=== PATIENT | male | born 1965 | race Caucasian/White ===

== ENCOUNTER 2022-05-25 19:26 | Inpatient (IN) | payer OTHER, SELFPAY ==
--- NOTE | ~2022-05-25 | XR_ITS ---
EXAMINATION: XR CHEST CLINICAL INFORMATION: Lung pain COMPARISON: None TECHNIQUE: Frontal view of the chest was obtained. FINDINGS: The study is abnormal. There is mediastinal shift to the left with elevation of the left hemidiaphragm. The cardiac silhouette is diminutive. The right lung is large volume. There is a convex outward masslike opacity in the left hilum. Reticular and patchy opacities in the left lung apex with associated irregular pleural thickening. I suspect volume loss in the left upper lung. There is some left retrocardiac and left costophrenic sulcus region opacity. No gross bone destruction in the left apex. There are a few central reticular opacities in the right lung. There is a small opacity superimposing between the anterior right second and third ribs XR/XR chest 1V IMPRESSION: Abnormal exam. Masslike opacity around the left hilum and reticular opacities with associated pleural thickening and volume loss in the left upper chest. If there has been no surgery possibilities include an obstructing mass on the left or postinflammatory changes (cicatricial atelectasis) from a chronic inflammatory process. Chronic tuberculosis cannot be entirely excluded Small nonspecific opacity right upper lung Further evaluation is warranted. Thorough search for old films recommended
--- NOTE | ~2022-05-25 | CT_ITS ---
EXAMINATION: CT CHEST WITH CONTRAST CLINICAL INFORMATION: Left chest discomfort COMPARISON: Chest radiograph 05/25/2022 TECHNIQUE: Multidetector volumetric CT imaging of the chest was obtained after the administration of 65 mL of Omnipaque 350 intravenous contrast without immediate adverse reactions. Axial MIP volume rendering provided. Sagittal and coronal reformatted images were obtained. This CT examination was performed using dose optimization techniques as appropriate, variously including the following: *Automated exposure control *Adjustment of mA and/or kV according to patient size (this includes techniques or standardized protocols for targeted exams where dose is matched to indication/reason for exam; i.e. extremities or head) *Use of iterative reconstruction technique DLP: 172 mGy-cm FINDINGS: QUALITY REVIEW TRAINER: Hyperexpanded lungs. Left-sided volume loss. LUNGS: The central airways are patent. There is occlusion of the left lower lobe bronchus. There is severe centrilobular and paraseptal emphysema with panlobular appearance at the upper lobes. Left upper lobe bronchiectasis with surrounding consolidation. Much of the left lower lobe is collapsed, with central obstructing process. In the left hilar region there is appearance of a heterogeneous mass. This measures 4.4 x 2.6 x 3.5 cm. No additional pulmonary nodule or mass. No pneumothorax. No pleural effusion. MEDIASTINUM: Normal heart size. No pericardial effusion. Left hilar region mass as detailed above. There is a left hilar lymph node measuring 1.7 cm short axis on series 4 image 232. AXILLA: No lymphadenopathy. UPPER ABDOMEN: Unremarkable OSSEOUS STRUCTURES: No acute or suspicious osseous abnormality. CT/CT chest w IV con IMPRESSION: Central left lower lobe/left hilar mass. This includes the left lower lobe bronchus with much of the left lower lobe collapsed. Concerning for neoplasm. There is an adjacent left hilar lymph node which is enlarged, concerning for metastatic disease. Severe emphysema. Left upper lobe bronchiectasis with pleural thickening. Fleischner guidelines were followed.
--- NOTE | ~2022-05-25 | CT_ITS ---
EXAMINATION: CT ABDOMEN AND PELVIS WITH CONTRAST CLINICAL INFORMATION: Evaluate for metastasis in patient with lung cancer. COMPARISON: Chest CT from 05/25/2022. TECHNIQUE: Multidetector volumetric images were obtained from the superior aspect of the liver through the pubic symphysis following administration 85 mL of Omnipaque 350 intravenous contrast. Sagittal and coronal reformatted images were obtained on the technologist's workstation. Oral contrast: No This CT examination was performed using dose optimization techniques as appropriate, variously including the following: *Automated exposure control *Adjustment of mA and/or kV according to patient size (this includes techniques or standardized protocols for targeted exams where dose is matched to indication/reason for exam; i.e. extremities or head) *Use of iterative reconstruction technique DLP: 161 mGy-cm FINDINGS: LUNG BASES: Moderate left pleural effusion is partially included in the [id number] and is increased in size compared to 05/26/2022. The visualized left lower lung is collapsed and there is left-sided shift of the cardiomediastinal structures. The emphysematous right lung is hyperexpanded. No right-sided pleural effusion. LIVER: The liver has normal size, shape, and attenuation. No evidence of liver metastasis. GALLBLADDER AND BILIARY TREE: Gallbladder is without radiopaque stones, wall thickening or pericholecystic fluid. No dilated bile ducts. PANCREAS: Normal. No edema, pancreatic ductal dilatation or mass. SPLEEN: Normal. ADRENAL GLANDS: Normal. KIDNEYS AND URETERS: The kidneys are normal in size and enhance symmetrically. No renal mass. 0.5 cm calyceal stone of the lateral upper pole of the left kidney has attenuation of approximately 1720 Hounsfield units and is located 3.8 cm deep from the skin surface at the posterior axillary line. Small, 0.2 cm calyceal stone is present in the left lower pole. No hydronephrosis. The ureters are unremarkable. BLADDER: Normal. No calculi or wall thickening. BOWEL AND PERITONEUM: No dilated loops of bowel. Moderate amount fecal material is present in the colon. A 2.1 cm focus of soft tissue attenuation in the sigmoid colon is not convincingly stool and instead probably represents a large polyp for which correlation with findings on colonoscopy is recommended. No abdominal free fluid. ABDOMINAL WALL: Unremarkable. VASCULATURE: Mild atherosclerotic calcification of the abdominal aorta without aneurysm. LYMPH NODES: No pathologic sized lymph nodes in the abdomen or pelvis. No inguinal lymphadenopathy. PELVIC VISCERA: Prostate gland is grossly unremarkable. SKELETAL: Bones are diffusely osteopenic. Bone island of L4 vertebral body. No suspicious osseous lesions. CT/CT abdomen pelvis w IV con IMPRESSION: * No evidence of metastatic disease in the abdomen or pelvis. * Moderate left pleural effusion is partially included in the [id number] and has increased in size compared to 05/25/2022. The partially visualized left lower lung is collapsed. * 2.1 cm polypoid lesion of the sigmoid colon is suspected. Recommend correlation with findings on colonoscopy. * Left renal stones without hydronephrosis.
--- NOTE | ~2022-05-25 | MR_ITS ---
MR BRAIN WITHOUT AND WITH CONTRAST CLINICAL INFORMATION: Lung cancer. Rule out metastatic disease. COMPARISON: None available. TECHNIQUE: Multiplanar, multisequence MRI of the brain was obtained before and after the intravenous administration of 5 mL of Gadavist. FINDINGS: There is no pathologic intracranial enhancement. There is no hydrocephalus, extra-axial surface collection, or herniation. There is mild chronic microangiopathy. The major flow voids at the skull base are preserved. There is no acute infarct on diffusion-weighted imaging. There is no intracranial hemorrhage on the gradient recalled echo acquisition. The midline structures are normal. The cerebellar tonsils are normally positioned. The cerebellum and brainstem are normal. The craniocervical junction is normal. Osseous marrow signal intensity is homogenous. The visualized soft tissues are unremarkable. There is mild mucosal thickening within the right maxillary sinus. MR/MR head/brain wo/w con IMPRESSION: - No evidence of intracranial metastatic disease; there are no enhancing lesions intracranially. - There is mild chronic microangiopathy.
[2022-05-25 19:28] VITALS: BP 119/77; PULSE 100; RESP 18; TEMP 37; O2SAT 95; BMI 19.1
--- NOTE | 2022-05-25 19:30 | ECG_ITS ---
Test Reason : sob chest pain Blood Pressure : / mmHG Vent. Rate : 090 BPM Atrial Rate : 090 BPM P-R Int : 130 ms QRS Dur : 086 ms QT Int : 346 ms P-R-T Axes : 081 070 081 degrees QTc Int : 423 ms Normal sinus rhythm Normal ECG No previous ECGs available Referred By: Generic ED Physician Electronically Signed By:Hakeem Kowalski
[2022-05-25 19:43] LABS: MANUAL DIFF FLAG NO
[2022-05-25 19:45] LABS: Basophils Absolute Auto 0.1 X10*3/uL (0.0-0.2); Basophils Percent Auto 0.6 % (0-2); Eosinophils Absolute Auto 0.1 X10*3/uL (0.0-0.4); Eosinophils Percent Auto 0.9 % (0-4); Hematocrit 42.7 % (42.0-52.0); Imm Gran Abs Auto 0.02 X10*3/uL (0.00-0.03); Imm Gran Pct Auto 0.2 % (0.0-0.4); Lymphocytes Absolute Auto 1.6 X10*3/uL (1.2-4.9); Lymphocytes Percent Auto 19.3 % (20-40); Mean Corpuscular HGB Conc 32.8 g/dl (31.0-36.0); Mean Corpuscular Volume 88.4 fL (80.0-98.0); Mean Platelet Volume 9.8 fL (9.4-12.4); Monocytes Absolute Auto 0.8 X10*3/uL (0.1-1.2); Monocytes Percent Auto 9.5 % (2-11); Neutrophils Absolute Auto 5.6 x10*3/uL (2.0-8.3); Neutrophils Percent Auto 69.5 % (45-73); Platelet Count 322 X10*3/uL (160-400); Red Blood Count 4.83 X10*6/uL (4.60-5.80); Red Cell Distribution Width 14.1 % (11.0-16.0); White Blood Count 8.1 X10*3/uL (4.8-10.8)
[2022-05-25 20:01] LABS: Alanine Aminotransferase 13 U/L (0-40); Albumin Level 4.1 g/dL (3.5-5.0); Alkaline Phosphatase 99 U/L (39-117); Anion Gap 18 (12-20); Aspartate Amino Transferase 27 U/L (5-37); Bilirubin Total 0.3 mg/dL (0.0-1.0); Blood Urea Nitrogen 10 mg/dL (9-16); Calcium 9.2 mg/dL (8.4-10.2); Carbon Dioxide 19 mmol/L (22-29); Chloride 103 mmol/L (96-108); Creatinine Clr Calc Pharmacy 80.1; Estimated Glomerular Filt Rate > 60; Glucose Random 93 mg/dL (60-115); Potassium 3.8 mmol/L (3.3-5.1); Sodium 136 mmol/L (135-145)
[2022-05-25 20:07] LABS: Troponin-I High Sensitivity < 3.5 ng/L (<3.5-35.0)
[2022-05-25 22:38] VITALS: PULSE 81; O2SAT 97
--- NOTE | 2022-05-25 23:25 | ED_ITS ---
HPI - Chest Pain General Chief Complaint: Chest Pain Stated Complaint: Flank pain Time Seen by Provider: 05/25/22 22:32 Source: patient, automotive lube technician and other Mode of arrival: ambulatory History of Present Illness HPI narrative: 56-year-old male with longstanding history of smoking and ?asthma? states that he began coughing earlier in the evening and then developed significant left- sided chest pain that feels like somebody kicked him in the chest. Patient denies any recent travel to TB endemic areas, originally born in [place] and denies any previous testing or evaluation for TB, denies any recent weight loss/night sweats, denies any fevers or chills, occasionally drinks alcohol but denies any other drug use or marijuana use. Related Data Home Medications Medication Instructions Recorded Confirmed No Known Home Meds 05/25/22 05/25/22 Allergies Allergy/AdvReac Type Severity Reaction Status Date / Time No Known Allergies Allergy Verified 05/25/22 19:30 Review of Systems Review of Systems: Pertinent positives and negatives as stated in HPI 10 point review of systems is otherwise negative. PMFSH Past Medical History Source: nursing notes reviewed Social History Social History Advance Directives: No Advance Directives Information Provided: Yes Physical Exam Vital Signs: Vital Signs: Last Vital Signs Temp 98.6 F 05/25/22 19:28 Pulse 81 05/25/22 22:38 Resp 18 05/25/22 19:28 BP 119/77 05/25/22 19:28 Pulse Ox 97 05/25/22 22:38 O2 Del Method 05/25/22 22:38 BMI result Body Mass Index 19.1 VITAL SIGNS: Reviewed. GENERAL: Slender, well nourished, in no acute distress. HEAD: Normocephalic/atraumatic EYES: PERRLA, EOMI EARS: Ext canals without abnormality OROPHARYNX: no oral lesions noted, posterior pharynx clear LUNGS: Good inspiratory effort without expiratory wheeze with the exception on left side with noted crackles and expiratory wheeze, mild tachypnea. SpO2<97>; CHEST WALL: No chest wall pain with the exception palpation over the left side without noted deformity or crepitus CARDIOVASCULAR: Regular rate and rhythm without noted murmurs, no JVD or lower extremity edema. ABDOMEN: Soft, non-tender, non-distended with bowel sounds. MUSCULOSKELETAL: No tenderness, deformities, or effusions noted on gross inspection. EXTREMITIES: No cyanosis, clubbing or edema. SKIN: Inspection of the skin reveals no rashes NEUROLOGIC: Alert and oriented x 4. Strength and sensation to light touch were grossly intact x 4. Course Course Course Narrative: This is a 56-year-old male, smoker, with history and clinical presentation after review investigations of either lung mass and given lack of symptoms decrease likelihood of TB, however given the location of the mass cannot completely rule out. IV was placed, medication given to include albuterol treatment and will proceed with CT with IV contrast. Review of all investigations consistent with new left lung mass, suspect metastatic disease, patient requiring pain medication and discuss the case with inpatient hospitalist who accepts admission. Patient is COVID-19 negative. MDM - Chest Pain Lab Data Result diagrams: 05/25/22 19:39 05/25/22 19:39 Labs: Lab Results 05/25/22 05/25/22 05/25/22 Range/Units 19:39 19:39 19:39 WBC 8.1 (4.8-10.8) X10*3/uL RBC 4.83 (4.60-5.80) X10*6/uL Hgb 14.0 (14.0-18.0) g/dl Hct 42.7 (42.0-52.0) % MCV 88.4 (80.0-98.0) fL MCH 29.0 (27.0-33.0) pg MCHC 32.8 (31.0-36.0) g/dl RDW 14.1 (11.0-16.0) % Plt Count 322 (160-400) X10*3/uL MPV 9.8 (9.4-12.4) fL Immature Gran % (Auto) 0.2 (0.0-0.4) % Neut % (Auto) 69.5 (45-73) % Lymph % (Auto) 19.3 L (20-40) % Whitfield % (Auto) 9.5 (2-11) % Eos % (Auto) 0.9 (0-4) % Baso % (Auto) 0.6 (0-2) % Lymph # (Auto) 1.6 (1.2-4.9) X10*3/uL Whitfield # (Auto) 0.8 (0.1-1.2) X10*3/uL Eos # (Auto) 0.1 (0.0-0.4) X10*3/uL Baso # (Auto) 0.1 (0.0-0.2) X10*3/uL Abs Immat Gran (auto) 0.02 (0.00-0.03) X10*3/uL Absolute Neuts (auto) 5.6 (2.0-8.3) x10*3/uL Absolute Nucleated RBC 0.000 (0.0-0.012) X10*3/uL Nucleated RBC % (auto) 0.0 (0.0-0.2) /100WBC Sodium 136 (135-145) mmol/L Potassium 3.8 (3.3-5.1) mmol/L Chloride 103 (96-108) mmol/L Carbon Dioxide 19 L (22-29) mmol/L Anion Gap 18 (12-20) BUN 10 (9-16) mg/dL Creatinine 0.75 (0.5-1.4) mg/dL Estim Creat Clear Calc 80.1 Estimated GFR > 60 Random Glucose 93 (60-115) mg/dL Calcium 9.2 (8.4-10.2) mg/dL Total Bilirubin 0.3 (0.0-1.0) mg/dL AST 27 (5-37) U/L ALT 13 (0-40) U/L Alkaline Phosphatase 99 (39-117) U/L Troponin I High Sens < 3.5 (<3.5-35.0) ng/L Total Protein 8.0 (6.5-8.0) g/dL Albumin 4.1 (3.5-5.0) g/dL COVID-19 ([facility]) (Negative) COVID-19 Clin Com 05/25/22 Range/Units 23:43 WBC (4.8-10.8) X10*3/uL RBC (4.60-5.80) X10*6/uL Hgb (14.0-18.0) g/dl Hct (42.0-52.0) % MCV (80.0-98.0) fL MCH (27.0-33.0) pg MCHC (31.0-36.0) g/dl RDW (11.0-16.0) % Plt Count (160-400) X10*3/uL MPV (9.4-12.4) fL Immature Gran % (Auto) (0.0-0.4) % Neut % (Auto) (45-73) % Lymph % (Auto) (20-40) % Whitfield % (Auto) (2-11) % Eos % (Auto) (0-4) % Baso % (Auto) (0-2) % Lymph # (Auto) (1.2-4.9) X10*3/uL Whitfield # (Auto) (0.1-1.2) X10*3/uL Eos # (Auto) (0.0-0.4) X10*3/uL Baso # (Auto) (0.0-0.2) X10*3/uL Abs Immat Gran (auto) (0.00-0.03) X10*3/uL Absolute Neuts (auto) (2.0-8.3) x10*3/uL Absolute Nucleated RBC (0.0-0.012) X10*3/uL Nucleated RBC % (auto) (0.0-0.2) /100WBC Sodium (135-145) mmol/L Potassium (3.3-5.1) mmol/L Chloride (96-108) mmol/L Carbon Dioxide (22-29) mmol/L Anion Gap (12-20) BUN (9-16) mg/dL Creatinine (0.5-1.4) mg/dL Estim Creat Clear Calc Estimated GFR Random Glucose (60-115) mg/dL Calcium (8.4-10.2) mg/dL Total Bilirubin (0.0-1.0) mg/dL AST (5-37) U/L ALT (0-40) U/L Alkaline Phosphatase (39-117) U/L Troponin I High Sens (<3.5-35.0) ng/L Total Protein (6.5-8.0) g/dL Albumin (3.5-5.0) g/dL COVID-19 ([facility]) Negative (Negative) COVID-19 Clin Com See Note ECG Data ECG #1: Attestation: I personally reviewed and interpreted this ECG as follows: Prior ECG tracings: not available for review Interpretation: NSR, HR-90, no STEMI, IN/QRS/QTC is within normal limits. Discharge Plan Discharge Clinical Impression: Chest pain, Mass of left lung, Intractable pain Patient Disposition: Admitted As Inpatient Prescriptions: No Action No Known Home Meds
[2022-05-25] MEDS: Ketorolac Tromethamine 30 MG/ML VIAL 15 MG IVPUSH (23:38)
[2022-05-25] MEDS: Albuterol/Iprat 2.5/0.5MG 3 ML AMPUL.NEB INHALE (23:39)
[2022-05-26] VITALS (12 sets, daily range): BP systolic 107–139; BP diastolic 57–71; PULSE 59–85; RESP 13–26; O2SAT 92–97
[2022-05-26 00:12] LABS: COVID-19 Test Negative (Negative); IDNOW Serial# 16C4AD1C
[2022-05-26] MEDS: HYDROmorphone HCl 0.5 MG/0.5 ML SYRINGE 0.25 MG IVPUSH (00:16)
[2022-05-26] MEDS: Enoxaparin Sodium 40 MG/0.4 ML SYRINGE SUBCUT ×2 (01:36→20:03)
[2022-05-26 01:58] LABS: D Dimer High Sensitivity < 150 NG/ML
[2022-05-26 02:05] LABS: Troponin-I High Sensitivity < 3.5 ng/L (<3.5-35.0)
--- NOTE | 2022-05-26 02:07 | P.HPHOSP_ITS ---
History of Present Illness Date of Service: 05/26/22 Chief Complaint: Left chest wall pain 56-year-old male with a past medical history of asthma, tobacco dependence presented to the hospital today with a chief complaint of chest pain. Patient reports that for the past 1 week he has been having left lateral chest wall pain, worsens with deep inspiration; also served shortness of breath; mentioned that this is chest wall pain is gradually worsening today he had severe pain hence decided to come to the ER for further evaluation. Denies any fall or trauma. Denies any palpitations, lightheaded or dizziness. Denies any nausea vomiting diarrhea. Denies any cough or sputum production. Review of all other systems is negative except mentioned above ER course: Per ER team patient noted to have pleuritic left chest pain; CT chest showed findings concerning for lung mass versus lower lobe collapse. Breathing comfortably on room air. EKG was nonischemic; troponin was negative; given pain medication. Admitted to the hospital for further management PMFSH Medical History Asthma Non-small cell cancer of left lung Tobacco dependence Family History Other No family history of cancer Pertinent family history: Denies any history of cancer in the family Surgical History History of lung biopsy Social History Household Members: Family Housing: House Are you a primary congregational care pastor to a significant other at home: No Do you presently have visiting nurse or other home services: No Patient Tobacco Use Status: Former Tobacco user Tobacco use type: Cigarette Cigarettes Per Day: 20 Years Smoked: 30 years Second Hand Smoke Exposure: No Advance Directives: No service: No Current occupational status: disabled Meds Allergies Allergy/AdvReac Type Severity Reaction Status Date / Time No Known Allergies Allergy Verified 06/21/22 16:25 Active Medications: Current Medications Acetaminophen (Acetaminophen 325 Mg Tablet) 650 mg PO Q6H PRN PRN Reason: Pain, Mild (Pain Scale 1-3) Albuterol/Ipratropium (Albuterol/Iprat 2.5/0.5mg 3 Ml Ampul.Neb) 3 ml INHALE RQ4H PRN PRN Reason: Shortness of Breath/Wheezing Enoxaparin Sodium (Enoxaparin Sodium 40 Mg/0.4 Ml Syringe) 40 mg SUBCUT BEDTIME ABIMBOLA Last Admin: 05/26/22 01:36 Dose: 40 mg Hydromorphone HCl (Hydromorphone Hcl 0.5 Mg/0.5 Ml Syringe) 0.5 mg IVPUSH Q4H PRN; Protocol PRN Reason: Pain, Severe (Pain Scale 7-10) Melatonin (Melatonin 3 Mg Tablet) 6 mg PO BEDTIME PRN PRN Reason: Insomnia Senna (Sennosides 8.6 Mg Tablet) 17.2 mg PO BEDTIME PRN PRN Reason: Constipation Sodium Chloride (0.9 % Sodium Chloride Flush 3 Ml Syringe) 3 ml IVFLUSH QSHIFT ABIMBOLA Physical Exam Vital Signs and Narrative: Vital Signs: Last Vital Signs Temp 98.6 F 05/25/22 19:28 Pulse 70 05/26/22 01:55 Resp 26 H 05/26/22 01:55 BP 116/57 L 05/26/22 01:55 Pulse Ox 95 05/26/22 01:55 O2 Del Method 05/26/22 01:55 BMI result Body Mass Index 19.1 Gen: Appears be in no acute distress. Thin built HEENT: NCAT, Moist mucosa. Pulmonary: Vesicular breath sounds, fair air entry. Chest wall pain non reproducible CVS: Normal S1-S2 Abdomen: BS+, Soft, Nontender Extremities: Warm well perfused Neuro: Alert and awake. Grossly nonfocal Results Labs CBC and Chem 7: 06/05/22 15:57 06/03/22 06:07 Labs: Laboratory Results - last 24 hr 05/25/22 05/25/22 05/25/22 19:39 19:39 19:39 MCV 88.4 MCH 29.0 MCHC 32.8 RDW 14.1 Plt Count 322 MPV 9.8 Immature Gran % (Auto) 0.2 Neut % (Auto) 69.5 Lymph % (Auto) 19.[address] [facility] % (Auto) 9.5 Eos % (Auto) 0.9 Baso % (Auto) 0.6 Lymph # (Auto) 1.6 [facility] # (Auto) 0.8 Eos # (Auto) 0.1 Baso # (Auto) 0.1 Abs Immat Gran (auto) 0.02 Absolute Neuts (auto) 5.6 Absolute Nucleated RBC 0.000 Nucleated RBC % (auto) 0.0 D-Dimer High Sensitivty Anion Gap 18 Estim Creat Clear Calc 80.1 Estimated GFR > 60 Random Glucose 93 Calcium 9.2 Total Bilirubin 0.3 AST 27 ALT 13 Alkaline Phosphatase 99 Troponin I High Sens < 3.5 Total Protein 8.0 Albumin 4.1 COVID-19 ([facility]) COVID-19 Clin Com 05/25/22 05/26/22 05/26/22 23:43 01:32 01:32 MCV MCH MCHC RDW Plt Count MPV Immature Gran % (Auto) Neut % (Auto) Lymph % (Auto) [facility] % (Auto) Eos % (Auto) Baso % (Auto) Lymph # (Auto) [facility] # (Auto) Eos # (Auto) Baso # (Auto) Abs Immat Gran (auto) Absolute Neuts (auto) Absolute Nucleated RBC Nucleated RBC % (auto) D-Dimer High Sensitivty < 150 Anion Gap Estim Creat Clear Calc Estimated GFR Random Glucose Calcium Total Bilirubin AST ALT Alkaline Phosphatase Troponin I High Sens < 3.5 Total Protein Albumin COVID-19 ([facility]) Negative COVID-19 Clin Com See Note Imaging Radiologist's Impressions: Impressions Chest X-Ray 05/25/22 19:50 IMPRESSION: Abnormal exam. Masslike opacity around the left hilum and reticular opacities with associated pleural thickening and volume loss in the left upper chest. If there has been no surgery possibilities include an obstructing mass on the left or postinflammatory changes (cicatricial atelectasis) from a chronic inflammatory process. Chronic tuberculosis cannot be entirely excluded Small nonspecific opacity right upper lung Further evaluation is warranted. Thorough search for old films recommended Chest CT 05/26/22 00:10 IMPRESSION: Central left lower lobe/left hilar mass. This includes the left lower lobe bronchus with much of the left lower lobe collapsed. Concerning for neoplasm. There is an adjacent left hilar lymph node which is enlarged, concerning for metastatic disease. Severe emphysema. Left upper lobe bronchiectasis with pleural thickening. Fleischner guidelines were followed. Assessment and Plan (1) Mass of left lung: Status: Inactive Plan 56-year-old male with a past medical history of asthma, tobacco dependence presented to the hospital today with a chief complaint of chest pain. Noted to have left hilar mass/collapsed left lower lobe concerning for neoplasm on the CT scan. Admitted for further management. Left chest wall pain: Pleuritic in nature. Currently improved with pain medication. EKG nonischemic. Initial troponin negative. Repeat troponin pending. D-dimer pending CT chest showed left lower lobe/left hilar mass/left hilar lymph node/left lower lobe collapse. Patient breathing comfortably on room air currently. Riley dahl Will consult pulmonology and Oncology for further recommendations. Tobacco dependence: Counseled on smoking cessation. History of asthma/COPD: Riley dahl DVT prophylaxis: Lovenox Code status: Full code Quality Stroke Does the patient have a stroke diagnosis?: No VTE Prior VTE?: No VTE Risk Level:: Medical - moderate - high VTE Device Contraindication: Treatment Not Indicated VTE Drug Contraindication: N/A - Med Ordered
--- NOTE | 2022-05-26 02:36 | PC.NURSE ---
Pt came into ER complaining of left flank pain, radiating upwards. Pt asleep at this time, no apparent distress
[2022-05-26 07:17] LABS: MANUAL DIFF FLAG NO
[2022-05-26 07:30] LABS: Basophils Percent Auto 0.7 % (0-2); Eosinophils Absolute Auto 0.1 X10*3/uL (0.0-0.4); Eosinophils Percent Auto 1.9 % (0-4); Hematocrit 39.6 % (42.0-52.0); Hemoglobin 12.8 g/dl (14.0-18.0); Imm Gran Abs Auto 0.01 X10*3/uL (0.00-0.03); Imm Gran Pct Auto 0.2 % (0.0-0.4); Lymphocytes Absolute Auto 1.4 X10*3/uL (1.2-4.9); Lymphocytes Percent Auto 23.5 % (20-40); Mean Corpuscular HGB Conc 32.3 g/dl (31.0-36.0); Mean Corpuscular Hemoglobin 28.8 pg (27.0-33.0); Mean Platelet Volume 10.2 fL (9.4-12.4); Monocytes Absolute Auto 0.7 X10*3/uL (0.1-1.2); Monocytes Percent Auto 11.3 % (2-11); Neutrophils Absolute Auto 3.7 x10*3/uL (2.0-8.3); Neutrophils Percent Auto 62.4 % (45-73); Platelet Count 272 X10*3/uL (160-400); Red Blood Count 4.45 X10*6/uL (4.60-5.80); White Blood Count 5.9 X10*3/uL (4.8-10.8)
[2022-05-26 07:38] LABS: Anion Gap 13 (12-20); Blood Urea Nitrogen 9 mg/dL (9-16); Carbon Dioxide 25 mmol/L (22-29); Chloride 102 mmol/L (96-108); Estimated Glomerular Filt Rate > 60; Glucose Random 92 mg/dL (60-115); Potassium 4.1 mmol/L (3.3-5.1); Sodium 136 mmol/L (135-145)
[2022-05-26] MEDS: HYDROmorphone HCl 0.5 MG/0.5 ML SYRINGE IVPUSH ×3 (09:36→22:49)
--- NOTE | 2022-05-26 09:57 | MHC.CM.PN ---
Attempted to meet with patient in regards to discharge planning. Patient currently sleeping. No family present. Will attempt to meet again. Continue to monitor for d/c needs.
--- NOTE | 2022-05-26 10:58 | PHA.MEDREC ---
Pharmacy Consult ? Medication Reconciliation Pharmacy has reviewed the medication reconciliation by nursing. Katie Hinojosa, PharmD
--- NOTE | 2022-05-26 12:35 | P.CONPL_ITS ---
History of Present Illness History of Present Illness Consult date: 05/26/22 Requesting physician: Jim Naqvi Chief complaint: Lung mass Narrative: 56-year-old gentleman, active 40+ pack-year smoker with underlying history of asthma admitted on 05/26/2022 with progressive left chest wall pain. On ER evaluation patient noted to have left lung mass on CT chest, likely responsible for his symptoms. He has been admitted for pain control. Patient denies cough or sputum production fevers or chills. Review of Systems Constitutional: Constitutional: Denies daytime sleepiness, Denies excessive sweating, Denies fatigue, Denies fever(s), Denies lethargy, Denies malaise, Denies night sweats, Denies snoring and Denies weight loss Eyes: Eyes: Denies blurry vision and Denies itchy eyes ENT: Denies nasal congestion, Denies post nasal drip, Denies sinus pain, Denies sinus pressure and Denies other ( Thrush) Cardiovascular: Cardiovascular: Denies chest pain, Denies pedal edema, Denies dyspnea, Denies orthopnea and Denies paroxysmal nocturnal dyspnea Respiratory: Respiratory: Denies cough, Denies hemoptysis, Denies excessive phlegm production, Denies dyspnea, Denies snoring, Denies wheezing and Reports other ( Left-sided chest wall pain) Gastrointestinal: Gastrointestinal: Denies abdominal pain and Denies heartburn Musculoskeletal: Musculoskeletal: Denies myalgias, Denies arthralgias and Denies joint swelling Integumentary/Breasts: Skin/Breast: Denies rash Neurologic: Denies memory loss and Denies seizure-like activity Psychiatric: Psychiatric: Denies abnormal sleep pattern, Denies anxiety and Denies memory loss Endocrine: Endocrine: Denies excessive sweating, Denies fatigue and Denies heat intolerance Hematologic/Lymphatic: Hematologic/Lymphatic: Denies easy bruising Allergic/Immunologic: Allergic/Immunologic: Denies itchy eyes, Denies seasonal rhinorrhea and Denies wheezing PMFSH Social History Social History Advance Directives: No Advance Directives Information Provided: Yes Meds Allergies Allergy/AdvReac Type Severity Reaction Status Date / Time No Known Allergies Allergy Verified 05/25/22 19:30 Active Medications: Current Medications Acetaminophen (Acetaminophen 325 Mg Tablet) 650 mg PO Q6H PRN PRN Reason: Pain, Mild (Pain Scale 1-3) Albuterol/Ipratropium (Albuterol/Iprat 2.5/0.5mg 3 Ml Ampul.Neb) 3 ml INHALE RQ4H PRN PRN Reason: Shortness of Breath/Wheezing Enoxaparin Sodium (Enoxaparin Sodium 40 Mg/0.4 Ml Syringe) 40 mg SUBCUT BEDTIME [facility] Last Admin: 05/26/22 01:36 Dose: 40 mg Hydromorphone HCl (Hydromorphone Hcl 0.5 Mg/0.5 Ml Syringe) 0.5 mg IVPUSH Q4H PRN; Protocol PRN Reason: Pain, Severe (Pain Scale 7-10) Last Admin: 05/26/22 09:36 Dose: 0.5 mg Melatonin (Melatonin 3 Mg Tablet) 6 mg PO BEDTIME PRN PRN Reason: Insomnia Senna (Sennosides 8.6 Mg Tablet) 17.2 mg PO BEDTIME PRN PRN Reason: Constipation Sodium Chloride (0.9 % Sodium Chloride Flush 3 Ml Syringe) 3 ml IVFLUSH QSHIFT [facility] Last Admin: 05/26/22 07:39 Dose: Not Given Home Medications Medication Instructions Recorded Confirmed Last Taken Type No Known Home Meds 05/25/22 05/25/22 Unknown History Physical Exam Vital Signs: Vital Signs: Last Vital Signs Temp 98.6 F 05/25/22 19:28 Pulse 67 05/26/22 08:00 Resp 20 05/26/22 08:00 BP 112/59 L 05/26/22 08:00 Pulse Ox 96 05/26/22 08:00 O2 Del Method 05/26/22 08:00 BMI result Body Mass Index 19.1 Const: General: no acute distress and alert Nutritional Appearance: not obese Orientation/consciousness: Other orientation findings ( oriented) HEENT: Head: Yes atraumatic Mouth: no other ( thrush) Throat: No postna leticia drainage Eyes: General: appearance normal, both eyes and all related structures Sclerae: sclerae normal EOM: EOMs intact bilaterally Neck: Neck: Yes supple Lymphatic: no lymphadenopathy noted Resp: Effort & Inspection: normal respiratory effort and no use of accessory muscles Auscultation: clear to auscultation bilaterally Cardio: Rate: regular rate Rhythm: regular rhythm Heart sounds: no gallops, no murmurs and no rubs GI: Palpation (GI): Soft to palpation and Other GI palpation findings present ( nontender) Skin: General skin exam: other ( warm) Rashes: no rashes Extrem: General: No clubbing, No cyanosis and No edema Results Laboratory Findings CBC and BMP: 05/26/22 06:43 05/26/22 06:43 Abnormal lab findings: Abnormal Labs 05/25/22 05/25/22 05/26/22 19:39 19:39 06:43 RBC 4.45 L Hgb 12.8 L Hct 39.6 L Lymph % (Auto) 19.3 L Bleckley % (Auto) 11.3 H Carbon Dioxide 19 L Assessment and Plan (1) Mass of left lung: Status: Acute (2) Chest wall pain: Status: Acute Plan Impression: 56-year-old gentleman admitted with chest wall pain likely seco ndary to underlying lung mass. Underlying severe emphysema with likely severe COPD. Recommendations: Patient will require PET/CT for assessment of underlying distal disease and proper biopsy site with likely endobronchial evaluation. Both can be performed either on inpatient, or outpatient basis. Procedures Date of Service Date of Service: 05/26/22
--- NOTE | 2022-05-26 14:42 | P.CNHO_ITS ---
Subjective - Subjective Chief complaint: pulmonary tumor Patient: new to practice Consult date: 05/26/22 Primary Care Provider: None Physician HPI - Consult Narrative Reason for consult: pulmonary tumor Narrative: Rafael Eubanks is a 56 year old male who presents with severe emphysema and likely copd and a left hilar mass occluding the bronchus. Review of Systems - Constitutional Reports anorexia - Eyes Reports other - ENT Reports system reviewed and no additional complaints, except as documented - Cardiovascular Reports shortness of breath causing sudden awakening - Respiratory Reports dyspnea on exertion - Gastrointestinal Reports feeling full early - Genitourinary Genitourinary: Reports urinary frequency - Musculoskeletal Reports muscle weakness - Neurologic Reports weakness, Denies memory loss, Denies seizure-like activity [facility] Social History: Social History (Last Reviewed 05/25/22 @ 23:27 by Lizzeth Mccabe MD) Advance Directives: Advance Directives: No Advance Directives Information Provided: Yes Home Medications and Allergies Current Medications: Current Medications Acetaminophen (Acetaminophen 325 Mg Tablet) 650 mg PO Q6H PRN PRN Reason: Pain, Mild (Pain Scale 1-3) Albuterol/Ipratropium (Albuterol/Iprat 2.5/0.5mg 3 Ml Ampul.Neb) 3 ml INHALE RQ4H PRN PRN Reason: Shortness of Breath/Wheezing Enoxaparin Sodium (Enoxaparin Sodium 40 Mg/0.4 Ml Syringe) 40 mg SUBCUT BEDTIME [facility] Last Admin: 05/26/22 01:36 Dose: 40 mg Hydromorphone HCl (Hydromorphone Hcl 0.5 Mg/0.5 Ml Syringe) 0.5 mg IVPUSH Q4H PRN; Protocol PRN Reason: Pain, Severe (Pain Scale 7-10) Last Admin: 05/26/22 09:36 Dose: 0.5 mg Melatonin (Melatonin 3 Mg Tablet) 6 mg PO BEDTIME PRN PRN Reason: Insomnia Senna (Sennosides 8.6 Mg Tablet) 17.2 mg PO BEDTIME PRN PRN Reason: Constipation Sodium Chloride (0.9 % Sodium Chloride Flush 3 Ml Syringe) 3 ml IVFLUSH QSHIFT [facility] Last Admin: 05/26/22 07:39 Dose: Not Given Home Medications Medication Instructions Recorded Confirmed Type No Known Home Meds 05/25/22 05/25/22 History Allergies Allergy/AdvReac Type Severity Reaction Status Date / Time No Known Allergies Allergy Verified 05/25/22 19:30 Physical Exam Vital signs: Vital Signs Temp 98.6 F 05/25/22 19:28 Pulse 72 05/26/22 13:52 Resp 14 05/26/22 13:52 BP 139/71 05/26/22 13:52 Pulse Ox 95 05/26/22 13:52 O2 Del Method 05/26/22 13:52 Intake & Output 05/25/22 05/26/22 05/26/22 18:59 06:59 18:59 Other: Weight 52.163 kg Weight 52.163 kg - Constitutional Present: no acute distress - Routine HEENT Exam Head: Present: atraumatic ENT: Present: normal oropharynx - Routine Neck Exam Present: full ROM - Routine Respiratory Exam Present: decreased breath sounds - Routine Cardiovascular Exam Cardiovascular: Present: RRR - Routine Abdominal Exam Present: nontender - Routine Extremities Exam Present: full ROM Hem/Onc Consult Result - Labs CBC & Chem 7: 05/26/22 06:43 05/26/22 06:43 Labs: Short CBC 05/25/22 05/26/22 Range/Units 19:39 06:43 WBC 8.1 5.9 (4.8-10.8) X10*3/uL Hgb 14.0 12.8 L (14.0-18.0) g/dl Hct 42.7 39.6 L (42.0-52.0) % Plt Count 322 272 (160-400) X10*3/uL BMP 05/25/22 05/26/22 19:39 06:43 Sodium 136 136 Potassium 3.8 4.1 Chloride 103 102 Carbon Dioxide 19 L 25 BUN 10 9 Creatinine 0.75 0.77 Calcium 9.2 9.0 Liver Function 05/25/22 Range/Units 19:39 Total Bilirubin 0.3 (0.0-1.0) mg/dL AST 27 (5-37) U/L ALT 13 (0-40) U/L Alkaline Phosphatase 99 (39-117) U/L Albumin 4.1 (3.5-5.0) g/dL Assessment and Plan Patient Active problem list reviewed?: Yes (1) Mass of left lung Start date: 05/26/22 Status: Acute Assessment and plan: He will need a PET/CT scan to determin activity and resectability and then PFTS and thoracic surgery consult to determine operability. Suggest sputa for cytology, bronchoscopy and ilmaging as outpatient. Will follow (2) Intractable pain Status: Acute - Time Spent With Patient Time Spent with Patient (in minutes): 20
[2022-05-26] MEDS: Albuterol/Iprat 2.5/0.5MG 3 ML AMPUL.NEB INHALE (16:57)
[2022-05-26] MEDS: Acetaminophen 325 MG TABLET 650 MG PO (17:30)
[2022-05-27] VITALS (8 sets, daily range): BP systolic 94–144; BP diastolic 58–83; PULSE 71–86; RESP 12–30; TEMP 36.7–37.1; O2SAT 90–95
[2022-05-27] MEDS: HYDROmorphone HCl 0.5 MG/0.5 ML SYRINGE IVPUSH ×2 (04:25→09:38)
[2022-05-27] MEDS: 0.9 % Sodium Chloride Flush 3 ML SYRINGE IVFLUSH (09:38)
--- NOTE | 2022-05-27 09:38 | PC.NURSE ---
called respiratory for pt breathing treatment
[2022-05-27] MEDS: Albuterol/Iprat 2.5/0.5MG 3 ML AMPUL.NEB INHALE (09:43)
--- NOTE | 2022-05-27 10:40 | P.PNIM_ITS ---
Subjective Subjective Date of Service: 05/27/22 Interval History: f/u on chest pain interval history: persistent pain, no sob, Review of Systems chest opain no so Physical Exam Vital Signs: Vital Signs: Last Vital Signs Temp 98.7 F 05/27/22 07:06 Pulse 77 05/27/22 09:43 Resp 21 H 05/27/22 09:43 BP 94/63 05/27/22 07:06 Pulse Ox 94 05/27/22 09:37 O2 Del Method 05/27/22 09:37 BMI result Body Mass Index 19.1 Const: Other: General: AO X 3, no acute distress Resp: CTA bilateral CVS: S1,S2,RRR GI: +BS, NT, no distention Skin: No rash Neuro: motor grossly intact Psych: appropriate affect Objective Data Active Medications Acetaminophen (Acetaminophen 325 Mg Tablet) 650 mg PO Q6H PRN PRN Reason: Pain, Mild (Pain Scale 1-3) Last Admin: 05/26/22 17:30 Dose: 650 mg Documented By: TRINA Albuterol/Ipratropium (Albuterol/Iprat 2.5/0.5mg 3 Ml Ampul.Neb) 3 ml INHALE RQ4H PRN PRN Reason: Shortness of Breath/Wheezing Last Admin: 05/27/22 09:43 Dose: 3 ml Documented By: SHADI Enoxaparin Sodium (Enoxaparin Sodium 40 Mg/0.4 Ml Syringe) 40 mg SUBCUT BEDTIME [facility] Last Admin: 05/26/22 20:03 Dose: 40 mg Documented By: CHANTELL Hydromorphone HCl (Hydromorphone Hcl 0.5 Mg/0.5 Ml Syringe) 1 mg IVPUSH Q4H PRN; Protocol PRN Reason: Pain, Severe (Pain Scale 7-10) Melatonin (Melatonin 3 Mg Tablet) 6 mg PO BEDTIME PRN PRN Reason: Insomnia Oxycodone HCl (Oxycodone Hcl Er 10 Mg Tab.Er.12h) 10 mg PO BID [facility] Senna (Sennosides 8.6 Mg Tablet) 17.2 mg PO BEDTIME PRN PRN Reason: Constipation Sodium Chloride (0.9 % Sodium Chloride Flush 3 Ml Syringe) 3 ml IVFLUSH QSHIFT [facility] Last Admin: 05/27/22 09:38 Dose: 3 ml Documented By: AKIN Labs CBC & Chem 7: 05/26/22 06:43 05/26/22 06:43 Assessment and Plan (1) Chest wall pain: Status: Acute (2) Chest pain: Status: Acute (3) Mass of left lung: Status: Acute (4) Lung mass: Status: Acute Plan 56-year-old male with a past medical history of asthma, tobacco dependence presented to the hospital today with a chief complaint of chest pain.? Noted to have left hilar mass/collapsed left lower lobe concerning for neoplasm on the CT scan.? Admitted for further management.? Left chest wall pain: Pleuritic in nature.? Currently improved with pain medication.? EKG nonischemic.? Initial troponin negative.? Pain likely related to lung mass CT chest showed left lower lobe/left hilar mass/left hilar lymph node/left lower lobe collapse.? Patient breathing comfortably on room air currently.? Riley p.r.n. Pulmonology recommends PFTs and broncho inpatient or outpatient at this time he's having lots of pain and adjustin IV dilaudid, adding oxycontin and if still here by Saturday will have a broncho Oncology is recommending PFTs, thoracic surgery consult--can be done on outpatient basis Tobacco dependence: Counseled on smoking cessation. History of asthma/COPD:? Jose De Jesusbs p.r.n. DVT prophylaxis:? Lovenox Code status:? Full code? Quality Stroke Does the patient have a stroke diagnosis?: No VTE Prior VTE?: No VTE Risk Level:: Medical - moderate - high VTE Device Contraindication: Treatment Not Indicated VTE Drug Contraindication: N/A - Med Ordered
[2022-05-27] MEDS: HYDROmorphone HCl 0.5 MG/0.5 ML SYRINGE 1 MG IVPUSH (14:36)
[2022-05-27] MEDS: Melatonin 3 MG TABLET 6 MG PO (21:24)
[2022-05-27] MEDS: Enoxaparin Sodium 40 MG/0.4 ML SYRINGE SUBCUT (21:24)
[2022-05-27] MEDS: oxyCODONE HCl ER 10 MG TAB.ER.12H PO (21:24)
[2022-05-28 03:44] VITALS: BP 108/64; PULSE 79; RESP 17; TEMP 36.4; O2SAT 92
[2022-05-28] MEDS: HYDROmorphone HCl 0.5 MG/0.5 ML SYRINGE 1 MG IVPUSH ×2 (04:40→14:30)
--- NOTE | 2022-05-28 04:46 | PC.NURSE ---
pt a&o, no sob or chest pain. pt requesting medication for pain management. Medicated per Jan.
[2022-05-28 09:01] VITALS: BP 107/63; PULSE 80; RESP 22; TEMP 36.2; O2SAT 96
[2022-05-28] MEDS: oxyCODONE HCl ER 10 MG TAB.ER.12H PO (09:22)
[2022-05-28] MEDS: 0.9 % Sodium Chloride Flush 3 ML SYRINGE IVFLUSH ×3 (09:24→21:45)
--- NOTE | 2022-05-28 09:35 | MHC.CM.PN ---
Referral to Financial Counselors as pt is listed as Self-Pay.
--- NOTE | 2022-05-28 10:03 | MHC.CM.PN ---
Pt is Telugu Speaking. Referral to Financial counselors completed as pt is self pay Pt reports he lives alone in an apartment, is independent at home/community and Does not utilize DME or receive services at home. Pt does not have a PCP. Does not have a HCP, he was educated-declined at this time. He is COVID vax'd x2. Family or Friend will transport home. D/C Plan Home Self-Care vs Home with New VNA Service
--- NOTE | 2022-05-28 10:25 | PC.NURSE ---
report given to ARAMIS Cyr. pt will transfer to room 470. pt aware of plan.
--- NOTE | 2022-05-28 11:29 | P.PNIM_ITS ---
Subjective Subjective Date of Service: 05/28/22 Interval History: F/u on chest pain interval history:pain is better, no sob Review of Systems chest opain no so Physical Exam Vital Signs: Vital Signs: Last Vital Signs Temp 97.1 F 05/28/22 09:01 Pulse 80 05/28/22 09:01 Resp 22 H 05/28/22 09:01 BP 107/63 05/28/22 09:01 Pulse Ox 96 05/28/22 09:01 O2 Del Method 05/28/22 09:01 BMI result Body Mass Index 19.1 Const: Other: General: AO X 3, no acute distress Resp: CTA bilateral CVS: S1,S2,RRR GI: +BS, NT, no distention Skin: No rash Neuro: motor grossly intact Psych: appropriate affect Objective Data Active Medications Acetaminophen (Acetaminophen 325 Mg Tablet) 650 mg PO Q6H PRN PRN Reason: Pain, Mild (Pain Scale 1-3) Last Admin: 05/26/22 17:30 Dose: 650 mg Documented By: TRINA Albuterol/Ipratropium (Albuterol/Iprat 2.5/0.5mg 3 Ml Ampul.Neb) 3 ml INHALE RQ4H PRN PRN Reason: Shortness of Breath/Wheezing Last Admin: 05/27/22 09:43 Dose: 3 ml Documented By: SHADI Enoxaparin Sodium (Enoxaparin Sodium 40 Mg/0.4 Ml Syringe) 40 mg SUBCUT BEDTIME [facility] Last Admin: 05/27/22 21:24 Dose: 40 mg Documented By: JD Hydromorphone HCl (Hydromorphone Hcl 0.5 Mg/0.5 Ml Syringe) 1 mg IVPUSH Q4H PRN; Protocol PRN Reason: Pain, Severe (Pain Scale 7-10) Last Admin: 05/28/22 04:40 Dose: 1 mg Documented By: ALEKSEY Melatonin (Melatonin 3 Mg Tablet) 6 mg PO BEDTIME PRN PRN Reason: Insomnia Last Admin: 05/27/22 21:24 Dose: 6 mg Documented By: JD Oxycodone HCl (Oxycodone Hcl Er 10 Mg Tab.Er.12h) 10 mg PO BID [facility] Last Admin: 07/11/22 09:22 Dose: 10 mg Documented By: PATTY Senna (Sennosides 8.6 Mg Tablet) 17.2 mg PO BEDTIME PRN PRN Reason: Constipation Sodium Chloride (0.9 % Sodium Chloride Flush 3 Ml Syringe) 3 ml IVFLUSH QSHIFT [facility] Last Admin: 05/28/22 09:24 Dose: 3 ml Documented By: PATTY Labs CBC & Chem 7: 05/26/22 06:43 05/26/22 06:43 Assessment and Plan (1) Chest wall pain: Status: Acute (2) Chest pain: Status: Acute (3) Mass of left lung: Status: Acute (4) Lung mass: Status: Acute Plan 56-year-old male with a past medical history of asthma, tobacco dependence presented to the hospital today with a chief complaint of chest pain.? Noted to have left hilar mass/collapsed left lower lobe concerning for neoplasm on the CT scan.? Lung mass with chest pain -Will need Bx via broncho, scheduled for tomorrow -Dilaudid and oxycodone for pain -oncology following Tobacco dependence: Counseled on smoking cessation. History of asthma/COPD:? DuoNebs p.r.n. DVT prophylaxis:? Lovenox Code status:? Full code? Quality Stroke Does the patient have a stroke diagnosis?: No VTE Prior VTE?: No VTE Risk Level:: Medical - moderate - high VTE Device Contraindication: Treatment Not Indicated VTE Drug Contraindication: N/A - Med Ordered
[2022-05-28 12:00] VITALS: BP 114/56; PULSE 85; RESP 20; TEMP 36.9; O2SAT 91
[2022-05-28] MEDS: Acetaminophen 325 MG TABLET 650 MG PO (14:30)
--- NOTE | 2022-05-28 15:41 | PM.EVENT ---
Event Note Date of Service: 05/28/22 Event Note: Thoracic surgery was asked to consult on this patient for his left lower lobe/left hilar mass with the bronchial involvement and left lower lobe collapse. Patient has already been seen by medical oncology and is scheduled tomorrow for a bronchoscopy with biopsy with pulmonary according to hospitalist note , patient will also be having a PET CT scan performed as well as pulmonary function test. I viewed images with Thoracic surgeon Dr. adilia Fisher and after a biopsy is performed on the area in question will leave it up to supervisor buffing and pasting discretion whether or not they feel patient may be a surgical candidate for the area in question and after pulmonary function testing, PET scan and biopsies are performed and pulmonology deems patient to be surgical candidate they can reach out to thoracic surgery at their discretion for an outpatient appointment with Dr. Fisher. Thank you for allow me to participate in this patient's care if you have any questions or concerns please not hesitate to contact the thoracic surgical department.
[2022-05-28 15:51] VITALS: BP 128/72; PULSE 78; RESP 18; TEMP 36.6; O2SAT 90
[2022-05-28] MEDS: Albuterol/Iprat 2.5/0.5MG 3 ML AMPUL.NEB INHALE (19:12)
[2022-05-28 20:00] VITALS: BP 149/81; PULSE 73; RESP 18; TEMP 36.6; O2SAT 94
[2022-05-29] VITALS (14 sets, daily range): BP systolic 105–123; BP diastolic 63–80; PULSE 65–94; RESP 14–22; TEMP 36.2–37.1; O2SAT 92–100; BMI 17.9
[2022-05-29] MEDS: HYDROmorphone HCl 0.5 MG/0.5 ML SYRINGE 1 MG IVPUSH ×3 (01:46→22:17)
--- NOTE | 2022-05-29 09:09 | MHC.SHP ---
Pre-Procedural Eval Section A Date of Service: 05/29/22 The patient is an INPATIENT: Yes The History & Physical has been completed within 30 days and I have reviewed it.: Yes Section B Chief Complaint: Lung mass Allergies: Allergies Allergy/AdvReac Type Severity Reaction Status Date / Time No Known Allergies Allergy Verified 05/25/22 19:30 Plan Diagnosis/Plan: Unchanged I have reviewed the history and physical and performed a pertinent physical examination on my patient. No changes have occurred unless specified.
[2022-05-29] MEDS: 0.9 % Sodium Chloride Flush 3 ML SYRINGE IVFLUSH ×3 (09:16→20:59)
--- NOTE | 2022-05-29 10:23 | MHC.CM.PN ---
HCP completed, uploaded to [facility], pt given original and copies.
[2022-05-29] MEDS: Lactated Ringers 1,000 ML 50 ML IVCONT (11:15)
--- NOTE | 2022-05-29 11:45 | HO.ANESPROP2 ---
[facility] Active Problems Active Problems: All Active Problems (Updated 05/27/22 @ 10:55 by Ruben Santillan MD) Lung mass (Acute) Chest wall pain (Acute) Chest pain (Acute) Mass of left lung (Acute) Intractable pain (Acute) Surgical History History of Problems with Anesthesia: No Social History Social History Household Members: Family Housing: House Do you presently have visiting nurse or other home services: No Patient Tobacco Use Status: Current everyday Tobacco user Tobacco use type: Cigarette Cigarettes Per Day: 20 Years Smoked: 30 years Second Hand Smoke Exposure: No service: No Current occupational status: disabled Meds Allergies Allergy/AdvReac Type Severity Reaction Status Date / Time No Known Allergies Allergy Verified 05/25/22 19:30 Active Medications: Current Medications Acetaminophen (Acetaminophen 325 Mg Tablet) 650 mg PO Q6H PRN PRN Reason: Pain, Mild (Pain Scale 1-3) Last Admin: 05/28/22 14:30 Dose: 650 mg Albuterol/Ipratropium (Albuterol/Iprat 2.5/0.5mg 3 Ml Ampul.Neb) 3 ml INHALE RQ4H PRN PRN Reason: Shortness of Breath/Wheezing Last Admin: 05/28/22 19:12 Dose: 3 ml Enoxaparin Sodium (Enoxaparin Sodium 40 Mg/0.4 Ml Syringe) 40 mg SUBCUT BEDTIME [facility] Last Admin: 05/28/22 21:30 Dose: Not Given Hydromorphone HCl (Hydromorphone Hcl 0.5 Mg/0.5 Ml Syringe) 1 mg IVPUSH Q4H PRN; Protocol PRN Reason: Pain, Severe (Pain Scale 7-10) Last Admin: 05/29/22 01:46 Dose: 1 mg Melatonin (Melatonin 3 Mg Tablet) 6 mg PO BEDTIME PRN PRN Reason: Insomnia Last Admin: 05/27/22 21:24 Dose: 6 mg Oxycodone HCl (Oxycodone Hcl Er 10 Mg Tab.Er.12h) 10 mg PO BID [facility] Last Admin: 05/29/22 09:16 Dose: Not Given Senna (Sennosides 8.6 Mg Tablet) 17.2 mg PO BEDTIME PRN PRN Reason: Constipation Sodium Chloride (0.9 % Sodium Chloride Flush 3 Ml Syringe) 3 ml IVFLUSH QSHIFT [facility] Last Admin: 05/29/22 09:16 Dose: 3 ml Home Medications Medication Instructions Recorded Confirmed Last Taken Type No Known Home Meds 05/25/22 05/25/22 Unknown History Exam Exam Date and Time: May 29, 2022 1145 Height,Weight and Vital Signs: Height 5 ft 5 in Weight 48.988 kg Last Vital Signs Temp 97.1 F 05/29/22 11:24 Pulse 88 05/29/22 11:24 Resp 20 05/29/22 11:24 BP 123/80 05/29/22 11:24 Pulse Ox 95 05/29/22 11:24 O2 Del Method 05/29/22 11:24 Pertinent Lab Results Pertinent Lab Results: Laboratory Tests 05/25/22 05/25/22 05/25/22 19:39 19:39 19:39 WBC 8.1 RBC 4.83 Hgb 14.0 Hct 42.7 MCV 88.4 MCH 29.0 MCHC 32.8 RDW 14.1 Plt Count 322 MPV 9.8 Immature Gran % (Auto) 0.2 Neut % (Auto) 69.5 Lymph % (Auto) 19.3 L [place] % (Auto) 9.5 Eos % (Auto) 0.9 Baso % (Auto) 0.6 Lymph # (Auto) 1.6 [place] # (Auto) 0.8 Eos # (Auto) 0.1 Baso # (Auto) 0.1 Abs Immat Gran (auto) 0.02 Absolute Neuts (auto) 5.6 Absolute Nucleated RBC 0.000 Nucleated RBC % (auto) 0.0 D-Dimer High Sensitivty Sodium 136 Potassium 3.8 Chloride 103 Carbon Dioxide 19 L Anion Gap 18 BUN 10 Creatinine 0.75 Estim Creat Clear Calc 80.1 Estimated GFR > 60 Random Glucose 93 Calcium 9.2 Total Bilirubin 0.3 AST 27 ALT 13 Alkaline Phosphatase 99 Troponin I High Sens < 3.5 Total Protein 8.0 Albumin 4.1 COVID-19 ([facility]) COVID-19 Clin Com 05/25/22 05/26/22 05/26/22 23:43 01:32 01:32 WBC RBC Hgb Hct MCV MCH MCHC RDW Plt Count MPV Immature Gran % (Auto) Neut % (Auto) Lymph % (Auto) [place] % (Auto) Eos % (Auto) Baso % (Auto) Lymph # (Auto) [place] # (Auto) Eos # (Auto) Baso # (Auto) Abs Immat Gran (auto) Absolute Neuts (auto) Absolute Nucleated RBC Nucleated RBC % (auto) D-Dimer High Sensitivty < 150 Sodium Potassium Chloride Carbon Dioxide Anion Gap BUN Creatinine Estim Creat Clear Calc Estimated GFR Random Glucose Calcium Total Bilirubin AST ALT Alkaline Phosphatase Troponin I High Sens < 3.5 Total Protein Albumin COVID-19 ([facility]) Negative COVID-19 Clin Com See Note 05/26/22 05/26/22 06:43 06:43 WBC 5.9 RBC 4.45 L Hgb 12.8 L Hct 39.6 L MCV 89.0 MCH 28.8 MCHC 32.3 RDW 14.0 Plt Count 272 MPV 10.2 Immature Gran % (Auto) 0.2 Neut % (Auto) 62.4 Lymph % (Auto) 23.5 [place] % (Auto) 11.3 H Eos % (Auto) 1.9 Baso % (Auto) 0.7 Lymph # (Auto) 1.4 [place] # (Auto) 0.7 Eos # (Auto) 0.1 Baso # (Auto) 0.0 Abs Immat Gran (auto) 0.01 Absolute Neuts (auto) 3.7 Absolute Nucleated RBC 0.000 Nucleated RBC % (auto) 0.0 D-Dimer High Sensitivty Sodium 136 Potassium 4.1 Chloride 102 Carbon Dioxide 25 Anion Gap 13 BUN 9 Creatinine 0.77 Estim Creat Clear Calc 78.0 Estimated GFR > 60 Random Glucose 92 Calcium 9.0 Total Bilirubin AST ALT Alkaline Phosphatase Troponin I High Sens Total Protein Albumin COVID-19 ([facility]) COVID-19 Clin Com Airway Mallampati Class: II TM Dist: >3cm Neck ROM: Full Partial: Upper Loose/Missing/Broken Teeth: Yes, Upper and Lower Heart: RRR Lungs: CTA Assessment and Plan Assessment Anesthesia Assessment: Anesthesia Plan Discussed and Chart Reviewed Final Anesthetic Review History of Problems with Anesthesia: No NPO: Yes ASA Class: III Final Preanesthetic Review: Meds/Allgs Chart Reviewed, Consent Obtained/Reviewed and Anes Risks/Benef Reviewed Patient Risk: Intermediate Procedure Risk: Intermediate Anesthetic Plan Anesthetic Plan: GA Disposition: Standard PACU
--- NOTE | 2022-05-29 11:58 | P.PNIM_ITS ---
Subjective Subjective Date of Service: 05/29/22 Interval History: f/u on lung mass, chest pain interval history: has peristent pain, no sob Review of Systems chest pain, no sob Physical Exam Vital Signs: Vital Signs: Last Vital Signs Temp 97.1 F 05/29/22 11:24 Pulse 88 05/29/22 11:24 Resp 20 05/29/22 11:24 BP 123/80 05/29/22 11:24 Pulse Ox 95 05/29/22 11:24 O2 Del Method 05/29/22 11:24 BMI result Body Mass Index 17.9 Const: Other: General: AO X 3, no acute distress Resp: CTA bilateral CVS: S1,S2,RRR GI: +BS, NT, no distention Skin: No rash Neuro: motor grossly intact Psych: appropriate affect Objective Data Active Medications Acetaminophen (Acetaminophen 325 Mg Tablet) 650 mg PO Q6H PRN PRN Reason: Pain, Mild (Pain Scale 1-3) Last Admin: 05/28/22 14:30 Dose: 650 mg Documented By: CEASAR Albuterol/Ipratropium (Albuterol/Iprat 2.5/0.5mg 3 Ml Ampul.Neb) 3 ml INHALE RQ4H PRN PRN Reason: Shortness of Breath/Wheezing Last Admin: 05/28/22 19:12 Dose: 3 ml Documented By: EDUARDO Enoxaparin Sodium (Enoxaparin Sodium 40 Mg/0.4 Ml Syringe) 40 mg SUBCUT BEDTIME REPLACED BY [facility] Last Admin: 05/28/22 21:30 Dose: Not Given Documented By: EDUARDO Non-Admin Reason: held per MD - biopsy tomorrow Hydromorphone HCl (Hydromorphone Hcl 0.5 Mg/0.5 Ml Syringe) 1 mg IVPUSH Q4H PRN; Protocol PRN Reason: Pain, Severe (Pain Scale 7-10) Last Admin: 05/29/22 01:46 Dose: 1 mg Documented By: EDUARDO Melatonin (Melatonin 3 Mg Tablet) 6 mg PO BEDTIME PRN PRN Reason: Insomnia Last Admin: 05/27/22 21:24 Dose: 6 mg Documented By: CABANBE Oxycodone HCl (Oxycodone Hcl Er 10 Mg Tab.Er.12h) 10 mg PO BID REPLACED BY [facility] Last Admin: 05/29/22 09:16 Dose: Not Given Documented By: FREDIS Non-Admin Reason: pt stated pain 11/27. refused for now Senna (Sennosides 8.6 Mg Tablet) 17.2 mg PO BEDTIME PRN PRN Reason: Constipation Sodium Chloride (0.9 % Sodium Chloride Flush 3 Ml Syringe) 3 ml IVFLUSH QSHIFT REPLACED BY [facility] Last Admin: 05/29/22 09:16 Dose: 3 ml Documented By: FREDIS Labs CBC & Chem 7: 05/26/22 06:43 05/26/22 06:43 Assessment and Plan (1) Chest wall pain: Status: Acute (2) Chest pain: Status: Acute (3) Mass of left lung: Status: Acute (4) Lung mass: Status: Acute Plan 56-year-old male with a past medical history of asthma, tobacco dependence presented to the hospital today with a chief complaint of chest pain.? Noted to have left hilar mass/collapsed left lower lobe concerning for neoplasm on the CT scan.? Lung mass with chest pain -Will need Bx via broncho, scheduled for today 05/[address] Medina -Basilia and oxycodone for pain -oncology following--will need outpatient PET scan Tobacco dependence: Counseled on smoking cessation. History of asthma/COPD:? DuHarleybs p.r.n. DVT prophylaxis:? Lovenox Code status:? Full code? Quality Stroke Does the patient have a stroke diagnosis?: No VTE Prior VTE?: No VTE Risk Level:: Medical - moderate - high VTE Device Contraindication: Treatment Not Indicated VTE Drug Contraindication: N/A - Med Ordered
--- NOTE | 2022-05-29 12:51 | P.BOP_ITS ---
Brief Operative Note Date of Service: 05/29/22 Pre-op diagnosis: Lung cancer Post-op diagnosis: same Procedure: Fiberoptic bronchoscope advanced through the endotracheal tube with patient intubated for procedure through the tracheobronchial tree. Small amount of since secretions noted under and suctioned with normal bronchial mucosa underneath. Right-sided inspection was normal. On inspection of the left side tumor completely occluding left lower division bronchus was noted and biopsied with endobronchial forceps with tissue sent for pathological examination. Post biopsy minor blood oozing from the biopsy site was controlled, hemostasis achieved, and site observed with no further blood oozing noted. Patient with returned to PACU in stable condition. Surgeon: Mike Medina MD Anesthesia: GETA Was an Landscape Supervisor used for this Procedure?: No Estimated blood loss (mL): 0 Pathology: other (Endobronchial tumor biopsy) Condition: stable Disposition: PACU
[2022-05-29] MEDS: Enoxaparin Sodium 40 MG/0.4 ML SYRINGE SUBCUT (20:58)
[2022-05-30] VITALS (8 sets, daily range): BP systolic 100–127; BP diastolic 62–79; PULSE 62–91; RESP 15–20; TEMP 36.4–37.2; O2SAT 90–98
[2022-05-30] MEDS: oxyCODONE HCl ER 10 MG TAB.ER.12H PO ×2 (10:39→21:11)
[2022-05-30] MEDS: HYDROmorphone HCl 0.5 MG/0.5 ML SYRINGE 1 MG IVPUSH (10:42)
--- NOTE | 2022-05-30 11:29 | HO.POSTANES ---
Post Anesthesia Evaluation Post Anesthesia Evaluation Vital Signs: Vital Signs Temp Pulse Resp BP Pulse Ox O2 Del Method O2 Flow Rate 05/30/22 08:00 98.6 F 91 20 115/69 92 Nasal Cannula 4 05/30/22 03:52 98.2 F 71 15 100/63 95 Room Air 05/30/22 00:00 97.6 F 62 15 104/62 98 Nasal Cannula 2 Anesthesia: General Mental Status: Awake Pain Control: Satisfactory Nausea/Vomiting: None Hydration: Adequate Anesthesia-Related Issues: No Anes. Related Issues
--- NOTE | 2022-05-30 13:28 | P.PNIM_ITS ---
Subjective Subjective Date of Service: 05/30/22 Interval History: This history was taken in [place] from the patient. C/o ongoing chest pain. Needs insurance + PCP Review of Systems Review of Systems: Yes all other systems are reviewed and are negative Physical Exam Vital Signs: Vital Signs: Last Vital Signs Temp 98.5 F 05/30/22 11:43 Pulse 81 05/30/22 11:43 Resp 18 05/30/22 11:43 BP 110/79 05/30/22 11:43 Pulse Ox 92 05/30/22 11:43 O2 Del Method 05/30/22 11:43 O2 Flow Rate 2 05/30/22 11:43 Oxygen Flow Rate 2 05/30/22 11:42 BMI result Body Mass Index 17.9 Gen: in pain, cachectic HEENT: sclera anicteric, moist mucus membranes Neck: supple Lungs: decreased air entry on L Heart: regular rate and rhythm, no murmurs Abd: soft, non-tender, non-distended Ext: no edema Skin: warm/well-perfused Neuro: alert and oriented x3, no focal findings Psych: appropriate affect Objective Data Active Medications Acetaminophen (Acetaminophen 325 Mg Tablet) 650 mg PO Q6H PRN PRN Reason: Pain, Mild (Pain Scale 1-3) Last Admin: 05/28/22 14:30 Dose: 650 mg Documented By: ANDREEAENOAL Acetaminophen (Acetaminophen 325 Mg Tablet) 650 mg PO ONCE PRN PRN Reason: Pain, Mild (Pain Scale 1-3) Albuterol Sulfate (Albuterol Sulfate (0.083%) 2.5 Mg/3 Ml Vial.Neb) 2.5 mg INHALE ONCE PRN PRN Reason: Wheezing Albuterol/Ipratropium (Albuterol/Iprat 2.5/0.5mg 3 Ml Ampul.Neb) 3 ml INHALE RQ4H PRN PRN Reason: Shortness of Breath/Wheezing Last Admin: 05/28/22 19:12 Dose: 3 ml Documented By: ANDERM Enoxaparin Sodium (Enoxaparin Sodium 40 Mg/0.4 Ml Syringe) 40 mg SUBCUT BEDTIME [facility] Last Admin: 05/29/22 20:58 Dose: 40 mg Documented By: ANDERM Fentanyl (Fentanyl Citrate/Pf 100 Mcg/2 Ml Vial) 25 mcg IVPUSH Q5M PRN; Protocol PRN Reason: Pain, Moderate (Pain Scale 4-6 Hydromorphone HCl (Hydromorphone Hcl 0.5 Mg/0.5 Ml Syringe) 1 mg IVPUSH Q4H PRN; Protocol PRN Reason: Pain, Severe (Pain Scale 7-10) Last Admin: 05/30/22 10:42 Dose: 1 mg Documented By: DON Lactated Ringer's (Lr) 1,000 mls @ 50 mls/hr IVCONT .Q20H [facility] Last Admin: 05/30/22 10:51 Dose: Not Given Documented By: DON Non-Admin Reason: OR ORDER Melatonin (Melatonin 3 Mg Tablet) 6 mg PO BEDTIME PRN PRN Reason: Insomnia Last Admin: 05/27/22 21:24 Dose: 6 mg Documented By: JD Ondansetron HCl (Ondansetron Hcl 4 Mg/2 Ml Vial) 4 mg IVPUSH ONCE PRN PRN Reason: Nausea and Vomiting Oxycodone HCl (Oxycodone Hcl Er 10 Mg Tab.Er.12h) 10 mg PO BID [facility] Last Admin: 05/30/22 10:39 Dose: 10 mg Documented By: DON Oxycodone HCl (Oxycodone Hcl Immed Release 5 Mg Tablet) 5 mg PO ONCE PRN PRN Reason: Pain, Severe (Pain Scale 7-10) Senna (Sennosides 8.6 Mg Tablet) 17.2 mg PO BEDTIME PRN PRN Reason: Constipation Sodium Chloride (0.9 % Sodium Chloride Flush 3 Ml Syringe) 3 ml IVFLUSH QSHIFT [facility] Last Admin: 05/30/22 10:52 Dose: Not Given Documented By: DON Non-Admin Reason: IV Running Labs CBC & Chem 7: 05/26/22 06:43 05/26/22 06:43 Assessment and Plan (1) Chest wall pain: Status: Acute (2) Chest pain: Status: Acute (3) Mass of left lung: Status: Acute (4) Lung mass: Status: Acute Plan hospital d#5 56yo M with asthma + tobacco dependence presenting with chest pain and found to have left hilar mass with LLL collapse # lung mass - bronchoscopy 05/29 showing tumor completely occluding L lower bronchus; biopsied, pathology pending - oxycodone + IV hydromorphone prn pain # acute hypoxic resp failure - wean O2 as tolerated # asthma/COPD - prn nebs # tobacco abuse - nicotine replacement therapy # mild pr/yovani malnutrition - supplemental Ensure # VTE ppx: LMWH # dispo: home with appts with PCP, Oncology, Pulmonary once pain controlled In my clinical judgment, the patient requires continued hospitalization for the following reasons: IV pain contrl Quality Stroke Does the patient have a stroke diagnosis?: No VTE Prior VTE?: No VTE Risk Level:: Medical - moderate - high VTE Device Contraindication: Treatment Not Indicated VTE Drug Contraindication: N/A - Med Ordered
--- NOTE | 2022-05-30 13:40 | MHC.CM.PN ---
Addendum entered by Lina Calhoun 05/30/22 15:49: CM followed up with [facility] [employer], patient has been approved for Medicaid and is now insured. CM met with patient and updated him. He was provided his Medicaid ID # and a Pamphlet on PCP's in the area. Pt reports he will ask his niece to call and find a PCP who is accepting new patients. Original Note: Per ROUNDS discussion, pt is not yet medically cleared for discharge r/t awaiting biopsy results/bronchoscope procedure 05/29 and pain management. D/C plan is home. CM will continue to follow.
[2022-05-30] MEDS: 0.9 % Sodium Chloride Flush 3 ML SYRINGE IVFLUSH (16:22)
[2022-05-30] MEDS: oxyCODONE HCl Immed Release 5 MG TABLET PO (16:27)
[2022-05-30] MEDS: Enoxaparin Sodium 40 MG/0.4 ML SYRINGE SUBCUT (21:06)
[2022-05-31] VITALS (8 sets, daily range): BP systolic 96–124; BP diastolic 58–72; PULSE 74–96; RESP 14–20; TEMP 36.7–37.4; O2SAT 83–98
[2022-05-31] MEDS: 0.9 % Sodium Chloride Flush 3 ML SYRINGE IVFLUSH ×4 (02:33→20:54)
[2022-05-31] MEDS: oxyCODONE HCl Immed Release 5 MG TABLET PO ×2 (05:38→13:25)
--- NOTE | 2022-05-31 07:13 | P.CDIC_ITS ---
CDI Concurrent Query Documentation Clarification: PHYSICIAN'S DOCUMENTATION REQUEST Date of Query: 05/31/22 0714 Patient Name: Rafael Eubanks Admit Date: 05/26/22 Dear Doctor, Please review the following and provide your response in the progress notes. Clinical Indicators: The diagnosis of asthma was documented in the record on 05/30/22. Additional clinical indicators from the record include: Risk Factors/Clinical Indicators/Treatments Per MD progress note 05/30/22 ?asthma/COPD - prn nebs Based on the above, please clarify in the Progress Notes further specificity regarding the type and acuity of the asthma: Type: * Mild intermittent - less than 2x/week * Mild persistent - more than 2x/week but not daily * Moderate persistent - daily and may restrict physical activity * Severe persistent - throughout the day with frequent attacks, limiting activities * Exercise induced * Chronic obstructive asthma and indicate if with acute lower respiratory infection * Asthma with underlying COPD and indicate if with acute lower respiratory infection * Other ? please specify * Unable to determine Acuity: * With acute exacerbation * Uncomplicated * Unable to determine Use of terms such as suspected, likely, concern for, or probable (associated with a specific diagnosis that is being evaluated, monitored, or treated as if it exists) are acceptable and can be coded in the inpatient setting, when documented at the time of discharge. Thank you, Em Danielson RN Extension: [phone] Please use your independent medical judgment in providing your response. THIS QUERY IS PART OF THE PERMANENT MEDICAL RECORD Provider Response: Other Other Diagnosis: unable to determinate at this point
--- NOTE | 2022-05-31 07:13 | MHC.CDI.CONC ---
CDI Concurrent Query Documentation Clarification: PHYSICIAN'S DOCUMENTATION REQUEST Date of Query: 05/31/22 0714 Patient Name: Raafel Eubanks Admit Date: 05/26/22 Dear Doctor, Please review the following and provide your response in the progress notes. Clinical Indicators: The diagnosis of asthma was documented in the record on 05/30/22. Additional clinical indicators from the record include: Risk Factors/Clinical Indicators/Treatments Per MD progress note 05/30/22 ?asthma/COPD - prn nebs Based on the above, please clarify in the Progress Notes further specificity regarding the type and acuity of the asthma: Type: Mild intermittent - less than 2x/week Mild persistent - more than 2x/week but not daily Moderate persistent - daily and may restrict physical activity Severe persistent - throughout the day with frequent attacks, limiting activities Exercise induced Chronic obstructive asthma and indicate if with acute lower respiratory infection Asthma with underlying COPD and indicate if with acute lower respiratory infection Other ? please specify Unable to determine Acuity: With acute exacerbation Uncomplicated Unable to determine Use of terms such as suspected, likely, concern for, or probable (associated with a specific diagnosis that is being evaluated, monitored, or treated as if it exists) are acceptable and can be coded in the inpatient setting, when documented at the time of discharge. Thank you, Em Danielson RN Extension: [phone] Please use your independent medical judgment in providing your response. THIS QUERY IS PART OF THE PERMANENT MEDICAL RECORD Provider Response: Other Other Diagnosis: unable to determinate at this point
[2022-05-31] MEDS: oxyCODONE HCl ER 10 MG TAB.ER.12H PO ×2 (09:29→20:54)
--- NOTE | 2022-05-31 10:04 | PC.RT ---
Spoke with Dr. Christopher about patients Home Oxygen requirements. This pt was found to have Sats of 83% on room air. Pt requires 3 liters at rest and 8 liters via Oxymizer while ambulating. After discussion MD with talk with pt to for possible rehab due to high oxygen requirements when ambulating.
--- NOTE | 2022-05-31 10:11 | P.PNIM_ITS ---
Subjective Subjective Date of Service: 05/31/22 Interval History: Quite short of breath and hypoxic, requiring 3L O2 via NC at rest and 8L O2 via Oxymask with activity Coughing Pain control improved Review of Systems Review of Systems: Yes all other systems are reviewed and are negative Physical Exam Vital Signs: Vital Signs: Last Vital Signs Temp 99.0 F 05/31/22 08:00 Pulse 74 05/31/22 08:00 Resp 20 05/31/22 08:00 BP 96/58 L 05/31/22 08:00 Pulse Ox 91 L 05/31/22 08:00 O2 Del Method 05/31/22 08:00 O2 Flow Rate 2 05/30/22 23:40 Oxygen Flow Rate 2 05/30/22 11:42 BMI result Body Mass Index 17.9 Gen: short of breath HEENT: sclera anicteric, moist mucus membranes Neck: supple Lungs: decreased air entry on L Heart: regular rate and rhythm, no murmurs Abd: soft, non-tender, non-distended Ext: no edema; clubbing present Skin: warm/well-perfused Neuro: alert and oriented x3, no focal findings Psych: appropriate affect ? Objective Data Active Medications Acetaminophen (Acetaminophen 325 Mg Tablet) 650 mg PO Q6H PRN PRN Reason: Pain, Mild (Pain Scale 1-3) Last Admin: 05/28/22 14:30 Dose: 650 mg Documented By: CEASAR Acetaminophen (Acetaminophen 325 Mg Tablet) 650 mg PO ONCE PRN PRN Reason: Pain, Mild (Pain Scale 1-3) Albuterol Sulfate (Albuterol Sulfate (0.083%) 2.5 Mg/3 Ml Vial.Neb) 2.5 mg INHALE ONCE PRN PRN Reason: Wheezing Albuterol/Ipratropium (Albuterol/Iprat 2.5/0.5mg 3 Ml Ampul.Neb) 3 ml INHALE RQ4H PRN PRN Reason: Shortness of Breath/Wheezing Last Admin: 05/28/22 19:12 Dose: 3 ml Documented By: EDUARDO Enoxaparin Sodium (Enoxaparin Sodium 40 Mg/0.4 Ml Syringe) 40 mg SUBCUT BEDTIME [facility] Last Admin: 05/30/22 21:06 Dose: 40 mg Documented By: ALBERTO Melatonin (Melatonin 3 Mg Tablet) 6 mg PO BEDTIME PRN PRN Reason: Insomnia Last Admin: 05/27/22 21:24 Dose: 6 mg Documented By: JD Nicotine Polacrilex (Nicotine Polacrilex 2 Mg Gum) 2 mg BUCCAL Q1H PRN PRN Reason: tobacco craving Ondansetron HCl (Ondansetron Hcl 4 Mg/2 Ml Vial) 4 mg IVPUSH ONCE PRN PRN Reason: Nausea and Vomiting Oxycodone HCl (Oxycodone Hcl Immed Release 5 Mg Tablet) 5 mg PO ONCE PRN PRN Reason: Pain, Severe (Pain Scale 7-10) Oxycodone HCl (Oxycodone Hcl Er 10 Mg Tab.Er.12h) 10 mg PO BID [facility] Last Admin: 05/31/22 09:29 Dose: 10 mg Documented By: KAJAL Oxycodone HCl (Oxycodone Hcl Immed Release 5 Mg Tablet) 5 mg PO Q6H PRN PRN Reason: BREAKTHROUGH PAIN Last Admin: 05/31/22 05:38 Dose: 5 mg Documented By: ELIZABETH Senna (Sennosides 8.6 Mg Tablet) 17.2 mg PO BEDTIME PRN PRN Reason: Constipation Sodium Chloride (0.9 % Sodium Chloride Flush 3 Ml Syringe) 3 ml IVFLUSH QSHIFT [facility] Last Admin: 05/31/22 09:30 Dose: 3 ml Documented By: KAJAL Labs CBC & Chem 7: 05/26/22 06:43 05/26/22 06:43 Assessment and Plan (1) Chest wall pain: Status: Acute (2) Chest pain: Status: Acute (3) Mass of left lung: Status: Acute (4) Lung mass: Status: Acute Plan hospital d#6 56yo M with asthma/COPD + tobacco dependence presenting with chest pain and found to have left hilar mass with LLL collapse # lung mass - bronchoscopy 05/29 showing tumor completely occluding L lower bronchus; biopsied, pathology pending and will need Pulm + Onc f/u as outpt - oxycodone ER standing + IR prn # acute hypoxic resp failure - 3L O2 at rest, 8L O2 via Oxymask with activity # asthma/COPD overlap syndrome, not in acute exacerbation - prn nebs # tobacco abuse - nicotine replacement therapy # mild pr/yovani malnutrition - supplemental Ensure # VTE ppx: LMWH # dispo: PT consult, may need STR In my clinical judgment, the patient requires continued hospitalization for the following reasons: hypoxia, placement Quality Stroke Does the patient have a stroke diagnosis?: No VTE Prior VTE?: No VTE Risk Level:: Medical - moderate - high VTE Device Contraindication: Treatment Not Indicated VTE Drug Contraindication: N/A - Med Ordered
--- NOTE | 2022-05-31 11:39 | MHC.CM.PN ---
Per ROUNDS discussion, Pt is not yet medically cleared for discharge r/t Hypoxia-New on O2 and rehab need. D/C plan to STR pending P.T. evaluation.
--- NOTE | 2022-05-31 12:01 | MHC.CM.PN ---
Per discussion with patient regarding STR rec from MD, he is open to STR requested CM search in [place], [place], and [place]. Referrals to 7 STR's placed. Pt has been approved for [email or web address] [id number].
[2022-05-31] MEDS: Acetaminophen 325 MG TABLET 650 MG PO (13:24)
[2022-05-31] MEDS: HYDROmorphone HCl 0.5 MG/0.5 ML SYRINGE IVPUSH ×2 (18:27→23:28)
[2022-05-31] MEDS: Enoxaparin Sodium 40 MG/0.4 ML SYRINGE SUBCUT (20:53)
[2022-06-01] VITALS (7 sets, daily range): BP systolic 105–165; BP diastolic 61–99; PULSE 74–85; RESP 14–18; TEMP 36.6–37.1; O2SAT 92–99
[2022-06-01] MEDS: HYDROmorphone HCl 0.5 MG/0.5 ML SYRINGE IVPUSH ×3 (06:04→18:18)
[2022-06-01] MEDS: oxyCODONE HCl ER 10 MG TAB.ER.12H 20 MG PO ×2 (08:46→21:21)
[2022-06-01] MEDS: 0.9 % Sodium Chloride Flush 3 ML SYRINGE IVFLUSH ×3 (08:48→21:23)
--- NOTE | 2022-06-01 13:21 | HO.PM.IMPN ---
Subjective Subjective Date of Service: 06/02/22 Interval History: chest wall pain, severe dyspneic Review of Systems Review of Systems: Yes all other systems are reviewed and are negative Physical Exam Vital Signs: Vital Signs: Last Vital Signs Temp 98.6 F 06/01/22 11:20 Pulse 85 06/01/22 11:20 Resp 16 06/01/22 11:20 BP 165/87 H 06/01/22 11:20 Pulse Ox 95 06/01/22 11:20 O2 Del Method 06/01/22 11:20 O2 Flow Rate 3 06/01/22 11:20 Oxygen Flow Rate 2 05/30/22 11:42 BMI result Body Mass Index 17.9 Gen: short of breath HEENT: sclera anicteric, moist mucus membranes Neck: supple Lungs: decreased air entry on L Heart: regular rate and rhythm, no murmurs Abd: soft, non-tender, non-distended Ext: no edema; clubbing present Skin: warm/well-perfused Neuro: alert and oriented x3, no focal findings Psych: appropriate affect Objective Data Active Medications Acetaminophen (Acetaminophen 325 Mg Tablet) 650 mg PO Q6H PRN PRN Reason: Pain, Mild (Pain Scale 1-3) Last Admin: 05/31/22 13:24 Dose: 650 mg Documented By: KAJAL Acetaminophen (Acetaminophen 325 Mg Tablet) 650 mg PO ONCE PRN PRN Reason: Pain, Mild (Pain Scale 1-3) Albuterol Sulfate (Albuterol Sulfate (0.083%) 2.5 Mg/3 Ml Vial.Neb) 2.5 mg INHALE ONCE PRN PRN Reason: Wheezing Albuterol/Ipratropium (Albuterol/Iprat 2.5/0.5mg 3 Ml Ampul.Neb) 3 ml INHALE RQ4H PRN PRN Reason: Shortness of Breath/Wheezing Last Admin: 05/28/22 19:12 Dose: 3 ml Documented By: EDUARDO Enoxaparin Sodium (Enoxaparin Sodium 40 Mg/0.4 Ml Syringe) 40 mg SUBCUT BEDTIME [facility] Last Admin: 05/31/22 20:53 Dose: 40 mg Documented By: NAUMOC Hydromorphone HCl (Hydromorphone Hcl 0.5 Mg/0.5 Ml Syringe) 0.5 mg IVPUSH Q4H PRN; Protocol PRN Reason: Pain, Severe (Pain Scale 7-10) Last Admin: 06/01/22 06:04 Dose: 0.5 mg Documented By: ELIZABETH Melatonin (Melatonin 3 Mg Tablet) 6 mg PO BEDTIME PRN PRN Reason: Insomnia Last Admin: 05/27/22 21:24 Dose: 6 mg Documented By: JD Nicotine Polacrilex (Nicotine Polacrilex 2 Mg Gum) 2 mg BUCCAL Q1H PRN PRN Reason: tobacco craving Ondansetron HCl (Ondansetron Hcl 4 Mg/2 Ml Vial) 4 mg IVPUSH ONCE PRN PRN Reason: Nausea and Vomiting Oxycodone HCl (Oxycodone Hcl Immed Release 5 Mg Tablet) 5 mg PO ONCE PRN PRN Reason: Pain, Severe (Pain Scale 7-10) Oxycodone HCl (Oxycodone Hcl Immed Release 5 Mg Tablet) 5 mg PO Q6H PRN PRN Reason: BREAKTHROUGH PAIN Last Admin: 05/31/22 13:25 Dose: 5 mg Documented By: KAJAL Oxycodone HCl (Oxycodone Hcl Er 10 Mg Tab.Er.12h) 20 mg PO BID [facility] Last Admin: 06/01/22 08:46 Dose: 20 mg Documented By: KAJAL Senna (Sennosides 8.6 Mg Tablet) 17.2 mg PO BEDTIME PRN PRN Reason: Constipation Sodium Chloride (0.9 % Sodium Chloride Flush 3 Ml Syringe) 3 ml IVFLUSH QSHIFT [facility] Last Admin: 06/01/22 08:48 Dose: 3 ml Documented By: KAJAL Labs CBC & Chem 7: 05/26/22 06:43 05/26/22 06:43 Assessment and Plan (1) Chest wall pain: Status: Acute (2) Chest pain: Status: Acute (3) Mass of left lung: Status: Acute (4) Lung mass: Status: Acute Plan hospital d#7 56yo M with asthma/COPD + tobacco dependence presenting with chest pain and found to have left hilar mass with LLL collapse, 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 See description comment. COMMENT: PD-L1 testing is underway; results will be addended. - increase oxycodone ER to 20 mg bid, continue oxycodone IR 10 mg q6h + IV hydromorphone prn # acute hypoxic resp failure - 3L O2 at rest, 8L O2 via Oxymizer with activity # asthma/COPD overlap syndrome, not in acute exacerbation - prn nebs # tobacco abuse - nicotine replacement therapy # mild pr/yovani malnutrition - supplemental Ensure # VTE ppx: LMWH # dispo: looking for inpatient pulm rehab but if not available, may need to go home with VNA but needs PCP to sign orders In my clinical judgment, the patient requires continued hospitalization for the following reasons: hypoxia, placement Quality Stroke Does the patient have a stroke diagnosis?: No VTE Prior VTE?: No VTE Risk Level:: Medical - moderate - high VTE Device Contraindication: Treatment Not Indicated VTE Drug Contraindication: N/A - Med Ordered
--- NOTE | 2022-06-01 15:24 | MHC.CM.PN ---
Per Rounds discussion, patient not yet medically cleared for discharge r/t hypoxia, pending PDL1 status, pain management, and STR placement. MD to speak with [facility] regarding obtaining a PCP for patient, in case Home with New VNA is the discharge route. Both Pulmonary STR's (no bed availability). Broad STR search initiated/results: ONLY [facility]; 06/01 PN uploaded. D/C plan: STR (if offered From above STR's vs Home with New VNA service pending finding a PCP.
[2022-06-01] MEDS: Enoxaparin Sodium 40 MG/0.4 ML SYRINGE SUBCUT (21:20)
[2022-06-02 04:00] VITALS: BP 102/56; PULSE 78; RESP 20; TEMP 37.1; O2SAT 100
[2022-06-02] MEDS: HYDROmorphone HCl 0.5 MG/0.5 ML SYRINGE IVPUSH ×4 (04:04→22:04)
[2022-06-02 07:47] VITALS: BP 118/64; PULSE 82; RESP 20; TEMP 36.8; O2SAT 97
[2022-06-02] MEDS: Acetaminophen 325 MG TABLET 650 MG PO (08:21)
[2022-06-02] MEDS: oxyCODONE HCl ER 10 MG TAB.ER.12H 20 MG PO ×3 (08:21→20:32)
[2022-06-02] MEDS: 0.9 % Sodium Chloride Flush 3 ML SYRINGE IVFLUSH ×2 (08:22→14:22)
--- NOTE | 2022-06-02 10:41 | P.PNIM_ITS ---
Subjective Subjective Date of Service: 06/02/22 Interval History: In my clinical judgment, the patient requires continued hospitalization for the following reasons: Still c/o chest pain + dyspnea Review of Systems Review of Systems: Yes all other systems are reviewed and are negative Physical Exam Vital Signs: Vital Signs: Last Vital Signs Temp 98.3 F 06/02/22 07:47 Pulse 82 06/02/22 07:47 Resp 20 06/02/22 07:47 BP 118/64 06/02/22 07:47 Pulse Ox 97 06/02/22 07:47 O2 Del Method 06/02/22 07:47 O2 Flow Rate 3 06/02/22 07:47 Oxygen Flow Rate 2 05/30/22 11:42 BMI result Body Mass Index 17.9 Gen: short of jorge a th HEENT: sclera a nicteric, moist mu cus membranes Neck : supple Lungs: de creased air entry on L Heart: regula r rate and rhythm, no murmurs Abd: s oft, non-tender, n on-distended Ext: no edema; clubbing present Skin: war m/well-perfused Ne uro: alert and zaira ented x3, no focal findings Psych: a ppropriate affect Objective Data Active Medications Acetaminophen (Acetaminophen 325 Mg Tablet) 650 mg PO Q6H PRN PRN Reason: Pain, Mild (Pain Scale 1-3) Last Admin: 06/02/22 08:21 Dose: 650 mg Documented By: CEASAR Acetaminophen (Acetaminophen 325 Mg Tablet) 650 mg PO ONCE PRN PRN Reason: Pain, Mild (Pain Scale 1-3) Albuterol Sulfate (Albuterol Sulfate (0.083%) 2.5 Mg/3 Ml Vial.Neb) 2.5 mg INHALE ONCE PRN PRN Reason: Wheezing Enoxaparin Sodium (Enoxaparin Sodium 40 Mg/0.4 Ml Syringe) 40 mg SUBCUT BEDTIME ABIMBOLA Last Admin: 06/01/22 21:20 Dose: 40 mg Documented By: ELENA Hydromorphone HCl (Hydromorphone Hcl 0.5 Mg/0.5 Ml Syringe) 0.5 mg IVPUSH Q4H PRN; Protocol PRN Reason: Pain, Severe (Pain Scale 7-10) Last Admin: 06/02/22 08:21 Dose: 0.5 mg Documented By: CEASAR Melatonin (Melatonin 3 Mg Tablet) 6 mg PO BEDTIME PRN PRN Reason: Insomnia Last Admin: 05/27/22 21:24 Dose: 6 mg Documented By: JD Nicotine Polacrilex (Nicotine Polacrilex 2 Mg Gum) 2 mg BUCCAL Q1H PRN PRN Reason: tobacco craving Ondansetron HCl (Ondansetron Hcl 4 Mg/2 Ml Vial) 4 mg IVPUSH ONCE PRN PRN Reason: Nausea and Vomiting Oxycodone HCl (Oxycodone Hcl Immed Release 5 Mg Tablet) 5 mg PO ONCE PRN PRN Reason: Pain, Severe (Pain Scale 7-10) Oxycodone HCl (Oxycodone Hcl Er 10 Mg Tab.Er.12h) 20 mg PO TID [facility] Last Admin: 06/02/22 08:21 Dose: 20 mg Documented By: CEASAR Oxycodone HCl (Oxycodone Hcl Immed Release 5 Mg Tablet) 10 mg PO Q4H PRN PRN Reason: BREAKTHROUGH PAIN Senna (Sennosides 8.6 Mg Tablet) 17.2 mg PO BEDTIME PRN PRN Reason: Constipation Sodium Chloride (0.9 % Sodium Chloride Flush 3 Ml Syringe) 3 ml IVFLUSH QSHIFT [facility] Last Admin: 06/02/22 08:22 Dose: 3 ml Documented By: CEASAR Labs CBC & Chem 7: 05/26/22 06:43 05/26/22 06:43 Assessment and Plan (1) Chest wall pain: Status: Acute (2) Chest pain: Status: Acute (3) Mass of left lung: Status: Acute (4) Lung mass: Status: Acute Plan hospital d#8 56yo M with asthma/COPD + tobacco dependence presenting with chest pain and found to have left hilar mass with LLL collapse, 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 See description comment. COMMENT: PD-L1 testing is underway; results will be addended. - increase oxycodone ER to 20 mg tid, oxycodone IR to 10 mg q4h prn; try to wean off IV hydromorphone in preparation for eventual discharge # acute hypoxic resp failure - 3L O2 at rest, 8L O2 via Oxymizer with activity per RT # asthma/COPD overlap syndrome, not in acute exacerbation - prn nebs # tobacco abuse - nicotine replacement therapy # mild pr/yovani malnutrition - supplemental Ensure # VTE ppx: LMWH # dispo: inpt pulm rehab + STR not available. plans to go home and girlfriend will live with him and take care of him 10/06; however, needs VNA and for this needs PCP to sign orders; will obtain PCP for him on 06/04 In my clinical judgment, the patient requires continued hospitalization for the following reasons: hypoxia, placement Quality Stroke Does the patient have a stroke diagnosis?: No VTE Prior VTE?: No VTE Risk Level:: Medical - moderate - high VTE Device Contraindication: Treatment Not Indicated VTE Drug Contraindication: N/A - Med Ordered
[2022-06-02 11:30] VITALS: BP 114/73; PULSE 70; RESP 18; TEMP 37.3; O2SAT 96
[2022-06-02 16:03] VITALS: BP 125/67; PULSE 80; RESP 18; TEMP 37.1; O2SAT 97
[2022-06-02 20:00] VITALS: BP 109/66; PULSE 87; RESP 18; TEMP 36.4; O2SAT 97
[2022-06-02] MEDS: Enoxaparin Sodium 40 MG/0.4 ML SYRINGE SUBCUT (20:32)
[2022-06-02 22:04] VITALS: RESP 18
[2022-06-03] VITALS: BP 126/68; PULSE 72; RESP 16; TEMP 37.2; O2SAT 100
[2022-06-03 04:00] VITALS: BP 118/76; PULSE 77; RESP 20; TEMP 36.8; O2SAT 100
[2022-06-03] MEDS: HYDROmorphone HCl 0.5 MG/0.5 ML SYRINGE IVPUSH ×2 (04:44→09:15)
[2022-06-03] MEDS: oxyCODONE HCl Immed Release 5 MG TABLET 10 MG PO (06:43)
[2022-06-03] MEDS: Acetaminophen 325 MG TABLET 650 MG PO (06:43)
[2022-06-03 06:46] LABS: Hematocrit 40.2 % (42.0-52.0); Hemoglobin 12.9 g/dl (14.0-18.0); Mean Corpuscular HGB Conc 32.1 g/dl (31.0-36.0); Mean Corpuscular Hemoglobin 28.8 pg (27.0-33.0); Mean Corpuscular Volume 89.7 fL (80.0-98.0); Mean Platelet Volume 11.1 fL (9.4-12.4); Platelet Count 221 X10*3/uL (160-400); Red Blood Count 4.48 X10*6/uL (4.60-5.80); Red Cell Distribution Width 13.4 % (11.0-16.0); White Blood Count 6.2 X10*3/uL (4.8-10.8)
[2022-06-03 07:08] LABS: Anion Gap 13 (12-20); Blood Urea Nitrogen 10 mg/dL (9-16); Calcium 8.8 mg/dL (8.4-10.2); Carbon Dioxide 28 mmol/L (22-29); Chloride 98 mmol/L (96-108); Creatinine Clr Calc Pharmacy 84.2; Estimated Glomerular Filt Rate > 60; Glucose Random 101 mg/dL (60-115); Potassium 4.4 mmol/L (3.3-5.1); Sodium 135 mmol/L (135-145)
[2022-06-03 08:00] VITALS: BP 102/61; PULSE 77; RESP 18; TEMP 36.7; O2SAT 98
[2022-06-03] MEDS: oxyCODONE HCl ER 10 MG TAB.ER.12H 20 MG PO (09:15)
[2022-06-03] MEDS: 0.9 % Sodium Chloride Flush 3 ML SYRINGE IVFLUSH ×3 (09:16→21:02)
--- NOTE | 2022-06-03 10:46 | P.PNIM_ITS ---
Subjective Subjective Date of Service: 06/03/22 Interval History: still has lots of chest wall pain requiring IV hydromorphone dyspneic with movement Review of Systems Review of Systems: Yes all other systems are reviewed and are negative Physical Exam Vital Signs: Vital Signs: Last Vital Signs Temp 98.1 F 06/03/22 08:00 Pulse 77 06/03/22 08:00 Resp 18 06/03/22 08:00 BP 102/61 06/03/22 08:00 Pulse Ox 98 06/03/22 08:00 O2 Del Method 06/03/22 08:00 O2 Flow Rate 5 06/03/22 08:00 Oxygen Flow Rate 2 05/30/22 11:42 BMI result Body Mass Index 17.9 Gen: short of breath HEENT: sclera anicteric, moist mucus membranes Neck: supple Lungs: decreased air entry on L Heart: regular rate and rhythm, no murmurs Abd: soft, non-tender, non-distended Ext: no edema; clubbing present Skin: warm/well-perfused Neuro: alert and oriented x3, no focal findings Psych: appropriate affect Objective Data Active Medications Acetaminophen (Acetaminophen 325 Mg Tablet) 650 mg PO Q6H PRN PRN Reason: Pain, Mild (Pain Scale 1-3) Last Admin: 06/03/22 06:43 Dose: 650 mg Documented By: SETH Acetaminophen (Acetaminophen 325 Mg Tablet) 650 mg PO ONCE PRN PRN Reason: Pain, Mild (Pain Scale 1-3) Albuterol Sulfate (Albuterol Sulfate (0.083%) 2.5 Mg/3 Ml Vial.Neb) 2.5 mg INHALE ONCE PRN PRN Reason: Wheezing Enoxaparin Sodium (Enoxaparin Sodium 40 Mg/0.4 Ml Syringe) 40 mg SUBCUT BEDTIME [facility] Last Admin: 06/02/22 20:32 Dose: 40 mg Documented By: DESROA Hydromorphone HCl (Hydromorphone Hcl 0.5 Mg/0.5 Ml Syringe) 0.5 mg IVPUSH Q4H PRN; Protocol PRN Reason: Pain, Severe (Pain Scale 7-10) Last Admin: 06/03/22 09:15 Dose: 0.5 mg Documented By: ANDREEAENOMARTY Melatonin (Melatonin 3 Mg Tablet) 6 mg PO BEDTIME PRN PRN Reason: Insomnia Last Admin: 05/27/22 21:24 Dose: 6 mg Documented By: JD Nicotine Polacrilex (Nicotine Polacrilex 2 Mg Gum) 2 mg BUCCAL Q1H PRN PRN Reason: tobacco craving Ondansetron HCl (Ondansetron Hcl 4 Mg/2 Ml Vial) 4 mg IVPUSH ONCE PRN PRN Reason: Nausea and Vomiting Oxycodone HCl (Oxycodone Hcl Immed Release 5 Mg Tablet) 5 mg PO ONCE PRN PRN Reason: Pain, Severe (Pain Scale 7-10) Oxycodone HCl (Oxycodone Hcl Er 10 Mg Tab.Er.12h) 20 mg PO TID [facility] Last Admin: 06/03/22 09:15 Dose: 20 mg Documented By: CEASAR Oxycodone HCl (Oxycodone Hcl Immed Release 5 Mg Tablet) 10 mg PO Q4H PRN PRN Reason: BREAKTHROUGH PAIN Last Admin: 06/03/22 06:43 Dose: 10 mg Documented By: SETH Senna (Sennosides 8.6 Mg Tablet) 17.2 mg PO BEDTIME PRN PRN Reason: Constipation Sodium Chloride (0.9 % Sodium Chloride Flush 3 Ml Syringe) 3 ml IVFLUSH QSHIFT [facility]PLACED [facility] Last Admin: 06/03/22 09:16 Dose: 3 ml Documented By: CEASAR Labs CBC & Chem 7: 06/03/22 06:07 06/03/22 06:07 Labs: Laboratory Results - last 24 hr 06/03/22 06/03/22 06:07 06:07 MCV 89.7 MCH 28.8 MCHC 32.1 RDW 13.4 Plt Count 221 MPV 11.1 Absolute Nucleated RBC 0.000 Nucleated RBC % (auto) 0.0 Anion Gap 13 Estim Creat Clear Calc 84.2 Estimated GFR > 60 Random Glucose 101 Calcium 8.8 Assessment and Plan (1) Chest wall pain: Status: Acute (2) Chest pain: Status: Acute (3) Mass of left lung: Status: Acute (4) Lung mass: Status: Acute Plan hospital d#9 56yo M with asthma/COPD + tobacco dependence presenting with chest pain and found to have left hilar mass with LLL collapse, 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 See description comment. COMMENT: PD-L1 testing is underway; results will be addended. - increase oxycodone ER to 30 mg tid, oxycodone IR to 10 mg q4h prn; try to wean off IV hydromorphone in preparation for eventual discharge # acute hypoxic resp failure - 3L O2 at rest, 8L O2 via Oxymizer with activity per RT # asthma/COPD overlap syndrome, not in acute exacerbation - prn nebs # tobacco abuse - nicotine replacement therapy # mild pr/yovani malnutrition - supplemental Ensure # VTE ppx: LMWH # dispo: inpt pulm rehab + STR not available. plans to go home and girlfriend will live with him and take care of him 10/06; however, needs VNA and for this needs PCP to sign orders; will obtain PCP for him on 06/04 In my clinical judgment, the patient requires continued hospitalization for the following reasons: hypoxia, placement Quality Stroke Does the patient have a stroke diagnosis?: No VTE Prior VTE?: No VTE Risk Level:: Medical - moderate - high VTE Device Contraindication: Treatment Not Indicated VTE Drug Contraindication: N/A - Med Ordered
[2022-06-03 12:00] VITALS: BP 119/67; PULSE 69; RESP 20; TEMP 36.9; O2SAT 100
[2022-06-03] MEDS: HYDROmorphone HCl 1 MG/ML SYRINGE IVPUSH (14:28)
[2022-06-03 15:37] VITALS: BP 116/67; PULSE 67; RESP 18; TEMP 37.1; O2SAT 97
[2022-06-03] MEDS: oxyCODONE HCl ER 10 MG TAB.ER.12H 30 MG PO ×2 (15:51→21:01)
[2022-06-03 19:36] VITALS: BP 137/74; PULSE 87; RESP 18; TEMP 37; O2SAT 97
[2022-06-03] MEDS: Enoxaparin Sodium 40 MG/0.4 ML SYRINGE SUBCUT (20:57)
[2022-06-04] VITALS (8 sets, daily range): BP systolic 105–131; BP diastolic 48–70; PULSE 69–83; RESP 15–18; TEMP 36.1–37.3; O2SAT 95–100; BMI 19.1
[2022-06-04] MEDS: oxyCODONE HCl Immed Release 5 MG TABLET 10 MG PO (06:55)
[2022-06-04] MEDS: oxyCODONE HCl ER 10 MG TAB.ER.12H 30 MG PO (10:00)
[2022-06-04] MEDS: 0.9 % Sodium Chloride Flush 3 ML SYRINGE IVFLUSH ×3 (10:00→20:43)
--- NOTE | 2022-06-04 12:56 | HO.PM.IMPN ---
Subjective Subjective Date of Service: 06/04/22 Interval History: Still c/o severe pain requiring IV Dilaudid Very short of breath Review of Systems Review of Systems: Yes all other systems are reviewed and are negative Physical Exam Vital Signs: Vital Signs: Last Vital Signs Temp 98 F 06/04/22 11:29 Pulse 77 06/04/22 11:29 Resp 15 06/04/22 11:29 BP 117/63 06/04/22 11:29 Pulse Ox 99 06/04/22 11:29 O2 Del Method 06/04/22 11:29 O2 Flow Rate 4 06/04/22 11:29 Oxygen Flow Rate 2 05/30/22 11:42 BMI result Body Mass Index 19.1 Gen: short of breath HEENT: sclera anicteric, moist mucus membranes Neck: supple Lungs: decreased air entry on L Heart: regular rate and rhythm, no murmurs Abd: soft, non-tender, non-distended Ext: no edema; clubbing present Skin: warm/well-perfused Neuro: alert and oriented x3, no focal findings Psych: appropriate affect Objective Data Active Medications Acetaminophen (Acetaminophen 325 Mg Tablet) 650 mg PO Q6H PRN PRN Reason: Pain, Mild (Pain Scale 1-3) Last Admin: 06/03/22 06:43 Dose: 650 mg Documented By: SETH Acetaminophen (Acetaminophen 325 Mg Tablet) 650 mg PO ONCE PRN PRN Reason: Pain, Mild (Pain Scale 1-3) Albuterol Sulfate (Albuterol Sulfate (0.083%) 2.5 Mg/3 Ml Vial.Neb) 2.5 mg INHALE ONCE PRN PRN Reason: Wheezing Enoxaparin Sodium (Enoxaparin Sodium 40 Mg/0.4 Ml Syringe) 40 mg SUBCUT BEDTIME ABIMBOLA Last Admin: 06/03/22 20:57 Dose: 40 mg Documented By: EDUARDO Hydromorphone HCl (Hydromorphone Hcl 1 Mg/Ml Syringe) 1 mg IVPUSH Q4H PRN; Protocol PRN Reason: Pain, Severe (Pain Scale 7-10) Last Admin: 06/03/22 14:28 Dose: 1 mg Documented By: LOREN Melatonin (Melatonin 3 Mg Tablet) 6 mg PO BEDTIME PRN PRN Reason: Insomnia Last Admin: 07/10/22 21:24 Dose: 6 mg Documented By: JD Morphine Sulfate (Morphine Sulfate Immed Release 15 Mg Tablet) 30 mg PO Q4H PRN PRN Reason: moderate-severe pain Morphine Sulfate (Morphine Sulfate Er 15 Mg Tablet.Er) 45 mg PO Q8H [facility] Nicotine Polacrilex (Nicotine Polacrilex 2 Mg Gum) 2 mg BUCCAL Q1H PRN PRN Reason: tobacco craving Ondansetron HCl (Ondansetron Hcl 4 Mg/2 Ml Vial) 4 mg IVPUSH ONCE PRN PRN Reason: Nausea and Vomiting Senna (Sennosides 8.6 Mg Tablet) 17.2 mg PO BEDTIME PRN PRN Reason: Constipation Sodium Chloride (0.9 % Sodium Chloride Flush 3 Ml Syringe) 3 ml IVFLUSH QSHIFT [facility] Last Admin: 06/04/22 10:00 Dose: 3 ml Documented By: FREDIS Labs CBC & Chem 7: 06/03/22 06:07 06/03/22 06:07 Assessment and Plan (1) Chest wall pain: Status: Acute (2) Chest pain: Status: Acute (3) Mass of left lung: Status: Acute (4) Lung mass: Status: Acute Plan hospital d#10 56yo M with asthma/COPD + tobacco dependence presenting with chest pain and found to have left hilar mass with LLL collapse, 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 See description comment. COMMENT: PD-L1 testing is underway; results will be addended. - severe pain, change oxycodone ER to MSSR 45 mg tid, change oxycodone IR to MSIR 30 mg q4h prn; try to wean off IV hydromorphone # acute hypoxic resp failure - 3L O2 at rest, 8L O2 via Oxymizer with activity per RT # asthma/COPD overlap syndrome, not in acute exacerbation - prn nebs # tobacco abuse - nicotine replacement therapy # mild pr/yovani malnutrition - supplemental Ensure # VTE ppx: LMWH # dispo: inpt pulm rehab + STR not available. plans to go home and girlfriend will live with him and take care of him 10/06; however, needs VNA and for this needs PCP to sign orders; working on getting PCP to sign VNA orders In my clinical judgment, the patient requires continued hospitalization for the following reasons: hypoxia, placement Quality Stroke Does the patient have a stroke diagnosis?: No VTE Prior VTE?: No VTE Risk Level:: Medical - moderate - high VTE Device Contraindication: Treatment Not Indicated VTE Drug Contraindication: N/A - Med Ordered
--- NOTE | 2022-06-04 13:53 | MHC.CM.PN ---
EMR REVIEWED, PER HOSPITALIST PLAN TO TRANSITION PT TO ORAL NARCOTIC PAIN MEDICATION W/ANTIC PLAN TO D/C HOME TOMORROW W/NEW [facility] AND REPORTS GAMALI[facility] PYLE WILL COVER VNA ORDERS UNTIL HIS FIRST APPT WHICH WILL BE 06/14 AT 12:15PM, PT HAS ONCOLOGY APPT TOMORROW W/DR JANE HOWEVER PT MAY NOT BE D/C'D IN TIME, CM HAS CONTACTED OFFICE AND AWAITING TO HEAR IF DR JANE WILL SEE HIM ON UNIT VS RESCHEDULE APPT.
[2022-06-04] MEDS: Morphine Sulfate Immed Release 15 MG TABLET 30 MG PO ×2 (16:07→23:21)
[2022-06-04] MEDS: Morphine Sulfate ER 15 MG TABLET.ER 45 MG PO (18:37)
[2022-06-04] MEDS: Enoxaparin Sodium 40 MG/0.4 ML SYRINGE SUBCUT (20:42)
[2022-06-05 02:52] VITALS: BP 105/59; PULSE 71; RESP 16; TEMP 37.3; O2SAT 98
[2022-06-05] MEDS: Morphine Sulfate ER 15 MG TABLET.ER 45 MG PO ×3 (02:54→18:02)
[2022-06-05 08:00] VITALS: BP 107/62; PULSE 91; RESP 20; TEMP 36.9; O2SAT 92
[2022-06-05] MEDS: 0.9 % Sodium Chloride Flush 3 ML SYRINGE IVFLUSH ×2 (10:29→18:03)
[2022-06-05 11:46] VITALS: BP 122/74; PULSE 95; RESP 20; TEMP 36.9; O2SAT 95
[2022-06-05] MEDS: iohexoL 350 MG/ML 100 ML INFUS..BTL IV (11:55)
--- NOTE | 2022-06-05 11:57 | P.F2F_ITS ---
Service Date Service Date: 06/05/22 Encounter Date of encounter: 06/05/22 Reasons for Services Signs and symptoms assessed: breathing, hypoxia, chest pain Reason for group home: teach disease management and other (oxygen monitoring) Reason for physical therapy: home safety and mobility, therapeutic exercises, gait/transfer training, assess need for DME, ADL training and energy conservation MD Overseeing Care: Renetta Riddle Homebound: Leaving the home is medically contraindicated at this time without the asist of a device and/or another person due th the listed conditions above and below. Reason homebound: shortness of breath with minimal effort and weakness related to hospital stay Certification: Based on the above findings, I certify that this patient is confined to the home and needs intermittent group home care, physical therapy and/or speech therapy, or continues to need occupational therapy. The patient is under my care, and I have initiated the establishment of the plan of care. The patient will be followed by a physician who will periodically review the plan of care.
--- NOTE | 2022-06-05 15:52 | P.PNIM_ITS ---
Subjective Subjective Date of Service: 06/05/22 Interval History: This history was taken in Amharic from the patient. Pain better controlled on MSSR 45mg q8h + MSIR 30mg q4h prn Still quite short of breath MRI brain + CT A/P negative for distant mets; however, has new-onset L-pleural effusion with LLL collapse Review of Systems Review of Systems: Yes all other systems are reviewed and are negative Physical Exam Vital Signs: Vital Signs: Last Vital Signs Temp 98.5 F 06/05/22 11:46 Pulse 95 06/05/22 11:46 Resp 20 06/05/22 11:46 BP 122/74 06/05/22 11:46 Pulse Ox 95 06/05/22 11:46 O2 Del Method 06/05/22 11:46 O2 Flow Rate 3 06/05/22 11:46 Oxygen Flow Rate 2 05/30/22 11:42 BMI result Body Mass Index 19.1 Gen: mildly short of breath HEENT: sclera anicteric, moist mucus membranes Neck: supple Lungs: decreased air entry on L Heart: regular rate and rhythm, no murmurs Abd: soft, non-tender, non-distended Ext: no edema; clubbing present Skin: warm/well-perfused Neuro: alert and oriented x3, no focal findings Psych: appropriate affect Objective Data Active Medications Acetaminophen (Acetaminophen 325 Mg Tablet) 650 mg PO Q6H PRN PRN Reason: Pain, Mild (Pain Scale 1-3) Last Admin: 06/03/22 06:43 Dose: 650 mg Documented By: SETH Acetaminophen (Acetaminophen 325 Mg Tablet) 650 mg PO ONCE PRN PRN Reason: Pain, Mild (Pain Scale 1-3) Hydromorphone HCl (Hydromorphone Hcl 1 Mg/Ml Syringe) 1 mg IVPUSH Q4H PRN; Pr otocol PRN Reason: Pain, Severe (Pain Scale 7-10) Last Admin: 06/03/22 14:28 Dose: 1 mg Documented By: LOREN Melatonin (Melatonin 3 Mg Tablet) 6 mg PO BEDTIME PRN PRN Reason: Insomnia Last Admin: 05/27/22 21:24 Dose: 6 mg Documented By: JD Morphine Sulfate (Morphine Sulfate Immed Release 15 Mg Tablet) 30 mg PO Q4H PRN PRN Reason: moderate-severe pain Last Admin: 06/04/22 23:21 Dose: 30 mg Documented By: EDUARDO Morphine Sulfate (Morphine Sulfate Er 15 Mg Tablet.Er) 45 mg PO Q8H [facility] Last Admin: 06/05/22 10:28 Dose: 45 mg Documented By: MELI Nicotine Polacrilex (Nicotine Polacrilex 2 Mg Gum) 2 mg BUCCAL Q1H PRN PRN Reason: tobacco craving Ondansetron HCl (Ondansetron Hcl 4 Mg/2 Ml Vial) 4 mg IVPUSH ONCE PRN PRN Reason: Nausea and Vomiting Senna (Sennosides 8.6 Mg Tablet) 17.2 mg PO BEDTIME PRN PRN Reason: Constipation Sodium Chloride (0.9 % Sodium Chloride Flush 3 Ml Syringe) 3 ml IVFLUSH QSHIFT [facility] Last Admin: 06/05/22 10:29 Dose: 3 ml Documented By: MELI Labs CBC & Chem 7: 06/03/22 06:07 06/03/22 06:07 Labs: Laboratory Results WBC 6.2 X10*3/uL (4.8-10.8) 06/03/22 06:07 RBC 4.48 X10*6/uL (4.60-5.80) L 06/03/22 06:07 Hgb 12.9 g/dl (14.0-18.0) L 06/03/22 06:07 Hct 40.2 % (42.0-52.0) L 06/03/22 06:07 MCV 89.7 fL (80.0-98.0) 06/03/22 06:07 MCH 28.8 pg (27.0-33.0) 06/03/22 06:07 MCHC 32.1 g/dl (31.0-36.0) 06/03/22 06:07 RDW 13.4 % (11.0-16.0) 06/03/22 06:07 Plt Count 221 X10*3/uL (160-400) 06/03/22 06:07 MPV 11.1 fL (9.4-12.4) 06/03/22 06:07 Immature Gran % (Auto) 0.2 % (0.0-0.4) 05/26/22 06:43 Neut % (Auto) 62.4 % (45-73) 05/26/22 06:43 Lymph % (Auto) 23.5 % (20-40) 05/26/22 06:43 [place] % (Auto) 11.3 % (2-11) H 05/26/22 06:43 Eos % (Auto) 1.9 % (0-4) 05/26/22 06:43 Baso % (Auto) 0.7 % (0-2) 05/26/22 06:43 Lymph # (Auto) 1.4 X10*3/uL (1.2-4.9) 05/26/22 06:43 [place] # (Auto) 0.7 X10*3/uL (0.1-1.2) 05/26/22 06:43 Eos # (Auto) 0.1 X10*3/uL (0.0-0.4) 05/26/22 06:43 Baso # (Auto) 0.0 X10*3/uL (0.0-0.2) 05/26/22 06:43 Abs Immat Gran (auto) 0.01 X10*3/uL (0.00-0.03) 05/26/22 06:43 Absolute Neuts (auto) 3.7 x10*3/uL (2.0-8.3) 05/26/22 06:43 Absolute Nucleated RBC 0.000 X10*3/uL (0.0-0.012) 06/03/22 06:07 Nucleated RBC % (auto) 0.0 /100WBC (0.0-0.2) 06/03/22 06:07 D-Dimer High Sensitivty < 150 NG/ML 05/26/22 01:32 Sodium 135 mmol/L (135-145) 06/03/22 06:07 Potassium 4.4 mmol/L (3.3-5.1) 06/03/22 06:07 Chloride 98 mmol/L (96-108) 06/03/22 06:07 Carbon Dioxide 28 mmol/L (22-29) 06/03/22 06:07 Anion Gap 13 (12-20) 06/03/22 06:07 BUN 10 mg/dL (9-16) 06/03/22 06:07 Creatinine 0.67 mg/dL (0.5-1.4) 06/03/22 06:07 Estim Creat Clear Calc 84.2 06/03/22 06:07 Estimated GFR > 60 06/03/22 06:07 Random Glucose 101 mg/dL (60-115) 06/03/22 06:07 Calcium 8.8 mg/dL (8.4-10.2) 06/03/22 06:07 Total Bilirubin 0.3 mg/dL (0.0-1.0) 05/25/22 19:39 AST 27 U/L (5-37) 05/25/22 19:39 ALT 13 U/L (0-40) 05/25/22 19:39 Alkaline Phosphatase 99 U/L (39-117) 05/25/22 19:39 Troponin I High Sens < 3.5 ng/L (<3.5-35.0) 05/26/22 01:32 Total Protein 8.0 g/dL (6.5-8.0) 05/25/22 19:39 Albumin 4.1 g/dL (3.5-5.0) 05/25/22 19:39 COVID-19 (LAYO) Negative (Negative) 05/25/22 23:43 COVID-19 Clin Com See Note 05/25/22 23:43 Impressions Chest X-Ray 05/25/22 19:50 IMPRESSION: Abnormal exam. Masslike opacity around the left hilum and reticular opacities with associated pleural thickening and volume loss in the left upper chest. If there has been no surgery possibilities include an obstructing mass on the left or postinflammatory changes (cicatricial atelectasis) from a chronic inflammatory process. Chronic tuberculosis cannot be entirely excluded Small nonspecific opacity right upper lung Further evaluation is warranted. Thorough search for old films recommended Chest CT 05/26/22 00:10 IMPRESSION: Central left lower lobe/left hilar mass. This includes the left lower lobe bronchus with much of the left lower lobe collapsed. Concerning for neoplasm. There is an adjacent left hilar lymph node which is enlarged, concerning for metastatic disease. Severe emphysema. Left upper lobe bronchiectasis with pleural thickening. Fleischner guidelines were followed. Abdomen/Pelvis CT 06/05/22 11:53 IMPRESSION: * No evidence of metastatic disease in the abdomen or pelvis. * Moderate left pleural effusion is partially included in the itfud-ih-awid and has increased in size compared to 05/25/2022. The partially visualized left lower lung is collapsed. * 2.1 cm polypoid lesion of the sigmoid colon is suspected. Recommend correlation with findings on colonoscopy. * Left renal stones without hydronephrosis. Brain MRI 06/05/22 12:41 IMPRESSION: - No evidence of intracranial metastatic disease; there are no enhancing lesions intracranially. - There is mild chronic microangiopathy. 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 See description comment. COMMENT: PD-L1 testing is underway; results will be addended. - will need f/u with Dr Arroyo from [facility] Oncology for chemotherapy # pleural effusion - discussed with Dr Medina [Pulm]; plan Pleur-X catheter; check CBC/coags, NPO after midnight; routine pleural fluid studies plus cytology ordered # acute->chronic hypoxic resp failure - 3L O2 at rest, 8L O2 via Oxymizer with activity per RT [need to recertify for home use] # cancer-associated pain - MSSR 45 mg q8h + MSIR 30mg q4h prn breakthrough pain [will need prescriptions upon discharge] # asthma/COPD overlap syndrome, not in acute exacerbation - prn nebs # tobacco abuse - nicotine replacement therapy # mild pr/yovani malnutrition - supplemental Ensure # VTE ppx: LMWH [held for Pleur-X catheter] # dispo: plan home with VNA [he will go live with his brother in [place] and will have family take care of him 10/06]. he is now signed up for [facility] and has an appointment with his new PCP Dr Ross on 06/14/22 at 12:15 In my clinical judgment, the patient requires continued hospitalization for the following reasons: pleural effusion drainage, hypoxia Quality Stroke Does the patient have a stroke diagnosis?: No VTE Prior VTE?: No VTE Risk Level:: Medical - moderate - high VTE Device Contraindication: Treatment Not Indicated VTE Drug Contraindication: N/A - Med Ordered
[2022-06-05 16:00] VITALS: BP 129/76; PULSE 79; RESP 16; TEMP 37.1; O2SAT 95
[2022-06-05 16:10] LABS: Hematocrit 39.8 % (42.0-52.0); Hemoglobin 12.5 g/dl (14.0-18.0); Mean Corpuscular HGB Conc 31.4 g/dl (31.0-36.0); Mean Corpuscular Hemoglobin 28.2 pg (27.0-33.0); Mean Corpuscular Volume 89.6 fL (80.0-98.0); Mean Platelet Volume 9.4 fL (9.4-12.4); Platelet Count 341 X10*3/uL (160-400); Red Blood Count 4.44 X10*6/uL (4.60-5.80); Red Cell Distribution Width 13.2 % (11.0-16.0); White Blood Count 5.9 X10*3/uL (4.8-10.8)
[2022-06-05 16:17] LABS: INTERNATIONAL NORM RATIO 1.1 (0.9-1.1); Prothrombin Time 12.4 SEC (10.0-13.1)
[2022-06-05 16:19] LABS: Lactate Dehydrogenase 143 U/L (118-273)
[2022-06-05 16:20] LABS: Partial Thromboplastin Time 41.3 SEC (24.1-38.0)
[2022-06-05 20:00] VITALS: BP 124/56; PULSE 85; RESP 16; TEMP 36.8; O2SAT 97
[2022-06-05 23:37] VITALS: BP 121/66; PULSE 78; RESP 18; TEMP 37; O2SAT 98
[2022-06-06] MEDS: Morphine Sulfate ER 15 MG TABLET.ER 45 MG PO ×3 (01:38→17:37)
[2022-06-06] MEDS: 0.9 % Sodium Chloride Flush 3 ML SYRINGE IVFLUSH ×4 (01:38→21:01)
[2022-06-06 02:52] VITALS: BP 107/53; PULSE 78; RESP 20; TEMP 37.2; O2SAT 92
[2022-06-06 08:00] VITALS: BP 100/58; PULSE 95; RESP 20; TEMP 36.9; O2SAT 92
[2022-06-06 12:00] VITALS: BP 92/54; PULSE 79; RESP 20; TEMP 37.1; O2SAT 99
--- NOTE | 2022-06-06 14:43 | MHC.CM.PN ---
Confirmed VNA services w/ [facility]. they are asking the schedule of changing the plurex cath. this senior technical writer sent secure message to Dr. Berry- awaiting response.
--- NOTE | 2022-06-06 15:13 | HO.PM.IMPN ---
Subjective Subjective Date of Service: 06/06/22 Interval History: Patient NPO for PleurX catheter placement, has good pain control, family at bedside assisted in history, no acute issues overnight, requiring 4 L of oxygen at rest, no fevers, no chills Review of Systems Review of Systems: Yes all other systems are reviewed and are negative Physical Exam Vital Signs: Vital Signs: Last Vital Signs Temp 98.7 F 06/06/22 12:00 Pulse 79 06/06/22 12:00 Resp 20 06/06/22 12:00 BP 92/54 L 06/06/22 12:00 Pulse Ox 99 06/06/22 12:00 O2 Del Method 06/06/22 12:00 O2 Flow Rate 4 06/06/22 12:00 Oxygen Flow Rate 2 05/30/22 11:42 BMI result Body Mass Index 19.1 Const: Other: Gen: Awake alert no acute distress HEENT: sclera anicteric, moist mucus membranes Neck: supple Lungs: decreased air entry on Left Heart: regular rate and rhythm, no murmurs Abd: soft, non-tender, non-distended Ext: no edema; clubbing present Skin: warm/well-perfused Neuro: alert and oriented x3, no focal findings Psych: appropriate affect Objective Data Active Medications Acetaminophen (Acetaminophen 325 Mg Tablet) 650 mg PO Q6H PRN PRN Reason: Pain, Mild (Pain Scale 1-3) Last Admin: 06/03/22 06:43 Dose: 650 mg Documented By: SETH Acetaminophen (Acetaminophen 325 Mg Tablet) 650 mg PO ONCE PRN PRN Reason: Pain, Mild (Pain Scale 1-3) Hydromorphone HCl (Hydromorphone Hcl 1 Mg/Ml Syringe) 1 mg IVPUSH Q4H PRN; Protocol PRN Reason: Pain, Severe (Pain Scale 7-10) Last Admin: 06/03/22 14:28 Dose: 1 mg Documented By: LOREN Melatonin (Melatonin 3 Mg Tablet) 6 mg PO BEDTIME PRN PRN Reason: Insomnia Last Admin: 05/27/22 21:24 Dose: 6 mg Documented By: JD Morphine Sulfate (Morphine Sulfate Immed Release 15 Mg Tablet) 30 mg PO Q4H PRN PRN Reason: moderate-severe pain Last Admin: 06/04/22 23:21 Dose: 30 mg Documented By: EDUARDO Morphine Sulfate (Morphine Sulfate Er 15 Mg Tablet.Er) 45 mg PO Q8H [facility] Last Admin: 06/06/22 10:16 Dose: 45 mg Documented By: MELI Nicotine Polacrilex (Nicotine Polacrilex 2 Mg Gum) 2 mg BUCCAL Q1H PRN PRN Reason: tobacco craving Ondansetron HCl (Ondansetron Hcl 4 Mg/2 Ml Vial) 4 mg IVPUSH ONCE PRN PRN Reason: Nausea and Vomiting Senna (Sennosides 8.6 Mg Tablet) 17.2 mg PO BEDTIME PRN PRN Reason: Constipation Sodium Chloride (0.9 % Sodium Chloride Flush 3 Ml Syringe) 3 ml IVFLUSH QSHIFT [facility] Last Admin: 06/06/22 10:18 Dose: 3 ml Documented By: MELI Labs CBC & Chem 7: 06/05/22 15:57 06/03/22 06:07 Labs: Laboratory Results - last 24 hr 06/05/22 06/05/22 06/05/22 15:57 15:57 15:57 MCV 89.6 MCH 28.2 MCHC 31.4 RDW 13.2 Plt Count 341 D MPV 9.4 Absolute Nucleated RBC 0.000 Nucleated RBC % (auto) 0.0 PT 12.4 INR 1.1 APTT 41.3 H Lactate Dehydrogenase 143 Assessment and Plan (1) Chest wall pain: Status: Acute (2) Chest pain: Status: Acute (3) Mass of left lung: Status: Acute (4) Lung mass: Status: Acute Plan hospital d#11 56yo M with asthma/COPD + tobacco dependence presenting with chest pain and found to have left hilar mass with LLL collapse, found to be poorly differentiated SCC; now with pleural effusion that is almost certainly malignant # unresectable squamous cell carcinoma - bronchoscopy 05/29 showing tumor completely occluding L lower bronchus; biopsied, pathology shows:?Poorly differentiated squamous cell carcinoma.?COMMENT: PD-L1 testing is underway; results will be addended. - recommend f/u with Dr Arroyo from [facility] for chemotherapy # left pleural effusion - evaluated by intervention radiology today patient noted to have minimal left pleural fluid /left lung collapse therefore PleurX catheter not placed, recommend close outpatient follow-up with serial x-rays and thoracocentesis as needed, Will resume diet explained to family. # acute->chronic hypoxic resp failure - 3L O2 at rest, 8L O2 via Oxymizer with activity per RT [need to recertify for home use] # cancer-associated pain - good pain control at present, continue MSSR 45 mg q8h + MSIR 30mg q4h prn breakthrough pain will give prescription at discharge # asthma/COPD overlap syndrome, not in acute exacerbation - continue prn nebs # tobacco abuse - contain nicotine replacement therapy # mild pr/yovani malnutrition - supplemental Ensure # VTE ppx: Resume low molecular weight heparin # dispo: plan home with VNA [he will go live with his brother in [place] and will have family take care of him 10/06]. he is now signed up for [employer] and has an appointment with his new PCP Dr Ross on 06/14/22 at 12:15 In my clinical judgment, the patient requires continued hospitalization for hypoxia, will arrange for safe discharge at a.m. with home oxygen Quality Stroke Does the patient have a stroke diagnosis?: No VTE Prior VTE?: No VTE Risk Level:: Medical - moderate - high VTE Device Contraindication: Treatment Not Indicated VTE Drug Contraindication: N/A - Med Ordered
[2022-06-06 16:00] VITALS: BP 104/52; PULSE 82; RESP 18; TEMP 36.5; O2SAT 98
[2022-06-06 20:00] VITALS: BP 97/52; PULSE 73; RESP 18; TEMP 36.3; O2SAT 97
[2022-06-07] VITALS: BP 92/50; PULSE 81; RESP 15; TEMP 36.9; O2SAT 95
[2022-06-07] MEDS: Morphine Sulfate ER 15 MG TABLET.ER 45 MG PO ×2 (01:56→10:03)
[2022-06-07 04:00] VITALS: BP 92/53; PULSE 72; RESP 15; TEMP 37; O2SAT 93
[2022-06-07 08:00] VITALS: BP 100/51; PULSE 77; RESP 17; TEMP 36.7; O2SAT 95
[2022-06-07 08:47] VITALS: BP 100/51; PULSE 77; O2SAT 95
[2022-06-07] MEDS: 0.9 % Sodium Chloride Flush 3 ML SYRINGE IVFLUSH (10:03)
--- NOTE | 2022-06-07 11:24 | MHC.CM.PN ---
PT MEDICALLY CLEARED FOR D/C HOME W/NEW HOME O2 W/[facility] TOLEDO AND OUTPT FOLLOW-UP W/DR. JANE FOR LUNG CA/CHEMO, PT TO ARRANGE OWN TRANSPORT.
--- NOTE | 2022-06-07 14:04 | PM.DS ---
DS: Providers Provider Date of Service: 06/07/22 Date of admission: 05/26/22 01:07 Primary care physician: None Physician Consults: 05/26/22 01:06 Consult to Hematology / Oncology Routine Consulting Provider: Mylene Arroyo Reason for consultation: lung mass Consult to Pulmonology Routine Consulting Provider: Marisela Bello Reason for consultation: Lung collapse DS: Diagnosis Discharge Diagnosis (1) Chest wall pain: Status: Acute (2) Chest pain: Status: Acute (3) Mass of left lung: Status: Acute (4) Lung mass: Status: Acute DS: Summary Hospital Course Hospital Course: History of presenting illness Chief Complaint: Left chest wall pain 56-year-old male with a past medical history of asthma, tobacco dependence presented to the hospital today with a chief complaint of chest pain.? Patient reports that for the past 1 week he has been having left lateral chest wall pain, worsens with deep inspiration; also served shortness of breath; mentioned that this is chest wall pain is gradually worsening today he had severe pain hence decided to come to the ER for further evaluation.? Denies any fall or trauma.? Denies any palpitations, lightheaded or dizziness.? Denies any nausea vomiting diarrhea.? Denies any cough or sputum production.? Review of all other systems is negative except mentioned above ER course: Per ER team patient noted to have pleuritic left chest pain; CT chest showed findings concerning for lung mass versus lower lobe collapse.? Breathing comfortably on room air.? EKG was nonischemic; troponin was negative; given pain medication.? Admitted to the hospital for further management Hospital course 56yo M with asthma/COPD + tobacco dependence presenting with chest pain and found to have left hilar mass with complete occlusion of left lower lobe bronchus with LLL collapse, underwent bronchoscopy in 05/29 pathology showed poorly differentiated squamous cell carcinoma SCC,, left pleural effusion that is almost certainly malignant, perfusion is not significant to be drained as per IR, Recommend outpatient follow-up with Dr. Arroyo from [facility] for chemotherapy. In regard to cancer associated chest pain patient is being discharged home on MSSR 45 mg q8h + MSIR 30mg q4h prn breakthrough pain. In regard to tobacco abuse patient has been strongly advised to abstain from smoking and is being discharged on nicotine replacement acute on chronic hypoxic resp failure patient a Will waited for home O2 and qualifies for 3L O2 at rest, 8L O2 via Oxymizer with activity For history of chronic asthma/COPD overlap syndrome, patient did not have acute exacerbation recommend to continue home inhalers For mild protein/yovani malnutrition recommend to take Ensure supplement Time Spent with Patient Time attestation: Total time spent providing and/or coordinating discharge services: Discharge coordination time: Greater than 30 minutes Quality: Safe Use of Opioids Does Pt have an Active Cancer Diagnosis on the Problem List?: Yes Opioid Measure Date for [facility] Report: 05/08/22 Opioid Measure Time for [facility] Report: 14:12 Quality: Stroke Does the patient have a stroke diagnosis?: No Physical Exam Vital Signs: Vital Signs: Last Vital Signs Temp 98.1 F 06/07/22 08:00 Pulse 77 06/07/22 08:47 Resp 17 06/07/22 08:00 BP 100/51 L 06/07/22 08:47 Pulse Ox 95 06/07/22 08:47 O2 Del Method 06/07/22 08:00 O2 Flow Rate 4 06/07/22 08:00 Oxygen Flow Rate 2 05/30/22 11:42 BMI result Body Mass Index 19.1 Const: Other: Gen:? Awake alert no acute distress? HEENT: sclera anicteric, moist mucus membranes Neck: supple Lungs: decreased air entry on Left Heart: regular rate and rhythm, no murmurs Abd: soft, non-tender, non-distended Ext: no edema; clubbing present Skin: warm/well-perfused Neuro: alert and oriented x3, no focal findings Psych: appropriate affect DS: Data Data Completed and Pending Completed studies during hospitalization [Text1]: Pending at discharge 05/29/22 12:33 Surgical [PTH] Routine Pending studies at discharge: Pending at discharge 06/05/22 15:36 Cytology [PTH] Routine Discharge Plan Discharge Patient Disposition: Home Health Service Discharge Diagnosis: Acute on chronic hypoxic respiratory failure Left lung squamous cell carcinoma Tobacco use disorder Cancer associated pain Referrals: Odilia BALTAZAR [Outside] - 1 Day ([facility]/ HOME PT ) Mylene Arroyo MD [Physician] - 1 Week Renetta Carey MD [Physician] - 1 Week (PRIMARY CARE PHYSICIAN, FIRST APPOINTMENT. May AT 12:15PM, PLEASE ARRIVE BY 12PM TO COMPLETE PAPERWORK. ) Agustín Torre MD [Physician] - 1 Week Discharge Medications: New nicotine (polacrilex) 2 mg Gum 2 mg buccal Q1H PRN (Reason: tobacco craving) Qty: 50 0RF morphine 15 mg Tablet Extended Release 45 mg PO Q8H Qty: 42 0RF Rx Instructions: Partial Fill upon patient request. morphine 15 mg Tablet 30 mg PO Q4H PRN (Reason: moderate-severe pain) Qty: 40 0RF Rx Instructions: Partial Fill upon patient request. sennosides [Senna Lax] 8.6 mg Tablet 17.2 mg PO BEDTIME PRN (Reason: Constipation) Qty: 30 0RF polyethylene glycol 3350 [Miralax] 17 gram/dose powder 17 g PO DAILY Qty: 510 0RF Discharge Orders: Discharge Order (Routine); Ordered 06/07/22 Ordered By: Isaias Berry Diet: Advance to usual diet Activity on Discharge: As tolerated Stand Alone Forms: Patient Portal Discharge page Activity Restrictions/Additional Instructions: Mr Eubanks requires home oxygen 24 hours per day, every day (7 days per week), anticipated duration 99 days. Diagnosis COPD (J44.9). Medical necessity due to hypoxia, therapeutic objective to keep SaO2 >88% Care Plan Goals: outpatient follow with oncologist Dr. Arroyo, continue oxygen therapy as prescribed and pain medication Take 3 L of oxygen at rest and 8 L via Oxymizer with activity Health Concerns: Tobacco use disorder/lung mass/pain follow recommendations as above Plan of Treatment: New patient primary care appointment with Dr Renetta Nolasco MD, 06/14/22 at 12:30pm Assessment: As per discharge summary
== END 2022-06-07 13:30 | disposition home health service (06) | DRG 136 ==
LOC: HO.ED 05-26 00:43 → HO.EDOVER 05-26 01:18 → HO.IMC 05-28 07:31
PROVIDERS: Family Medicine; Internal Medicine; Internal Medicine Pulmonary Disease; Admitting Provider Hospitalist; Emergency Provider Student in an Organized Health Care Education/Training Program; Visit Provider Hospitalist
PROC: 0BJ08ZZ Inspection of Tracheobronchial Tree, Via Natural or Artificial Opening Endoscopic (ICD-10-PCS; CPT 31622; principal; 2022-05-29 12:00)
DX: C34.82 Malignant neoplasm of overlapping sites of left bronchus and lung (principal); J96.01 Acute respiratory failure with hypoxia; E44.1 Mild protein-calorie malnutrition; J90 Pleural effusion, not elsewhere classified; G89.3 Neoplasm related pain (acute) (chronic); F17.210 Nicotine dependence, cigarettes, uncomplicated; J43.9 Emphysema, unspecified; J45.909 Unspecified asthma, uncomplicated; Z68.1 Body mass index [BMI] 19.9 or less, adult; Z20.822 Contact with and (suspected) exposure to COVID-19; Z71.6 Tobacco abuse counseling; Z79.899 Other long term (current) drug therapy
CPT/HCPCS: 36415; 70553; 71045; 71260; 74177; 80048; 80053; 81479; 83615; 84484; 85025; 85027; 85379; 85610; 85730; 87635; 88305; 88341; 88342; 88360; 88374; 93005; 94640; 96374; 96375; 97116; 97161; 99285; A9585; J0171; J1170; J1650; J1885; J2370; J3010; Q9967

== ENCOUNTER 2022-06-21 14:00 | Outpatient (REF) | payer OTHER, SELFPAY ==
--- NOTE | ~2022-06-21 | XR_ITS ---
EXAMINATION: XR CHEST CLINICAL INFORMATION: Pleural effusion COMPARISON: 05/25/2022 chest radiograph. TECHNIQUE: Frontal view of the chest was obtained. FINDINGS: Interval development of complete opacification the left lung with cardiomediastinal shift to the left. Mild scattered linear markings are seen in the right lung. The osseous structures are unremarkable. XR/XR chest 1V IMPRESSION: Complete opacification of the left lung with evidence for volume loss suggesting interval atelectasis. An associated pleural effusion cannot be excluded.
== END 2022-06-21 14:01 | disposition home or self-care (01) ==
LOC: HO.XRAY 14:00
PROVIDERS: Visit Provider Internal Medicine
DX: C34.92 Malignant neoplasm of unspecified part of left bronchus or lung (principal); J90 Pleural effusion, not elsewhere classified
CPT/HCPCS: 71045

== ENCOUNTER 2022-06-22 19:44 | Inpatient (IN) | payer OTHER, SELFPAY ==
--- NOTE | ~2022-06-22 | CT_ITS ---
EXAMINATION: CT ANGIOGRAM OF THE CHEST WITH AND WITHOUT CONTRAST (CT PULMONARY ANGIOGRAM FOR PE) CLINICAL INFORMATION: Reason for Exam hypoxia COMPARISON: CT chest dated 05/25/2022 TECHNIQUE: Prior to contrast administration, noncontrast localization images were obtained. Subsequently, multidetector volumetric imaging was performed from the thoracic inlet to below the diaphragms following the administration of 54 mL Omnipaque 350 intravenous contrast. No contrast reaction reported Sagittal, coronal, and MIP oblique sagittal reformatted images were obtained on the CT workstation, uploaded to PACS, and reviewed. This CT examination was performed using dose optimization techniques as appropriate, variously including the following: *Automated exposure control *Adjustment of mA and/or kV according to patient size (this includes techniques or standardized protocols for targeted exams where dose is matched to indication/reason for exam; i.e. extremities or head) *Use of iterative reconstruction technique Total exam dose-length product 197 mGy-cm FINDINGS: QUALITY OF STUDY/CONTRAST BOLUS: Satisfactory. PULMONARY ARTERIES: No central or segmental pulmonary emboli. THORACIC AORTA: No aneurysm or dissection. LUNG/PLEURA: There is new complete collapse of the left lung due to the central hilar mass which appears to be increased in size slightly since the prior examination 4.9 cm in single longest transaxial dimension, previously 4.6 cm by my measurements. The mass occludes the left mainstem bronchus, and results in postobstructive atelectasis left lung, with secretions present throughout the bronchioles, associated with a small left pleural effusion and left lower mediastinal shift, with compensatory hyperexpansion of the severely emphysematous right lung. Large bullous emphysema present throughout the right lung. No pneumothorax. MEDIASTINUM: Normal heart size. No pericardial effusion. Mildly enlarged left hilar lymph node. Small mediastinal lymph nodes.. No evidence of septal bowing or right heart strain. No reflux of contrast into the hepatic veins to suggest elevated right heart pressures. CHEST WALL/AXILLA: No axillary or internal mammary lymphadenopathy. OSSEOUS STRUCTURES: No acute or suspicious osseous abnormality. UPPER ABDOMEN: Unremarkable. CT/CT angio chest PE protocol IMPRESSION: * No pulmonary embolism. * New postobstructive atelectasis of the entire left lung due to obstruction of the left mainstem bronchus by the growing left hilar mass. * Associated small left pleural effusion. * Severe bullous emphysema of the hyperexpanded right lung. * Pathologic left hilar lymph node and small mediastinal lymph nodes redemonstrated. VTE:
--- NOTE | ~2022-06-22 | XR_ITS ---
EXAMINATION: XR CHEST CLINICAL INFORMATION: Shortness of breath. COMPARISON: Chest x-ray 07/07/2022 TECHNIQUE: Frontal portable view of the chest was obtained. 9:14 PM FINDINGS: There is loss complete opacification of the left hemithorax unchanged since prior chest x-ray. Mediastinal structures to the left hyperexpansion of the right lung. Emphysematous lucency of the right lung. XR/XR chest 1V IMPRESSION: No change since chest x-ray 06/21/2022. Persistent complete opacification of left hemithorax volume loss.
[2022-06-22 20:11] VITALS: BP 94/54; PULSE 106; RESP 28; TEMP 37.2; O2SAT 80; BMI 15.6
--- NOTE | 2022-06-22 20:31 | ECG_ITS ---
Test Reason : SOB Blood Pressure : / mmHG Vent. Rate : 092 BPM Atrial Rate : 092 BPM P-R Int : 134 ms QRS Dur : 090 ms QT Int : 354 ms P-R-T Axes : 092 095 072 degrees QTc Int : 437 ms Suspect limb lead reversal, interpretation assumes no reversal Normal sinus rhythm Rightward axis Biventricular hypertrophy Septal infarct , age undetermined Abnormal ECG When compared with ECG of 25-MAY-2022 19:25, Nonspecific T wave abnormality now evident in Inferior leads Referred By: Kermit Fraser Electronically Signed By:
--- NOTE | 2022-06-22 20:50 | ED_ITS ---
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 He was noted to be hypoxic saturating 79-80% on 3L in triage. Now reporting chest pain and shortness of breath. Reports substernal nonradiating chest pain. Shortness of breath both at rest and with exertion. Patient reports that he was recently diagnosed with cancer and has not seen a hemat ologist/oncologist, has an appointment with this week to discuss radiation. Patient also reports weakness Denies fevers, chills, nausea, vomiting, diarrhea, headache, dizziness. MD complaint: chest pain Onset (ago): day(s) (1) Timing of current episode: constant Prior episodes: Yes Onset: during rest and during exertion Pain location: substernal Pain radiation: none Severity: severe Quality: tightness Relieving factors: nothing Exacerbating factors: nothing Treatment prior to arrival: none Related Data Previous Rx's Medication Instructions Recorded sennosides 8.6 mg tablet (Senna 17.2 mg PO BEDTIME PRN 06/07/22 Lax) Constipation #30 tabs Grab bar #1 ea 06/12/22 walker (Ultra-Light Rollator misc) #1 ea 06/12/22 morphine 15 mg immediate release 30 mg PO Q4H PRN moderate-severe 06/21/22 tablet pain #40 tabs morphine 15 mg tablet,extended 45 mg PO Q8H #42 tabs 06/21/22 release Allergies Allergy/AdvReac Type Severity Reaction Status Date / Time No Known Allergies Allergy Verified 06/21/22 16:25 Review of Systems Review of Systems: Constitutional : No Weight loss, No Fever, No Chills, No Fatigue, No Malaise ENT/Mouth : No sore throat, No Rhinorrhea Eyes: No Eye Pain, No Swelling, No Redness Cardiovascular : + Chest Pain, + SOB, No Dyspnea on Exertion, No Orthopnea, No Edema, No Palpitations Respiratory : No Cough, No Sputum, No Wheezing Gastrointestinal : No Nausea, No Vomiting, No Diarrhea, No Constipation, No abdominal Pain, No Hematochezia, No Melena Genitourinary : No Dysuria, No Urinary Frequency, No Hematuria, Musculoskeletal : No joint pain, No Myalgias, No Joint Swelling Skin : No Skin Lesions, No rash Neuro : + Weakness, No Numbness, No Dizziness, No Headache All other systems reviewed and are negative Yes all other systems are reviewed and are negative [facility] Past Medical History Attestation statement: The following information was validated with the patient. Source: old records reviewed and nursing notes reviewed Medical History Asthma Non-small cell cancer of left lung Tobacco dependence Surgical History History of lung biopsy Family History Family History Other No family history of cancer Social History Social History Household Members: Family Housing: House Are you a primary housekeeper child care to a significant other at home: No Do you presently have visiting nurse or other home services: No Patient Tobacco Use Status: Former Tobacco user Tobacco use type: Cigarette Cigarettes Per Day: 20 Years Smoked: 30 years Second Hand Smoke Exposure: No Advance Directives: No service: No Current occupational status: disabled Physical Exam Vital Signs: Vital Signs: Last Vital Signs Temp 99.1 F 06/22/22 21:31 Pulse 87 06/22/22 23:01 Resp 21 H 06/22/22 23:01 BP 102/62 06/22/22 23:01 Pulse Ox 99 06/22/22 23:01 O2 Del Method 06/22/22 23:01 O2 Flow Rate 5 06/22/22 23:01 Oxygen Flow Rate 3 06/22/22 20:11 BMI result Body Mass Index 15.6 Vital signs significant for hypotension, tachycardia. Appearance: Alert.? Oriented X3.?? Patient noted to be in mild respiratory distress with labored breathing, and intercostal retractions. Head: Normocephalic, atraumatic, no step-offs or deformities Eyes: Pupils equal, round and reactive to light.? ENT: Pharynx normal.? Neck: Normal inspection.? Neck supple.? CVS: Normal heart rate and rhythm.? Pulses normal.? Respiratory: + respiratory distress.? Breath sounds diminshed b/l.? Abdomen: Soft and nontender.? Skin: Skin warm and dry.? Normal skin color.? Normal skin turgor.? Extremities: No lower extremity edema.? No calf ttp. global weakness Back: No midline tenderness, no C-spine tenderness, full range of motion, no CVA tenderness bilaterally Neuro: Oriented X 3.? No motor deficit.? No sensory deficit. CN 2-12 intact Course Reevaluation(s) Reevaluation #1: CBC with a slight leukocytosis, platelets noted to be elevated 45, could be secondary to dehydration. Chemistry with no acute findings, troponin within normal limits BNP within normal limits, lactic acid within normal limits. D- dimer -173. COVID negative. Salicylates and acetaminophen negative. Time: 21:00 Reevaluation #2: CTA of the chest with no pulmonary embolism, new postobstructive atelectasis of the entire left lung due to obstruction of the left mainstem bronchus by the growing left hilar mass. There is a small left pleural effusion and severe bolus emphysema of a hyperexpanded right lung. 99% on 5L via ventimask Time: 23:56 Reevaluation #3: Patient will be aditted to hospitalist for futher evaluation and tx Time: 00:53 MDM - Chest Pain MDM Narrative Medical decision making narrative: 2030 56-year-old male presents with chest pain, shortness of breath, known history of non-small cell lung cancer and squamous cell carcinoma of the lungs also has a history of COPD. Initial reason patient came in today was to have a refill on his morphine. Patient noted to be hypoxic, tachycardic. Patient with diminished breath sounds bilaterally. Patient in mild respiratory distress. He is currently on a Venti mask on 8 L saturating 92%. Concerns for PE. Unlikely that this is infection. Tachycardia likely secondary to labored breathing. Will obtain blood cultures, lactic, VBG, troponin, EKG. Medical Records Data Attestation: I reviewed the patient's medical records. Lab Data Attestation: I reviewed the patient's lab results. Result diagrams: 06/22/22 20:48 06/22/22 20:48 Labs: Lab Results 06/22/22 06/22/22 06/22/22 Range/Units 20:48 20:48 20:48 WBC 10.9 H (4.8-10.8) X10*3/uL RBC 4.82 (4.60-5.80) X10*6/uL Hgb 13.5 L (14.0-18.0) g/dl Hct 41.3 L (42.0-52.0) % MCV 85.7 (80.0-98.0) fL MCH 28.0 (27.0-33.0) pg MCHC 32.7 (31.0-36.0) g/dl RDW 13.4 (11.0-16.0) % Plt Count 485 H D (160-400) X10*3/uL MPV 9.6 (9.4-12.4) fL Immature Gran % (Auto) 0.4 (0.0-0.4) % Neut % (Auto) 82.8 H (45-73) % Lymph % (Auto) 9.8 L (20-40) % Childress % (Auto) 6.3 (2-11) % Eos % (Auto) 0.3 (0-4) % Baso % (Auto) 0.4 (0-2) % Lymph # (Auto) 1.1 L (1.2-4.9) X10*3/uL Childress # (Auto) 0.7 (0.1-1.2) X10*3/uL Eos # (Auto) 0.0 (0.0-0.4) X10*3/uL Baso # (Auto) 0.0 (0.0-0.2) X10*3/uL Abs Immat Gran (auto) 0.04 H (0.00-0.03) X10*3/uL Absolute Neuts (auto) 9.0 H (2.0-8.3) x10*3/uL Absolute Nucleated RBC 0.000 (0.0-0.012) X10*3/uL Nucleated RBC % (auto) 0.0 (0.0-0.2) /100WBC D-Dimer High Sensitivty NG/ML VBG pH (7.32-7.43) VBG pCO2 mmHg VBG pO2 mmHg VBG HCO3 (22-26) mmol/L VBG O2 Saturation % VBG Base Excess mmol/L Sodium 140 (135-145) mmol/L Potassium 4.0 (3.3-5.1) mmol/L Chloride 103 (96-108) mmol/L Carbon Dioxide 25 (22-29) mmol/L Anion Gap 16 (12-20) BUN 10 D (9-16) mg/dL Creatinine 0.71 (0.5-1.4) mg/dL Estim Creat Clear Calc 69.2 Estimated GFR > 60 Random Glucose 105 (60-115) mg/dL Lactic Acid (0.5-2.0) mmol/L Calcium 9.3 (8.4-10.2) mg/dL Magnesium 2.0 (1.6-2.6) mg/dL Total Bilirubin 0.6 (0.0-1.0) mg/dL AST 18 (5-37) U/L ALT 12 (0-40) U/L Alkaline Phosphatase 94 (39-117) U/L Troponin I High Sens 4.9 (<3.5-35.0) ng/L B-Natriuretic Peptide 32 (<100) pg/mL Total Protein 8.2 H (6.5-8.0) g/dL Albumin 3.9 (3.5-5.0) g/dL Salicylates (15-30) mg/dL Acetaminophen (<30) mcg/mL COVID-19 (LAYO) (Negative) COVID-19 Clin Com 06/22/22 06/22/22 06/22/22 Range/Units 20:48 20:57 21:00 WBC (4.8-10.8) X10*3/uL RBC (4.60-5.80) X10*6/uL Hgb (14.0-18.0) g/dl Hct (42.0-52.0) % MCV (80.0-98.0) fL MCH (27.0-33.0) pg MCHC (31.0-36.0) g/dl RDW (11.0-16.0) % Plt Count (160-400) X10*3/uL MPV (9.4-12.4) fL Immature Gran % (Auto) (0.0-0.4) % Neut % (Auto) (45-73) % Lymph % (Auto) (20-40) % Childress % (Auto) (2-11) % Eos % (Auto) (0-4) % Baso % (Auto) (0-2) % Lymph # (Auto) (1.2-4.9) X10*3/uL Childress # (Auto) (0.1-1.2) X10*3/uL Eos # (Auto) (0.0-0.4) X10*3/uL Baso # (Auto) (0.0-0.2) X10*3/uL Abs Immat Gran (auto) (0.00-0.03) X10*3/uL Absolute Neuts (auto) (2.0-8.3) x10*3/uL Absolute Nucleated RBC (0.0-0.012) X10*3/uL Nucleated RBC % (auto) (0.0-0.2) /100WBC D-Dimer High Sensitivty 173 NG/ML VBG pH (7.32-7.43) VBG pCO2 mmHg VBG pO2 mmHg VBG HCO3 (22-26) mmol/L VBG O2 Saturation % VBG Base Excess mmol/L Sodium (135-145) mmol/L Potassium (3.3-5.1) mmol/L Chloride (96-108) mmol/L Carbon Dioxide (22-29) mmol/L Anion Gap (12-20) BUN (9-16) mg/dL Creatinine (0.5-1.4) mg/dL Estim Creat Clear Calc Estimated GFR Random Glucose (60-115) mg/dL Lactic Acid 1.0 (0.5-2.0) mmol/L Calcium (8.4-10.2) mg/dL Magnesium (1.6-2.6) mg/dL Total Bilirubin (0.0-1.0) mg/dL AST (5-37) U/L ALT (0-40) U/L Alkaline Phosphatase (39-117) U/L Troponin I High Sens (<3.5-35.0) ng/L B-Natriuretic Peptide (<100) pg/mL Total Protein (6.5-8.0) g/dL Albumin (3.5-5.0) g/dL Salicylates (15-30) mg/dL Acetaminophen (<30) mcg/mL COVID-19 (LAYO) Negative (Negative) COVID-19 Clin Com See Note 06/22/22 06/22/22 Range/Units 21:00 21:44 WBC (4.8-10.8) X10*3/uL RBC (4.60-5.80) X10*6/uL Hgb (14.0-18.0) g/dl Hct (42.0-52.0) % MCV (80.0-98.0) fL MCH (27.0-33.0) pg MCHC (31.0-36.0) g/dl RDW (11.0-16.0) % Plt Count (160-400) X10*3/uL MPV (9.4-12.4) fL Immature Gran % (Auto) (0.0-0.4) % Neut % (Auto) (45-73) % Lymph % (Auto) (20-40) % Childress % (Auto) (2-11) % Eos % (Auto) (0-4) % Baso % (Auto) (0-2) % Lymph # (Auto) (1.2-4.9) X10*3/uL Childress # (Auto) (0.1-1.2) X10*3/uL Eos # (Auto) (0.0-0.4) X10*3/uL Baso # (Auto) (0.0-0.2) X10*3/uL Abs Immat Gran (auto) (0.00-0.03) X10*3/uL Absolute Neuts (auto) (2.0-8.3) x10*3/uL Absolute Nucleated RBC (0.0-0.012) X10*3/uL Nucleated RBC % (auto) (0.0-0.2) /100WBC D-Dimer High Sensitivty NG/ML VBG pH 7.55 H (7.32-7.43) VBG pCO2 23 mmHg VBG pO2 107 mmHg VBG HCO3 21 L (22-26) mmol/L VBG O2 Saturation 99.0 % VBG Base Excess 0.7 mmol/L Sodium (135-145) mmol/L Potassium (3.3-5.1) mmol/L Chloride (96-108) mmol/L Carbon Dioxide (22-29) mmol/L Anion Gap (12-20) BUN (9-16) mg/dL Creatinine (0.5-1.4) mg/dL Estim Creat Clear Calc Estimated GFR Random Glucose (60-115) mg/dL Lactic Acid (0.5-2.0) mmol/L Calcium (8.4-10.2) mg/dL Magnesium (1.6-2.6) mg/dL Total Bilirubin (0.0-1.0) mg/dL AST (5-37) U/L ALT (0-40) U/L Alkaline Phosphatase (39-117) U/L Troponin I High Sens (<3.5-35.0) ng/L B-Natriuretic Peptide (<100) pg/mL Total Protein (6.5-8.0) g/dL Albumin (3.5-5.0) g/dL Salicylates < 5.0 L (15-30) mg/dL Acetaminophen 8 (<30) mcg/mL COVID-19 (LAYO) (Negative) COVID-19 Clin Com ECG Data ECG #1: Attestation: I personally reviewed and interpreted this ECG as follows: ECG interpretation date: 06/22/22 ECG interpretation time: 00:02 Prior ECG tracings: available for review Interpretation: Ventricular rate of 92, DE normal, QT/QTC normal. EKG w/ NSR no MARJORIE or inversion. No acute signs of ischemia. No significant changes when comparted to EKG of May 2022. Critical Care Time Critical Care Time Critical Care Time: Yes Total Critical Care Time: 35 Attestation: I attest to this time spent taking care of the patient, obtaining history, physical, reviewing labs, imaging, speaking to my attending Discharge Plan Discharge Clinical Impression: Non-small cell cancer of left lung, Squamous cell carcinoma of lung, Hypoxia Patient Disposition: Admitted As Inpatient
[2022-06-22 20:54] LABS: MANUAL DIFF FLAG NO
[2022-06-22 20:56] LABS: Basophils Percent Auto 0.4 % (0-2); Eosinophils Percent Auto 0.3 % (0-4); Hematocrit 41.3 % (42.0-52.0); Hemoglobin 13.5 g/dl (14.0-18.0); Imm Gran Abs Auto 0.04 X10*3/uL (0.00-0.03); Imm Gran Pct Auto 0.4 % (0.0-0.4); Lymphocytes Absolute Auto 1.1 X10*3/uL (1.2-4.9); Lymphocytes Percent Auto 9.8 % (20-40); Mean Corpuscular HGB Conc 32.7 g/dl (31.0-36.0); Mean Corpuscular Volume 85.7 fL (80.0-98.0); Mean Platelet Volume 9.6 fL (9.4-12.4); Monocytes Absolute Auto 0.7 X10*3/uL (0.1-1.2); Monocytes Percent Auto 6.3 % (2-11); Neutrophils Percent Auto 82.8 % (45-73); Platelet Count 485 X10*3/uL (160-400); Red Blood Count 4.82 X10*6/uL (4.60-5.80); Red Cell Distribution Width 13.4 % (11.0-16.0); White Blood Count 10.9 X10*3/uL (4.8-10.8)
[2022-06-22 21:02] LABS: D Dimer High Sensitivity 173 NG/ML
[2022-06-22 21:15] LABS: Alanine Aminotransferase 12 U/L (0-40); Albumin Level 3.9 g/dL (3.5-5.0); Alkaline Phosphatase 94 U/L (39-117); Anion Gap 16 (12-20); Aspartate Amino Transferase 18 U/L (5-37); Bilirubin Total 0.6 mg/dL (0.0-1.0); Blood Urea Nitrogen 10 mg/dL (9-16); Calcium 9.3 mg/dL (8.4-10.2); Carbon Dioxide 25 mmol/L (22-29); Chloride 103 mmol/L (96-108); Creatinine Clr Calc Pharmacy 69.2; Estimated Glomerular Filt Rate > 60; Glucose Random 105 mg/dL (60-115); Sodium 140 mmol/L (135-145); Total Protein 8.2 g/dL (6.5-8.0)
[2022-06-22 21:21] LABS: Troponin-I High Sensitivity 4.9 ng/L (<3.5-35.0)
[2022-06-22 21:25] LABS: B Type Natriuretic Peptide 32 pg/mL (<100)
[2022-06-22 21:31] VITALS: BP 115/75; PULSE 100; RESP 16; TEMP 37.3; O2SAT 95
[2022-06-22 21:33] LABS: COVID-19 Test Negative (Negative)
[2022-06-22 21:53] LABS: VBG Base Excess 0.7 mmol/L; VBG HCO3 21 mmol/L (22-26); VBG pCO2 23 mmHg; VBG pH 7.55 (7.32-7.43); VBG pO2 107 mmHg
[2022-06-22 21:55] LABS: Venous Blood Gas Refer to POC result
[2022-06-22 21:58] LABS: Acetaminophen LAB 8 mcg/mL (<30); Salicylate < 5.0 mg/dL (15-30)
[2022-06-22] MEDS: iohexoL 350 MG/ML 100 ML INFUS..BTL IV (22:25)
[2022-06-22 23:01] VITALS: BP 102/62; PULSE 87; RESP 21; O2SAT 99
[2022-06-23] VITALS (22 sets, daily range): BP systolic 84–134; BP diastolic 45–71; PULSE 70–113; RESP 14–39; TEMP 21.6–37.7; O2SAT 78–100; BMI 15.9
[2022-06-23] MEDS: fentaNYL citrate/PF 100 MCG/2 ML VIAL 25 MCG IVPUSH (01:57)
--- NOTE | 2022-06-23 02:08 | PC.NURSE ---
pt found sitting on the floor with a chucks under his bottom, pt stooled on the floor and urinated. pt found with his 02 off. sat low 70. resp called, 02 nonrebreather applied, pt anxiouse wound not keep the mask on his face, resp and provider at bedside. fi02 increased to 15L and sat improving slowly. pt medicated with fentanly for his anxiety with good effect. pt was also place with his arms over the side table with a ice pack to his neck. pt diaphoretic moist, retractions note.
[2022-06-23 02:47] LABS: Venous Blood Gas Refer to POC result
[2022-06-23] MEDS: dexmedeTOMIDidine HCL/NS 400 MCG/100 ML INFUS..BTL 10.66 MCG IVCONT (02:47)
--- NOTE | 2022-06-23 03:03 | PC.NURSE ---
pt needing to be placed on bipap for the night per RT and ICU PA d/t increased work of breathing and inc resp drive. pt currently unwilling to tolerate bipap mask. precedex IV infusion started per PA orders to calm patient in order to wear bipap mask for the night to help with increased work of breathing. need to slow respiratory drive. pt started on cpap by resp therapist, along with precedex drip at 1mcg/kg/hr. ONEIL, RN, RT on standby at bedside. pt tolerating well. O2 up to 90%. RR 35. continuous monitoring and titrating of drip in place, per mar orders. pt to be transferred to ICU shortly.
[2022-06-23] MEDS: Heparin Sodium,Porcine 5,000 UNIT/ML VIAL 5000 UNIT SUBCUT ×2 (04:01→09:50)
--- NOTE | 2022-06-23 04:10 | P.HPCC_ITS ---
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 In triage, he was noted to be hypoxic satting at 80% on 3 L. He is also reporting non radiating a substernal chest pain, weakness and shortness of breath. his family told the emergency department PA that he was recently diagnosed with cancer and is being followed by Dr Arroyo. vital signs in the ED emergency department notable for heart rate 106, respiratory rate 28, blood pressure 94/50 for and patient was satting 80% on 3 L nasal cannula. labs in the ED were notable for WBC 10.9, platelets 485. CTA revealed; *? No pulmonary embolism. *? New postobstructive atelectasis of the entire left lung due to obstruction of the left mainstem bronchus by the growing left hilar mass. *? Associated small left pleural effusion. *? Severe bullous emphysema of the hyperexpanded right lung. *? Pathologic left hilar lymph node and small mediastinal lymph nodes redemonstrated Pt was satting at 92% on a Venti mask with 8 L but once he got up to go to the bathroom on a blanket he had placed on the floor, he desatted and ED staff and RT were unable to get his saturation up. Patient has a lot of anxiety regarding wearing the BiPAP mask, with claustrophobia, he would not tolerate it. It is vision was made to give the patient Precedex so that we could but the BiPAP mask on him and get his set up to at least 88%. Dr. Snow agreed to admit the patient to the ICU Review of Systems Review of Systems: Yes all other systems are reviewed and are negative PMFSH Past Medical History Medical History (Updated 06/23/22 @ 06:16 by Naz Valderrama RN) Asthma COPD (chronic obstructive pulmonary disease) Non-small cell cancer of left lung O2 dependent Tobacco dependence Family History Family History Other No family history of cancer Surgical History Surgical History History of lung biopsy Social History Social History Household Members: Unknown / Unable to assess Housing: House Are you a primary hospice care consultant to a significant other at home: No Do you presently have visiting nurse or other home services: No Patient Tobacco Use Status: Former Tobacco user Tobacco use type: Cigarette Cigarettes Per Day: 20 Years Smoked: 30 years Second Hand Smoke Exposure: No Use of substances other than those prescribed or required for medical reasons: No Advance Directives: No Recently lost weight without trying: Unsure Poor oral hygiene: No service: No Current occupational status: disabled Meds Allergies Allergy/AdvReac Type Severity Reaction Status Date / Time No Known Allergies Allergy Verified 06/21/22 16:25 Active Medications: Current Medications Heparin Sodium (Porcine) (Heparin Sodium,Porcine 5,000 Unit/Ml Vial) 5,000 unit SUBCUT Q8H ABIMBOLA Last Admin: 06/23/22 04:01 Dose: 5,000 unit Dexmedetomidine HCl (Precedex) 400 mcg in 100 mls @ 0 mls/hr IVCONT .Q0M ABIMBOLA; Protocol Last Titration: 06/23/22 03:50 Dose: 1.5 mcg/kg/hr, 15.99 mls/hr Pharmacy Consult (Consult Rx Perform Med Rec) 1 each MISCELLANE ONCE PRN PRN Reason: Consult order Physical Exam Vital Signs: Vital Signs: Last Vital Signs Temp 99.1 F 06/22/22 21:31 Pulse 91 06/23/22 04:00 Resp 15 06/23/22 04:00 BP 90/54 L 06/23/22 04:00 Pulse Ox 96 06/23/22 04:00 O2 Del Method 06/23/22 04:00 O2 Flow Rate 5 06/23/22 04:00 Oxygen Flow Rate 3 06/22/22 20:11 BMI result Body Mass Index 15.6 Const: General: cooperative, acute distress mild and respiratory, anxious and ill appearing Nutritional Appearance: cachectic Orientation/consciousness: patient oriented x3 Limitations: language barrier ( Israeli-speaking) HEENT: Head: Yes normal to inspection General nose exam: Normal external nose present Face and sinus: Yes normal facial exam Eyes: General: appearance normal, both eyes and all related structures Pupils: Equal, round and reactive pupils present EOM: EOMs intact bilaterally Neck: Neck: Yes normal visual inspection, Yes full ROM and Yes trachea midline Resp: Effort & Inspection: retractions supraclavicular and tachypneic Auscultation: breath sounds absent on the right and diminished lung sounds on the left Cardio: Jugular venous distension: no JVD Rate: regular rate Rhythm: regular rhythm Heart sounds: normal S1 and S2 GI: Inspection: Yes normal to inspection Palpation (GI): Soft to palpation and nontender Neuro: General: patient oriented x3 Cranial nerves: Yes Equal, round and reactive pupils present Extrem: General: Yes no pedal edema Results Labs CBC and Chem 7: 06/22/22 20:48 06/22/22 20:48 Labs: Laboratory Results - last 24 hr 06/22/22 06/22/22 06/22/22 20:48 20:48 20:48 MCV 85.7 MCH 28.0 MCHC 32.7 RDW 13.4 Plt Count 485 H D MPV 9.6 Immature Gran % (Auto) 0.4 Neut % (Auto) 82.8 H Lymph % (Auto) 9.8 L [place] % (Auto) 6.3 Eos % (Auto) 0.3 Baso % (Auto) 0.4 Lymph # (Auto) 1.1 L [place] # (Auto) 0.7 Eos # (Auto) 0.0 Baso # (Auto) 0.0 Abs Immat Gran (auto) 0.04 H Absolute Neuts (auto) 9.0 H Absolute Nucleated RBC 0.000 Nucleated RBC % (auto) 0.0 D-Dimer High Sensitivty VBG pH VBG pCO2 VBG pO2 VBG HCO3 VBG O2 Saturation VBG Base Excess Anion Gap 16 Estim Creat Clear Calc 69.2 Estimated GFR > 60 Random Glucose 105 Lactic Acid Calcium 9.3 Magnesium 2.0 Total Bilirubin 0.6 AST 18 ALT 12 Alkaline Phosphatase 94 B-Natriuretic Peptide 32 Total Protein 8.2 H Albumin 3.9 Salicylates Acetaminophen COVID-19 (LAYO) COVID-19 Clin Com 06/22/22 06/22/22 06/22/22 20:48 20:57 21:00 MCV MCH MCHC RDW Plt Count MPV Immature Gran % (Auto) Neut % (Auto) Lymph % (Auto) [place] % (Auto) Eos % (Auto) Baso % (Auto) Lymph # (Auto) [place] # (Auto) Eos # (Auto) Baso # (Auto) Abs Immat Gran (auto) Absolute Neuts (auto) Absolute Nucleated RBC Nucleated RBC % (auto) D-Dimer High Sensitivty 173 VBG pH VBG pCO2 VBG pO2 VBG HCO3 VBG O2 Saturation VBG Base Excess Anion Gap Estim Creat Clear Calc Estimated GFR Random Glucose Lactic Acid 1.0 Calcium Magnesium Total Bilirubin AST ALT Alkaline Phosphatase B-Natriuretic Peptide Total Protein Albumin Salicylates Acetaminophen COVID-19 (LAYO) Negative COVID-19 Clin Com See Note 06/22/22 06/22/22 21:00 21:44 MCV MCH MCHC RDW Plt Count MPV Immature Gran % (Auto) Neut % (Auto) Lymph % (Auto) [place] % (Auto) Eos % (Auto) Baso % (Auto) Lymph # (Auto) [place] # (Auto) Eos # (Auto) Baso # (Auto) Abs Immat Gran (auto) Absolute Neuts (auto) Absolute Nucleated RBC Nucleated RBC % (auto) D-Dimer High Sensitivty VBG pH 7.55 H VBG pCO2 23 VBG pO2 107 VBG HCO3 21 L VBG O2 Saturation 99.0 VBG Base Excess 0.7 Anion Gap Estim Creat Clear Calc Estimated GFR Random Glucose Lactic Acid Calcium Magnesium Total Bilirubin AST ALT Alkaline Phosphatase B-Natriuretic Peptide Total Protein Albumin Salicylates < 5.0 L Acetaminophen 8 COVID-19 (LAYO) COVID-19 Clin Com Imaging Radiologist's Impressions: Impressions Chest X-Ray 06/22/22 21:23 IMPRESSION: No change since chest x-ray 06/21/2022. Persistent complete opacification of left hemithorax volume loss. Chest CTA 06/22/22 22:28 IMPRESSION: * No pulmonary embolism. * New postobstructive atelectasis of the entire left lung due to obstruction of the left mainstem bronchus by the growing left hilar mass. * Associated small left pleural effusion. * Severe bullous emphysema of the hyperexpanded right lung. * Pathologic left hilar lymph node and small mediastinal lymph nodes redemonstrated. VTE: Assessment and Plan (1) Respiratory failure: Status: Acute pt on precedex tolerating BiPAP well. (2) COPD (chronic obstructive pulmonary disease): Status: Acute on BiPAP (3) Squamous cell carcinoma of lung: Status: Acute Heme/onc consult appreciated; notes from Dr Arroyo consult from 06/21/22 as follows; CT chest with contrast performed 05/26/2022 showed heterogenous mass in the left hilum measuring 4.4 x 2.6 x 3.5 cm.? Occlusion of left lower lobe bronchus with severe emphysema.? Left upper lobe bronchiectasis with surrounding consolidation .? Much of the left lower lobe was collapsed.? Left hilar lymph node enlarged, metastatic disease.? AJCC stage T2 N1 M1a ( if pleural cytology is positive for malignancy). ? He had bronchoscopy and biopsy of left lower lobe endobronchial lesion on 05/29/2022 which revealed poorly differentiated squamous cell carcinoma. NGS revealed PDL1- TPS 1%,? ALK arrangement negative, ROS1 rearrangement negative, MET amplification negative, RET rearrangement negative, PTEN detected.? EGFR and KRAS mutations pending. ? Patient is on 3 L oxygen.? Chest x-ray today revealed complete collapse of left lung.? He is being scheduled for thoracentesis and PleurX catheter placement. (4) Malnutrition: Status: Acute poor appetite Plan precedex so pt will tolerate the BiPAP ovenight Critical Care Time Critical Care Time (minutes): 60
[2022-06-23 07:16] LABS: VBG Base Excess -0.3 mmol/L; VBG HCO3 22 mmol/L (22-26); VBG pCO2 30 mmHg; VBG pH 7.47 (7.32-7.43); VBG pO2 47 mmHg
[2022-06-23 07:39] LABS: MANUAL DIFF FLAG NO
[2022-06-23 07:44] LABS: Basophils Percent Auto 0.4 % (0-2); Hematocrit 38.3 % (42.0-52.0); Hemoglobin 12.4 g/dl (14.0-18.0); Imm Gran Abs Auto 0.04 X10*3/uL (0.00-0.03); Imm Gran Pct Auto 0.4 % (0.0-0.4); Lymphocytes Absolute Auto 0.7 X10*3/uL (1.2-4.9); Lymphocytes Percent Auto 6.4 % (20-40); Mean Corpuscular HGB Conc 32.4 g/dl (31.0-36.0); Mean Corpuscular Hemoglobin 27.8 pg (27.0-33.0); Mean Corpuscular Volume 85.9 fL (80.0-98.0); Mean Platelet Volume 9.4 fL (9.4-12.4); Monocytes Absolute Auto 0.5 X10*3/uL (0.1-1.2); Monocytes Percent Auto 4.8 % (2-11); Neutrophils Absolute Auto 9.2 x10*3/uL (2.0-8.3); Platelet Count 428 X10*3/uL (160-400); Red Blood Count 4.46 X10*6/uL (4.60-5.80); Red Cell Distribution Width 13.5 % (11.0-16.0); White Blood Count 10.5 X10*3/uL (4.8-10.8)
[2022-06-23 08:18] LABS: Alanine Aminotransferase 11 U/L (0-40); Albumin Level 3.5 g/dL (3.5-5.0); Alkaline Phosphatase 88 U/L (39-117); Anion Gap 18 (12-20); Aspartate Amino Transferase 16 U/L (5-37); Bilirubin Total 0.6 mg/dL (0.0-1.0); Blood Urea Nitrogen 10 mg/dL (9-16); Calcium 8.6 mg/dL (8.4-10.2); Carbon Dioxide 21 mmol/L (22-29); Chloride 104 mmol/L (96-108); Creatinine Clr Calc Pharmacy 80.8; Estimated Glomerular Filt Rate > 60; Glucose Random 107 mg/dL (60-115); Magnesium 1.9 mg/dL (1.6-2.6); Phosphorus 3.8 mg/dL (2.7-4.5); Potassium 4.2 mmol/L (3.3-5.1); Sodium 139 mmol/L (135-145); Total Protein 7.4 g/dL (6.5-8.0)
[2022-06-23 08:46] LABS: Venous Blood Gas Refer to POC result
[2022-06-23] MEDS: Morphine Sulfate ER 15 MG TABLET.ER 45 MG PO ×2 (08:53→18:06)
--- NOTE | 2022-06-23 13:36 | P.PNCC_ITS ---
Subjective Subjective Date of Service: 06/23/22 Interval History: Mr. Eubanks was admitted to ICU early this morning because of acute respiratory failure. Briefly, the patient is an emaciated 56-year-old man with severe tobacco-induced bolus emphysema who was diagnosed with poorly differentiated squamous cell carcinoma when he presented on May 26 to the ED with chest pain and left hilar mass with complete occlusion of his left lower lobe bronchus with left lower lung collapse.? He was discharged on June 07 with morphine and oxygen, for f/u w Dr. Arroyo. He presented ambulatory to the ED late last night requesting a refill for his morphine prescription.? In the ED, he was noted to be hypoxemic, saturating 80% on 3 L oxygen by nasal cannula.? He was complaining of chest pain and shortness of breath at rest and with exertion. Chest x-ray showed a complete whiteout on the left side.? CT scan showed postoperative atelectasis of the entire left lung due to obstruction of the left mainstem bronchus by the growing left hilar mass.? There was only a small left pleural effusion.? Otherwise, severe bullous emphysema of both lungs was noted. The patient was admitted to the ICU for BiPAP.? But by the time he arrived in the ICU early this morning, he was no longer needing noninvasive ventilation.? He?s been on 3 L oxygen by nasal cannula since then, setting up to 93-99%.? Currently he?s fully alert and oriented.? Denies SOB.? We?ve been giving him morphine ER 45mg q8hr for pain.? RR now is 20 on 3L NC, breathing easy w no access musc, Sat 99%.? HR is 75, SR, BP 90/47.? He?s cachectic, 43kg.? No JVD, no edema.? Serum albumin is 3.5 IMPRESSION: 1. Metastatic poorly differentiated squamous cell carcinoma of the lung. 2. Complete left lung collapse secondary to occlusion of the left mainstem bronchus.? I put in a consult to Dr. Arroyo.? Not sure if this might respond to emergency XRT. 3. Hypoxemic respiratory failure.? 2? to above. 4. Undoubtedly at least mild or moderate PCM. 5. No evidence of infection. Stable for [facility] [place] [facility] I will sign out to the hospitalists. Critical Care Time (minutes): 0 Physical Exam Vital Signs: Vital Signs: Last Vital Signs Temp 97.8 F 06/23/22 12:00 Pulse 78 06/23/22 13:00 Resp 26 H 06/23/22 13:00 BP 96/55 L 06/23/22 13:00 Pulse Ox 98 06/23/22 13:00 O2 Del Method 06/23/22 13:00 O2 Flow Rate 3 06/23/22 13:00 Oxygen Flow Rate 3 06/22/22 20:11 BMI result Body Mass Index 15.9 Objective Data Labs CBC & Chem 7: 06/23/22 06:59 06/23/22 06:59 Labs: Laboratory Results - last 24 hr 06/22/22 06/22/22 06/22/22 20:48 20:48 20:48 WBC 10.9 H RBC 4.82 Hgb 13.5 L Hct 41.3 L MCV 85.7 MCH 28.0 MCHC 32.7 RDW 13.4 Plt Count 485 H D MPV 9.6 Immature Gran % (Auto) 0.4 Neut % (Auto) 82.8 H Lymph % (Auto) 9.8 L [place] % (Auto) 6.3 Eos % (Auto) 0.3 Baso % (Auto) 0.4 Lymph # (Auto) 1.1 L [place] # (Auto) 0.7 Eos # (Auto) 0.0 Baso # (Auto) 0.0 Abs Immat Gran (auto) 0.04 H Absolute Neuts (auto) 9.0 H Absolute Nucleated RBC 0.000 Nucleated RBC % (auto) 0.0 D-Dimer High Sensitivty VBG pH VBG pCO2 VBG pO2 VBG HCO3 VBG O2 Saturation VBG Base Excess Sodium 140 Potassium 4.0 Chloride 103 Carbon Dioxide 25 Anion Gap 16 BUN 10 D Creatinine 0.71 Estim Creat Clear Calc 69.2 Estimated GFR > 60 Random Glucose 105 Lactic Acid Calcium 9.3 Phosphorus Magnesium 2.0 Total Bilirubin 0.6 AST 18 ALT 12 Alkaline Phosphatase 94 Troponin I High Sens 4.9 B-Natriuretic Peptide 32 Total Protein 8.2 H Albumin 3.9 Salicylates Acetaminophen COVID-19 (LAYO) COVID-19 Clin Com 06/22/22 06/22/22 06/22/22 20:48 20:57 21:00 WBC RBC Hgb Hct MCV MCH MCHC RDW Plt Count MPV Immature Gran % (Auto) Neut % (Auto) Lymph % (Auto) [place] % (Auto) Eos % (Auto) Baso % (Auto) Lymph # (Auto) [place] # (Auto) Eos # (Auto) Baso # (Auto) Abs Immat Gran (auto) Absolute Neuts (auto) Absolute Nucleated RBC Nucleated RBC % (auto) D-Dimer High Sensitivty 173 VBG pH VBG pCO2 VBG pO2 VBG HCO3 VBG O2 Saturation VBG Base Excess Sodium Potassium Chloride Carbon Dioxide Anion Gap BUN Creatinine Estim Creat Clear Calc Estimated GFR Random Glucose Lactic Acid 1.0 Calcium Phosphorus Magnesium Total Bilirubin AST ALT Alkaline Phosphatase Troponin I High Sens B-Natriuretic Peptide Total Protein Albumin Salicylates Acetaminophen COVID-19 (LAYO) Negative COVID-[employer] Com See Note 06/22/22 06/22/22 06/23/22 21:00 21:44 06:59 WBC 10.5 RBC 4.46 L Hgb 12.4 L Hct 38.3 L MCV 85.9 MCH 27.8 MCHC 32.4 RDW 13.5 Plt Count 428 H MPV 9.4 Immature Gran % (Auto) 0.4 Neut % (Auto) 88.0 H Lymph % (Auto) 6.4 L [place] % (Auto) 4.8 Eos % (Auto) 0.0 Baso % (Auto) 0.4 Lymph # (Auto) 0.7 L [place] # (Auto) 0.5 Eos # (Auto) 0.0 Baso # (Auto) 0.0 Abs Immat Gran (auto) 0.04 H Absolute Neuts (auto) 9.2 H Absolute Nucleated RBC 0.000 Nucleated RBC % (auto) 0.0 D-Dimer High Sensitivty VBG pH 7.55 H VBG pCO2 23 VBG pO2 107 VBG HCO3 21 L VBG O2 Saturation 99.0 VBG Base Excess 0.7 Sodium Potassium Chloride Carbon Dioxide Anion Gap BUN Creatinine Estim Creat Clear Calc Estimated GFR Random Glucose Lactic Acid Calcium Phosphorus Magnesium Total Bilirubin AST ALT Alkaline Phosphatase Troponin I High Sens B-Natriuretic Peptide Total Protein Albumin Salicylates < 5.0 L Acetaminophen 8 COVID-19 (LAYO) COVID-[employer] 06/23/22 06/23/22 06:59 07:11 WBC RBC Hgb Hct MCV MCH MCHC RDW Plt Count MPV Immature Gran % (Auto) Neut % (Auto) Lymph % (Auto) [place] % (Auto) Eos % (Auto) Baso % (Auto) Lymph # (Auto) [place] # (Auto) Eos # (Auto) Baso # (Auto) Abs Immat Gran (auto) Absolute Neuts (auto) Absolute Nucleated RBC Nucleated RBC % (auto) D-Dimer High Sensitivty VBG pH 7.47 H VBG pCO2 30 VBG pO2 47 VBG HCO3 22 VBG O2 Saturation 75.0 VBG Base Excess -0.3 Sodium 139 Potassium 4.2 Chloride 104 Carbon Dioxide 21 L Anion Gap 18 BUN 10 Creatinine 0.62 Estim Creat Clear Calc 80.8 Estimated GFR > 60 Random Glucose 107 Lactic Acid Calcium 8.6 D Phosphorus 3.8 Magnesium 1.9 Total Bilirubin 0.6 AST 16 ALT 11 Alkaline Phosphatase 88 Troponin I High Sens B-Natriuretic Peptide Total Protein 7.4 Albumin 3.5 Salicylates Acetaminophen COVID-19 (LAYO) COVID-19 Clin Com Quality Stroke Does the patient have a stroke diagnosis?: No VTE Prior VTE?: No VTE Risk Level:: Medical - moderate - high VTE Device Contraindication: N/A - Device Ordered VTE Drug Contraindication: N/A - Med Ordered
[2022-06-23] MEDS: Morphine Sulfate Immed Release 15 MG TABLET 30 MG PO (14:32)
[2022-06-24] VITALS (7 sets, daily range): BP systolic 89–127; BP diastolic 54–61; PULSE 68–84; RESP 14–22; TEMP 36.6–37.7; O2SAT 92–99; BMI 16.0
[2022-06-24] MEDS: Morphine Sulfate ER 15 MG TABLET.ER 45 MG PO ×3 (00:50→17:16)
[2022-06-24 05:15] LABS: Color Urine YELLOW; Glucose Urine UA NEG (NEG); Leukocyte Esterase Urine NEG (NEG); Nitrite Urine NEG (NEG); Specific Gravity - Urine 1.025 (1.005-1.025); Urine Blood NEG (NEG); Urine Ketones NEG (NEG); Urine Protein NEG (NEG-TRACE)
[2022-06-24 05:18] LABS: Appearance Urine CLEAR
--- NOTE | 2022-06-24 10:53 | HO.PM.IMPN ---
Subjective Subjective Date of Service: 06/24/22 Interval History: Resting comfortably denies pain just received morphine, denies shortness of breath, no cough, no other acute events overnight, patient refused to use BiPAP overnight, is not on home BiPAP use oxygen at home, Review of Systems [employer] no headache no dizziness CVS no chest pain, no palpitation GI no nausea, no vomiting no urinary frequency, no urgency Review of Systems: Yes all other systems are reviewed and are negative Physical Exam Vital Signs: Vital Signs: Last Vital Signs Temp 97.8 F 06/24/22 08:00 Pulse 81 06/24/22 08:00 Resp 19 06/24/22 08:00 BP 94/54 L 06/24/22 08:00 Pulse Ox 92 06/24/22 08:00 O2 Del Method 06/24/22 08:00 O2 Flow Rate 3 06/24/22 08:00 Oxygen Flow Rate 3 06/22/22 20:11 BMI result Body Mass Index 16.0 Const: Other: Gen:? Awake alert no acute distress? HEENT: sclera anicteric, moist mucus membranes Neck: supple Lungs: decreased air entry on Left, no crackles, no rhonchi Heart: regular rate and rhythm, no murmurs Abd: soft, non-tender, non-distended Ext: no edema; clubbing present Skin: warm/well-perfused Neuro: alert and oriented x3, no focal findings Psych: appropriate affect Objective Data Active Medications Acetaminophen (Acetaminophen 325 Mg Tablet) 650 mg PO Q6H PRN PRN Reason: Fever Morphine Sulfate (Morphine Sulfate Immed Release 15 Mg Tablet) 30 mg PO Q4H PRN PRN Reason: moderate-severe pain Last Admin: 06/23/22 14:32 Dose: 30 mg Documented By: MARIA EUGENIA Morphine Sulfate (Morphine Sulfate Er 15 Mg Tablet.Er) 45 mg PO Q8H [facility] Last Admin: 06/24/22 08:24 Dose: 45 mg Documented By: MARIA EUGENIA Nicotine Polacrilex (Nicotine Polacrilex 2 Mg Gum) 2 mg BUCCAL Q2H PRN PRN Reason: CRAVINGS Omeprazole (Omeprazole 20 Mg Capsule.Dr) 20 mg PO DAILY@0630 ABIMBOLA Ondansetron HCl (Ondansetron Hcl 4 Mg/2 Ml Vial) 4 mg IVPUSH Q6H PRN PRN Reason: Nausea and Vomiting Pharmacy Consult (Consult Rx Perform Med Rec) 1 each MISCELLANE ONCE PRN PRN Reason: Consult order Senna (Sennosides 8.6 Mg Tablet) 17.2 mg PO BEDTIME PRN PRN Reason: Constipation Labs CBC & Chem 7: 06/23/22 06:59 06/23/22 06:59 Labs: Laboratory Results - last 24 hr 06/24/22 05:00 Urine Color YELLOW Urine Appearance CLEAR Urine pH 6.0 Ur Specific [place] 1.025 Urine Protein NEG Urine Glucose (UA) NEG Urine Ketones NEG Urine Blood NEG Urine Nitrite NEG Ur Leukocyte Esterase NEG Microbiology Microbiology Results: Microbiology 06/22/22 21:10 Blood Culture - Preliminary Blood - Venous No growth after 24 hours. 06/22/22 20:48 Blood Culture - Preliminary Blood - Venous No growth after 24 hours. Assessment and Plan (1) Mass of left lung: Status: Inactive (2) Squamous cell carcinoma of lung: Status: Acute (3) Malnutrition: Status: Acute (4) COPD (chronic obstructive pulmonary disease): Status: Acute (5) Respiratory failure: Status: Acute (6) Hypoxia: Status: Acute Plan 56-year-old with past medical history of emphysema recently diagnosed with poorly differentiated squamous cell carcinoma recently discharged from [facility] on June 07 with morphine and oxygen with recommendation to follow-up with Dr. Arroyo patient presented to [facility] on June 23 to refill his morphine prescription but noted to be hypoxic finger oximetry 80% on 3 L by nasal cannula he also complained of chest pain and shortness of breath at rest and with exertion , chest x-ray showed complete whiteout on the left side, CT scan showed postobstructive atelectasis of the entire left lung due to obstruction of the left main bronchus by growing left hilar mass there was only a small left pleural effusion noted, patient was admitted to ICU for BiPAP after patient being stablized in ICU he is transferred down to medical floor Complete left lung collapse secondary to occlusion of the left main bronchus continue oxygen support, await oncology input for possible radiation treatment Metastatic poorly differentiated squamous cell carcinoma of the lung continue current pain medication for cancer associated pain, as seen incentive spirometry stool softeners oncology consult Acute on chronic hypoxic respiratory failure due to above, patient on home oxygen, not requiring BiPAP at night therefore will DC BiPAP and wean oxygen as tolerated Asthma/COPD overlap syndrome not in acute exacerbation continue as needed nebs, no evidence of infection. Tobacco use disorder continue nicotine replacement therapy Mild protein calorie nutrition will add Ensure VTE prophylaxis with low-molecular weight heparin GI prophylaxis with Prilosec In my clinical judgment patient requires continued hospitalization for hypoxia and complete whiteout of left lung Quality Stroke Does the patient have a stroke diagnosis?: No VTE Prior VTE?: No VTE Risk Level:: Medical - moderate - high VTE Device Contraindication: N/A - Device Ordered VTE Drug Contraindication: N/A - Med Ordered
[2022-06-24] MEDS: Enoxaparin Sodium 40 MG/0.4 ML SYRINGE SUBCUT (14:32)
[2022-06-24 16:39] LABS: Glucose, Whole Blood 90 mg/dL (60-115)
[2022-06-24 21:30] LABS: Glucose, Whole Blood 83 mg/dL (60-115)
[2022-06-25] MEDS: Morphine Sulfate ER 15 MG TABLET.ER 45 MG PO ×2 (00:44→08:02)
[2022-06-25 03:40] VITALS: BP 90/50; PULSE 79; RESP 17; TEMP 36.4; O2SAT 98
[2022-06-25] MEDS: Omeprazole 20 MG CAPSULE.DR PO (05:40)
[2022-06-25 07:22] VITALS: BP 95/65; PULSE 75; RESP 18; TEMP 37.2; O2SAT 94
--- NOTE | 2022-06-25 08:57 | P.CNHO_ITS ---
Subjective - Subjective Chief complaint: Right chest wall pain Patient: known to practice within the last 3 years Consult date: 06/25/22 Primary Care Provider: Renetta Riddle MD Medical Summary: Diagnosis: Squamous cell carcinoma involving left lung HPI - Consult Narrative Reason for consult: Lung cancer with collapse of left lung Narrative: Rafael Eubanks is a 56 year old male who was diagnosed with lung cancer and seen in consultation by me on 06/21/2022 who is now admitted to the hospital with hypoxemia and chest wall pain. He presented to the ED because he ran out of morphine, he was noted to be hypoxemic. CT chest has been ordered. He has obstruction of left bronchus and he has collapse of the left lung. Oncology consultation was requested to see if he needs urgent radiation therapy. At this time patient's pain is well controlled. He denies any acute complaints such as dizziness, chest pain, shortness of breath or cough. Review of Systems - Constitutional Reports as per HPI, Reports poor appetite, Reports weight loss - Cardiovascular Reports no additional cardiovascular complaints - Respiratory Reports no additional respiratory complaints [facility] Medical History: Medical History (Last Updated 06/23/22 @ 06:16 by Naz Valderrama RN) Asthma COPD (chronic obstructive pulmonary disease) Non-small cell cancer of left lung O2 dependent Tobacco dependence Family History: Family History (Last Reviewed 06/23/22 @ 04:11 by Mary Graf PA-C) Other No family history of cancer Surgical History: Surgical History (Last Reviewed 06/23/22 @ 04:11 by Mary Graf PA-C) History of lung biopsy Social History: Social History (Last Reviewed 06/23/22 @ 04:11 by Mary Graf PA-C) Living Situation History: Household Members: Unknown / Unable to asses Housing: House Are you a primary managed care coordinator to a significant other at home: No Do you presently have visiting nurse or other home services: No Tobacco History: Patient Tobacco Use Status: Former Tobacco user Tobacco use type: Cigarette Years Smoked: 30 years Second Hand Smoke Exposure: No Occupation Assessmet: service: No Current occupational status: disabled Home Medications and Allergies Current Medications: Current Medications Acetaminophen (Acetaminophen 325 Mg Tablet) 650 mg PO Q6H PRN PRN Reason: Fever Enoxaparin Sodium (Enoxaparin Sodium 40 Mg/0.4 Ml Syringe) 40 mg SUBCUT Q24H [facility] Last Admin: 06/24/22 14:32 Dose: 40 mg Morphine Sulfate (Morphine Sulfate Immed Release 15 Mg Tablet) 30 mg PO Q4H PRN PRN Reason: moderate-severe pain Last Admin: 06/23/22 14:32 Dose: 30 mg Morphine Sulfate (Morphine Sulfate Er 15 Mg Tablet.Er) 45 mg PO Q8H [facility] Last Admin: 06/25/22 08:02 Dose: 45 mg Nicotine Polacrilex (Nicotine Polacrilex 2 Mg Gum) 2 mg BUCCAL Q2H PRN PRN Reason: CRAVINGS Omeprazole (Omeprazole 20 Mg Capsule.Dr) 20 mg PO DAILY@0630 [facility] Last Admin: 06/25/22 05:40 Dose: 20 mg Ondansetron HCl (Ondansetron Hcl 4 Mg/2 Ml Vial) 4 mg IVPUSH Q6H PRN PRN Reason: Nausea and Vomiting Pharmacy Consult (Consult Rx Perform Med Rec) 1 each MISCELLANE ONCE PRN PRN Reason: Consult order Senna (Sennosides 8.6 Mg Tablet) 17.2 mg PO BEDTIME PRN PRN Reason: Constipation Home Medications Medication Instructions Recorded Confirmed Type nicotine (polacrilex) 2 mg gum 1 gum PO Q2H PRN CRAVINGS 06/23/22 06/23/22 History Allergies Allergy/AdvReac Type Severity Reaction Status Date / Time No Known Allergies Allergy Verified 06/21/22 16:25 Physical Exam Vital signs: Vital Signs Temp 98.9 F 06/25/22 07:22 Pulse 75 06/25/22 07:22 Resp 18 06/25/22 07:22 BP 95/65 06/25/22 07:22 Pulse Ox 94 06/25/22 07:22 O2 Del Method 06/25/22 07:22 O2 Flow Rate 3 06/25/22 07:22 Intake & Output 06/24/22 06/25/22 06/25/22 18:59 06:59 18:59 Output Total 600 / 600 Balance -600 / -600 Urine Output (Average ml/kg/hr) 1.14 Output: Output, Urine Amount 600 / 600 Other: Urine Urinal Urine Color Yellow Stool Bathroom Weight 43.7 kg - Constitutional Present: thin, chronically ill appearing - Routine Neck Exam Present: supple. Absent: lymphadenopathy - Routine Respiratory Exam Present: decreased breath sounds. Absent: accessory muscle use, respiratory distress - Routine Cardiovascular Exam Cardiovascular: Present: S1, S2 - Routine Abdominal Exam Present: normal bowel sounds Hem/Onc Consult Result - Labs CBC & Chem 7: 06/23/22 06:59 06/23/22 06:59 Assessment and Plan Patient Active problem list reviewed?: Yes (1) Squamous cell carcinoma of lung Status: Acute Assessment and plan: 1. This is a pleasant 56-year-old man with recently diagnosed left lung squamous cell carcinoma, 05/2022. He had bronchoscopy and biopsy of left lower lobe endobronchial lesion on 05/29/2022 which revealed poorly differentiated squamous cell carcinoma. NGS revealed PDL1- TPS 1%, ALK arrangement negative, ROS1 rearrangement negative, MET amplification negative, RET rearrangement negative, PTEN detected. EGFR and KRAS mutations pending. Staging CT abdomen/pelvis with contrast and brain MRI performed 06/05/2022 showed no evidence of distant metastasis. CT angiogram performed 06/22/2022 revealed complete collapse of left lung due to central hilar mass which now measures 4.9 cm. Mass occluding left mainstem bronchus, associated with small left pleural effusion, severe emphysema throughout lung mendoza. Pathological left hilar lymph node and small mediastinal lymph nodes redemonstrated. Clinical stage, AJCC stage T2 N1. Patient is being referred urgently to [facility] for radiation oncology recommendations. He has an appointment this afternoon at 14:00. PET-CT for further staging is being ordered. As patient does not have acute respiratory symptoms, can be discharged home for above mention appointments. 2. Pain control. Patient is on extended release morphine as well as MSIR. He has been taking a lot of pain medications and his insurance has not approved these medications so far, prior authorization is being obtained. I thank you for this consultation. - Time Spent With Patient Time Spent with Patient (in minutes): 20
--- NOTE | 2022-06-25 11:10 | MHC.CM.PN ---
pt being dcc home with resumption of hvns
[2022-06-26 10:58] LABS: VBG HCO3 21 mmol/L (22-26); VBG pCO2 33 mmHg; VBG pH 7.39 (7.32-7.43); VBG pO2 31 mmHg
--- NOTE | 2024-06-09 07:08 | P.DS_ITS ---
DS: Providers Provider Date of Service: 06/25/22 Date of admission: 06/23/22 02:19 Primary care physician: Renetta Riddle MD Consults: 06/23/22 05:55 Consult to Hematology / Oncology Stat Consulting Provider: Mylene Arroyo Reason for consultation: ca dx Has provider been notified: No DS: Diagnosis Discharge Diagnosis (1) Squamous cell carcinoma of lung: Status: Acute DS: Summary Hospital Course Hospital Course: 56-year-old with past medical history of emphysema recently diagnosed with poorly differentiated squamous cell carcinoma recently discharged from [facility] on June 07 with morphine and oxygen with recommendation to follow-up with Dr. Arroyo patient presented to [place] [facility] on June 23 to refill his morphine prescription but noted to be hypoxic finger oximetry 80% on 3 L by nasal cannula he also complained of chest pain and shortness of breath at rest and with exertion , chest x-ray showed complete whiteout on the left side, CT scan showed postobstructive atelectasis of the entire left lung due to obstruction of the left main bronchus by growing left hilar mass there was only a small left pleural effusion noted, patient was admitted to ICU for BiPAP after patient being stablized in ICU he was transferred down to medical floor, he was continued on oxygen support, subsequently seen by Dr. Arroyo who made arrangements at [facility] for radiation treatment this afternoon. 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 Asthma/COPD overlap syndrome not in acute exacerbation continue as needed nebs, no evidence of infection. Tobacco use disorder continue nicotine replacement therapy Mild protein calorie nutrition continue Ensure. Time Attestation Discharge Coordination Time (in mins): 40 Quality: Safe Use of Opioids Does Pt have an Active Cancer Diagnosis on the Problem List?: No Quality: Stroke Does the patient have a stroke diagnosis?: No Physical Exam Vital Signs: Vital Signs: Last Vital Signs Temp 98.9 F 06/25/22 07:22 Pulse 75 06/25/22 07:22 Resp 18 06/25/22 07:22 BP 95/65 06/25/22 07:22 Pulse Ox 94 06/25/22 07:22 O2 Del Method Nasal Cannula 06/25/22 07:22 O2 Flow Rate 3 06/25/22 07:22 Oxygen Flow Rate 3 06/22/22 20:11 BMI result Body Mass Index 16.0 Const: Other: Gen:? Awake alert no acute distress? HEENT: sclera anicteric, moist mucus membranes Neck: supple Lungs: decreased air entry on Left, no crackles, no rhonchi Heart: regular rate and rhythm, no murmurs Abd: soft, non-tender, non-distended Ext: no edema; clubbing present Skin: warm/well-perfused Neuro: alert and oriented x3, no focal findings Psych: appropriate affect DS: Data Data Completed and Pending Completed studies during hospitalization [Text1]: Procedures Assistance with Respiratory Ventilation, Less than 24 Consecutive Hours, Continuous Positive Airway Pressure (06/23/22) Excision of Left Main Bronchus, Via Natural or Artificial Opening Endoscopic, Diagnostic (05/26/22) Discharge Plan Discharge Anticipated Discharge Date/Time: 06/25/22 13:00 Patient Disposition: Home Health Service Discharge Diagnosis: Complete left lung collapse Acute on chronic hypoxic respiratory failure Poorly differentiated squamous cell carcinoma Tobacco use disorder Referrals: [facility] [Other] - 1 Week Renetta Carey MD [Primary Care Provider] - 1 Week Discharge Medications: Discontinued morphine 15 mg Tablet Extended Release 45 mg PO Q8H Qty: 42 0RF Rx Instructions: Partial Fill upon patient request. morphine 15 mg Tablet 30 mg PO Q4H PRN (Reason: moderate-severe pain) Qty: 40 0RF Rx Instructions: Partial Fill upon patient request. No Action sennosides [Senna Lax] 8.6 mg Tablet 17.2 mg PO BEDTIME PRN (Reason: Constipation) Qty: 30 0RF morphine 15 mg Tablet 15 mg PO Q4H PRN (Reason: Breakthrough Pain, Moderate) Qty: 50 0RF Rx Instructions: Partial Fill upon patient request. sucralfate 100 mg/mL Suspension 10 ml PO QID Qty: 600 2RF Rx Instructions: swish in mouth and swallow; use after food/drink morphine [MS Contin] 30 mg Tablet Extended Release 30 mg PO Q12H PRN (Reason: Pain) Qty: 60 0RF Rx Instructions: Partial Fill upon patient request. ibuprofen [Addaprin] 200 mg Tablet 400 mg PO Q8H PRN (Reason: Pain) Qty: 30 0RF ondansetron 4 mg tablet,disintegrating 1 tab Q8H PRN (Reason: nausea) omeprazole 40 mg capsule,delayed release(DR/EC) 40 mg PO DAILY@0630 acetaminophen [Tylenol] 325 mg Tablet 650 mg PO QID PRN (Reason: Pain) albuterol sulfate 90 mcg/actuation HFA aerosol inhaler 1 inh INHALATION QID PRN (Reason: Shortness Of Breath Or Wheezing) (DME) [facility] See Rx Instructions .Route Qty: 2 0RF Rx Instructions: As directed Discharge Orders: Discharge Order (Routine); Ordered 06/25/22 Ordered By: Isaias Berry Diet: Advance to usual diet Activity on Discharge: As tolerated Stand Alone Forms: Patient Portal Discharge page Print Language: Upper Sorbian Care Plan Goals: Continue oxygen 3 L by nasal cannula, take pain medications Health Concerns: Take all medications as before Plan of Treatment: Outpatient follow-up at [facility] at 14:00 today/follow- up with Dr. Arroyo call for appointment Assessment: As per discharge summary Discharge Date/Time: 06/25/22 11:30
== END 2022-06-25 11:30 | disposition home health service (06) | DRG 143 ==
LOC: HO.ED 06-23 00:05 → HO.EDOVER 06-23 02:26 → HO.ICU 06-23 03:47 → HO.IMC 06-24 11:14
PROVIDERS: Physician Assistant; Admitting Provider Physician Assistant; Emergency Provider Student in an Organized Health Care Education/Training Program; PCP Internal Medicine; Visit Provider Hospitalist
DX: J98.11 Atelectasis (principal); J96.21 Acute and chronic respiratory failure with hypoxia; E44.0 Moderate protein-calorie malnutrition; C77.1 Secondary and unspecified malignant neoplasm of intrathoracic lymph nodes; C34.02 Malignant neoplasm of left main bronchus; Z99.81 Dependence on supplemental oxygen; G89.3 Neoplasm related pain (acute) (chronic); E44.1 Mild protein-calorie malnutrition; J98.19 Other pulmonary collapse; J45.909 Unspecified asthma, uncomplicated; Z68.1 Body mass index [BMI] 19.9 or less, adult; Z20.822 Contact with and (suspected) exposure to COVID-19; Z87.891 Personal history of nicotine dependence; Z79.899 Other long term (current) drug therapy
CPT/HCPCS: 36415; 71045; 71275; 80053; 80143; 80179; 81003; 82803; 82947; 83605; 83735; 83880; 84100; 84484; 85025; 85379; 87040; 87635; 93005; 96374; 99285; J1650; J3010; Q9967

== ENCOUNTER → 2022-06-23 02:19 | Outpatient (BNV) | payer OTHER, SELFPAY | PROVIDERS: Admitting Provider Physician Assistant; Emergency Provider Student in an Organized Health Care Education/Training Program; PCP Internal Medicine; Visit Provider Hospitalist | DX: C34.90 Malignant neoplasm of unspecified part of unspecified bronchus or lung (principal) | CPT/HCPCS: 99233; 99499 ==

== ENCOUNTER 2022-10-01 11:00 | Outpatient (RCR) | payer OTHER, SELFPAY ==
--- NOTE | 2022-05-28 17:22 | HO.HEMONCSCH ---
Confirmed consult appt. w/Dr Cely Salazar at [phone]
--- NOTE | 2022-06-04 11:08 | HO.HEMONCSCH ---
LATRICE for pt reminding him of [employer] [facility] apt for 06/05/22
--- NOTE | 2022-06-05 14:11 | HE.ONCSEC ---
I CALLED PATIENT TO INFORM HIM WE BOOK HIM FOR TOMORROW 06/06/22 AT 11:00AM
--- NOTE | 2022-06-07 10:58 | HE.ONCSEC ---
CALLED PATIENT FOR ROUTINE REMINDER , PATIENT DID NOT ANSWER I LEFT A DETAILED VOICEMAIL REGARDING PATIENT APPT DATE & TIME
--- NOTE | 2022-06-08 11:22 | HE.ONCSEC ---
CALLED RENAY AGAIN DUE TO N/S . PATIENT DID NOT ANSWER , I LEFT A DETAILED VOICEMAIL INFORMING PAITENT OF APPT .
--- NOTE | 2022-06-19 13:53 | MHC.HEMONC ---
Received call from Inderjit from [facility] stating he is with pt who is taking pain medication and has no refills. Pt is not currently a patient of this practice. Pt had consult scheduled last month in which he was a no show. Pt states he was unaware of appointment per Inderjit. Morris transferrred to [facility] to reschedule consult appointment.
[2022-06-21 13:28] VITALS: BP 128/75; PULSE 75; RESP 16; TEMP 36.8; O2SAT 97; BMI 15.7
[2022-06-21 14:12] LABS: MANUAL DIFF FLAG NO
[2022-06-21 14:17] LABS: Basophils Percent Auto 0.3 % (0-2); Eosinophils Percent Auto 0.6 % (0-4); Hematocrit 37.4 % (42.0-52.0); Hemoglobin 12.1 g/dl (14.0-18.0); Imm Gran Abs Auto 0.02 X10*3/uL (0.00-0.03); Imm Gran Pct Auto 0.3 % (0.0-0.4); Lymphocytes Absolute Auto 0.9 X10*3/uL (1.2-4.9); Lymphocytes Percent Auto 12.8 % (20-40); Mean Corpuscular HGB Conc 32.4 g/dl (31.0-36.0); Mean Corpuscular Hemoglobin 28.2 pg (27.0-33.0); Mean Corpuscular Volume 87.2 fL (80.0-98.0); Mean Platelet Volume 8.9 fL (9.4-12.4); Monocytes Absolute Auto 0.5 X10*3/uL (0.1-1.2); Monocytes Percent Auto 7.7 % (2-11); Neutrophils Absolute Auto 5.3 x10*3/uL (2.0-8.3); Neutrophils Percent Auto 78.3 % (45-73); Platelet Count 382 X10*3/uL (160-400); Red Blood Count 4.29 X10*6/uL (4.60-5.80); Red Cell Distribution Width 13.3 % (11.0-16.0); White Blood Count 6.8 X10*3/uL (4.8-10.8)
[2022-06-21 14:24] LABS: INTERNATIONAL NORM RATIO 1.2 (0.9-1.1); Prothrombin Time 13.5 SEC (10.0-13.1)
[2022-06-21 14:32] LABS: Alanine Aminotransferase 9 U/L (0-40); Albumin Level 3.6 g/dL (3.5-5.0); Alkaline Phosphatase 86 U/L (39-117); Anion Gap 13 (12-20); Aspartate Amino Transferase 14 U/L (5-37); Bilirubin Total 0.4 mg/dL (0.0-1.0); Blood Urea Nitrogen 5 mg/dL (9-16); Calcium 8.8 mg/dL (8.4-10.2); Carbon Dioxide 29 mmol/L (22-29); Chloride 100 mmol/L (96-108); Creatinine Clr Calc Pharmacy 72.8; Estimated Glomerular Filt Rate > 60; Glucose Random 104 mg/dL (60-115); Potassium 4.2 mmol/L (3.3-5.1); Sodium 138 mmol/L (135-145); Total Protein 7.6 g/dL (6.5-8.0)
--- NOTE | 2022-06-21 14:57 | MHC.HEMONCMA ---
pt seen today in office for new onc consult, Luxembourgish speaking seismic interpreter services where used (maria elena), land,vss, ct xray ordered, fany esparza.
--- NOTE | 2022-06-21 15:44 | P.CNHO_ITS ---
Subjective - Subjective Chief complaint: Lung cancer Patient: new to practice Consult date: 06/21/22 Primary Care Provider: Renetta Riddle MD Medical Summary: Diagnosis: Left squamous cell carcinoma diagnosed May 2022 HPI - Consult Narrative Reason for consult: left lung squamous cell carcinoma Narrative: Rafael Eubanks is a 56 year old male who has been referred for evaluation and management of recently diagnosed left lung cancer. He is accompanied today by 2 brothers, a sister and a nephew. Since discharge from the hospital, his been living with his brother. He is now on home oxygen and is mostly wheelchair- bound. His appetite is very poor on his lost a lot of weight. He denies any acute complaints such as chest pain worsening cough or shortness of breath. No hemoptysis. He denies any headache. No abdominal complaints. He is constipated as he is not eating much now. He is not smoking anymore. Review of Systems - Constitutional Reports as per HPI, Reports fatigue, Denies fever(s), Reports lack of energy, Reports poor appetite, Reports weakness, Reports weight loss - Cardiovascular Reports no additional cardiovascular complaints - Respiratory Reports no additional respiratory complaints - Gastrointestinal Reports no additional gastrointestinal complaints Oncology Screenings - ECOG Performance Status ECOG Performance Status: 3 [facility] Medical History: Medical History (Last Updated 06/21/22 @ 15:50 by Mylene Arroyo MD) Asthma Non-small cell cancer of left lung Tobacco dependence Social History: Social History (Last Updated 06/21/22 @ 13:34 by FREEDOM Garrett) Living Situation History: Household Members: Family Housing: House Do you presently have visiting nurse or other home services: No Tobacco History: Patient Tobacco Use Status: Former Tobacco user Tobacco use type: Cigarette Cigarettes Per Day: 20 Years Smoked: 30 years Second Hand Smoke Exposure: No Occupation Assessmet: service: No Current occupational status: disabled Home Medications and Allergies Allergies Allergy/AdvReac Type Severity Reaction Status Date / Time No Known Allergies Allergy Verified 05/25/22 19:30 Physical Exam Vital signs: Vital Signs Temp 98.3 F 06/21/22 13:28 Pulse 75 06/21/22 13:28 Resp 16 06/21/22 13:28 BP 128/75 06/21/22 13:28 Pulse Ox 97 06/21/22 13:28 O2 Del Method 06/21/22 13:28 Intake & Output 06/20/22 06/21/22 06/21/22 18:59 06:59 18:59 Other: Weight 43 kg Britt Weight in Grams 23126 Weight 43 kg - Constitutional Present: mild distress, thin, chronically ill appearing - Routine HEENT Exam Eye: Present: PERRL - Routine Neck Exam Present: supple. Absent: lymphadenopathy - Routine Respiratory Exam Present: decreased breath sounds. Absent: respiratory distress - Routine Cardiovascular Exam Cardiovascular: Present: S1, S2 - Routine Abdominal Exam Present: soft - Routine Extremities Exam Absent: tenderness - Routine Skin Exam Present: intact. Absent: cyanosis Hem/Onc Consult Result - Labs CBC & Chem 7: 06/21/22 14:09 06/21/22 14:09 Labs: Short CBC 06/21/22 Range/Units 14:09 WBC 6.8 (4.8-10.8) X10*3/uL Hgb 12.1 L (14.0-18.0) g/dl Hct 37.4 L (42.0-52.0) % Plt Count 382 (160-400) X10*3/uL BMP 06/21/22 14:09 Sodium 138 Potassium 4.2 Chloride 100 Carbon Dioxide 29 BUN 5 L Creatinine 0.68 Calcium 8.8 Liver Function 06/21/22 Range/Units 14:09 Total Bilirubin 0.4 (0.0-1.0) mg/dL AST 14 D (5-37) U/L ALT 9 (0-40) U/L Alkaline Phosphatase 86 (39-117) U/L Albumin 3.6 (3.5-5.0) g/dL Assessment and Plan Patient Active problem list reviewed?: Yes (1) Non-small cell cancer of left lung Status: Acute Assessment and plan: 1. This is a pleasant 56-year-old man with recently diagnosed left lung squamous cell carcinoma, 05/2022. He presented with weight loss and shortness of breath, CT chest with contrast performed 05/26/2022 showed heterogenous mass in the left hilum measuring 4.4 x 2.6 x 3.5 cm. Occlusion of left lower lobe bronc hus with severe emphysema. Left upper lobe bronchiectasis with surrounding consolidation. Much of the left lower lobe was collapsed. Left hilar lymph node enlarged, metastatic disease. AJCC stage T2 N1 M1a ( if pleural cytology is positive for malignancy). He had bronchoscopy and biopsy of left lower lobe endobronchial lesion on 05/29/2022 which revealed poorly differentiated squamous cell carcinoma. NGS revealed PDL1- TPS 1%, ALK arrangement negative, ROS1 rearrangement negative, MET amplification negative, RET rearrangement negative, PTEN detected. EGFR and KRAS mutations pending. Patient is on 3 L oxygen. Chest x-ray today revealed complete collapse of left lung. He is being scheduled for thoracentesis and PleurX catheter placement. Pleural fluid cytology to be submitted. Staging CT abdomen/pelvis with contrast and brain MRI performed 06/05/2022 showed no evidence of distant metastasis. I discussed diagnosis, staging and further management with patient and his f amily in the presence of diplomatic interpreter/translator. Since this appears to be malignant pleural effusion, patient has advanced lung cancer which is not curable. He is a candidate for systemic therapy, chemo immunotherapy will be offered if all of the marine engine driver mutations for targeted therapies are negative. Carboplatin with Taxol or Nab paclitaxel and pembrolizumab will be offered in the first-line setting.(Pending EGFR mutation). Further recommendations to follow. Follow-up in 1 week. - Time Spent With Patient Time Spent with Patient (in minutes): 55
--- NOTE | 2022-06-21 15:53 | MHC.HEMONC ---
I met with pt and his family following consult with Dr Arroyo for newly dx squamous cell carcinoma of lung. He is on morphine for pain and O2 continuously. He has excellent supports in his family and lives with his brother. Dr Arroyo had pt get CXR today to f/u on fluid and he needs to have pleural drain and catheter placed. This is being arranged by Millicent THORNE. I explained to him that the plan is for chemotherapy and although Dr Arroyo is working on treatment plan, we will schedule chemo education. He will come in next Saturday and I have requested a [facility] Relationship Manager as pt does not speak Occitan.
--- NOTE | 2022-06-21 15:58 | HO.HEMONCPA ---
ACCORDING TO [facility] NO PA IS REQUIRED FOR ([id number]) CT INSERT PLEURX CATH ROUTINE . REFERENCE #[id number]
--- NOTE | 2022-06-21 16:07 | MHC.HEMONCSW ---
CONSULT FOR SQUAMOUS CELL CANCER. MET WITH MD, NAVIGATOR, SPLIT LEATHER DEPARTMENT SUPERVISOR, PT AND SEVERAL FAMILY MEMBERS, ALL VERY INVOLVED AND SUPPORTIVE. TRE PROVIDES HIS OXYGEN BROTHER WILL TRANSPORT TO ALL APPOINTMENTS DOES NOT WANT REFERRALS AT THIS TIME. HAS FIRST APPOINTMENT WITH NEW PCP, DR. LEACH, IN . MEANWHILE DR. JANE WILL BE MANAGING PAIN MEDS. HE WANTS TO NAME HIS BROTHER HIS HCP AT HIS NEXT VISIT. HE WILL REQUIRE A PLUEREX CATH SOON HVNA IS INVOLVED. TENTATIVE TREATMENT PLAN WILL BE CHEMOTHERAPY. INFORMATIONAL, EDUCATIONAL AND SUPPORTIVE COUNSELING PROVIDED. THEY WERE INFORMED OF MY ROLE AND AVAILABILITY.
--- NOTE | 2022-06-22 17:22 | MHC.HEMONC ---
Pt in today and signed narcotic contract as Dr Arroyo refilled his pain meds yesterday. Trina worked on PA but approval is still pending. I called pt brother and told him rx will not be dispensed until PA goes through. I advised him to take him to ER for uncontrolled pain.
--- NOTE | 2022-06-25 09:35 | MHC.HEMONC ---
Per Dr Arroyo, pt is inpatient since the weekend. He went in with pain and dyspnea. He spent time in ICU. Dr Arroyo asked [facility] on [facility] recent [facility]. They are able to see pt this afternoon at 2:15 (Dr Grady, [facility]). Record faxed. Dr Arroyo assures me pt is ready for d/c and spoke to Hospitalist. I also made referral to Dr Fisher for ? thoracic surgery.
--- NOTE | 2022-06-25 10:05 | MHC.HEMONC ---
PET SCAN referred to [facility] per Dr Arroyo. Pt has consult with radiation oncologist at [facility].
--- NOTE | 2022-07-09 11:40 | MHC.HEMONC ---
Xanax rx sent in by Dr Arroyo due to claustrophobia with PET. Dr Grady's office ([facility]) aware and will inform pt.
--- NOTE | 2022-07-09 14:47 | P.PNHO-ONC_ITS ---
Medical Summary - Medical Summary Date of Service: 07/09/22 Chief complaint: Follow-up Medical Summary: Diagnosis: Left squamous cell carcinoma diagnosed May 2022 Interval History Interval history: Patient is here in follow-up. He is accompanied by his brother today. Other than chronic shortness of breath he has no acute complaints. He underwent a recent surgical procedure at [facility]. He was unable to tolerate PET scan last Saturday because of claustrophobia. Review of Systems - Constitutional Reports as per HPI, Reports no additional constitutional complaints - Neurologic Reports weakness PMFSH Medical History: Medical History (Last Reviewed 07/09/22 @ 15:06 by America Pablo) Asthma COPD (chronic obstructive pulmonary disease) Hypoxia O2 dependent Respiratory failure Tobacco dependence Family History: Family History (Last Reviewed 07/09/22 @ 15:06 by America Pablo) Other No family history of cancer Surgical History: Surgical History (Last Reviewed 07/09/22 @ 15:06 by America Pablo) History of lung biopsy Onset Date: ~05/2022 Social History: Social History (Last Reviewed 07/09/22 @ 15:06 by America Pablo) Living Situation History: Household Members: Unknown / Unable to asses Housing: House Are you a primary care specialist to a significant other at home: No Do you presently have visiting nurse or other home services: No Alcohol History Details: 1. How often do you have a drink containing alcohol?: a. Never Tobacco History: Patient Tobacco Use Status: Former Tobacco user Tobacco use type: Cigarette Years Smoked: 30 years Second Hand Smoke Exposure: No Substance Use History: Use of substances other than those prescribed or required for medical reasons : No Domestic Abuse History: Have you been hit, kicked, punched, or otherwise hurt by someone within the past year? If so, by whom?: No Do you feel safe in your current relationship?: No Current Relationship Homicidal Assessment: Do you have thoughts of harming others: None Do you have a plan to hurt others: No Plan Do you have the means to hurt others: No Nutrition Assessment: Recently lost weight without trying: Yes How much weight loss: 2-13 pounds Occupation Assessmet: service: No Current occupational status: disabled Oncology Screenings - ECOG Performance Status ECOG Performance Status: 1 Home Medications and Allergies Home Medications Medication Instructions Recorded Confirmed Type nicotine (polacrilex) 2 mg gum 1 gum PO Q2H PRN CRAVINGS 06/23/22 07/09/22 History Allergies Allergy/AdvReac Type Severity Reaction Status Date / Time No Known Allergies Allergy Verified 07/03/22 16:42 Exam Vital signs: Vital Signs Temp 98.3 F 06/21/22 13:28 Pulse 75 06/21/22 13:28 Resp 16 06/21/22 13:28 BP 128/75 06/21/22 13:28 Pulse Ox 97 06/21/22 13:28 O2 Del Method 06/21/22 13:28 Weight 43 kg BMI result Body Mass Index 15.7 - Constitutional Present: mild distress, thin, chronically ill appearing - Routine Neck Exam Absent: lymphadenopathy - Routine Respiratory Exam Present: decreased breath sounds. Absent: respiratory distress - Routine Cardiovascular Exam Cardiovascular: Present: S1, S2 - Routine Abdominal Exam Present: soft - Routine Extremities Exam Absent: tenderness - Routine Skin Exam Present: intact. Absent: cyanosis Data - Labs CBC & Chem 7: 06/21/22 14:09 06/21/22 14:09 Labs: 06/21/22 14:09 Carcinoembryonic Antigen Routine Complete Blood Count Auto Diff Stat Comprehensive Met. Panel Stat PT with INR [Prothrombin Time INR] Stat Laboratory Last Values WBC 6.8 X10*3/uL (4.8-10.8) 06/21/22 14:09 RBC 4.29 X10*6/uL (4.60-5.80) L 06/21/22 14:09 Hgb 12.1 g/dl (14.0-18.0) L 06/21/22 14:09 Hct 37.4 % (42.0-52.0) L 06/21/22 14:09 MCV 87.2 fL (80.0-98.0) 06/21/22 14:09 MCH 28.2 pg (27.0-33.0) 06/21/22 14:09 MCHC 32.4 g/dl (31.0-36.0) 06/21/22 14:09 RDW 13.3 % (11.0-16.0) 06/21/22 14:09 Plt Count 382 X10*3/uL (160-400) 06/21/22 14:09 MPV 8.9 fL (9.4-12.4) L 06/21/22 14:09 Immature Gran % (Auto) 0.3 % (0.0-0.4) 06/21/22 14:09 Neut % (Auto) 78.3 % (45-73) H 06/21/22 14:09 Lymph % (Auto) 12.8 % (20-40) L 06/21/22 14:09 [place] % (Auto) 7.7 % (2-11) 06/21/22 14:09 Eos % (Auto) 0.6 % (0-4) 06/21/22 14:09 Baso % (Auto) 0.3 % (0-2) 06/21/22 14:09 Lymph # (Auto) 0.9 X10*3/uL (1.2-4.9) L 06/21/22 14:09 [place] # (Auto) 0.5 X10*3/uL (0.1-1.2) 06/21/22 14:09 Eos # (Auto) 0.0 X10*3/uL (0.0-0.4) 06/21/22 14:09 Baso # (Auto) 0.0 X10*3/uL (0.0-0.2) 06/21/22 14:09 Abs Immat Gran (auto) 0.02 X10*3/uL (0.00-0.03) 06/21/22 14:09 Absolute Neuts (auto) 5.3 x10*3/uL (2.0-8.3) 06/21/22 14:09 Absolute Nucleated RBC 0.000 X10*3/uL (0.0-0.012) 06/21/22 14:09 Nucleated RBC % (auto) 0.0 /100WBC (0.0-0.2) 06/21/22 14:09 PT 13.5 SEC (10.0-13.1) H 06/21/22 14:09 INR 1.2 (0.9-1.1) H 06/21/22 14:09 Sodium 138 mmol/L (135-145) 06/21/22 14:09 Potassium 4.2 mmol/L (3.3-5.1) 06/21/22 14:09 Chloride 100 mmol/L (96-108) 06/21/22 14:09 Carbon Dioxide 29 mmol/L (22-29) 06/21/22 14:09 Anion Gap 13 (12-20) 06/21/22 14:09 BUN 5 mg/dL (9-16) L 06/21/22 14:09 Creatinine 0.68 mg/dL (0.5-1.4) 06/21/22 14:09 Estim Creat Clear Calc 72.8 06/21/22 14:09 Estimated GFR > 60 06/21/22 14:09 Random Glucose 104 mg/dL (60-115) 06/21/22 14:09 Calcium 8.8 mg/dL (8.4-10.2) 06/21/22 14:09 Total Bilirubin 0.4 mg/dL (0.0-1.0) 06/21/22 14:09 AST 14 U/L (5-37) D 06/21/22 14:09 ALT 9 U/L (0-40) 06/21/22 14:09 Alkaline Phosphatase 86 U/L (39-117) 06/21/22 14:09 Total Protein 7.6 g/dL (6.5-8.0) 06/21/22 14:09 Albumin 3.6 g/dL (3.5-5.0) 06/21/22 14:09 Carcinoembryonic Ag 2.90 ng/mL 06/21/22 14:09 Assessment and Plan Patient Active problem list reviewed?: Yes (1) Non-small cell cancer of left lung Status: Deleted Assessment and plan: 1. This is a pleasant 56-year-old man with recently diagnosed left lung squamous cell carcinoma, 05/2022. He presented with weight loss and shortness of breath, CT chest with contrast performed 05/26/2022 showed heterogenous mass in the left hilum measuring 4.4 x 2.6 x 3.5 cm. Occlusion of left lower lobe bronchus with severe emphysema. Left upper lobe bronchiectasis with surrounding consolidation. Much of the left lower lobe was collapsed. Left hilar lymph node enlarged, metastatic disease. AJCC stage T2b N1 He had bronchoscopy and biopsy of left lower lobe endobronchial lesion on 05/29/2022 which revealed poorly differentiated squamous cell carcinoma. NGS revealed PDL1- TPS 1%, ALK, EGFR,KRAS, BRAF, MET, RET, ROS1 negative. MSI- stable, mcbride-TRK not expressed, HER2 negative, PTEN deletion positive (may respond PI3K/AKT/mTOR and PARP inhibitors). CDKN2A and SMARCA4 ( SNV's/insertions/deletions) detected. Staging CT abdomen/pelvis with contrast and brain MRI performed 06/05/2022 showed no evidence of distant metastasis. CTA performed 06/22/2022 showed no PE but postobstructive atelectasis of entire left lung due to obstruction of left mainstem bronchus by growing left hilar mass. On 07/02/2022 Dr. Stark attempted bronchoscopy with argon/razor tumor debulking but this was not enough to open of the collapsed left lung. He was seen by Dr. Grady from [facility], patient will be started on concurrent chemoradiation therapy. He is waiting for PET-CT. Unfortunately he could not tolerate this can last week because of claustrophobia. I am prescribing lorazepam 0.5 mg to be taken before the procedure. We discussed importance of having PET-CT for better visualization of tumor and planning of radiation therapy. He will be treated with weekly Carboplatin AUC 2 with paclitaxel 50 milligram/meter sq with concurrent radiation therapy. If he is not a surgical candidate, he will proceed to receive definitive chemoradiation therapy. If he has no disease progression after definitive concurrent chemoradiation, he will be treated with durvalumab for total of 12 months. He will be scheduled for chemotherapy teach appointment next week. All of this was explained to patient and his brother, they agreed to proceed with above recommendations. Follow-up in 1 week. - Time Spent With Patient Time Spent with Patient (in minutes): 25
--- NOTE | 2022-07-09 15:08 | MHC.HEMONCMA ---
patient seen by provider only with interpretor, no vitals today, will come back next wed for chemo teach appt.
--- NOTE | 2022-07-17 12:56 | HO.HEMONCPA ---
Addendum entered by Trina Goldstein 07/18/22 13:59: NO PA REQUIRED FOR PA FOR 9045 Carboplatin & [id number] Paclitaxel PER [facility] FAXED DOCUMENT SCANNED IN THE CHART. Original Note: PA FOR 9045 Carboplatin & [id number] Paclitaxel REQUESTED. AWAITING DECISION
--- NOTE | 2022-07-18 13:17 | MHC.HEMONC ---
Pt here for chemotherapy teach accompanied by 2 family members. Major Assembler (Lyn) also present. He has an appointment at [facility] tomorrow morning (07/19 at 815) for radiation simulation and teaching. He will get carbo/taxol here concurrently with radiation at [facility]. Carbo/taxol drug information reviewed including schedule, common side effects, premedications and when to call the office. All questions answered. Dr Arroyo to send in prescriptions for morphine ER, senna, an inhaler (he has asthma) and anti-nausea medicine. [facility] will call with his start date and time and we will schedule the chemotherapy.
[2022-07-18 13:29] VITALS: BP 103/63; PULSE 94; TEMP 36.6; O2SAT 98; BMI 15.3
--- NOTE | 2022-07-20 08:48 | MHC.HEMONC ---
Pt starts RT at [facility] on 08/02/22 at 10 am. Appointment provided to Infusion Nurses for scheduling weekly chemo here.
--- NOTE | 2022-07-20 12:06 | MHC.HEMONC ---
Telephone call to pt to notify him of his scheduled chemo appointment. Pt is scheduled to start 08/02 at 1100 after RT. No answer and unable to leave message as mailbox is full. Will call back.
[2022-08-02 11:13] VITALS: BP 112/64; PULSE 98; RESP 17; TEMP 36.4; O2SAT 99; BMI 15.3
[2022-08-02 11:14] LABS: MANUAL DIFF FLAG NO
[2022-08-02 11:19] LABS: Basophils Percent Auto 0.4 % (0-2); Eosinophils Percent Auto 0.2 % (0-4); Hematocrit 32.3 % (42.0-52.0); Imm Gran Abs Auto 0.04 X10*3/uL (0.00-0.03); Imm Gran Pct Auto 0.5 % (0.0-0.4); Lymphocytes Absolute Auto 0.7 X10*3/uL (1.2-4.9); Lymphocytes Percent Auto 8.3 % (20-40); Mean Corpuscular Hemoglobin 25.8 pg (27.0-33.0); Mean Corpuscular Volume 83.5 fL (80.0-98.0); Monocytes Absolute Auto 0.5 X10*3/uL (0.1-1.2); Monocytes Percent Auto 5.9 % (2-11); Neutrophils Absolute Auto 6.8 x10*3/uL (2.0-8.3); Neutrophils Percent Auto 84.7 % (45-73); Platelet Count 531 X10*3/uL (160-400); Red Blood Count 3.87 X10*6/uL (4.60-5.80)
[2022-08-02 11:34] LABS: Alanine Aminotransferase 15 U/L (0-40); Albumin Level 3.2 g/dL (3.5-5.0); Alkaline Phosphatase 104 U/L (39-117); Anion Gap 14 (12-20); Aspartate Amino Transferase 17 U/L (5-37); Bilirubin Total 0.3 mg/dL (0.0-1.0); Blood Urea Nitrogen 6 mg/dL (9-16); Calcium 9.2 mg/dL (8.4-10.2); Carbon Dioxide 31 mmol/L (22-29); Chloride 96 mmol/L (96-108); Creatinine Clr Calc Pharmacy 78.9; Estimated Glomerular Filt Rate > 60; Glucose Random 120 mg/dL (60-115); Potassium 4.4 mmol/L (3.3-5.1); Sodium 137 mmol/L (135-145); Total Protein 7.9 g/dL (6.5-8.0)
[2022-08-02] MEDS: Acetaminophen 325 MG TABLET 650 MG PO (12:12)
[2022-08-02] MEDS: diphenhydrAMINE HCL 25 MG TABLET PO (12:12)
[2022-08-02] MEDS: Famotidine/PF 20 MG/2 ML VIAL IVPUSH (12:13)
[2022-08-02] MEDS: dexAMETHasone sod phosphate/NS 12 MG/50 ML PIGGYBACK 200 MG IV (12:14)
--- NOTE | 2022-08-02 15:56 | MHC.HEMONC ---
Pt here for C1D1 Carboplatin/Paclitaxel weekly with concurrent radiation. Labs were drawn peripherally and reviewed. #22 started in left forearm. Pre meds given, tylenol po, benadryl po, dexamethasone iv, pepcid iv, zofran iv as ordered. Educated patient and family about types of reactions that can happen. Pt instructed to ring rodriguez if he notices any symptoms. Pt verbalized understanding. Treatment infused as ordered. Pt toll well, no reactions noted. IV removed intact. Pt and family given d/c packet and time/date of next treatment 08/08/22 11am. Pt has radiation at 10am daily at [facility]. Please fax labs to [facility] . Todays labs were faxed and conformation received. Fax cover sheet is in care plan.
--- NOTE | 2022-08-08 11:16 | PM.HEMONCPN ---
Medical Summary - Medical Summary Date of Service: 08/08/22 Chief complaint: Abdominal/epigastric discomfort Medical Summary: Diagnosis: Left squamous cell carcinoma diagnosed May 2022 CT chest with contrast performed 05/26/2022 showed heterogenous mass in the left hilum measuring 4.4 x 2.6 x 3.5 cm. Occlusion of left lower lobe bronchus with severe emphysema. Much of the left lower lobe was collapsed. Left hilar lymph node enlarged, metastatic disease. AJCC stage T2b N1 He had bronchoscopy and biopsy of left lower lobe endobronchial lesion on 05/29/2022 which revealed poorly differentiated squamous cell carcinoma. NGS revealed PDL1- TPS 1%, ALK, EGFR,KRAS, BRAF, MET, RET, ROS1 negative. MSI-stable, mcbride-TRK not expressed, HER2 negative, PTEN deletion positive (may respond PI3K/AKT/mTOR and PARP inhibitors). CDKN2A and SMARCA4 (SNV's/insertions/deletions) detected. Staging CT abdomen/pelvis with contrast and brain MRI performed 06/05/2022 showed no evidence of distant metastasis. He was seen by Dr. Grady from [facility], concurrent chemoradiation therapy. CTA performed 06/22/2022 showed no PE but postobstructive atelectasis of entire left lung due to obstruction of left mainstem bronchus by growing left hilar mass. On 07/02/2022 Dr. Stark attempted bronchoscopy with argon/razor tumor debulking but this was not enough to open of the collapsed left lung. Interval History Interval history: Patient is here in follow-up. He reports epigastric discomfort and difficulty eating food. He says he gets pain in his stomach when he eats. His appetite is poor. He denies diarrhea, fever or chills. No emesis. Has been receiving radiotherapy, he did not miss any dose so far. Review of Systems - Constitutional Reports fatigue, Reports lack of energy, Reports malaise, Reports weight loss - Cardiovascular Denies chest pain - Respiratory Denies cough, Denies dyspnea - Gastrointestinal Reports abdominal pain, Denies bright, red blood in stools, Denies change in stools - Neurologic Reports weakness PMFSH Medical History: Medical History (Last Reviewed 07/09/22 @ 15:06 by America Pablo) Asthma COPD (chronic obstructive pulmonary disease) Hypoxia O2 dependent Respiratory failure Tobacco dependence Family History: Family History (Last Reviewed 07/09/22 @ 15:06 by America Pablo) Other No family history of cancer Surgical History: Surgical History (Last Reviewed 07/09/22 @ 15:06 by America Pablo) History of lung biopsy Onset Date: ~05/2022 Social History: Social History (Last Reviewed 07/09/22 @ 15:06 by America Pablo) Living Situation History: Household Members: Unknown / Unable to asses Housing: House Are you a primary rental boats caretaker to a significant other at home: No Do you presently have visiting nurse or other home services: No Alcohol History Details: 1. How often do you have a drink containing alcohol?: a. Never Tobacco History: Patient Tobacco Use Status: Former Tobacco user Tobacco use type: Cigarette Years Smoked: 30 years Second Hand Smoke Exposure: No Substance Use History: Use of substances other than those prescribed or required for medical reasons: No Domestic Abuse History: Have you been hit, kicked, punched, or otherwise hurt by someone within the past year? If so, by whom?: No Do you feel safe in your current relationship?: No Current Relationship Homicidal Assessment: Do you have thoughts of harming others: None Do you have a plan to hurt others: No Plan Do you have the means to hurt others: No Nutrition Assessment: Recently lost weight without trying: Yes How much weight loss: 2-13 pounds Occupation Assessmet: service: No Current occupational status: disabled Home Medications and Allergies Home Medications Medication Instructions Recorded Confirmed Type nicotine (polacrilex) 2 mg gum 1 gum PO Q2H PRN CRAVINGS 06/23/22 07/09/22 History Allergies Allergy/AdvReac Type Severity Reaction Status Date / Time No Known Allergies Allergy Verified 07/03/22 16:42 Exam Vital signs: Vital Signs Temp 97.5 F 08/02/22 11:13 Pulse 98 08/02/22 11:13 Resp 17 08/02/22 11:13 BP 112/64 08/02/22 11:13 Pulse Ox 99 08/02/22 11:13 O2 Del Method 08/02/22 11:13 O2 Flow Rate 3 08/02/22 11:13 Weight 41.8 kg BMI result Body Mass Index 15.3 - Constitutional Present: mild distress, thin, chronically ill appearing - Routine HEENT Exam Head: Present: normal inspection Eye: Present: PERRL - Routine Neck Exam Absent: lymphadenopathy - Routine Respiratory Exam Present: decreased breath sounds. Absent: respiratory distress - Routine Cardiovascular Exam Cardiovascular: Present: S1, S2 - Routine Abdominal Exam Present: soft - Routine Extremities Exam Absent: tenderness - Routine Skin Exam Present: intact. Absent: cyanosis Data - Labs CBC & Chem 7: 08/08/22 11:13 08/08/22 11:13 Assessment and Plan Patient Active problem list reviewed?: Yes (1) Non-small cell cancer of left lung Status: Deleted Assessment and plan: 1. This is a pleasant 56-year-old man with left lung squamous cell carcinoma. CT chest with contrast performed 05/26/2022 showed heterogenous mass in the left hilum measuring 4.4 x 2.6 x 3.5 cm. Occlusion of left lower lobe bronchus with severe emphysema. Much of the left lower lobe was collapsed. Left hilar lymph node enlarged, metastatic disease. AJCC stage T2b N1 He had bronchoscopy and biopsy of left lower lobe endobronchial lesion on 05/29/2022 which revealed poorly differentiated squamous cell carcinoma. NGS revealed PDL1- TPS 1%, ALK, EGFR,KRAS, BRAF, MET, RET, ROS1 negative. MSI-stable, mcbride-TRK not expressed, HER2 negative, PTEN deletion positive (may respond PI3K/AKT/mTOR and PARP inhibitors). CDKN2A and SMARCA4 (SNV's/insertions/deletions) detected. PET-CT performed at [facility] showed no evidence of distant metastasis. He had multifocal FDG avid disease in the left lung, SUV up to 20. He started weekly Carboplatin AUC 2 with paclitaxel 50 milligram/meter sq with concurrent radiation therapy from 08/02/22. If he has no disease progression after definitive concurrent chemoradiation, he will be treated with durvalumab for total of 12 months. Patient appears to be having symptoms of esophagitis / gastritis. He is being started on Carafate and omeprazole. He was advised to start Ensure/nutritional supplements. He did better after receiving Mylanta and IV fluids today. Labs today shows normocytic anemia but no evidence of kidney or liver injury. Continue with current regimen. - Time Spent With Patient Time Spent with Patient (in minutes): 20
[2022-08-08 11:17] LABS: MANUAL DIFF FLAG NO
[2022-08-08 11:24] LABS: Basophils Percent Auto 0.5 % (0-2); Hematocrit 28.9 % (42.0-52.0); Hemoglobin 9.1 g/dl (14.0-18.0); Imm Gran Abs Auto 0.11 X10*3/uL (0.00-0.03); Imm Gran Pct Auto 1.4 % (0.0-0.4); Lymphocytes Absolute Auto 0.6 X10*3/uL (1.2-4.9); Lymphocytes Percent Auto 7.3 % (20-40); Mean Corpuscular HGB Conc 31.5 g/dl (31.0-36.0); Mean Corpuscular Hemoglobin 25.4 pg (27.0-33.0); Mean Corpuscular Volume 80.7 fL (80.0-98.0); Mean Platelet Volume 8.6 fL (9.4-12.4); Monocytes Absolute Auto 0.5 X10*3/uL (0.1-1.2); Monocytes Percent Auto 5.9 % (2-11); Neutrophils Absolute Auto 6.9 x10*3/uL (2.0-8.3); Neutrophils Percent Auto 84.9 % (45-73); Platelet Count 550 X10*3/uL (160-400); Red Blood Count 3.58 X10*6/uL (4.60-5.80); Red Cell Distribution Width 15.5 % (11.0-16.0); White Blood Count 8.1 X10*3/uL (4.8-10.8)
[2022-08-08 11:43] LABS: Alanine Aminotransferase 13 U/L (0-40); Albumin Level 3.3 g/dL (3.5-5.0); Alkaline Phosphatase 103 U/L (39-117); Anion Gap 15 (12-20); Aspartate Amino Transferase 15 U/L (5-37); Bilirubin Total 0.6 mg/dL (0.0-1.0); Blood Urea Nitrogen 9 mg/dL (9-16); Calcium 9.3 mg/dL (8.4-10.2); Carbon Dioxide 32 mmol/L (22-29); Chloride 93 mmol/L (96-108); Creatinine Clr Calc Pharmacy 80.3; Estimated Glomerular Filt Rate > 60; Glucose Random 131 mg/dL (60-115); Potassium 3.9 mmol/L (3.3-5.1); Sodium 136 mmol/L (135-145); Total Protein 7.3 g/dL (6.5-8.0)
[2022-08-08] MEDS: Magnesium Hydrox/Alum Hydrox 30 ML ORAL.SUSP PO (12:15)
[2022-08-08 12:17] VITALS: BP 116/57; PULSE 105; RESP 20; TEMP 36.5; O2SAT 100; BMI 14.8
--- NOTE | 2022-08-08 15:08 | MHC.HEMONC ---
Pt came here from [facility] for chemo treatment. Pt states he has not been able to eat the past 3 days, stating he has a lot of pain and burning in his stomach. Scheduled for follow up with Dr Arroyo. She saw pt with time study engineer. Plan is he will get iv fluid today, maalox. Then will come back tomorrow for chemo. Per Dr Arroyo, pt should wait 7 days for chemo, and pt had chemo last , so today is 6 days. Pt was given maalox and drank a bottle of ensure and tolerated well. He states he had no pain or burning after. Prescription sent for carafate and omeprazole. IV dc'd and pt departed unit. Will return after radiation for chemo 08/09
[2022-08-09 11:11] VITALS: BMI 14.6
[2022-08-09 11:15] VITALS: BP 111/48; PULSE 88; RESP 20; TEMP 37.2; O2SAT 98
[2022-08-09] MEDS: Famotidine/PF 20 MG/2 ML VIAL IVPUSH (11:55)
[2022-08-09] MEDS: diphenhydrAMINE HCL 25 MG TABLET PO (11:57)
[2022-08-09] MEDS: Acetaminophen 325 MG TABLET 650 MG PO (11:57)
[2022-08-09] MEDS: dexAMETHasone sod phosphate/NS 12 MG/50 ML PIGGYBACK 200 MG IV (11:58)
--- NOTE | 2022-08-09 15:07 | MHC.HEMONC ---
Addendum entered by Abby Davis RN 08/09/22 15:27: fax number [phone] Addendum entered by Abby Davis RN 08/09/22 15:11: Next treatment scheduled for 1 week. Original Note: Here for C2 D1 Carbo/Taxol. States is feeling better today. Was able to eat a little lunch. IV started right ac with good blood return noted. Labs done 08/08 reviewed. Pre-meds given as ordered. Treatment done and tolerated well. Departure packet given. Lab results faxed to [facility] at [phone]. Scheduled for next treatment in 1 month.
--- NOTE | 2022-08-10 10:56 | MHC.HEMONC ---
labs faxed to Debbie Banerjee from 08/08
[2022-08-16 11:17] VITALS: BP 111/55; PULSE 76; RESP 17; TEMP 36.9; O2SAT 98; BMI 15.5
[2022-08-16 11:19] LABS: MANUAL DIFF FLAG NO
[2022-08-16 11:24] LABS: Basophils Percent Auto 0.7 % (0-2); Eosinophils Absolute Auto 0.1 X10*3/uL (0.0-0.4); Eosinophils Percent Auto 1.8 % (0-4); Hematocrit 28.8 % (42.0-52.0); Hemoglobin 8.9 g/dl (14.0-18.0); Imm Gran Abs Auto 0.01 X10*3/uL (0.00-0.03); Imm Gran Pct Auto 0.4 % (0.0-0.4); Lymphocytes Absolute Auto 0.4 X10*3/uL (1.2-4.9); Lymphocytes Percent Auto 13.2 % (20-40); Mean Corpuscular HGB Conc 30.9 g/dl (31.0-36.0); Mean Corpuscular Hemoglobin 25.9 pg (27.0-33.0); Mean Platelet Volume 9.1 fL (9.4-12.4); Monocytes Absolute Auto 0.2 X10*3/uL (0.1-1.2); Monocytes Percent Auto 7.1 % (2-11); Neutrophils Absolute Auto 2.2 x10*3/uL (2.0-8.3); Neutrophils Percent Auto 76.8 % (45-73); Platelet Count 387 X10*3/uL (160-400); Red Blood Count 3.43 X10*6/uL (4.60-5.80); Red Cell Distribution Width 17.6 % (11.0-16.0); White Blood Count 2.8 X10*3/uL (4.8-10.8)
[2022-08-16 11:42] LABS: Alanine Aminotransferase 20 U/L (0-40); Albumin Level 3.2 g/dL (3.5-5.0); Alkaline Phosphatase 106 U/L (39-117); Anion Gap 16 (12-20); Aspartate Amino Transferase 22 U/L (5-37); Bilirubin Total < 0.2 mg/dL (0.0-1.0); Blood Urea Nitrogen 6 mg/dL (9-16); Calcium 8.7 mg/dL (8.4-10.2); Carbon Dioxide 28 mmol/L (22-29); Chloride 100 mmol/L (96-108); Creatinine Clr Calc Pharmacy 86.8; Estimated Glomerular Filt Rate > 60; Glucose Random 118 mg/dL (60-115); Potassium 4.3 mmol/L (3.3-5.1); Sodium 140 mmol/L (135-145)
[2022-08-16] MEDS: Acetaminophen 325 MG TABLET 650 MG PO (12:59)
[2022-08-16] MEDS: diphenhydrAMINE HCL 25 MG TABLET PO (12:59)
[2022-08-16] MEDS: dexAMETHasone sod phosphate/NS 12 MG/50 ML PIGGYBACK 200 MG IV (13:00)
[2022-08-16] MEDS: Famotidine/PF 20 MG/2 ML VIAL IVPUSH (13:00)
[2022-08-16] MEDS: Hydrocortisone Sod Succ/PF 100 MG VIAL IVPUSH (14:00)
--- NOTE | 2022-08-16 16:41 | MHC.HEMONC ---
C3D1: PACLITAXEL/CARBO- Labs obtained and reviewed. VSS. No reported side effects. #22 prn angio placed to right AC- positive blood return. Pre-medicated with Tylenol 650mg PO, Benadryl 25mg PO, Dexamethasone 12mg IV, Pepcid 20mg IV, and Zofran 16mg IV. At approx 1400 during Paclitaxel infusion (about about 8 minutes in) patient rang call rodriguez. (see acute reaction intervention for more details)Nurse responded and witnessed patient go unresponsive for approx 1 minute. Color dusky. Infusion stopped. MD called. Dr. Velasquez at bedside. VS: 98.5/ HR 71/ RR-24 02 88% unable to obtain blood pressure initially. Oxygen applied via 15L venti-mask. Solu-Cortef 100mg IV push and Benadryl 25mg IV administered. At 1403- BP 116/57 HR 75 02 SAT 100%. Patient reports improvement in symptoms. Lungs clear- color wnl. No respiratory distress. Resumed Paclitaxel at 1443 at a slower rate per Dr. Velasquez- infusion ran at 132/hr for 30 minutes with no signs of reaction therefore infusion rate increased to 262mls/hr for remainder. [address] Carboplatin infused without difficulty. IV removed- Discharge packet provided. Brothers at bedside. Patient to return for C4 on 08/24/22. Will update Dr. Dina hilario. Post BP 116/61 hr 67 02 98% on 2L NC.
[2022-08-24] VITALS (7 sets, daily range): BP systolic 98–120; BP diastolic 53–61; PULSE 57–74; RESP 16–19; TEMP 36.4; O2SAT 99–100; BMI 15.1
[2022-08-24 10:55] LABS: MANUAL DIFF FLAG NO
[2022-08-24 11:05] LABS: Basophils Percent Auto 0.8 % (0-2); Eosinophils Percent Auto 1.5 % (0-4); Hematocrit 30.7 % (42.0-52.0); Hemoglobin 9.3 g/dl (14.0-18.0); Imm Gran Abs Auto 0.01 X10*3/uL (0.00-0.03); Imm Gran Pct Auto 0.4 % (0.0-0.4); Lymphocytes Absolute Auto 0.4 X10*3/uL (1.2-4.9); Lymphocytes Percent Auto 13.7 % (20-40); Mean Corpuscular HGB Conc 30.3 g/dl (31.0-36.0); Mean Corpuscular Hemoglobin 25.7 pg (27.0-33.0); Mean Corpuscular Volume 84.8 fL (80.0-98.0); Mean Platelet Volume 8.9 fL (9.4-12.4); Monocytes Absolute Auto 0.3 X10*3/uL (0.1-1.2); Monocytes Percent Auto 10.7 % (2-11); Neutrophils Absolute Auto 1.9 x10*3/uL (2.0-8.3); Neutrophils Percent Auto 72.9 % (45-73); Platelet Count 249 X10*3/uL (160-400); Red Blood Count 3.62 X10*6/uL (4.60-5.80); Red Cell Distribution Width 20.3 % (11.0-16.0); White Blood Count 2.6 X10*3/uL (4.8-10.8)
[2022-08-24 11:31] LABS: Alanine Aminotransferase 11 U/L (0-40); Albumin Level 3.5 g/dL (3.5-5.0); Alkaline Phosphatase 122 U/L (39-117); Anion Gap 13 (12-20); Aspartate Amino Transferase 15 U/L (5-37); Bilirubin Total 0.3 mg/dL (0.0-1.0); Blood Urea Nitrogen 5 mg/dL (9-16); Calcium 8.7 mg/dL (8.4-10.2); Carbon Dioxide 31 mmol/L (22-29); Chloride 100 mmol/L (96-108); Creatinine Clr Calc Pharmacy 78.4; Estimated Glomerular Filt Rate > 60; Glucose Random 128 mg/dL (60-115); Potassium 3.9 mmol/L (3.3-5.1); Sodium 140 mmol/L (135-145); Total Protein 7.1 g/dL (6.5-8.0)
[2022-08-24] MEDS: diphenhydrAMINE HCL 25 MG TABLET PO (12:28)
[2022-08-24] MEDS: Acetaminophen 325 MG TABLET 650 MG PO (12:28)
[2022-08-24] MEDS: Famotidine/PF 20 MG/2 ML VIAL IVPUSH (12:28)
[2022-08-24] MEDS: dexAMETHasone sod phosphate/NS 12 MG/50 ML PIGGYBACK 200 MG IV (12:59)
[2022-08-24] MEDS: Hydrocortisone Sod Succ/PF 100 MG VIAL 25 MG IVPUSH (13:59)
--- NOTE | 2022-08-24 16:29 | MHC.HEMONC ---
C4: Carbo/Paclitaxel. Labs obtained and reviewed. Labs faxed to [facility]. Patient reports intermittent nausea with a couple episodes of vomiting. Patient reports feeling well today. #22 angio placed to right ac- positive blood return. Pre-medicated with Tylenol 650mg PO, Dexamethasone 12mg IV, Benadryl 25mg PO, Pepcid 20mg IV, Zofran 16mg IV, and Solu-Cortef 25mg administered prior to Paclitaxel infusion due to previous reaction. 1:[address] Vitals signs checked [id number]. Infusion well tolerated -started at slower rate per Dr. Arroyo. No signs of reaction noted. Paclitaxel infusion increased to 262mls/hr for remainder of infusion. Carboplatin also well tolerated. VSS- no complaints at this time. Patient to return next week for C5. IV discontinued- discharge packet provided.
[2022-08-31 11:30] LABS: Basophils Percent Auto 1.2 % (0-2); Eosinophils Absolute Auto 0.1 X10*3/uL (0.0-0.4); Hematocrit 29.1 % (42.0-52.0); Hemoglobin 8.9 g/dl (14.0-18.0); Lymphocytes Absolute Auto 0.3 X10*3/uL (1.2-4.9); Lymphocytes Percent Auto 12.7 % (20-40); MANUAL DIFF FLAG NO; Mean Corpuscular HGB Conc 30.6 g/dl (31.0-36.0); Mean Corpuscular Hemoglobin 26.3 pg (27.0-33.0); Mean Corpuscular Volume 86.1 fL (80.0-98.0); Mean Platelet Volume 8.8 fL (9.4-12.4); Monocytes Absolute Auto 0.3 X10*3/uL (0.1-1.2); Monocytes Percent Auto 9.9 % (2-11); Neutrophils Absolute Auto 1.9 x10*3/uL (2.0-8.3); Neutrophils Percent Auto 74.2 % (45-73); Platelet Count 199 X10*3/uL (160-400); Red Blood Count 3.38 X10*6/uL (4.60-5.80); Red Cell Distribution Width 21.6 % (11.0-16.0)
[2022-08-31 11:35] LABS: White Blood Count 2.5 X10*3/uL (4.8-10.8)
[2022-08-31 11:41] VITALS: BP 111/67; PULSE 81; RESP 20; TEMP 37.1; O2SAT 100; BMI 15.0
[2022-08-31 11:54] LABS: Alanine Aminotransferase 10 U/L (0-40); Albumin Level 3.6 g/dL (3.5-5.0); Alkaline Phosphatase 114 U/L (39-117); Anion Gap 14 (12-20); Aspartate Amino Transferase 14 U/L (5-37); Bilirubin Total 0.5 mg/dL (0.0-1.0); Blood Urea Nitrogen 4 mg/dL (9-16); Calcium 8.8 mg/dL (8.4-10.2); Carbon Dioxide 29 mmol/L (22-29); Chloride 100 mmol/L (96-108); Creatinine Clr Calc Pharmacy 77.4; Estimated Glomerular Filt Rate > 60; Glucose Random 89 mg/dL (60-115); Potassium 4.2 mmol/L (3.3-5.1); Sodium 139 mmol/L (135-145); Total Protein 7.2 g/dL (6.5-8.0)
[2022-08-31] MEDS: Acetaminophen 325 MG TABLET 650 MG PO (12:34)
[2022-08-31] MEDS: Famotidine/PF 20 MG/2 ML VIAL IVPUSH (12:35)
[2022-08-31] MEDS: dexAMETHasone sod phosphate/NS 12 MG/50 ML PIGGYBACK 200 MG IV (12:45)
[2022-08-31] MEDS: diphenhydrAMINE HCL 25 MG CAPSULE PO (13:03)
[2022-08-31] MEDS: Hydrocortisone Sod Succ/PF 100 MG VIAL 25 MG IVPUSH (13:46)
--- NOTE | 2022-08-31 16:23 | MHC.HEMONC ---
C5D1: PACLITAXEL/CARBO concurrent with radiation. Patient reports feeling well. VSS. Labs obtained and reviewed. #22 angio placed to right ac- positive blood return. Pre-medicated with Tylenol 650mg PO, Dexamethasone 12mg IV, Pepcid 20mg IV, Zofran 16mg IV, Benadryl 25mg PO and Solu-Cortef 25mg IV prior to Paclitaxel infusion. Infusions well tolerated. No signs of reaction. Discharge packet provided. IV removed. Patient to return Saturday for follow up with Dr. Arroyo and cycle 6 on Saturday. Refill sent for Morphine 15mg prn.
--- NOTE | 2022-09-05 10:55 | PM.HEMONCPN ---
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 Occlusion of left lower lobe bronchus with severe emphysema. Much of the left lower lobe was collapsed. Left hilar lymph node enlarged, metastatic disease. AJCC stage T2b N1 He had bronchoscopy and biopsy of left lower lobe endobronchial lesion on 05/29/2022 which revealed poorly differentiated squamous cell carcinoma. NGS revealed PDL1- TPS 1%, ALK, EGFR,KRAS, BRAF, MET, RET, ROS1 negative. MSI-stable, mcbride-TRK not expressed, HER2 negative, PTEN deletion positive (may respond PI3K/AKT/mTOR and PARP inhibitors). CDKN2A and SMARCA4 (SNV's/insertions/deletions) detected. Staging CT abdomen/pelvis with contrast and brain MRI performed 06/05/2022 showed no evidence of distant metastasis. He was seen by Dr. Grady from [facility], concurrent chemoradiation therapy. CTA performed 06/22/2022 showed no PE but postobstructive atelectasis of entire left lung due to obstruction of left mainstem bronchus by growing left hilar mass. On 07/02/2022 Dr. Stark attempted bronchoscopy with argon/razor tumor debulking but this was not enough to open of the collapsed left lung. Interval History Interval history: Patient is here in follow-up. He reports epigastric discomfort and difficulty eating food. He says he gets pain in his stomach when he eats. He denies diarrhea, fever or chills. No emesis. He is requesting refill for omeprazole, he ran out of it. He is tolerating chemotherapy fairly well. Review of Systems - Constitutional Reports as per HPI, Reports no additional constitutional complaints - Cardiovascular Reports no additional cardiovascular complaints - Respiratory Reports no additional respiratory complaints - Gastrointestinal Reports no additional gastrointestinal complaints, Reports belching, Denies black, tarry stools, Denies coffee ground vomit, Reports constipation - Neurologic Reports weakness PMFSH Medical History: Medical History (Last Reviewed 09/05/22 @ 11:01 by America Pablo) Asthma COPD (chronic obstructive pulmonary disease) Hypoxia O2 dependent Respiratory failure Tobacco dependence Family History: Family History (Last Reviewed 07/09/22 @ 15:06 by America Pablo) Other No family history of cancer Surgical History: Surgical History (Last Reviewed 09/05/22 @ 11:01 by America Pablo) History of lung biopsy Onset Date: ~05/2022 Social History: Social History (Last Reviewed 09/05/22 @ 11:01 by America Pablo) Living Situation History: Household Members: Unknown / Unable to asses Housing: House Are you a primary district manager primary care sales to a significant other at home: No Do you presently have visiting nurse or other home services: No Alcohol History Details: 1. How often do you have a drink containing alcohol?: a. Never Tobacco History: Patient Tobacco Use Status: Former Tobacco user Tobacco use type: Cigarette Years Smoked: 30 years Second Hand Smoke Exposure: No Substance Use History: Use of substances other than those prescribed or required for medical reasons: No Domestic Abuse History: Have you been hit, kicked, punched, or otherwise hurt by someone within the past year? If so, by whom?: No Do you feel safe in your current relationship?: No Current Relationship Homicidal Assessment: Do you have thoughts of harming others: None Do you have a plan to hurt others: No Plan Do you have the means to hurt others: No Nutrition Assessment: Recently lost weight without trying: Yes How much weight loss: 2-13 pounds Occupation Assessmet: service: No Current occupational status: disabled Home Medications and Allergies Current Medications: Current Medications Diphenhydramine HCl 25 mg/ (Sodium Chloride) 50.5 mls @ 200 mls/hr IV ONCE ABIMBOLA Last Infusion: 08/16/22 14:06 Dose: Infused Paclitaxel 72 mg/ Sodium (Chloride) 262 mls @ 262 mls/hr IV ONCE ABIMBOLA Last Infusion: 08/31/22 14:54 Dose: Infused Home Medications Medication Instructions Recorded Confirmed Type nicotine (polacrilex) 2 mg gum 1 gum PO Q2H PRN CRAVINGS 06/23/22 09/05/22 History Allergies Allergy/AdvReac Type Severity Reaction Status Date / Time No Known Allergies Allergy Verified 07/03/22 16:42 Exam Vital signs: Vital Signs Temp 98.8 F 08/31/22 11:41 Pulse 81 08/31/22 11:41 Resp 20 08/31/22 11:41 BP 111/67 08/31/22 11:41 Pulse Ox 100 08/31/22 11:41 O2 Del Method 08/31/22 11:41 O2 Flow Rate 3 08/31/22 11:41 Weight 41 kg BMI result Body Mass Index 15.0 - Constitutional Present: mild distress, thin, chronically ill appearing - Routine HEENT Exam Head: Present: normal inspection - Routine Neck Exam Absent: lymphadenopathy - Routine Respiratory Exam Present: decreased breath sounds. Absent: respiratory distress - Routine Cardiovascular Exam Cardiovascular: Present: S1, S2 - Routine Abdominal Exam Present: soft - Routine Extremities Exam Absent: tenderness - Routine Skin Exam Present: intact. Absent: cyanosis Data - Labs CBC & Chem 7: 08/31/22 11:11 08/31/22 11:11 Assessment and Plan Patient Active problem list reviewed?: Yes (1) Non-small cell cancer of left lung Status: Deleted Assessment and plan: 1. This is a pleasant 56-year-old man with left lung squamous cell carcinoma. CT chest with contrast performed 05/26/2022 showed heterogenous mass in the left hilum measuring 4.4 x 2.6 x 3.5 cm. Occlusion of left lower lobe bronchus with severe emphysema. Much of the left lower lobe was collapsed. Left hilar lymph node enlarged, metastatic disease. AJCC stage T2b N1 He had bronchoscopy and biopsy of left lower lobe endobronchial lesion on 05/29/2022 which revealed poorly differentiated squamous cell carcinoma. NGS revealed PDL1- TPS 1%, ALK, EGFR,KRAS, BRAF, MET, RET, ROS1 negative. MSI-stable, mcbride-TRK not expressed, HER2 negative, PTEN deletion positive (may respond PI3K/AKT/mTOR and PARP inhibitors). CDKN2A and SMARCA4 (SNV's/insertions/deletions) detected. PET-CT performed at [facility] showed no evidence of distant metastasis. He had multifocal FDG avid disease in the left lung, SUV up to 20. He started weekly Carboplatin AUC 2 with paclitaxel 50 milligram/meter sq with concurrent radiation therapy from 08/02/22. If he has no disease progression after definitive concurrent chemoradiation, he will be treated with durvalumab for total of 12 months. 2. Symptoms of GERD/reflux. He is on Carafate and omeprazole which is helping. Refills were given today. Follow-up in 3 weeks. - Time Spent With Patient Time Spent with Patient (in minutes): 15
[2022-09-05 10:57] VITALS: BP 108/69; RESP 15; TEMP 36.7; BMI 14.5
--- NOTE | 2022-09-05 11:32 | MHC.HEMONCMA ---
patient seen today for follow up, VSS, medication sent to rx for Mylanta, omeprazole for patient, follow up this saturday for chemo treatment.
[2022-09-07 11:56] LABS: Basophils Percent Auto 0.8 % (0-2); Eosinophils Percent Auto 1.7 % (0-4); Hematocrit 29.8 % (42.0-52.0); Imm Gran Abs Auto 0.01 X10*3/uL (0.00-0.03); Imm Gran Pct Auto 0.4 % (0.0-0.4); Lymphocytes Absolute Auto 0.3 X10*3/uL (1.2-4.9); Lymphocytes Percent Auto 14.3 % (20-40); MANUAL DIFF FLAG SCAN; Mean Corpuscular HGB Conc 30.2 g/dl (31.0-36.0); Mean Corpuscular Hemoglobin 25.9 pg (27.0-33.0); Mean Corpuscular Volume 85.9 fL (80.0-98.0); Mean Platelet Volume 9.2 fL (9.4-12.4); Monocytes Absolute Auto 0.2 X10*3/uL (0.1-1.2); Neutrophils Absolute Auto 1.8 x10*3/uL (2.0-8.3); Neutrophils Percent Auto 74.8 % (45-73); Platelet Count 227 X10*3/uL (160-400); Red Blood Count 3.47 X10*6/uL (4.60-5.80); Red Cell Distribution Width 22.8 % (11.0-16.0); SCAN SMEAR FLAG 1
[2022-09-07 11:58] LABS: White Blood Count 2.4 X10*3/uL (4.8-10.8)
[2022-09-07] MEDS: 0.9 % Sodium Chloride 1,000 ML 500 ML IV (12:00)
[2022-09-07 12:11] VITALS: BP 109/54; PULSE 68; RESP 17; TEMP 36.9; O2SAT 100; BMI 14.7
[2022-09-07 12:14] LABS: Alanine Aminotransferase < 6 U/L (0-40); Albumin Level 3.8 g/dL (3.5-5.0); Alkaline Phosphatase 105 U/L (39-117); Anion Gap 15 (12-20); Aspartate Amino Transferase 15 U/L (5-37); Bilirubin Total 0.5 mg/dL (0.0-1.0); Blood Urea Nitrogen 6 mg/dL (9-16); Calcium 9.4 mg/dL (8.4-10.2); Carbon Dioxide 29 mmol/L (22-29); Chloride 101 mmol/L (96-108); Creatinine Clr Calc Pharmacy 75.8; Estimated Glomerular Filt Rate > 60; Glucose Random 99 mg/dL (60-115); Potassium 4.5 mmol/L (3.3-5.1); Sodium 140 mmol/L (135-145); Total Protein 7.6 g/dL (6.5-8.0)
[2022-09-07 12:25] LABS: SLIDE REVIEW VERIFIED
[2022-09-07] MEDS: Acetaminophen 325 MG TABLET 650 MG PO (12:40)
[2022-09-07] MEDS: Famotidine/PF 20 MG/2 ML VIAL IVPUSH (12:41)
[2022-09-07] MEDS: dexAMETHasone sod phosphate/NS 12 MG/50 ML PIGGYBACK 200 MG IV (12:42)
[2022-09-07] MEDS: Hydrocortisone Sod Succ/PF 100 MG VIAL 25 MG IVPUSH (12:42)
--- NOTE | 2022-09-07 15:45 | MHC.HEMONC ---
Pt here for C6D1 Paclitaxel and Carboplatin concurrent with radiation. Labs drawn by vp purchasing-blood specimen to lab. Leah -soil science technical officer in room. Pt states he continues with fatigue-no other complaints. # 22 angio inserted in right AC with blood return noted. Lab results reviewed-okay to receive treatment today. Lab results faxed to [facility] as requested. Pre medicated with tylenol, benadryl, decadron, pepcid, zofran and solucortef 25mg, 1000 ml 0.9% NS. Paclitaxel/Carboplatin given as ordered-tolerated well. Peripheral IV removed-no edema or redness at site. Discharge packet given with next appointment scheduled-pt to return next Saturday for last chemo treatment. Pt instructed to call clinic with any side effects or concerns-verbalizes understanding of information given
[2022-09-14 11:40] VITALS: BP 111/62; PULSE 68; RESP 18; TEMP 36.8; O2SAT 100; BMI 14.3
[2022-09-14 11:41] LABS: Eosinophils Percent Auto 2.1 % (0-4); Hematocrit 30.6 % (42.0-52.0); Hemoglobin 9.6 g/dl (14.0-18.0); Imm Gran Abs Auto 0.01 X10*3/uL (0.00-0.03); Imm Gran Pct Auto 0.5 % (0.0-0.4); Lymphocytes Absolute Auto 0.3 X10*3/uL (1.2-4.9); MANUAL DIFF FLAG SCAN; Mean Corpuscular HGB Conc 31.4 g/dl (31.0-36.0); Mean Corpuscular Volume 86.2 fL (80.0-98.0); Mean Platelet Volume 8.7 fL (9.4-12.4); Monocytes Absolute Auto 0.2 X10*3/uL (0.1-1.2); Monocytes Percent Auto 11.9 % (2-11); Neutrophils Absolute Auto 1.4 x10*3/uL (2.0-8.3); Neutrophils Percent Auto 71.5 % (45-73); Platelet Count 235 X10*3/uL (160-400); Red Blood Count 3.55 X10*6/uL (4.60-5.80); Red Cell Distribution Width 23.6 % (11.0-16.0); SCAN SMEAR FLAG 1
[2022-09-14 11:42] LABS: White Blood Count 1.9 X10*3/uL (4.8-10.8)
[2022-09-14 11:56] LABS: Alanine Aminotransferase < 6 U/L (0-40); Alkaline Phosphatase 105 U/L (39-117); Anion Gap 13 (12-20); Aspartate Amino Transferase 15 U/L (5-37); Bilirubin Total 0.4 mg/dL (0.0-1.0); Blood Urea Nitrogen 7 mg/dL (9-16); Calcium 9.7 mg/dL (8.4-10.2); Carbon Dioxide 32 mmol/L (22-29); Chloride 100 mmol/L (96-108); Creatinine Clr Calc Pharmacy 71.5; Estimated Glomerular Filt Rate > 60; Glucose Random 103 mg/dL (60-115); Potassium 4.2 mmol/L (3.3-5.1); Sodium 141 mmol/L (135-145); Total Protein 7.8 g/dL (6.5-8.0)
[2022-09-14 12:00] LABS: SLIDE REVIEW VERIFIED
[2022-09-14] MEDS: Acetaminophen 325 MG TABLET 650 MG PO (12:32)
[2022-09-14] MEDS: diphenhydrAMINE HCL 25 MG CAPSULE PO (12:33)
[2022-09-14] MEDS: dexAMETHasone sod phosphate/NS 12 MG/50 ML PIGGYBACK 200 MG IV (12:33)
[2022-09-14] MEDS: Famotidine/PF 20 MG/2 ML VIAL IVPUSH (12:33)
[2022-09-14] MEDS: Hydrocortisone Sod Succ/PF 100 MG VIAL 25 MG IVPUSH (13:20)
--- NOTE | 2022-09-14 15:50 | MHC.HEMONC ---
Addendum entered by Zhane Vegas RN 09/14/22 16:06: Labs faxed to [facility] Original Note: C7D1: PACLITAXEL/CARBO concurrent with radiation. Patient reports feeling well. VSS. Labs obtained and reviewed. ANC 1.4- per Dr. Velasquez ok to proceed with treatment (pharmacy [facility] notified) #22 angio placed to right left ac- positive blood return. Pre-medicated with Tylenol 650mg PO, Dexamethasone 12mg IV, Pepcid 20mg IV, Zofran 16mg IV, Benadryl 25mg PO and Solu-Cortef 25mg IV prior to Paclitaxel infusion. Infusions well tolerated. No signs of reaction. Discharge packet provided. IV removed.
--- NOTE | 2022-10-01 10:52 | PM.HEMONCPN ---
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 Occlusion of left lower lobe bronchus with severe emphysema. Much of the left lower lobe was collapsed. Left hilar lymph node enlarged, metastatic disease. AJCC stage T2b N1 He had bronchoscopy and biopsy of left lower lobe endobronchial lesion on 05/29/2022 which revealed poorly differentiated squamous cell carcinoma. NGS revealed PDL1- TPS 1%, ALK, EGFR,KRAS, BRAF, MET, RET, ROS1 negative. MSI-stable, mcbride-TRK not expressed, HER2 negative, PTEN deletion positive (may respond PI3K/AKT/mTOR and PARP inhibitors). CDKN2A and SMARCA4 (SNV's/insertions/deletions) detected. Staging CT abdomen/pelvis with contrast and brain MRI performed 06/05/2022 showed no evidence of distant metastasis. He was seen by Dr. Grady from [facility], concurrent chemoradiation therapy. CTA performed 06/22/2022 showed no PE but postobstructive atelectasis of entire left lung due to obstruction of left mainstem bronchus by growing left hilar mass. On 07/02/2022 Dr. Stark attempted bronchoscopy with argon/razor tumor debulking but this was not enough to open of the collapsed left lung. Interval History Interval history: Patient is here in follow-up. He reports bilateral shoulder and upper chest wall pain. He is on morphine but that is not helping. He is also taking Tylenol. He denies diarrhea, fever or chills. He has completed concurrent chemo radiotherapy last week. Review of Systems - Constitutional Reports as per HPI, Reports no additional constitutional complaints - Cardiovascular Reports no additional cardiovascular complaints - Respiratory Reports no additional respiratory complaints - Neurologic Reports weakness [facility] Medical History: Medical History (Last Reviewed 10/01/22 @ 11:09 by America Pablo) Asthma COPD (chronic obstructive pulmonary disease) Hypoxia O2 dependent Respiratory failure Tobacco dependence Family History: Family History (Last Reviewed 07/09/22 @ 15:06 by America Pablo) Other No family history of cancer Surgical History: Surgical History (Last Reviewed 11/14/22 @ 11:09 by America Pablo) History of lung biopsy Onset Date: ~05/2022 Social History: Social History (Last Reviewed 10/01/22 @ 11:09 by America Pablo) Living Situation History: Household Members: Unknown / Unable to asses Housing: House Are you a primary career developer to a significant other at home: No Do you presently have visiting nurse or other home services: No Alcohol History Details: 1. How often do you have a drink containing alcohol?: a. Never Tobacco History: Patient Tobacco Use Status: Former Tobacco user Tobacco use type: Cigarette Years Smoked: 30 years Second Hand Smoke Exposure: No Substance Use History: Use of substances other than those prescribed or required for medical reasons: No Domestic Abuse History: Have you been hit, kicked, punched, or otherwise hurt by someone within the past year? If so, by whom?: No Do you feel safe in your current relationship?: No Current Relationship Homicidal Assessment: Do you have thoughts of harming others: None Do you have a plan to hurt others: No Plan Do you have the means to hurt others: No Nutrition Assessment: Recently lost weight without trying: Yes How much weight loss: 2-13 pounds Occupation Assessmet: service: No Current occupational status: disabled Oncology Screenings - ECOG Performance Status ECOG Performance Status: 1 Home Medications and Allergies Current Medications: Current Medications Diphenhydramine HCl 25 mg/ (Sodium Chloride) 50.5 mls @ 200 mls/hr IV ONCE ABIMBOLA Last Infusion: 09/07/22 12:57 Dose: Infused Paclitaxel 72 mg/ Sodium (Chloride) 262 mls @ 262 mls/hr IV ONCE ABIMBOLA Last Infusion: 08/31/22 14:54 Dose: Infused Paclitaxel 66 mg/ Sodium (Chloride) 261 mls @ 261 mls/hr IV ONCE ABIMBOLA Last Infusion: 09/07/22 14:54 Dose: Infused Paclitaxel 66 mg/ Sodium (Chloride) 237 mls @ 237 mls/hr IV ONCE BAIMBOLA Last Infusion: 09/14/22 14:26 Dose: Infused Home Medications Medication Instructions Recorded Confirmed Type nicotine (polacrilex) 2 mg gum 1 gum PO Q2H PRN CRAVINGS 06/23/22 10/01/22 History Allergies Allergy/AdvReac Type Severity Reaction Status Date / Time No Known Allergies Allergy Verified 07/03/22 16:42 Exam Vital signs: Vital Signs Temp 98.3 F 09/14/22 11:40 Pulse 68 09/14/22 11:40 Resp 18 09/14/22 11:40 BP 111/62 09/14/22 11:40 Pulse Ox 100 09/14/22 11:40 O2 Del Method 09/14/22 11:40 O2 Flow Rate 3 09/14/22 11:40 Weight 39.1 kg BMI result Body Mass Index 14.3 - Constitutional Present: mild distress, thin, chronically ill appearing - Routine HEENT Exam Head: Present: normal inspection - Routine Neck Exam Absent: lymphadenopathy - Routine Respiratory Exam Present: decreased breath sounds. Absent: respiratory distress - Routine Cardiovascular Exam Cardiovascular: Present: S1, S2 - Routine Abdominal Exam Present: soft - Routine Extremities Exam Absent: tenderness - Routine Skin Exam Present: intact. Absent: cyanosis Data - Labs CBC & Chem 7: 10/01/22 11:26 10/01/22 11:26 Assessment and Plan Patient Active problem list reviewed?: Yes (1) Non-small cell cancer of left lung Status: Deleted Assessment and plan: 1. This is a pleasant 57-year-old man with left lung squamous cell carcinoma. CT chest with contrast performed 05/26/2022 showed heterogenous mass in the left hilum measuring 4.4 x 2.6 x 3.5 cm. Occlusion of left lower lobe bronchus with severe emphysema. Much of the left lower lobe was collapsed. Left hilar lymph node enlarged, metastatic disease. AJCC stage T2b N1 He had bronchoscopy and biopsy of left lower lobe endobronchial lesion on 05/29/2022 which revealed poorly differentiated squamous cell carcinoma. NGS revealed PDL1- TPS 1%, ALK, EGFR,KRAS, BRAF, MET, RET, ROS1 negative. MSI-stable, mcbride-TRK not expressed, HER2 negative, PTEN deletion positive (may respond PI3K/AKT/mTOR and PARP inhibitors). CDKN2A and SMARCA4 (SNV's/insertions/deletions) detected. PET-CT performed at [facility] showed no evidence of distant metastasis. He had multifocal FDG avid disease in the left lung, SUV up to 20. He started weekly Carboplatin AUC 2 with paclitaxel 50 milligram/meter sq with concurrent radiation therapy from 08/02/22. If he has no disease progression after definitive concurrent chemoradiation, he will be treated with durvalumab for total of 12 months. He has now completed concurrent chemoradiotherapy. Repeat imaging will be performed in a few weeks. 2. Symptoms of GERD/reflux. He is on Carafate and omeprazole which is helping. 3. Arthralgias of both shoulder joints. He is on Tylenol and morphine. I have recommended a few days of ibuprofen. Follow-up in 2 weeks. - Time Spent With Patient Time Spent with Patient (in minutes): 15
[2022-10-01 11:05] VITALS: BP 133/63; PULSE 81; RESP 16; TEMP 36.7; O2SAT 100; BMI 14.6
[2022-10-01 11:27] LABS: MANUAL DIFF FLAG NO
--- NOTE | 2022-10-01 11:57 | MHC.HEMONCMA ---
patient seen today for followup pulmonary tumor, VSS, labs, return tomorrow for treatment.
[2022-10-01 12:07] LABS: Basophils Percent Auto 0.9 % (0-2); Eosinophils Percent Auto 1.2 % (0-4); Hematocrit 31.5 % (42.0-52.0); Hemoglobin 9.8 g/dl (14.0-18.0); Imm Gran Abs Auto 0.01 X10*3/uL (0.00-0.03); Imm Gran Pct Auto 0.3 % (0.0-0.4); Lymphocytes Absolute Auto 0.5 X10*3/uL (1.2-4.9); Lymphocytes Percent Auto 14.8 % (20-40); Mean Corpuscular HGB Conc 31.1 g/dl (31.0-36.0); Mean Corpuscular Hemoglobin 27.7 pg (27.0-33.0); Mean Platelet Volume 8.8 fL (9.4-12.4); Monocytes Absolute Auto 0.4 X10*3/uL (0.1-1.2); Monocytes Percent Auto 12.3 % (2-11); Neutrophils Absolute Auto 2.3 x10*3/uL (2.0-8.3); Neutrophils Percent Auto 70.5 % (45-73); Platelet Count 228 X10*3/uL (160-400); Red Blood Count 3.54 X10*6/uL (4.60-5.80); White Blood Count 3.2 X10*3/uL (4.8-10.8)
[2022-10-01 12:08] LABS: Alanine Aminotransferase 18 U/L (0-40); Alkaline Phosphatase 109 U/L (39-117); Anion Gap 13 (12-20); Aspartate Amino Transferase 27 U/L (5-37); Bilirubin Total 0.3 mg/dL (0.0-1.0); Blood Urea Nitrogen 7 mg/dL (9-16); Calcium 11.4 mg/dL (8.4-10.2); Carbon Dioxide 29 mmol/L (22-29); Chloride 101 mmol/L (96-108); Creatinine Clr Calc Pharmacy 66.9; Estimated Glomerular Filt Rate > 60; Glucose Random 128 mg/dL (60-115); Potassium 4.3 mmol/L (3.3-5.1); Sodium 139 mmol/L (135-145); Total Protein 7.9 g/dL (6.5-8.0)
== END 2022-10-27 | disposition home or self-care (01) ==
LOC: HO.ONC 11:00
PROVIDERS: PCP Internal Medicine; Visit Provider Internal Medicine
DX: C34.32 Malignant neoplasm of lower lobe, left bronchus or lung (principal); C77.1 Secondary and unspecified malignant neoplasm of intrathoracic lymph nodes; D64.9 Anemia, unspecified; K21.9 Gastro-esophageal reflux disease without esophagitis; M25.511 Pain in right shoulder; M25.512 Pain in left shoulder; Z79.899 Other long term (current) drug therapy; Z92.21 Personal history of antineoplastic chemotherapy; Z92.3 Personal history of irradiation; Z99.81 Dependence on supplemental oxygen
CPT/HCPCS: 36415; 80053; 82378; 85025; 85610; 96361; 96375; 96376; 96413; 96415; 96417; 99205; 99211; 99214; 99215; J1100; J1200; J2405; J9045; J9267; Q0163

== ENCOUNTER 2022-10-06 12:22 | Inpatient (IN) | payer OTHER, SELFPAY ==
--- NOTE | ~2022-10-06 | XR_ITS ---
EXAMINATION: XR CHEST CLINICAL INFORMATION: Generalized weakness. COMPARISON: 06/22/2022 chest radiograph. TECHNIQUE: Frontal view of the chest was obtained. FINDINGS: There is been interval resolution of previously seen total left lung opacification and volume loss. There is persistent mild cardiac mediastinal shift to left. Moderate left apical pleural thickening and scarring is seen. Minimal left basilar opacification. The right lung is clear. Incidental lytic appearing lesion in the proximal left humeral metadiaphysis. XR/XR chest 1V IMPRESSION: 1. Interval improvement in left lung opacification with decreased cardiomediastinal shift to the left. Left basilar and apical pleural thickening and scarring. A small left pleural effusion cannot be excluded. 2. New irregular lytic lesion in the proximal left humerus concerning for malignancy/metastatic disease.
--- NOTE | ~2022-10-06 | XR_ITS ---
EXAMINATION: XR SKELETAL SURVEY CLINICAL INFORMATION: hypercalcemia, lung ca/bone mets COMPARISON: CT abdomen pelvis from 10/06/2022 CT chest dated 06/22/2022. TECHNIQUE: 22 images of the axial and appendicular skeleton were obtained including lateral views of the skull and cervical spine, AP views of the chest, pelvis, and extremities, and AP and lateral views of the thoracic and lumbar spine. FINDINGS: There is collapse of the left upper lobe with root linear reticular opacities extending toward the collapsed parenchyma at the apex. A superimposed lesion in this region is possible. Underlying pulmonary emphysema is noted. Bones are diffusely osteopenic. There is a ill-defined, lytic lesion within the proximal humeral diaphysis measuring 3.1 x 2 cm with subtle cortical erosion. Subtle lucency in the mid humeral diaphysis measures 4 mm in diameter may correspond to a second lytic lesion. There is 1.5 cm focus of osteolysis at the left inferior pubic ramus,, also concerning for a osseous metastatic lesion. There is a possible 1.8 cm focus of cortical osteolysis in the mid fibular diaphysis, this is partially obscured by the overlapping tibia. Adjacent soft tissue swelling is noted. XR/XR bone survey IMPRESSION: Lytic lesions within the left humeral diaphysis and left inferior pubic ramus, consistent with osseous metastatic disease. Questionable lesion in the right fibular shaft. Recommend repeat dedicated orthogonal views of the right tibia and fibula for further assessment.
--- NOTE | ~2022-10-06 | CT_ITS ---
EXAMINATION: CT ABDOMEN AND PELVIS WITH CONTRAST CLINICAL INFORMATION: PT C UPPER ABD PAIN X 3 WKS HX OF LUNG CANCER COMPARISON: 06/05/2022 CT scan TECHNIQUE: Multidetector volumetric imaging was performed from the superior aspect of the liver through the pubic symphysis following administration of 100 mL Omnipaque 300 intravenous contrast. Sagittal and coronal reformatted images were obtained on the technologist workstation.. This CT examination was performed using dose optimization techniques as appropriate, variously including the following: *Automated exposure control *Adjustment of mA and/or kV according to patient size (this includes techniques or standardized protocols for targeted exams where dose is matched to indication/reason for exam; i.e. extremities or head) *Use of iterative reconstruction technique DLP: 313 mGy-cm FINDINGS: LUNG BASES: Extensive emphysematous changes at the lung bases right more so than left with linear changes at the left base possibly due to scarring or atelectasis. A left basilar markings have improved from the prior study. Bulky cardiophrenic lymph nodes are seen anterior to the heart. The bulky irregular lymph nodes are confluent measuring up to 2.3 cm in short axis diameter. These were not apparent on the prior CT scan. The appearance would be concerning for metastatic adenopathy in this setting. PERITONEAL SPACE: There are multiple suspicious peritoneal nodular collections more so in the left abdomen. This includes the 2.2 cm collection along the lateral left paracolic gutter on axial image 40/84, the 2.2 cm collection posterior and slightly lateral to the spleen on axial image 22/84, posterior to the spleen measuring 1.5 cm on axial image 11/84 and additionally there are several smaller retroperitoneal nodules seen in the left greater than right pararenal spaces. LIVER, GALLBLADDER, AND BILIARY TREE: The liver is normal in size, shape, and attenuation. No focal hepatic lesion or biliary ductal dilatation is present. The gallbladder is unremarkable with no evidence of radiopaque gallstones, gallbladder wall thickening, or obvious pericholecystic inflammatory changes. PANCREAS: Unremarkable. SPLEEN: Unremarkable. ADRENAL GLANDS: Left adrenal gland is partially obscured by retroperitoneal soft tissue mass which is new from the prior study. The mass abuts the left renal vessels measuring approximately 4.8 x 2.2 cm in size. KIDNEYS AND URETERS: The kidneys are normal in size, shape, and attenuation. No hydronephrosis or hydroureter. No perinephric stranding. Incidental nonobstructed left-sided intrarenal calculi likely present BLADDER: Relatively distended GASTROINTESTINAL TRACT: Lack of significant intra-abdominal fat limits evaluation. I do not appreciate any obstructive changes to the bowel. Small bowel is difficult to assess due to decompression ABDOMINAL WALL: Relatively cachectic LYMPHOVASCULAR STRUCTURES: Vascular calcification within the aorta iliac system. PELVIC VISCERA: Unremarkable. OSSEOUS STRUCTURES: Degenerative changes. I do not appreciate any suspicious bony abnormality CT/CT abdomen pelvis w IV con IMPRESSION: 1. There are multiple new abnormal soft tissue nodules seen within the peritoneal and retroperitoneal space concerning for metastatic disease. There is also new bulky cardiophrenic adenopathy concerning for metastatic adenopathy. The left adrenal gland is partially obscured by a new retroperitoneal mass lesion as well.. These could be clinically correlated. PET CT scan or biopsy may be helpful to define further if needed. 2. I do not appreciate any obstructive changes to the bowel. Lack of significant intra-abdominal fat limits evaluation. 3. Chronic appearing changes otherwise as described above.
[2022-10-06 12:30] VITALS: BP 130/73; PULSE 92; RESP 20; TEMP 36.3; O2SAT 100; BMI 14.4
--- NOTE | 2022-10-06 12:30 | ED_ITS ---
HPI - General Adult General Chief complaint: General Medical <ONEIL Rosario Last Filed: 10/06/22 17:18> Stated complaint: weakness <ONEIL Rosario Last Filed: 10/06/22 17:18> Time Seen by Provider: 10/06/22 13:38 <ONEIL Rosario Last Filed: 10/06/22 17:18> Source: patient and family <ONEIL Ramos Last Filed: 10/06/22 18:48> Mode of arrival: ambulatory <ONEIL Ramos Last Filed: 10/06/22 18:48> Limitations: language barrier (Maltese-speaking) <ONEIL Ramos Last Filed: 10/06/22 18:48> History of Present Illness HPI narrative: 57-year-old male with a past medical history of COPD, squamous cell lung cancer, 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 Arroyo the oncologist presenting to the ED with complaints of generalized fatigue, malaise, arthralgias, decreased appetite repo rts he has not eaten approximately 3 days and abdominal tenderness. Reports that he has notice small lumps on his abdomen and his back that are new. Patient reports he had chemotherapy/radiation approximately 3 weeks ago. He denies any dizziness, headaches, change in vision, cough, nasal congest ion/rhinorrhea, chest pain or shortness of breath, dyspnea on exertion, orthopnea, palpitations, paresthesias, nausea/vomiting, back pain, urinary bowel incontinence or retention, hematuria, dysuria, urinary frequency or urgency, rashes, recent falls or trauma or any other symptoms complaints or concerns at this time. <ONEIL Ramos Last Filed: 10/06/22 18:48> MD complaint: Gen fatigue, malaise, arthralgias, decreased appetite & abdominal pain/lump <ONEIL Ramos Last Filed: 10/06/22 18:48> Onset (ago): day(s) (The past 2 3 days worse today) <ONEIL Ramos Last Filed: 10/06/22 18:48> Related Data Home medications: Home Medications Medication Instructions Recorded Confirmed nicotine (polacrilex) 2 mg gum 1 gum PO Q2H PRN CRAVINGS 06/23/22 10/01/22 Previous Rx's Medication Instructions Recorded walker (Ultra-Light Rollator misc) #1 ea 06/30/22 Grab bar #2 ea 07/03/22 miscellaneous medical supply 1 ea miscellaneous DAILY #1 ea 07/03/22 alprazolam 0.5 mg tablet 0.5 mg PO AC #3 tabs 07/09/22 albuterol sulfate 90 mcg/actuation 1 inh inhalation QID #200 grams 07/18/22 aerosol inhaler ondansetron 8 mg disintegrating 8 mg PO Q8H PRN Nausea #30 tabs 07/18/22 tablet sennosides 8.6 mg tablet (Senna 17.2 mg PO BEDTIME PRN 07/18/22 Lax) Constipation #30 tabs morphine 15 mg immediate release 15 mg PO Q4H PRN Breakthrough 08/31/22 tablet Pain, Moderate #50 tabs omeprazole 40 mg capsule,delayed 40 mg PO DAILY #30 caps 09/05/22 release sucralfate 100 mg/mL oral 10 ml PO QID #600 mL 09/05/22 suspension morphine 30 mg tablet,extended 30 mg PO Q12H PRN Pain #60 tabs 09/07/22 release (MS Contin) ibuprofen 200 mg tablet (Addaprin) 400 mg PO Q8H PRN Pain #30 tabs 10/01/22 <ONEIL Rosario - Last Filed: 10/06/22 17:18> Allergies/adverse reactions: Allergies Allergy/AdvReac Type Severity Reaction Status Date / Time No Known Allergies Allergy Verified 07/03/22 16:42 <ONEIL Rosario - Last Filed: 10/06/22 17:18> Review of Systems Review of Systems: Constitutional : + Weight loss, No Fever, No Chills, No Night Sweats, + Fatigue, + Malaise ENT/Mouth : No Hearing loss, No Ear Pain, No Nasal Congestion, No Sinus Pain, No Hoarseness, No sore throat, No Rhinorrhea, No Swallowing Difficulty Eyes: No Eye Pain, No Swelling, No Redness, No Foreign Body, No Discharge, No Vision Changes Cardiovascular : No Chest Pain, No SOB, No Dyspnea on Exertion, No Orthopnea, No Edema, No Palpitations Respiratory : No Cough, No Sputum, No Wheezing, No Smoke Exposure, No Dyspnea Gastrointestinal : No Nausea, No Vomiting, No Diarrhea, No Constipation, + abdominal Pain, No Hematochezia, No Melena Genitourinary : no irregular bleeding, No Dysuria, No Urinary Frequency, No Hematuria, No Urinary Incontinence, No Urgency, No Flank Pain, No Urinary Flow Changes, No Hesitancy Musculoskeletal : + joint pain, + Myalgias, No Joint Swelling Skin : No Skin Lesions, No rash Neuro : + General Weakness, No Numbness, No Paresthesias, No Loss of Consciousness, No Dizziness, No Headache Psych : No Anxiety/Panic, No Depression, No SI/HI/AH/VH, No Social Issues, Heme/Lymph: No Bruising, No Bleeding,No Lymphadenopathy Endocrine : No Polyuria, No Polydipsia, No Temperature Intolerance <ONEIL Ramos - Last Filed: 10/06/22 18:48> Yes all other systems are reviewed and are negative <ONEIL Ramos - Last Filed: 10/06/22 18:48> [facility] Past Medical History Attestation statement: The following information was validated with the patient. <ONEIL Ramos - Last Filed: 10/06/22 18:48> Source: old records reviewed, obtained from family and nursing notes reviewed <ONEIL Ramos - Last Filed: 10/06/22 18:48> Medical History: Medical History Asthma COPD (chronic obstructive pulmonary disease) Hypoxia O2 dependent Respiratory failure Tobacco dependence <ONEIL Rosario - Last Filed: 10/06/22 17:18> Surgical History: Surgical History History of lung biopsy (~05/2022) <ONEIL Rosario - Last Filed: 10/06/22 17:18> Family History Family History: Family History Other No family history of cancer <ONEIL Rosario - Last Filed: 10/06/22 17:18> Social History Social History: Social History Household Members: Unknown / Unable to assess Housing: House Are you a primary child care aide to a significant other at home: No Do you presently have visiting nurse or other home services: No Patient Tobacco Use Status: Former Tobacco user Tobacco use type: Cigarette Years Smoked: 30 years Second Hand Smoke Exposure: No Advance Directives: No Advance Directives Information Provided: No service: No Current occupational status: disabled Cognitive needs: No Hearing needs: No Vision needs: No <ONEIL Rosario - Last Filed: 10/06/22 17:18> Physical Exam ED Vital Signs: Vital Signs - 24 hr 10/06/22 12:30 10/06/22 14:29 10/06/22 15:05 Temperature 97.4 F 98.2 F 98.1 F Pulse Rate 92 70 74 Respiratory Rate 20 18 20 Blood Pressure 130/73 140/78 H 144/72 H Pulse Oximetry 100 100 100 Oxygen Delivery Method Nasal Cannula Nasal Cannula Nasal Cannula Oxygen Flow Rate 3 3 10/06/22 17:02 Temperature 98.0 F Pulse Rate 70 Respiratory Rate 18 Blood Pressure 124/74 Pulse Oximetry 93 Oxygen Delivery Method Oxygen Flow Rate 3 BMI result Body Mass Index 14.4 <ONEIL Rosario - Last Filed: 10/06/22 17:18> Vital Signs - 24 hr 10/06/22 12:30 10/06/22 14:29 10/06/22 15:05 Temperature 97.4 F 98.2 F 98.1 F Pulse Rate 92 70 74 Respiratory Rate 20 18 20 Blood Pressure 130/73 140/78 H 144/72 H Pulse Oximetry 100 100 100 Oxygen Delivery Method Nasal Cannula Nasal Cannula Nasal Cannula Oxygen Flow Rate 3 3 10/06/22 17:02 Temperature 98.0 F Pulse Rate 70 Respiratory Rate 18 Blood Pressure 124/74 Pulse Oximetry 93 Oxygen Delivery Method Oxygen Flow Rate 3 BMI result Body Mass Index 14.4 vital signs have been reviewed as normal and appeared to be correct. Blood pressure normal. Heart rate normal. Respiration rate normal. Temperature normal. Oxygen saturation normal. <ONEIL Ramos - Last Filed: 10/06/22 18:48> Appearance: Alert. Oriented X3. No acute distress. Patient appears very frail. Head: Normal external exam. Normocephalic. Atraumatic. Eyes: PERRLA. EOMI. Conjunctiva and sclera normal. Eyelids normal. ENT: EAC normal. TM's Normal. Pharynx normal. Uvula midline. Moist mucous membranes. No lesions/ulcerations or masses noted on the tongue. Normal voice. No trismus noted. No drooling noted. No muffled voice noted. Neck: Normal inspection. Neck supple. FROM. No adenopathy. Thyroid Normal. No tracheal deviation noted. No crepitus is noted. No meningeal signs. No neck mass noted. No signs of trauma noted. CVS: Normal heart rate and rhythm. Heart sound normal. Pulses normal throughout. No murmurs/rales/gallops. Respiratory: No respiratory distress. Painless inspiration. Breath sounds normal. No wheezes/rales/rhonchi noted. Chest nontender. No crepitus is noted. No signs of trauma noted. No accessory muscle usage noted or decreased air movement noted. No signs of trauma. Abdomen: Soft and mild TTP epigastric area and appears to have a possible nodule intra-abdominal. Bowel sounds normal in all 4 quadrants. No distention noted. No organomegaly noted. No visible injury noted. Back: No CVA tenderness. Full range of motion noted. Nontender. No signs of trauma. Patient neuro intact bilaterally and distally on all 4 extremities. Patient's reflexes intact bilaterally and distally on all 4 extremities. No ra shes/lesion/induration/fluctuance or signs of infection noted. Skin: Skin warm and dry. Normal skin color. Normal skin turgor. Patient appears to have nodules to the left thoracic spine area and right upper back. No additional rashes/lesions/lacerations noted. Extremities: No lower extremity edema. No calf tenderness is noted. Extremities exhibit normal range of motion and nontender. Neuro: Oriented X 3. No motor deficit. No sensory deficit. Reflexes normal. Normal steady gait. No focal neuro deficits noted. CN's II-XII intact bilaterally? Vascular: + radial pulses/+ 2 distal pedal pulses/+2 dorsalis pedis b/l. Normal cap refill. No cyanosis noted to upper extremity nails and lower extremity toes nails. <ONEIL Ramos - Last Filed: 10/06/22 18:48> Course Course Course Narrative: RME --57yo M with a past medical history of left lung squamous cell carcinoma currently on chemotherapy and radiation, baseline 3 L nasal cannula, last chemo/radiation last week, presenting to the ED complaining of generalized fatigue/weakness, cough, generalized myalgias, abdominal pain, decreased p.o. intake x3 days. Denies fever. Abdomen soft epigastric tenderness on exam. 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 Arroyo the oncologist presenting to the ED with complaints of generalized fatigue, malaise, arthralgias, decreased appetite reports he has not eaten approximately 3 days and abdominal tenderness. Reports that he has notice small lumps on his abdomen and his back that are new. Patient reports he had chemotherapy/radiation approximately 3 weeks ago. Labs reviewed - patient with white blood cell count 3000 which is similar compared to prior. - mild baseline anemia which is similar compared to prior with an H&H of 9.1/29.2. - carbon dioxide 31 - random glucose 123 - calcium 13.4 - UA within normal limits no evidence of UTI - patient negative for COVID/RSV/flu CXR - revealed improvement of left lung opacity with decreased cardio mediastinal shift to the left. Left bibasilar and apical pleural thickening and scarring. Small left pleural effusion cannot be excluded. New irregular lytic lesion in the proximal left humerus concerning for malignancy/metastatic disease. No other acute processes noted. CT scan of abdomen pelvis with IV contrast revealed - metastatic disease at this time from the lungs there are multiple new abnormal soft tissue nodule seen in the peritoneal and retroperitoneal space. Along with bulky cardio phrenic adenopathy. Also left adrenal gland partially obscured by a new retroperitoneal mass lesion. Otherwise no other acute processes are noted. Plan: - Therefore at this time will plan to admit for squamous cell carcinoma, non small-cell cancer of the lung with Mets to multiple locations and pain control. - patient with family at bedside understand agree this plan. <ONEIL Ramos - Last Filed: 10/06/22 18:48> Time: 18:24 <ONEIL Ramos - Last Filed: 10/06/22 18:48> Medications Administered Discontinued Medications Generic Name Dose Route Start Last Admin Trade Name Freq PRN Reason Stop Dose Admin Hydromorphone HCl 1 mg 10/06/22 16:51 10/06/22 17:00 Hydromorphone Hcl 1 Mg/Ml Syringe IVPUSH 10/06/22 16:52 1 mg ONCE ONE Administration Protocol Hydromorphone HCl 2 mg 10/06/22 17:47 10/06/22 18:15 Hydromorphone Hcl 2 Mg/Ml Vial IVPUSH 10/06/22 17:48 2 mg ONCE ONE Administration Protocol Sodium Chloride 1,000 mls @ 999 mls/hr 10/06/22 12:45 10/06/22 16:35 Ns IV 10/06/22 13:45 Infused .Q1H1M ABIMBOLA Infusion Sodium Chloride 1,000 mls @ 999 mls/hr 10/06/22 14:15 10/06/22 18:14 Ns IVCONT 10/06/22 15:15 Infused .Q1H1M BAIMBOLA Infusion Sodium Chloride 1,000 mls @ 999 mls/hr 10/06/22 14:45 10/06/22 18:15 Ns IVCONT 10/06/22 15:45 Infused .Q1H1M ABIMBOLA Infusion Iohexol 100 ml 10/06/22 15:59 10/06/22 16:00 Iohexol 350 Mg/Ml 100 Ml Infus..Btl IV 10/06/22 16:00 85 ml ONCE ONE Administration Morphine Sulfate 4 mg 10/06/22 14:11 10/06/22 14:59 Morphine Sulfate 4 Mg/Ml Cartridge IVPUSH 10/06/22 14:12 4 mg ONCE ONE Administration Protocol Ondansetron HCl 4 mg 10/06/22 14:11 10/06/22 14:59 Ondansetron Hcl 4 Mg/2 Ml Vial IVPUSH 10/06/22 14:12 4 mg ONCE ONE Administration <ONEIL Rosario - Last Filed: 10/06/22 17:18> Medications Administered Discontinued Medications Generic Name Dose Route Start Last Admin Trade Name Frankq PRN Reason Stop Dose Admin Hydromorphone HCl 1 mg 10/06/22 16:51 10/06/22 17:00 Hydromorphone Hcl 1 Mg/Ml Syringe IVPUSH 10/06/22 16:52 1 mg ONCE ONE Administration Protocol Hydromorphone HCl 2 mg 10/06/22 17:47 10/06/22 18:15 Hydromorphone Hcl 2 Mg/Ml Vial IVPUSH 10/06/22 17:48 2 mg ONCE ONE Administration Protocol Sodium Chloride 1,000 mls @ 999 mls/hr 10/06/22 12:45 10/06/22 16:35 Ns IV 10/06/22 13:45 Infused .Q1H1M ABIMBOLA Infusion Sodium Chloride 1,000 mls @ 999 mls/hr 10/06/22 14:15 10/06/22 18:14 Ns IVCONT 10/06/22 15:15 Infused .Q1H1M ABIMBOLA Infusion Sodium Chloride 1,000 mls @ 999 mls/hr 10/06/22 14:45 10/06/22 18:15 Ns IVCONT 10/06/22 15:45 Infused .Q1H1M ABIMBOLA Infusion Iohexol 100 ml 10/06/22 15:59 10/06/22 16:00 Iohexol 350 Mg/Ml 100 Ml Infus..Btl IV 10/06/22 16:00 85 ml ONCE ONE Administration Morphine Sulfate 4 mg 10/06/22 14:11 10/06/22 14:59 Morphine Sulfate 4 Mg/Ml Cartridge IVPUSH 10/06/22 14:12 4 mg ONCE ONE Administration Protocol Ondansetron HCl 4 mg 10/06/22 14:11 10/06/22 14:59 Ondansetron Hcl 4 Mg/2 Ml Vial IVPUSH 10/06/22 14:12 4 mg ONCE ONE Administration <ONEIL Ramos - Last Filed: 10/06/22 18:48> Medical Decision Making Medical Records Medical records reviewed: Yes I reviewed the patient's medical records. <ONEIL Ramos - Last Filed: 10/06/22 18:48> Lab Data Lab results reviewed: Yes I reviewed the patient's lab results. <ONEIL Ramos - Last Filed: 10/06/22 18:48> Result diagrams: : 10/06/22 14:05 10/06/22 14:05 <ONEIL Rosario - Last Filed: 10/06/22 17:18> Labs: Lab Results 10/06/22 10/06/22 10/06/22 Range/Units 13:47 14:05 14:05 WBC 3.6 L (4.8-10.8) X10*3/uL RBC 3.24 L (4.60-5.80) X10*6/uL Hgb 9.1 L (14.0-18.0) g/dl Hct 29.2 L (42.0-52.0) % MCV 90.1 (80.0-98.0) fL MCH 28.1 (27.0-33.0) pg MCHC 31.2 (31.0-36.0) g/dl RDW 24.0 H (11.0-16.0) % Plt Count 204 (160-400) X10*3/uL MPV 9.0 L (9.4-12.4) fL Immature Gran % (Auto) 0.6 H (0.0-0.4) % Neut % (Auto) 76.2 H (45-73) % Lymph % (Auto) 10.2 L (20-40) % [place] % (Auto) 11.4 H (2-11) % Eos % (Auto) 0.8 (0-4) % Baso % (Auto) 0.8 (0-2) % Lymph # (Auto) 0.4 L (1.2-4.9) X10*3/uL [place] # (Auto) 0.4 (0.1-1.2) X10*3/uL Eos # (Auto) 0.0 (0.0-0.4) X10*3/uL Baso # (Auto) 0.0 (0.0-0.2) X10*3/uL Abs Immat Gran (auto) 0.02 (0.00-0.03) X10*3/uL Absolute Neuts (auto) 2.8 (2.0-8.3) x10*3/uL Absolute Nucleated RBC 0.000 (0.0-0.012) X10*3/uL Nucleated RBC % (auto) 0.0 (0.0-0.2) /100WBC PT 12.2 (10.0-13.1) SEC INR 1.1 (0.9-1.1) Sodium (135-145) mmol/L Potassium (3.3-5.1) mmol/L Chloride (96-108) mmol/L Carbon Dioxide (22-29) mmol/L Anion Gap (12-20) BUN (9-16) mg/dL Creatinine (0.5-1.4) mg/dL Estim Creat Clear Calc Estimated GFR Random Glucose (60-115) mg/dL Lactic Acid (0.5-2.0) mmol/L Calcium (8.4-10.2) mg/dL Magnesium (1.6-2.6) mg/dL Total Bilirubin (0.0-1.0) mg/dL Direct Bilirubin (0.0-0.5) mg/dL AST (5-37) U/L ALT (0-40) U/L Alkaline Phosphatase (39-117) U/L Troponin I High Sens (<3.5-35.0) ng/L B-Natriuretic Peptide (<100) pg/mL Total Protein (6.5-8.0) g/dL Albumin (3.5-5.0) g/dL Lipase (8-78) U/L Urine Color Urine Appearance Urine pH (5.0-9.0) Ur Specific [place] (1.005-1.025) Urine Protein (Neg-Trace) mg/dL Urine Glucose (UA) (Negative) mg/dL Urine Ketones (Negative) mg/dL Urine Blood (Negative) Urine Nitrite (Negative) Ur Leukocyte Esterase (Negative) Influenza Type A (PCR) NEGATIVE (Negative) Influenza Type B (PCR) NEGATIVE (Negative) RSV RNA Qual (PCR) NEGATIVE (Negative) SARS-CoV-2 RNA (RT-PCR) NEGATIVE (Negative) 10/06/22 10/06/22 10/06/22 Range/Units 14:05 14:05 14:05 WBC (4.8-10.8) X10*3/uL RBC (4.60-5.80) X10*6/uL Hgb (14.0-18.0) g/dl Hct (42.0-52.0) % MCV (80.0-98.0) fL MCH (27.0-33.0) pg MCHC (31.0-36.0) g/dl RDW (11.0-16.0) % Plt Count (160-400) X10*3/uL MPV (9.4-12.4) fL Immature Gran % (Auto) (0.0-0.4) % Neut % (Auto) (45-73) % Lymph % (Auto) (20-40) % [place] % (Auto) (2-11) % Eos % (Auto) (0-4) % Baso % (Auto) (0-2) % Lymph # (Auto) (1.2-4.9) X10*3/uL [place] # (Auto) (0.1-1.2) X10*3/uL Eos # (Auto) (0.0-0.4) X10*3/uL Baso # (Auto) (0.0-0.2) X10*3/uL Abs Immat Gran (auto) (0.00-0.03) X10*3/uL Absolute Neuts (auto) (2.0-8.3) x10*3/uL Absolute Nucleated RBC (0.0-0.012) X10*3/uL Nucleated RBC % (auto) (0.0-0.2) /100WBC PT (10.0-13.1) SEC INR (0.9-1.1) Sodium 140 (135-145) mmol/L Potassium 4.3 (3.3-5.1) mmol/L Chloride 99 (96-108) mmol/L Carbon Dioxide 31 H (22-29) mmol/L Anion Gap 14 (12-20) BUN 10 (9-16) mg/dL Creatinine 0.75 (0.5-1.4) mg/dL Estim Creat Clear Calc 57.8 Estimated GFR > 60 Random Glucose 123 H (60-115) mg/dL Lactic Acid 1.8 (0.5-2.0) mmol/L Calcium 13.4 H* D (8.4-10.2) mg/dL Magnesium 1.6 (1.6-2.6) mg/dL Total Bilirubin 0.3 (0.0-1.0) mg/dL Direct Bilirubin 0.2 (0.0-0.5) mg/dL AST 21 (5-37) U/L ALT 11 (0-40) U/L Alkaline Phosphatase 106 (39-117) U/L Troponin I High Sens < 3.5 (<3.5-35.0) ng/L B-Natriuretic Peptide (<100) pg/mL Total Protein 7.6 (6.5-8.0) g/dL Albumin 3.9 (3.5-5.0) g/dL Lipase < 4 L (8-78) U/L Urine Color Urine Appearance Urine pH (5.0-9.0) Ur Specific [place] (1.005-1.025) Urine Protein (Neg-Trace) mg/dL Urine Glucose (UA) (Negative) mg/dL Urine Ketones (Negative) mg/dL Urine Blood (Negative) Urine Nitrite (Negative) Ur Leukocyte Esterase (Negative) Influenza Type A (PCR) (Negative) Influenza Type B (PCR) (Negative) RSV RNA Qual (PCR) (Negative) SARS-CoV-2 RNA (RT-PCR) (Negative) 10/06/22 10/06/22 Range/Units 14:06 16:38 WBC (4.8-10.8) X10*3/uL RBC (4.60-5.80) X10*6/uL Hgb (14.0-18.0) g/dl Hct (42.0-52.0) % MCV (80.0-98.0) fL MCH (27.0-33.0) pg MCHC (31.0-36.0) g/dl RDW (11.0-16.0) % Plt Count (160-400) X10*3/uL MPV (9.4-12.4) fL Immature Gran % (Auto) (0.0-0.4) % Neut % (Auto) (45-73) % Lymph % (Auto) (20-40) % [place] % (Auto) (2-11) % Eos % (Auto) (0-4) % Baso % (Auto) (0-2) % Lymph # (Auto) (1.2-4.9) X10*3/uL [place] # (Auto) (0.1-1.2) X10*3/uL Eos # (Auto) (0.0-0.4) X10*3/uL Baso # (Auto) (0.0-0.2) X10*3/uL Abs Immat Gran (auto) (0.00-0.03) X10*3/uL Absolute Neuts (auto) (2.0-8.3) x10*3/uL Absolute Nucleated RBC (0.0-0.012) X10*3/uL Nucleated RBC % (auto) (0.0-0.2) /100WBC PT (10.0-13.1) SEC INR (0.9-1.1) Sodium (135-145) mmol/L Potassium (3.3-5.1) mmol/L Chloride (96-108) mmol/L Carbon Dioxide (22-29) mmol/L Anion Gap (12-20) BUN (9-16) mg/dL Creatinine (0.5-1.4) mg/dL Estim Creat Clear Calc Estimated GFR Random Glucose (60-115) mg/dL Lactic Acid (0.5-2.0) mmol/L Calcium (8.4-10.2) mg/dL Magnesium (1.6-2.6) mg/dL Total Bilirubin (0.0-1.0) mg/dL Direct Bilirubin (0.0-0.5) mg/dL AST (5-37) U/L ALT (0-40) U/L Alkaline Phosphatase (39-117) U/L Troponin I High Sens (<3.5-35.0) ng/L B-Natriuretic Peptide < 10 (<100) pg/mL Total Protein (6.5-8.0) g/dL Albumin (3.5-5.0) g/dL Lipase (8-78) U/L Urine Color Straw Urine Appearance Clear Urine pH 6.0 (5.0-9.0) Ur Specific [place] 1.010 (1.005-1.025) Urine Protein Negative (Neg-Trace) mg/dL Urine Glucose (UA) Negative (Negative) mg/dL Urine Ketones Negative (Negative) mg/dL Urine Blood Negative (Negative) Urine Nitrite Negative (Negative) Ur Leukocyte Esterase Negative (Negative) Influenza Type A (PCR) (Negative) Influenza Type B (PCR) (Negative) RSV RNA Qual (PCR) (Negative) SARS-CoV-2 RNA (RT-PCR) (Negative) <ONEIL Rosario - Last Filed: 10/06/22 17:18> Lab Results 10/06/22 10/06/22 10/06/22 Range/Units 13:47 14:05 14:05 WBC 3.6 L (4.8-10.8) X10*3/uL RBC 3.24 L (4.60-5.80) X10*6/uL Hgb 9.1 L (14.0-18.0) g/dl Hct 29.2 L (42.0-52.0) % MCV 90.1 (80.0-98.0) fL MCH 28.1 (27.0-33.0) pg MCHC 31.2 (31.0-36.0) g/dl RDW 24.0 H (11.0-16.0) % Plt Count 204 (160-400) X10*3/uL MPV 9.0 L (9.4-12.4) fL Immature Gran % (Auto) 0.6 H (0.0-0.4) % Neut % (Auto) 76.2 H (45-73) % Lymph % (Auto) 10.2 L (20-40) % [place] % (Auto) 11.4 H (2-11) % Eos % (Auto) 0.8 (0-4) % Baso % (Auto) 0.8 (0-2) % Lymph # (Auto) 0.4 L (1.2-4.9) X10*3/uL [place] # (Auto) 0.4 (0.1-1.2) X10*3/uL Eos # (Auto) 0.0 (0.0-0.4) X10*3/uL Baso # (Auto) 0.0 (0.0-0.2) X10*3/uL Abs Immat Gran (auto) 0.02 (0.00-0.03) X10*3/uL Absolute Neuts (auto) 2.8 (2.0-8.3) x10*3/uL Absolute Nucleated RBC 0.000 (0.0-0.012) X10*3/uL Nucleated RBC % (auto) 0.0 (0.0-0.2) /100WBC PT 12.2 (10.0-13.1) SEC INR 1.1 (0.9-1.1) Sodium (135-145) mmol/L Potassium (3.3-5.1) mmol/L Chloride (96-108) mmol/L Carbon Dioxide (22-29) mmol/L Anion Gap (12-20) BUN (9-16) mg/dL Creatinine (0.5-1.4) mg/dL Estim Creat Clear Calc Estimated GFR Random Glucose (60-115) mg/dL Lactic Acid (0.5-2.0) mmol/L Calcium (8.4-10.2) mg/dL Magnesium (1.6-2.6) mg/dL Total Bilirubin (0.0-1.0) mg/dL Direct Bilirubin (0.0-0.5) mg/dL AST (5-37) U/L ALT (0-40) U/L Alkaline Phosphatase (39-117) U/L Troponin I High Sens (<3.5-35.0) ng/L B-Natriuretic Peptide (<100) pg/mL Total Protein (6.5-8.0) g/dL Albumin (3.5-5.0) g/dL Lipase (8-78) U/L Urine Color Urine Appearance Urine pH (5.0-9.0) Ur Specific [place] (1.005-1.025) Urine Protein (Neg-Trace) mg/dL Urine Glucose (UA) (Negative) mg/dL Urine Ketones (Negative) mg/dL Urine Blood (Negative) Urine Nitrite (Negative) Ur Leukocyte Esterase (Negative) Influenza Type A (PCR) NEGATIVE (Negative) Influenza Type B (PCR) NEGATIVE (Negative) RSV RNA Qual (PCR) NEGATIVE (Negative) SARS-CoV-2 RNA (RT-PCR) NEGATIVE (Negative) 10/06/22 10/06/22 10/06/22 Range/Units 14:05 14:05 14:05 WBC (4.8-10.8) X10*3/uL RBC (4.60-5.80) X10*6/uL Hgb (14.0-18.0) g/dl Hct (42.0-52.0) % MCV (80.0-98.0) fL MCH (27.0-33.0) pg MCHC (31.0-36.0) g/dl RDW (11.0-16.0) % Plt Count (160-400) X10*3/uL MPV (9.4-12.4) fL Immature Gran % (Auto) (0.0-0.4) % Neut % (Auto) (45-73) % Lymph % (Auto) (20-40) % [place] % (Auto) (2-11) % Eos % (Auto) (0-4) % Baso % (Auto) (0-2) % Lymph # (Auto) (1.2-4.9) X10*3/uL [place] # (Auto) (0.1-1.2) X10*3/uL Eos # (Auto) (0.0-0.4) X10*3/uL Baso # (Auto) (0.0-0.2) X10*3/uL Abs Immat Gran (auto) (0.00-0.03) X10*3/uL Absolute Neuts (auto) (2.0-8.3) x10*3/uL Absolute Nucleated RBC (0.0-0.012) X10*3/uL Nucleated RBC % (auto) (0.0-0.2) /100WBC PT (10.0-13.1) SEC INR (0.9-1.1) Sodium 140 (135-145) mmol/L Potassium 4.3 (3.3-5.1) mmol/L Chloride 99 (96-108) mmol/L Carbon Dioxide 31 H (22-29) mmol/L Anion Gap 14 (12-20) BUN 10 (9-16) mg/dL Creatinine 0.75 (0.5-1.4) mg/dL Estim Creat Clear Calc 57.8 Estimated GFR > 60 Random Glucose 123 H (60-115) mg/dL Lactic Acid 1.8 (0.5-2.0) mmol/L Calcium 13.4 H* D (8.4-10.2) mg/dL Magnesium 1.6 (1.6-2.6) mg/dL Total Bilirubin 0.3 (0.0-1.0) mg/dL Direct Bilirubin 0.2 (0.0-0.5) mg/dL AST 21 (5-37) U/L ALT 11 (0-40) U/L Alkaline Phosphatase 106 (39-117) U/L Troponin I High Sens < 3.5 (<3.5-35.0) ng/L B-Natriuretic Peptide (<100) pg/mL Total Protein 7.6 (6.5-8.0) g/dL Albumin 3.9 (3.5-5.0) g/dL Lipase < 4 L (8-78) U/L Urine Color Urine Appearance Urine pH (5.0-9.0) Ur Specific [place] (1.005-1.025) Urine Protein (Neg-Trace) mg/dL Urine Glucose (UA) (Negative) mg/dL Urine Ketones (Negative) mg/dL Urine Blood (Negative) Urine Nitrite (Negative) Ur Leukocyte Esterase (Negative) Influenza Type A (PCR) (Negative) Influenza Type B (PCR) (Negative) RSV RNA Qual (PCR) (Negative) SARS-CoV-2 RNA (RT-PCR) (Negative) 10/06/22 10/06/22 Range/Units 14:06 16:38 WBC (4.8-10.8) X10*3/uL RBC (4.60-5.80) X10*6/uL Hgb (14.0-18.0) g/dl Hct (42.0-52.0) % MCV (80.0-98.0) fL MCH (27.0-33.0) pg MCHC (31.0-36.0) g/dl RDW (11.0-16.0) % Plt Count (160-400) X10*3/uL MPV (9.4-12.4) fL Immature Gran % (Auto) (0.0-0.4) % Neut % (Auto) (45-73) % Lymph % (Auto) (20-40) % [place] % (Auto) (2-11) % Eos % (Auto) (0-4) % Baso % (Auto) (0-2) % Lymph # (Auto) (1.2-4.9) X10*3/uL [place] # (Auto) (0.1-1.2) X10*3/uL Eos # (Auto) (0.0-0.4) X10*3/uL Baso # (Auto) (0.0-0.2) X10*3/uL Abs Immat Gran (auto) (0.00-0.03) X10*3/uL Absolute Neuts (auto) (2.0-8.3) x10*3/uL Absolute Nucleated RBC (0.0-0.012) X10*3/uL Nucleated RBC % (auto) (0.0-0.2) /100WBC PT (10.0-13.1) SEC INR (0.9-1.1) Sodium (135-145) mmol/L Potassium (3.3-5.1) mmol/L Chloride (96-108) mmol/L Carbon Dioxide (22-29) mmol/L Anion Gap (12-20) BUN (9-16) mg/dL Creatinine (0.5-1.4) mg/dL Estim Creat Clear Calc Estimated GFR Random Glucose (60-115) mg/dL Lactic Acid (0.5-2.0) mmol/L Calcium (8.4-10.2) mg/dL Magnesium (1.6-2.6) mg/dL Total Bilirubin (0.0-1.0) mg/dL Direct Bilirubin (0.0-0.5) mg/dL AST (5-37) U/L ALT (0-40) U/L Alkaline Phosphatase (39-117) U/L Troponin I High Sens (<3.5-35.0) ng/L B-Natriuretic Peptide < 10 (<100) pg/mL Total Protein (6.5-8.0) g/dL Albumin (3.5-5.0) g/dL Lipase (8-78) U/L Urine Color Straw Urine Appearance Clear Urine pH 6.0 (5.0-9.0) Ur Specific [place] 1.010 (1.005-1.025) Urine Protein Negative (Neg-Trace) mg/dL Urine Glucose (UA) Negative (Negative) mg/dL Urine Ketones Negative (Negative) mg/dL Urine Blood Negative (Negative) Urine Nitrite Negative (Negative) Ur Leukocyte Esterase Negative (Negative) Influenza Type A (PCR) (Negative) Influenza Type B (PCR) (Negative) RSV RNA Qual (PCR) (Negative) SARS-CoV-2 RNA (RT-PCR) (Negative) <ONEIL Ramos - Last Filed: 10/06/22 18:48> Imaging Data Chest x-ray: Attestation: I personally reviewed and interpreted this imaging study as follows: <ONEIL Ramos - Last Filed: 10/06/22 18:48> Radiologist's impression: FINDINGS: There is been interval resolution of previously seen total left lung opacification and volume loss. There is persistent mild cardiac mediastinal shift to left. Moderate left apical pleural thickening and scarring is seen. Minimal left basilar opacification. The right lung is clear. Incidental lytic appearing lesion in the proximal left humeral metadiaphysis. XR/XR chest 1V IMPRESSION: ? 1. Interval improvement in left lung opacification with decreased cardiomediastinal shift to the left. Left basilar and apical pleural thickening and scarring. A small left pleural effusion cannot be excluded. 2. New irregular lytic lesion in the proximal left humerus concerning for malignancy/metastatic disease. <ONEIL Ramos - Last Filed: 10/06/22 18:48> CT scan abdomen pelvis with IV contrast: Attestation: I personally reviewed and interpreted this imaging study as follows: <ONEIL Ramos - Last Filed: 10/06/22 18:48> Radiologist's impression: FINDINGS: LUNG BASES: Extensive emphysematous changes at the lung bases right more so than left with linear changes at the left base possibly due to scarring or atelectasis. A left basilar markings have improved from the prior study. Bulky cardiophrenic lymph nodes are seen anterior to the heart. The bulky irregular lymph nodes are confluent measuring up to 2.3 cm in short axis diameter. These were not apparent on the prior CT scan. The appearance would be concerning for metastatic adenopathy in this setting. PERITONEAL SPACE: There are multiple suspicious peritoneal nodular collections more so in the left abdomen. This includes the 2.2 cm collection along the lateral left paracolic gutter on axial image 40/84, the 2.2 cm collection posterior and slightly lateral to the spleen on axial image /84, posterior to the spleen measuring 1.5 cm on axial image /84 and additionally there are several smaller retroperitoneal nodules seen in the left greater than right pararenal spaces. LIVER, GALLBLADDER, AND BILIARY TREE: The liver is normal in size, shape, and attenuation. No focal hepatic lesion or biliary ductal dilatation is present. The gallbladder is unremarkable with no evidence of radiopaque gallstones, gallbladder wall thickening, or obvious pericholecystic inflammatory changes.? PANCREAS: Unremarkable.? SPLEEN: Unremarkable.? ADRENAL GLANDS: Left adrenal gland is partially obscured by retroperitoneal soft tissue mass which is new from the prior study. The mass abuts the left renal vessels measuring approximately 4.8 x 2.2 cm in size.? KIDNEYS AND URETERS: The kidneys are normal in size, shape, and attenuation. No hydronephrosis or hydroureter. No perinephric stranding. Incidental nonobstructed left-sided intrarenal calculi likely present? BLADDER: Relatively distended? GASTROINTESTINAL TRACT: Lack of significant intra-abdominal fat limits evaluation. I do not appreciate any obstructive changes to the bowel. Small bowel is difficult to assess due to decompression ABDOMINAL WALL: Relatively cachectic? LYMPHOVASCULAR STRUCTURES: Vascular calcification within the aorta iliac system.? PELVIC VISCERA: Unremarkable. OSSEOUS STRUCTURES: Degenerative changes. I do not appreciate any suspicious bony abnormality? CT/CT abdomen pelvis w IV con IMPRESSION: 1.? There are multiple new abnormal soft tissue nodules seen within the peritoneal and retroperitoneal space concerning for metastatic disease. There is also new bulky cardiophrenic adenopathy concerning for metastatic adenopathy. The left adrenal gland is partially obscured by a new retroperitoneal mass lesion as well.. These could be clinically correlated. PET CT scan or biopsy may be helpful to define further if needed. 2.? I do not appreciate any obstructive changes to the bowel. Lack of significant intra-abdominal fat limits evaluation. 3.? Chronic appearing changes otherwise as described above. ? <ONEIL Ramos - Last Filed: 10/06/22 18:48> ECG Data Attestation: I personally reviewed and interpreted this ECG as follows: <ONEIL Ramos - Last Filed: 10/06/22 18:48> Interpretation: EKG normal sinus rhythm with ventricular rate of [address] and T-wave abnormalities no acute ischemic change are noted. Similar compared to prior EKG 06/22/2022. <ONEIL Ramos - Last Filed: 10/06/22 18:48> Critical Care Time Critical Care Time Critical Care Time: Yes <ONEIL Ramos - Last Filed: 10/06/22 18:48> Total Critical Care Time: 60 <ONEIL Ramos - Last Filed: 10/06/22 18:48> Attestation: I personally attest to this time spent taking care of the patient <ONEIL Ramos - Last Filed: 10/06/22 18:48> Discharge Plan Discharge Clinical Impression: Primary lung cancer with metastasis from lung to other site, Intractable pain, High calcium levels <ONEIL Rosario - Last Filed: 10/06/22 17:18> Patient Disposition: Admitted As Inpatient <ONEIL Rosario - Last Filed: 10/06/22 17:18>
--- NOTE | 2022-10-06 12:33 | ECG_ITS ---
Test Reason : weakness Blood Pressure : / mmHG Vent. Rate : 078 BPM Atrial Rate : 078 BPM P-R Int : 142 ms QRS Dur : 092 ms QT Int : 342 ms P-R-T Axes : 076 068 077 degrees QTc Int : 389 ms Normal sinus rhythm Nonspecific ST abnormality RSR' or QR pattern in V1 suggests right ventricular conduction delay Abnormal ECG When compared with ECG of 22-JUN-2022 20:45, T wave amplitude has increased in Inferior leads Lateral leads Referred By: Brittany Puente Electronically Signed By:IRAIDA MÉNDEZ MD
[2022-10-06] MEDS: 0.9 % Sodium Chloride 1,000 ML 999 ML IV (14:04)
[2022-10-06 14:15] LABS: MANUAL DIFF FLAG NO
[2022-10-06 14:22] LABS: Basophils Percent Auto 0.8 % (0-2); Eosinophils Percent Auto 0.8 % (0-4); Hematocrit 29.2 % (42.0-52.0); Hemoglobin 9.1 g/dl (14.0-18.0); Imm Gran Abs Auto 0.02 X10*3/uL (0.00-0.03); Imm Gran Pct Auto 0.6 % (0.0-0.4); Lymphocytes Absolute Auto 0.4 X10*3/uL (1.2-4.9); Lymphocytes Percent Auto 10.2 % (20-40); Mean Corpuscular HGB Conc 31.2 g/dl (31.0-36.0); Mean Corpuscular Hemoglobin 28.1 pg (27.0-33.0); Mean Corpuscular Volume 90.1 fL (80.0-98.0); Monocytes Absolute Auto 0.4 X10*3/uL (0.1-1.2); Monocytes Percent Auto 11.4 % (2-11); Neutrophils Absolute Auto 2.8 x10*3/uL (2.0-8.3); Neutrophils Percent Auto 76.2 % (45-73); Platelet Count 204 X10*3/uL (160-400); Red Blood Count 3.24 X10*6/uL (4.60-5.80); White Blood Count 3.6 X10*3/uL (4.8-10.8)
[2022-10-06 14:29] VITALS: BP 140/78; PULSE 70; RESP 18; TEMP 36.8; O2SAT 100
[2022-10-06 14:29] LABS: Lactic Acid 1.8 mmol/L (0.5-2.0)
[2022-10-06 14:34] LABS: Influenza A PCR NEGATIVE (Negative); Influenza B PCR NEGATIVE (Negative); Resp Syncy Virus RNA Qual PCR NEGATIVE (Negative); SARS COV2 PCR INHOUSE NEGATIVE (Negative)
[2022-10-06 14:38] LABS: Troponin-I High Sensitivity < 3.5 ng/L (<3.5-35.0)
[2022-10-06 14:38] LABS: B Type Natriuretic Peptide < 10 pg/mL (<100)
[2022-10-06 14:39] LABS: INTERNATIONAL NORM RATIO 1.1 (0.9-1.1); Prothrombin Time 12.2 SEC (10.0-13.1)
[2022-10-06 14:40] LABS: Alanine Aminotransferase 11 U/L (0-40); Albumin Level 3.9 g/dL (3.5-5.0); Alkaline Phosphatase 106 U/L (39-117); Anion Gap 14 (12-20); Aspartate Amino Transferase 21 U/L (5-37); Bilirubin Direct 0.2 mg/dL (0.0-0.5); Bilirubin Total 0.3 mg/dL (0.0-1.0); Blood Urea Nitrogen 10 mg/dL (9-16); Calcium 13.4 mg/dL (8.4-10.2); Carbon Dioxide 31 mmol/L (22-29); Chloride 99 mmol/L (96-108); Creatinine Clr Calc Pharmacy 57.8; Estimated Glomerular Filt Rate > 60; Glucose Random 123 mg/dL (60-115); Lipase < 4 U/L (8-78); Magnesium 1.6 mg/dL (1.6-2.6); Potassium 4.3 mmol/L (3.3-5.1); Sodium 140 mmol/L (135-145); Total Protein 7.6 g/dL (6.5-8.0)
[2022-10-06] MEDS: ondansetron HCL 4 MG/2 ML VIAL IVPUSH (14:59)
[2022-10-06] MEDS: Morphine Sulfate 4 MG/ML CARTRIDGE IVPUSH ×2 (14:59→23:23)
[2022-10-06] MEDS: 0.9 % Sodium Chloride 1,000 ML 999 ML IVCONT ×2 (15:00→16:34)
[2022-10-06 15:05] VITALS: BP 144/72; PULSE 74; RESP 20; TEMP 36.7; O2SAT 100
--- NOTE | 2022-10-06 15:06 | PC.NURSE ---
patient a&ox3, traffic monitor specialist applied nsr 70s, vss,iv inserted labs drawn, pt medicated per orders, family at bedside, call rodriguez within reach, will continue to monitor
[2022-10-06] MEDS: iohexoL 350 MG/ML 100 ML INFUS..BTL IV (16:00)
--- NOTE | 2022-10-06 16:38 | PC.NURSE ---
patient a&ox3, c/o 08/27 generalized pain, ivf continue to run slowly, urine obtained, flavor tank tender nsr 80s, will continue to monitor
[2022-10-06] MEDS: HYDROmorphone HCl 1 MG/ML SYRINGE IVPUSH (17:00)
[2022-10-06 17:02] VITALS: BP 124/74; PULSE 70; RESP 18; TEMP 36.7; O2SAT 93
--- NOTE | 2022-10-06 17:03 | PC.NURSE ---
pt medicated for pain per order, given warm blankets and water for comfort, call rodriguez within reach, family at bedside, vss, will continue to monitor.
[2022-10-06 17:21] LABS: Appearance Urine Clear; Color Urine Straw; Glucose Urine UA Negative (Negative); Leukocyte Esterase Urine Negative (Negative); Nitrite Urine Negative (Negative); Urine Blood Negative (Negative); Urine Ketones Negative (Negative); Urine Protein Negative (Neg-Trace)
--- NOTE | 2022-10-06 18:09 | PC.NURSE ---
ivf continue to run slowly, will remedicate for pain and continue to monitor
[2022-10-06] MEDS: HYDROmorphone HCl 2 MG/ML VIAL IVPUSH (18:15)
--- NOTE | 2022-10-06 19:23 | P.HPHOSP_ITS ---
History of Present Illness Date of Service: 10/06/22 Chief Complaint: Diffuse pain Patient is Turkmen-speaking, history is obtained with the help of an concrete boom pump operator 57-year-old male with past medical history of lung disease diagnosed in May, COPD, asthma, presents to the hospital with complaints of pain all over his body in 20 can ambulate. Patient reports that he has pain in his shoulders, worse on the left. With no recent injury or trauma. No recent fall. Patient reports he has pain in his legs. Reports that he has not been drinking and eating well, he denies any fever or chills, no abdominal pain nausea or vomiting, no diarrhea but has significant constipation, no urinary symptoms. And no lower extremity edema. On arrival to the ED patient hemodynamically stable Labs are significant for WBC count 3.6, hemoglobin of 9.1, hematocrit 29.2 which is around his baseline, calcium of 13.4, UA negative, COVID influenza negative Abdomen pelvic CT shows multiple new abnormal soft tissue nodule seen within the peritoneal and retroperitoneal space concerning for metastatic disease. There is also new bulky cardiophrenic adenopathy concerning for metastatic adenopathy, left adrenal gland is partially obscured by a new retroperitoneal mass lesion, Patient started on IV fluids and will be admitted for further management Review of Systems Review of Systems: Yes all other systems are reviewed and are negative [facility] Medical History Asthma COPD (chronic obstructive pulmonary disease) Hypoxia O2 dependent Respiratory failure Squamous cell carcinoma of lung (~2021) Tobacco dependence Family History Other No family history of cancer Surgical History History of lung biopsy (~05/2022) Social History Household Members: Unknown / Unable to assess Housing: House Are you a primary post acute care nurse to a significant other at home: No Do you presently have visiting nurse or other home services: No Patient Tobacco Use Status: Former Tobacco user Tobacco use type: Cigarette Years Smoked: 30 years Second Hand Smoke Exposure: No Advance Directives: No Advance Directives Information Provided: No service: No Current occupational status: disabled Cognitive needs: No Hearing needs: No Vision needs: No Meds Allergies Allergy/AdvReac Type Severity Reaction Status Date / Time No Known Allergies Allergy Verified 07/03/22 16:42 Home Medications Medication Instructions Recorded Confirmed Last Taken Type nicotine (polacrilex) 2 mg gum 1 gum PO Q2H PRN CRAVINGS 06/23/22 10/01/22 Unknown History Physical Exam Vital Signs and Narrative: Vital Signs: Last Vital Signs Temp 98.0 F 10/06/22 17:02 Pulse 70 10/06/22 17:02 Resp 18 10/06/22 17:02 BP 124/74 10/06/22 17:02 Pulse Ox 93 10/06/22 17:02 O2 Del Method 10/06/22 17:02 O2 Flow Rate 3 10/06/22 17:02 Oxygen Flow Rate 3 10/06/22 12:30 BMI result Body Mass Index 14.4 Const: Other: Patient appears uncomfortable, does appear in pain General: cooperative Orientation/consciousness: patient oriented x3 Eyes: General: appearance normal, both eyes and all related structures Resp: Effort & Inspection: normal respiratory effort Auscultation: clear to auscultation bilaterally Cardio: Rate: regular rate Rhythm: regular rhythm GI: Palpation (GI): Soft to palpation Auscultation: normal bowel sounds Skin: General skin exam: no rashes or lesions noted Neuro: General: patient oriented x3 Cognition (Neuro): normal cognition Extrem: General: Yes normal to inspection and Yes no pedal edema Results Labs CBC and Chem 7: 10/06/22 14:05 10/06/22 19:40 Labs: Laboratory Results - last 24 hr 10/06/22 10/06/22 10/06/22 13:47 14:05 14:05 MCV 90.1 MCH 28.1 MCHC 31.2 RDW 24.0 H Plt Count 204 MPV 9.0 L Immature Gran % (Auto) 0.6 H Neut % (Auto) 76.2 H Lymph % (Auto) 10.2 L [place] % (Auto) 11.4 H Eos % (Auto) 0.8 Baso % (Auto) 0.8 Lymph # (Auto) 0.4 L [place] # (Auto) 0.4 Eos # (Auto) 0.0 Baso # (Auto) 0.0 Abs Immat Gran (auto) 0.02 Absolute Neuts (auto) 2.8 Absolute Nucleated RBC 0.000 Nucleated RBC % (auto) 0.0 PT 12.2 INR 1.1 Anion Gap Estim Creat Clear Calc Estimated GFR Random Glucose Lactic Acid Calcium Magnesium Total Bilirubin Direct Bilirubin AST ALT Alkaline Phosphatase Troponin I High Sens B-Natriuretic Peptide Total Protein Albumin Lipase Urine Color Urine Appearance Urine pH Ur Specific [place] Urine Protein Urine Glucose (UA) Urine Ketones Urine Blood Urine Nitrite Ur Leukocyte Esterase Influenza Type A (PCR) NEGATIVE Influenza Type B (PCR) NEGATIVE RSV RNA Qual (PCR) NEGATIVE SARS-CoV-2 RNA (RT-PCR) NEGATIVE 10/06/22 10/06/22 10/06/22 14:05 14:05 14:05 MCV MCH MCHC RDW Plt Count MPV Immature Gran % (Auto) Neut % (Auto) Lymph % (Auto) [place] % (Auto) Eos % (Auto) Baso % (Auto) Lymph # (Auto) [place] # (Auto) Eos # (Auto) Baso # (Auto) Abs Immat Gran (auto) Absolute Neuts (auto) Absolute Nucleated RBC Nucleated RBC % (auto) PT INR Anion Gap 14 Estim Creat Clear Calc 57.8 Estimated GFR > 60 Random Glucose 123 H Lactic Acid 1.8 Calcium 13.4 H* D Magnesium 1.6 Total Bilirubin 0.3 Direct Bilirubin 0.2 AST 21 ALT 11 Alkaline Phosphatase 106 Troponin I High Sens < 3.5 B-Natriuretic Peptide Total Protein 7.6 Albumin 3.9 Lipase < 4 L Urine Color Urine Appearance Urine pH Ur Specific [place] Urine Protein Urine Glucose (UA) Urine Ketones Urine Blood Urine Nitrite Ur Leukocyte Esterase Influenza Type A (PCR) Influenza Type B (PCR) RSV RNA Qual (PCR) SARS-CoV-2 RNA (RT-PCR) 10/06/22 10/06/22 14:06 16:38 MCV MCH MCHC RDW Plt Count MPV Immature Gran % (Auto) Neut % (Auto) Lymph % (Auto) [place] % (Auto) Eos % (Auto) Baso % (Auto) Lymph # (Auto) [place] # (Auto) Eos # (Auto) Baso # (Auto) Abs Immat Gran (auto) Absolute Neuts (auto) Absolute Nucleated RBC Nucleated RBC % (auto) PT INR Anion Gap Estim Creat Clear Calc Estimated GFR Random Glucose Lactic Acid Calcium Magnesium Total Bilirubin Direct Bilirubin AST ALT Alkaline Phosphatase Troponin I High Sens B-Natriuretic Peptide < 10 Total Protein Albumin Lipase Urine Color Straw Urine Appearance Clear Urine pH 6.0 Ur Specific [place] 1.010 Urine Protein Negative Urine Glucose (UA) Negative Urine Ketones Negative Urine Blood Negative Urine Nitrite Negative Ur Leukocyte Esterase Negative Influenza Type A (PCR) Influenza Type B (PCR) RSV RNA Qual (PCR) SARS-CoV-2 RNA (RT-PCR) Imaging Radiologist's Impressions: Impressions Chest X-Ray 10/06/22 13:27 IMPRESSION: 1. Interval improvement in left lung opacification with decreased cardiomediastinal shift to the left. Left basilar and apical pleural thickening and scarring. A small left pleural effusion cannot be excluded. 2. New irregular lytic lesion in the proximal left humerus concerning for malignancy/metastatic disease. Abdomen/Pelvis CT 10/06/22 16:19 IMPRESSION: 1. There are multiple new abnormal soft tissue nodules seen within the peritoneal and retroperitoneal space concerning for metastatic disease. There is also new bulky cardiophrenic adenopathy concerning for metastatic adenopathy. The left adrenal gland is partially obscured by a new retroperitoneal mass lesion as well.. These could be clinically correlated. PET CT scan or biopsy may be helpful to define further if needed. 2. I do not appreciate any obstructive changes to the bowel. Lack of significant intra-abdominal fat limits evaluation. 3. Chronic appearing changes otherwise as described above. Assessment and Plan (1) Hypercalcemia: Status: Acute (2) Intractable pain: Status: Acute (3) Primary lung cancer with metastasis from lung to other site: Status: Acute Plan 57-year-old male with past medical history of lung cancer diagnosed in May of this year, presents to the hospital with complaints of pain all over his body found to have hypercalcemia # acute hypercalcemia - likely secondary to lung cancer - moderate - will obtain intact parathyroid hormone, will also obtain parathyroid hormone related peptide - will treat with IV fluids - repeat BMP # metastatic lung cancer - image shows new metastasis 2 multiple locations including the adrenal glands, peritoneum and retroperitoneum locations - Hematology-Oncology consulted # intractable pain - likely related to metastatic lung cancer - morphine not controlling his pain, will add Dilaudid - Hematology-Oncology on consult # asthma COPD - not in exacerbation - p.r.n. DuoNeb DVT prophylaxis: Heparin subQ Given patient's intractable pain, hyperglycemia requiring IV fluids patient will require minimum 2 night inpatient hospital stay for further management and monitoring Quality Stroke Does the patient have a stroke diagnosis?: No VTE Prior VTE?: No VTE Risk Level:: Medical - moderate - high VTE Device Contraindication: Treatment Not Indicated VTE Drug Contraindication: N/A - Med Ordered
[2022-10-06] MEDS: 0.9 % Sodium Chloride 1,000 ML 200 ML IVCONT (19:55)
[2022-10-06 20:03] LABS: Uric Acid 3.6 mg/dL (3.4-7.0)
[2022-10-06 20:09] LABS: Anion Gap 12 (12-20); Blood Urea Nitrogen 8 mg/dL (9-16); Carbon Dioxide 29 mmol/L (22-29); Chloride 106 mmol/L (96-108); Creatinine Clr Calc Pharmacy 63.8; Estimated Glomerular Filt Rate > 60; Glucose Random 113 mg/dL (60-115); Lactate Dehydrogenase 356 U/L (118-273); Phosphorus 2.8 mg/dL (2.7-4.5); Potassium 4.3 mmol/L (3.3-5.1); Sodium 143 mmol/L (135-145)
[2022-10-06 20:43] VITALS: BP 126/69; PULSE 83; RESP 13; TEMP 36.8; O2SAT 100
--- NOTE | 2022-10-06 22:17 | PC.NURSE ---
Assumed care of pt. at 1900. Pt. in room with at bedside. Pt. reports some pain over the body for which we have medicated per the MAR. Pt. asked for ensure or vanilla icecream. Provided with icecream. IVF running at 200mL/hr per JAN. Pt. tranferred to overflow. Report given to RN in overflow.
[2022-10-07] MEDS: 0.9 % Sodium Chloride Flush 3 ML SYRINGE IVFLUSH ×3 (00:32→15:46)
[2022-10-07 01:20] VITALS: BP 122/64; PULSE 78; RESP 16
[2022-10-07] MEDS: HYDROmorphone HCl 1 MG/ML SYRINGE IVPUSH ×4 (01:22→20:15)
[2022-10-07 02:07] VITALS: BP 119/67; PULSE 81; RESP 16; TEMP 37.1; O2SAT 100
--- NOTE | 2022-10-07 04:20 | PC.NURSE ---
0400 rounding done pt got up to use the urinal voided large amount then back to bed .
[2022-10-07] MEDS: Morphine Sulfate 4 MG/ML CARTRIDGE IVPUSH ×2 (04:21→10:29)
[2022-10-07 05:51] VITALS: BP 132/60; PULSE 74; RESP 16; TEMP 36.4; O2SAT 98
[2022-10-07 06:37] LABS: MANUAL DIFF FLAG NO
[2022-10-07 07:07] LABS: Basophils Percent Auto 0.3 % (0-2); Eosinophils Percent Auto 0.3 % (0-4); Hematocrit 27.6 % (42.0-52.0); Hemoglobin 8.5 g/dl (14.0-18.0); Imm Gran Abs Auto 0.01 X10*3/uL (0.00-0.03); Imm Gran Pct Auto 0.3 % (0.0-0.4); Lymphocytes Absolute Auto 0.4 X10*3/uL (1.2-4.9); Lymphocytes Percent Auto 10.2 % (20-40); Mean Corpuscular HGB Conc 30.8 g/dl (31.0-36.0); Mean Corpuscular Hemoglobin 28.1 pg (27.0-33.0); Mean Corpuscular Volume 91.4 fL (80.0-98.0); Mean Platelet Volume 9.2 fL (9.4-12.4); Monocytes Absolute Auto 0.3 X10*3/uL (0.1-1.2); Monocytes Percent Auto 9.1 % (2-11); Neutrophils Percent Auto 79.8 % (45-73); Platelet Count 215 X10*3/uL (160-400); Red Blood Count 3.02 X10*6/uL (4.60-5.80); Red Cell Distribution Width 23.9 % (11.0-16.0); White Blood Count 3.7 X10*3/uL (4.8-10.8)
[2022-10-07 07:08] LABS: Anion Gap 12 (12-20); Blood Urea Nitrogen 6 mg/dL (9-16); Calcium 12.6 mg/dL (8.4-10.2); Carbon Dioxide 31 mmol/L (22-29); Chloride 106 mmol/L (96-108); Creatinine Clr Calc Pharmacy 61.9; Estimated Glomerular Filt Rate > 60; Glucose Random 123 mg/dL (60-115); Potassium 4.1 mmol/L (3.3-5.1); Sodium 145 mmol/L (135-145)
[2022-10-07 07:18] VITALS: BP 138/75; PULSE 100; RESP 75; TEMP 36.7; O2SAT 100
[2022-10-07] MEDS: Heparin Sodium,Porcine 5,000 UNIT/ML VIAL 5000 UNIT SUBCUT ×2 (07:38→20:14)
[2022-10-07] MEDS: ondansetron HCL 4 MG/2 ML VIAL IVPUSH (07:45)
--- NOTE | 2022-10-07 08:00 | PC.NURSE ---
PT awake, reports 10/10 all over body pain, nausea and vomiting. Meds given as documented. PT stand by assist to use urinal.
[2022-10-07] MEDS: Pantoprazole Sodium 40 MG/10 ML VIAL IVPUSH ×2 (09:32→15:46)
--- NOTE | 2022-10-07 09:55 | PHA.MEDREC ---
Pharmacy Consult ? Medication Reconciliation Pharmacy has completed the medication reconciliation. Utilized backfiller services.
--- NOTE | 2022-10-07 09:56 | PM.HEMONCCN ---
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 Occlusion of left lower lobe bronchus with severe emphysema. Much of the left lower lobe was collapsed. Left hilar lymph node enlarged, metastatic disease. AJCC stage T2b N1 He had bronchoscopy and biopsy of left lower lobe endobronchial lesion on 05/29/2022 which revealed poorly differentiated squamous cell carcinoma. NGS revealed PDL1- TPS 1%, ALK, EGFR,KRAS, BRAF, MET, RET, ROS1 negative. MSI-stable, mcbride-TRK not expressed, HER2 negative, PTEN deletion positive (may respond PI3K/AKT/mTOR and PARP inhibitors). CDKN2A and SMARCA4 (SNV's/insertions/deletions) detected. Staging CT abdomen/pelvis with contrast and brain MRI performed 06/05/2022 showed no evidence of distant metastasis. He was seen by Dr. Grady from [facility], concurrent chemoradiation therapy. CTA performed 06/22/2022 showed no PE but postobstructive atelectasis of entire left lung due to obstruction of left mainstem bronchus by growing left hilar mass. On 07/02/2022 Dr. Stark attempted bronchoscopy with argon/razor tumor debulking but this was not enough to open of the collapsed left lung. HPI - Consult Narrative Reason for consult: Hypercalcemia, metastatic lung cancer Narrative: Rafael Eubanks is a 57 year old male with advanced lung cancer who has been admitted with hypercalcemia and symptoms of progressive weakness, failure to thrive. Patient has completed concurrent chemoradiotherapy for locally advanced left lung cancer. Unfortunately, he now presents with progressive weakness and diffuse body pains, loss of appetite and weight loss. He reports worsening shoulder pain, left worse than right. Imaging with chest x-ray shows lytic lesion in the proximal left humerus concerning for metastatic disease .Abdomen pelvic CT showed multiple new abnormal soft tissue nodules seen within the peritoneal and retroperitoneal space concerning for metastatic disease. There is also new bulky cardiophrenic adenopathy concerning for metastatic adenopathy, left adrenal gland is partially obscured by a new retroperitoneal mass lesion. Labs revealed hypercalcemia with calcium of 13.4. He has been started on IV fluids. Review of Systems - Constitutional Reports as per HPI, Reports fatigue, Reports lack of energy, Reports poor appetite, Reports weakness, Reports weight loss - Cardiovascular Reports no additional cardiovascular complaints - Respiratory Reports no additional respiratory complaints - Gastrointestinal Reports no additional gastrointestinal complaints - Musculoskeletal Reports as per HPI, Reports body aches PMFSH Medical History: Medical History (Last Reviewed 10/07/22 @ 14:02 by Simran Mcmillan MD) Asthma COPD (chronic obstructive pulmonary disease) Hypoxia O2 dependent Respiratory failure Squamous cell carcinoma of lung Onset Date: ~2021 Tobacco dependence Family History: Family History (Last Reviewed 10/07/22 @ 14:02 by Simran Mcmillan MD) Other No family history of cancer Surgical History: Surgical History (Last Reviewed 10/07/22 @ 14:02 by Simran Mcmillan MD) History of lung biopsy Onset Date: ~05/2022 Social History: Social History (Last Reviewed 10/07/22 @ 14:02 by Simran Mcmillan MD) Living Situation History: Household Members: Family Household Members Other:: brother Housing: Apartment Are you a primary palliative care coordinator to a significant other at home: No Do you presently have visiting nurse or other home services: Yes Tobacco History: Patient Tobacco Use Status: Former Tobacco user Tobacco use type: Cigarette Cigarette Packs Per Day: 1 Cigarettes Per Day: 20.0 Years Smoked: 45 Smoke Quit Date: 4 months Second Hand Smoke Exposure: No Occupation Assessmet: service: No Current occupational status: disabled Home Medications and Allergies Current Medications: Current Medications Acetaminophen (Acetaminophen 325 Mg Tablet) 650 mg PO Q6H PRN PRN Reason: Pain, Mild (Pain Scale 1-3) Docusate Sodium (Docusate Sodium 100 Mg Capsule) 100 mg PO DAILY PRN PRN Reason: Constipation Heparin Sodium (Porcine) (Heparin Sodium,Porcine 5,000 Unit/Ml Vial) 5,000 unit SUBCUT Q12H [facility] Last Admin: 10/07/22 07:38 Dose: 5,000 unit Hydromorphone HCl (Hydromorphone Hcl 1 Mg/Ml Syringe) 1 mg IVPUSH Q4H PRN; Protocol PRN Reason: Pain, Severe (Pain Scale 7-10) Last Admin: 10/07/22 09:05 Dose: 1 mg Promethazine HCl 6.25 mg/ (Sodium Chloride) 50.25 mls @ 201 mls/hr IV Q6H PRN PRN Reason: Nausea Pamidronate Disodium 60 mg/ (Sodium Chloride) 260 mls @ 130 mls/hr IV ONCE ONE Stop: 10/07/22 11:22 Morphine Sulfate (Morphine Sulfate 4 Mg/Ml Cartridge) 4 mg IVPUSH Q4H PRN; Protocol PRN Reason: Pain, Severe (Pain Scale 7-10) Last Admin: 10/07/22 04:21 Dose: 4 mg Ondansetron HCl (Ondansetron Hcl 4 Mg/2 Ml Vial) 4 mg IVPUSH Q8H PRN PRN Reason: Nausea and Vomiting Last Admin: 10/07/22 07:45 Dose: 4 mg Pantoprazole Sodium (Pantoprazole Sodium 40 Mg/10 Ml Vial) 40 mg IVPUSH BID@0630,1630 [facility] Last Admin: 10/07/22 09:32 Dose: 40 mg Pharmacy Consult (Consult Rx Perform Med Rec) 1 each MISCELLANE ONCE PRN PRN Reason: Consult order Sodium Chloride (0.9 % Sodium Chloride Flush 3 Ml Syringe) 3 ml IVFLUSH HIFT [facility] Last Admin: 10/07/22 07:38 Dose: 3 ml Home Medications Medication Instructions Recorded Confirmed Type acetaminophen 325 mg tablet 650 mg PO QID PRN Pain 10/07/22 10/07/22 History (Tylenol) albuterol sulfate 90 mcg/actuation 1 inh inhalation QID PRN Shortness 10/07/22 10/07/22 History aerosol inhaler Of Breath Or Wheezing omeprazole 40 mg capsule,delayed 40 mg PO DAILY@0630 10/07/22 10/07/22 History release ondansetron 4 mg disintegrating 1 tab Q8H PRN nausea 10/07/22 10/07/22 History tablet Allergies Allergy/AdvReac Type Severity Reaction Status Date / Time No Known Allergies Allergy Verified 07/03/22 16:42 Physical Exam Vital signs: Vital Signs Temp 98.0 F 10/07/22 07:18 Pulse 100 10/07/22 07:18 Resp 75 H 10/07/22 07:18 BP 138/75 10/07/22 07:18 Pulse Ox 100 10/07/22 07:18 O2 Del Method 10/07/22 07:18 O2 Flow Rate 2.5 10/07/22 07:18 Intake & Output 10/06/22 10/07/22 10/07/22 18:59 06:59 18:59 Intake Total 3000 / 4120 1120 / 4120 Output Total 3000 / 3000 Balance 3000 / 1120 -1880 / 1120 Urine Output (Average ml/kg/hr) 6.56 6.56 Intake: Intake, Oral Amount 120 / 120 Intake, IV Amount 3000 / 4000 1000 / 4000 0.9 % Sodium Chloride 1,000 ml 1000 / 1000 @ 999 mls/hr IV .Q1H1M [facility] Rx#: [id number] 0.9 % Sodium Chloride 1,000 ml 2000 / 3000 1000 / 3000 @ 200 mls/hr IVCONT .Q5H [facility] Rx #:[id number] Output: Output, Urine Amount 3000 / 3000 Other: Number of Incontinent Voids 275 Urine Urinal Urinal Urine Color Yellow Yellow Weight 38.102 kg Weight 38.102 kg - Constitutional Present: mild distress, chronically ill appearing - Routine HEENT Exam Head: Present: atraumatic Eye: Present: EOMI - Routine Neck Exam Present: supple. Absent: lymphadenopathy - Routine Respiratory Exam Present: CTAB. Absent: accessory muscle use, respiratory distress - Routine Cardiovascular Exam Cardiovascular: Present: S1, S2 - Routine Abdominal Exam Present: soft - Routine Extremities Exam Absent: calf tenderness - Routine Skin Exam Present: intact. Absent: cyanosis - Routine Neurological Exam Present: alert, oriented X3 Hem/Onc Consult Result - Labs CBC & Chem 7: 10/07/22 06:25 10/08/22 05:09 Labs: Short CBC 10/06/22 10/07/22 Range/Units 14:05 06:25 WBC 3.6 L 3.7 L (4.8-10.8) X10*3/uL Hgb 9.1 L 8.5 L (14.0-18.0) g/dl Hct 29.2 L 27.6 L (42.0-52.0) % Plt Count 204 215 (160-400) X10*3/uL BMP 10/06/22 10/06/22 10/07/22 14:05 19:40 06:25 Sodium 140 143 145 Potassium 4.3 4.3 4.1 Chloride 99 106 106 Carbon Dioxide 31 H 29 31 H BUN 10 8 L 6 L Creatinine 0.75 0.68 0.70 Calcium 13.4 H* D 12.0 H D 12.6 H* Liver Function 10/06/22 Range/Units 14:05 Total Bilirubin 0.3 (0.0-1.0) mg/dL Direct Bilirubin 0.2 (0.0-0.5) mg/dL AST 21 (5-37) U/L ALT 11 (0-40) U/L Alkaline Phosphatase 106 (39-117) U/L Albumin 3.9 (3.5-5.0) g/dL Urine 10/06/22 Range/Units 16:38 Urine Color Straw Urine Appearance Clear Urine pH 6.0 (5.0-9.0) Ur Specific [place] 1.010 (1.005-1.025) Urine Protein Negative (Neg-Trace) mg/dL Urine Glucose (UA) Negative (Negative) mg/dL Assessment and Plan Patient Active problem list reviewed?: Yes (1) Primary lung cancer with metastasis from lung to other site Status: Acute Assessment and plan: 1. This is a 57-year-old man with left lung squamous cell carcinoma diagnosed in May 2022. He had bronchoscopy and biopsy of left lower lobe endobronchial lesion on 05/29/2022 which revealed poorly differentiated squamous cell carcinoma. PET-CT performed at [facility] showed no evidence of distant metastasis. He had multifocal FDG avid disease in the left lung, SUV up to 20. He started weekly Carboplatin AUC 2 with paclitaxel 50 milligram/meter sq with concurrent radiation therapy from 08/02/22 and completed treatment beginning of September 2022. Unfortunately, he now presents with progressive, metastatic disease with new lytic lesion in left shoulder as well as progressive lymphadenopathy in his chest and abdomen. Hypercalcemia secondary to malignancy and lytic bony lesions. I recommend pamidronate and IV fluids. I discussed palliative systemic therapy with the patient. He is a candidate for bisphosphonate therapy which will also correct his hypercalcemia. I agree with current pain management. I discussed above findings and further treatment with patient and his brother with help of manager talent acquisition. I thank you for this consultation. - Time Spent With Patient Time Spent with Patient (in minutes): 15
--- NOTE | 2022-10-07 11:56 | PC.NURSE ---
Calcitonin and Pamidronate not given at scheduled time, both meds were not available in the pyxis. pharmacy was notified three times. will administer meds as unscheduled when pharmacy brings them to the unit.
[2022-10-07] MEDS: Calcitonin,Salmon,Synth Nasal 3.7 ML BOTTLE 1 SPRAY NOSTRIL-R (12:24)
[2022-10-07] MEDS: Pamidronate Disodium 60 MG in 0.9 % Sodium Chloride 250 ML 130 MG IV (12:27)
--- NOTE | 2022-10-07 13:04 | HO.PM.IMPN ---
Subjective Subjective Date of Service: 10/08/22 Interval History: Diffuse pain, episode of vomiting Review of Systems patient still has diffuse pain , also says shoulder area pain shoulder area pain had episode of nausea vomiting. no fevers Physical Exam Vital Signs: Vital Signs: Last Vital Signs Temp 98.0 F 10/07/22 07:18 Pulse 100 10/07/22 07:18 Resp 75 H 10/07/22 07:18 BP 138/75 10/07/22 07:18 Pulse Ox 100 10/07/22 07:18 O2 Del Method 10/07/22 07:18 O2 Flow Rate 2.5 10/07/22 07:18 Oxygen Flow Rate 3 10/06/22 12:30 BMI result Body Mass Index 14.4 Appearance: Alert.? Oriented X3.? pain cvs: [id number], [id number] . res: clear to auscultation ,no rhonchii or wheezing abd: no rebound or guarding ,nt, bs present. ext pulses present , no cyanosis . neuro: axo3 , nonfocal. Objective Data Active Medications Acetaminophen (Acetaminophen 325 Mg Tablet) 650 mg PO Q6H PRN PRN Reason: Pain, Mild (Pain Scale 1-3) Docusate Sodium (Docusate Sodium 100 Mg Capsule) 100 mg PO DAILY PRN PRN Reason: Constipation Heparin Sodium (Porcine) (Heparin Sodium,Porcine 5,000 Unit/Ml Vial) 5,000 unit SUBCUT Q12H [facility] Last Admin: 10/07/22 07:38 Dose: 5,000 unit Documented By: DAVID Hydromorphone HCl (Hydromorphone Hcl 1 Mg/Ml Syringe) 1 mg IVPUSH Q4H PRN; Protocol PRN Reason: Pain, Severe (Pain Scale 7-10) Last Admin: 10/07/22 09:05 Dose: 1 mg Documented By: DAVID Promethazine HCl 6.25 mg/ (Sodium Chloride) 50.25 mls @ 201 mls/hr IV Q6H PRN PRN Reason: Nausea Morphine Sulfate (Morphine Sulfate 4 Mg/Ml Cartridge) 4 mg IVPUSH Q4H PRN; Protocol PRN Reason: Pain, Severe (Pain Scale 7-10) Last Admin: 10/07/22 10:29 Dose: 4 mg Documented By: DAVID Ondansetron HCl (Ondansetron Hcl 4 Mg/2 Ml Vial) 4 mg IVPUSH Q8H PRN PRN Reason: Nausea and Vomiting Last Admin: 10/07/22 07:45 Dose: 4 mg Documented By: DAVID Pantoprazole Sodium (Pantoprazole Sodium 40 Mg/10 Ml Vial) 40 mg IVPUSH BID@0630,1630 [facility] Last Admin: 10/07/22 09:32 Dose: 40 mg Documented By: DAVID Pharmacy Consult (Consult Rx Perform Med Rec) 1 each MISCELLANE ONCE PRN PRN Reason: Consult order Sodium Chloride (0.9 % Sodium Chloride Flush 3 Ml Syringe) 3 ml IVFLUSH QSHIFT [facility] Last Admin: 10/07/22 07:38 Dose: 3 ml Documented By: DAVID Labs CBC & Chem 7: 10/07/22 06:25 10/08/22 05:09 Labs: Laboratory Results - last 24 hr 10/06/22 10/06/22 10/06/22 13:47 14:05 14:05 MCV 90.1 MCH 28.1 MCHC 31.2 RDW 24.0 H Plt Count 204 MPV 9.0 L Immature Gran % (Auto) 0.6 H Neut % (Auto) 76.2 H Lymph % (Auto) 10.2 L [place] % (Auto) 11.4 H Eos % (Auto) 0.8 Baso % (Auto) 0.8 Lymph # (Auto) 0.4 L [place] # (Auto) 0.4 Eos # (Auto) 0.0 Baso # (Auto) 0.0 Abs Immat Gran (auto) 0.02 Absolute Neuts (auto) 2.8 Absolute Nucleated RBC 0.000 Nucleated RBC % (auto) 0.0 PT 12.2 INR 1.1 Anion Gap Estim Creat Clear Calc Estimated GFR Random Glucose Lactic Acid Uric Acid Calcium Phosphorus Magnesium Total Bilirubin Direct Bilirubin AST ALT Alkaline Phosphatase Lactate Dehydrogenase Troponin I High Sens B-Natriuretic Peptide Total Protein Albumin Lipase Urine Color Urine Appearance Urine pH Ur Specific [place] Urine Protein Urine Glucose (UA) Urine Ketones Urine Blood Urine Nitrite Ur Leukocyte Esterase Influenza Type A (PCR) NEGATIVE Influenza Type B (PCR) NEGATIVE RSV RNA Qual (PCR) NEGATIVE SARS-CoV-2 RNA (RT-PCR) NEGATIVE 10/06/22 10/06/22 10/06/22 14:05 14:05 14:05 MCV MCH MCHC RDW Plt Count MPV Immature Gran % (Auto) Neut % (Auto) Lymph % (Auto) [place] % (Auto) Eos % (Auto) Baso % (Auto) Lymph # (Auto) [place] # (Auto) Eos # (Auto) Baso # (Auto) Abs Immat Gran (auto) Absolute Neuts (auto) Absolute Nucleated RBC Nucleated RBC % (auto) PT INR Anion Gap 14 Estim Creat Clear Calc 57.8 Estimated GFR > 60 Random Glucose 123 H Lactic Acid 1.8 Uric Acid Calcium 13.4 H* D Phosphorus Magnesium 1.6 Total Bilirubin 0.3 Direct Bilirubin 0.2 AST 21 ALT 11 Alkaline Phosphatase 106 Lactate Dehydrogenase Troponin I High Sens < 3.5 B-Natriuretic Peptide Total Protein 7.6 Albumin 3.9 Lipase < 4 L Urine Color Urine Appearance Urine pH Ur Specific [place] Urine Protein Urine Glucose (UA) Urine Ketones Urine Blood Urine Nitrite Ur Leukocyte Esterase Influenza Type A (PCR) Influenza Type B (PCR) RSV RNA Qual (PCR) SARS-CoV-2 RNA (RT-PCR) 10/06/22 10/06/22 10/06/22 14:06 16:38 19:40 MCV MCH MCHC RDW Plt Count MPV Immature Gran % (Auto) Neut % (Auto) Lymph % (Auto) [place] % (Auto) Eos % (Auto) Baso % (Auto) Lymph # (Auto) [place] # (Auto) Eos # (Auto) Baso # (Auto) Abs Immat Gran (auto) Absolute Neuts (auto) Absolute Nucleated RBC Nucleated RBC % (auto) PT INR Anion Gap 12 Estim Creat Clear Calc 63.8 Estimated GFR > 60 Random Glucose 113 Lactic Acid Uric Acid Calcium 12.0 H D Phosphorus 2.8 Magnesium Total Bilirubin Direct Bilirubin AST ALT Alkaline Phosphatase Lactate Dehydrogenase 356 H Troponin I High Sens B-Natriuretic Peptide < 10 Total Protein Albumin Lipase Urine Color Straw Urine Appearance Clear Urine pH 6.0 Ur Specific [place] 1.010 Urine Protein Negative Urine Glucose (UA) Negative Urine Ketones Negative Urine Blood Negative Urine Nitrite Negative Ur Leukocyte Esterase Negative Influenza Type A (PCR) Influenza Type B (PCR) RSV RNA Qual (PCR) SARS-CoV-2 RNA (RT-PCR) 10/06/22 10/07/22 10/07/22 19:40 06:25 06:25 MCV 91.4 MCH 28.1 MCHC 30.8 L RDW 23.9 H Plt Count 215 MPV 9.2 L Immature Gran % (Auto) 0.3 Neut % (Auto) 79.8 H Lymph % (Auto) 10.2 L [place] % (Auto) 9.1 Eos % (Auto) 0.3 Baso % (Auto) 0.3 Lymph # (Auto) 0.4 L [place] # (Auto) 0.3 Eos # (Auto) 0.0 Baso # (Auto) 0.0 Abs Immat Gran (auto) 0.01 Absolute Neuts (auto) 3.0 Absolute Nucleated RBC 0.000 Nucleated RBC % (auto) 0.0 PT INR Anion Gap 12 Estim Creat Clear Calc 61.9 Estimated GFR > 60 Random Glucose 123 H Lactic Acid Uric Acid 3.6 Calcium 12.6 H* Phosphorus Magnesium Total Bilirubin Direct Bilirubin AST ALT Alkaline Phosphatase Lactate Dehydrogenase Troponin I High Sens B-Natriuretic Peptide Total Protein Albumin Lipase Urine Color Urine Appearance Urine pH Ur Specific [place] Urine Protein Urine Glucose (UA) Urine Ketones Urine Blood Urine Nitrite Ur Leukocyte Esterase Influenza Type A (PCR) Influenza Type B (PCR) RSV RNA Qual (PCR) SARS-CoV-2 RNA (RT-PCR) Assessment and Plan (1) Hypercalcemia: Status: Acute (2) Primary lung cancer with metastasis from lung to other site: Status: Acute (3) Intractable pain: Status: Acute (4) COPD (chronic obstructive pulmonary disease): Status: Acute (5) Nausea & vomiting: Status: Acute (6) Severe malnutrition: Status: Acute Plan 57-year-old male with past medical history of lung cancer diagnosed in May of this year, presents to the hospital with complaints of pain all over his body found to have hypercalcemia acute hypercalcemia - likely secondary to lung cancer - moderate - will obtain intact parathyroid hormone, will also obtain parathyroid hormone related peptide - will treat with IV fluids - repeat BMP in evening metastatic lung cancer - image shows new metastasis 2 multiple locations including the adrenal glands, peritoneum and retroperitoneum locations - Hematology-Oncology consulted. intractable pain- likely related to metastatic lung cancer - morphine not controlling his pain, will add Dilaudid - Hematology-Oncology on consult. possible ch hypoxemic respiratory failure ( ?as per ED documentation-on home oxygen)sec to COPD/asthma. - not in exacerbation - p.r.n. DuoNeb Nausea vomiting: Possibly related to metastatic cancer as above. Supportive care, gentle hydration severe malnutrion sec to Possible metastatic disease: nutrition evaluation added DVT prophylaxis:? Heparin subQ inaptient need:possible Metastatic disease, hypercalcemia- need hypercalcemia monitoring-need iv pamidronate, iv hydration for vomiting- and IV antiemetics, in addition read renal function and electrolyte monitoring. Quality Stroke Does the patient have a stroke diagnosis?: No VTE Prior VTE?: No VTE Risk Level:: Medical - moderate - high VTE Device Contraindication: Treatment Not Indicated VTE Drug Contraindication: N/A - Med Ordered
--- NOTE | 2022-10-07 14:00 | P.CONNP_ITS ---
History of Present Illness Reason for Consult Consult date: 10/07/22 Reason for consult: Hypercalcemia of malignancy Chief Complaint Chief complaint: Hypercalcemia, new met lung cancer History of Present Illness Narrative: Asked by Dr. Grande to see this 57 yo man with known sq cell carcinoma of the lung with extensive metastases to lymph nodes and bone who presents now with hypercalcemia. He has received IVF and is receiving pamidronate currently. His creatinine is normal. He is quite cachectic and has clearly lost a lot of weight. Review of Systems Review of Systems patient still has diffuse pain , also says shoulder area pain shoulder area pain had episode of nausea vomiting. no fevers Yes all other systems are reviewed and are negative PMFSH Past Medical History Medical History Asthma COPD (chronic obstructive pulmonary disease) Hypoxia O2 dependent Respiratory failure Squamous cell carcinoma of lung (~2021) Tobacco dependence Family History Family History Other No family history of cancer Surgical History Surgical History History of lung biopsy (~05/2022) Social History Social History Household Members: Unknown / Unable to assess Housing: House Are you a primary long term care pharmacist to a significant other at home: No Do you presently have visiting nurse or other home services: No Patient Tobacco Use Status: Former Tobacco user Tobacco use type: Cigarette Years Smoked: 30 years Second Hand Smoke Exposure: No Advance Directives: No Advance Directives Information Provided: No service: No Current occupational status: disabled Cognitive needs: No Hearing needs: No Vision needs: No Meds Allergies Allergy/AdvReac Type Severity Reaction Status Date / Time No Known Allergies Allergy Verified 07/03/22 16:42 Active Medications: Current Medications Acetaminophen (Acetaminophen 325 Mg Tablet) 650 mg PO Q6H PRN PRN Reason: Pain, Mild (Pain Scale 1-3) Docusate Sodium (Docusate Sodium 100 Mg Capsule) 100 mg PO DAILY PRN PRN Reason: Constipation Heparin Sodium (Porcine) (Heparin Sodium,Porcine 5,000 Unit/Ml Vial) 5,000 unit SUBCUT Q12H [facility] Last Admin: 10/07/22 07:38 Dose: 5,000 unit Hydromorphone HCl (Hydromorphone Hcl 1 Mg/Ml Syringe) 1 mg IVPUSH Q4H PRN; Protocol PRN Reason: Pain, Severe (Pain Scale 7-10) Last Admin: 10/07/22 09:05 Dose: 1 mg Promethazine HCl 6.25 mg/ (Sodium Chloride) 50.25 mls @ 201 mls/hr IV Q6H PRN PRN Reason: Nausea Morphine Sulfate (Morphine Sulfate 4 Mg/Ml Cartridge) 4 mg IVPUSH Q4H PRN; Protocol PRN Reason: Pain, Severe (Pain Scale 7-10) Last Admin: 10/07/22 10:29 Dose: 4 mg Ondansetron HCl (Ondansetron Hcl 4 Mg/2 Ml Vial) 4 mg IVPUSH Q8H PRN PRN Reason: Nausea and Vomiting Last Admin: 10/07/22 07:45 Dose: 4 mg Pantoprazole Sodium (Pantoprazole Sodium 40 Mg/10 Ml Vial) 40 mg IVPUSH BID@0630,1630 [facility] Last Admin: 10/07/22 09:32 Dose: 40 mg Pharmacy Consult (Consult Rx Perform Med Rec) 1 each MISCELLANE ONCE PRN PRN Reason: Consult order Sodium Chloride (0.9 % Sodium Chloride Flush 3 Ml Syringe) [facility] Last Admin: 10/07/22 07:38 Dose: 3 ml Home Medications Medication Instructions Recorded Confirmed Last Taken Type acetaminophen 325 mg tablet 650 mg PO QID PRN Pain 10/07/22 10/07/22 Unknown History (Tylenol) albuterol sulfate 90 mcg/actuation 1 inh inhalation QID PRN Shortness 10/07/22 10/07/22 Unknown History aerosol inhaler Of Breath Or Wheezing omeprazole 40 mg capsule,delayed 40 mg PO DAILY@0630 10/07/22 10/07/22 10/06/22 History release ondansetron 4 mg disintegrating 1 tab Q8H PRN nausea 10/07/22 10/07/22 Unknown History tablet Physical Exam Vital Signs: Last Vital Signs Temp 98.0 F 10/07/22 07:18 Pulse 100 10/07/22 07:18 Resp 75 H 10/07/22 07:18 BP 138/75 10/07/22 07:18 Pulse Ox 100 10/07/22 07:18 O2 Del Method 10/07/22 07:18 O2 Flow Rate 2.5 10/07/22 07:18 Oxygen Flow Rate 3 10/06/22 12:30 BMI result Body Mass Index 14.4 Const Other: Patient appears uncomfortable, does appear in pain General: cooperative Orientation/consciousness: patient oriented x3 Eyes General: appearance normal, both eyes and all related structures Resp Effort & Inspection: normal respiratory effort Auscultation: clear to auscultation bilaterally Cardio Rate: regular rate Rhythm: regular rhythm GI Palpation (GI): Soft to palpation Auscultation: normal bowel sounds Skin General skin exam: no rashes or lesions noted Neuro General: patient oriented x3 Cognition (Neuro): normal cognition Extrem General: Yes normal to inspection and Yes no pedal edema Results Lab Results Result Diagrams: 10/07/22 06:25 10/07/22 06:25 Lab results: Chemistry 10/06/22 10/06/22 10/07/22 14:05 19:40 06:25 Sodium 140 143 145 Potassium 4.3 4.3 4.1 Carbon Dioxide 31 H 29 31 H BUN 10 8 L 6 L Creatinine 0.75 0.68 0.70 Calcium 13.4 H* D 12.0 H D 12.6 H* Phosphorus 2.8 Hematology 10/06/22 10/07/22 14:05 06:25 WBC 3.6 L 3.7 L Hgb 9.1 L 8.5 L Plt Count 204 215 Urinalysis 10/06/22 16:38 Urine Color Straw Urine Appearance Clear Urine pH 6.0 Ur Specific Goodman 1.010 Urine Protein Negative Urine Glucose (UA) Negative Urine Ketones Negative Urine Blood Negative Urine Nitrite Negative Ur Leukocyte Esterase Negative Assessment and Plan (1) Hypercalcemia: Status: Acute (2) Primary lung cancer with metastasis from lung to other site: Status: Acute Plan 57-year-old male with recently diagnosed squamous cell carcinoma, diffusely m etastatic presenting with symptomatic hypercalcemia: nausea, weakness. His creat is normal. He has eveidence of elevated bicarb on lytes and is hypernatremic. His calcium is slowly better with some IVF but he remains markedly vol depleted on examination. Recommend: Use normal saline at 200 cc/hr until calcium is below 11 Agree with antiresorptive agent: receiving pamidronate He should continue to get this as zometa as an outpt to prevent resurgence in hypercalcemia Palliative care Procedures Date of Service Date of Service: 10/07/22
[2022-10-07 16:00] VITALS: BP 122/61; PULSE 78; RESP 18; TEMP 36.8; O2SAT 97
[2022-10-07] MEDS: 0.9 % Sodium Chloride 1,000 ML 150 ML IVCONT ×2 (16:46→20:22)
[2022-10-07 19:12] VITALS: BP 136/69; PULSE 78; RESP 18; TEMP 37; O2SAT 97
[2022-10-07 19:52] LABS: Anion Gap 13 (12-20); Blood Urea Nitrogen 8 mg/dL (9-16); Calcium 12.1 mg/dL (8.4-10.2); Carbon Dioxide 32 mmol/L (22-29); Chloride 104 mmol/L (96-108); Creatinine Clr Calc Pharmacy 57.8; Estimated Glomerular Filt Rate > 60; Glucose Random 120 mg/dL (60-115); Potassium 3.6 mmol/L (3.3-5.1); Sodium 145 mmol/L (135-145)
[2022-10-08] VITALS (7 sets, daily range): BP systolic 120–141; BP diastolic 61–70; PULSE 70–86; RESP 15–20; TEMP 36.6–37.8; O2SAT 97–100; BMI 14.4
[2022-10-08] MEDS: HYDROmorphone HCl 1 MG/ML SYRINGE IVPUSH ×4 (01:00→21:12)
[2022-10-08] MEDS: Pantoprazole Sodium 40 MG/10 ML VIAL IVPUSH ×2 (05:40→15:25)
[2022-10-08] MEDS: 0.9 % Sodium Chloride 1,000 ML 150 ML IVCONT ×3 (05:40→21:15)
[2022-10-08 06:10] LABS: Anion Gap 13 (12-20); Blood Urea Nitrogen 8 mg/dL (9-16); Carbon Dioxide 32 mmol/L (22-29); Chloride 104 mmol/L (96-108); Creatinine Clr Calc Pharmacy 60.2; Estimated Glomerular Filt Rate > 60; Glucose Random 107 mg/dL (60-115); Potassium 3.6 mmol/L (3.3-5.1); Sodium 145 mmol/L (135-145)
[2022-10-08 06:11] LABS: Calcium 12.5 mg/dL (8.4-10.2)
[2022-10-08] MEDS: Heparin Sodium,Porcine 5,000 UNIT/ML VIAL 5000 UNIT SUBCUT ×2 (07:45→19:22)
[2022-10-08] MEDS: Morphine Sulfate 2 MG/ML CARTRIDGE 4 MG IVPUSH ×4 (09:05→23:23)
--- NOTE | 2022-10-08 09:56 | P.CDIC_ITS ---
CDI Concurrent Query Documentation Clarification: PHYSICIAN'S DOCUMENTATION REQUEST Date of Query: 10/08/22 0957 Patient Name: Rafael Eubanks Admit Date: 10/06/22 Dear Doctor, A review of the medical record indicates additional documentation may be needed. Please review below and update the documentation accordingly. Clinical Indicators: Risk Factors/Clinical Indicators/Treatments respiratory rate 13-20 Per ED note currently on 3 L NC oxygen at baseline SAT 98 - 100 % Recognized standard criteria for respiratory failure includes: (Source: [facility] Sep 2013) ABGs (1 or more) Symptoms: ? PO2 <60 or RA SpO2 <91% ? Tachypnea, SOB, dyspnea ? PcO2 >50 and pH <7.35 ? Pallor or cyanosis ? pO2 decrease or pcO2 increase ? Anxiety or restlessness by 10 mm/Hg from baseline if known ? Use of accessory muscles ? Retractions (grunting in newborns) ? Unable to speak in complete sentences P/F ratio < 300 Supplemental O2 requirement of 40% or more Intubation is not required Clarify which of the following accurately represents the patient's respiratory status: * Chronic respiratory failure * Hypoxia * Other (please specify) * Unable to determine Use of terms such as suspected, likely, concern for, or probable (associated with a specific diagnosis that is being evaluated, monitored, or treated as if it exists) are acceptable and can be coded in the inpatient setting, when documented at the time of discharge. Thank you, Em Danielson RN Extension: [phone] Please use your independent medical judgment in providing your response. THIS QUERY IS PART OF THE PERMANENT MEDICAL RECORD Provider Response: Other Other Diagnosis: possible ch hypoxemia sec tocopd
--- NOTE | 2022-10-08 10:16 | PM.PNNEP ---
Subjective Subjective Date of Service: 10/09/22 Interval history: Diffuse pain, episode of vomiting Physical Exam Vital Signs: Vital Signs: Last Vital Signs Temp 99.7 F 10/08/22 07:38 Pulse 70 10/08/22 07:38 Resp 18 10/08/22 07:38 BP 137/65 10/08/22 07:38 Pulse Ox 100 10/08/22 07:38 O2 Del Method 10/08/22 07:38 O2 Flow Rate 3.0 10/08/22 07:38 Oxygen Flow Rate 3 10/06/22 12:30 BMI result Body Mass Index 14.4 Const: Other: Patient appears uncomfortable, does appear in pain Eyes: General: appearance normal, both eyes and all related structures Cardio: Rate: regular rate GI: Palpation (GI): Soft to palpation Skin: General skin exam: no rashes or lesions noted Neuro: Cognition (Neuro): normal cognition Extrem: General: Yes normal to inspection and Yes no pedal edema Objective Data Labs CBC & Chem 7: 10/07/22 06:25 10/09/22 05:52 Labs: Laboratory Results - last 24 hr 10/07/22 10/08/22 19:22 05:09 Sodium 145 145 Potassium 3.6 3.6 Chloride 104 104 Carbon Dioxide 32 H 32 H Anion Gap 13 13 BUN 8 L 8 L Creatinine 0.75 0.72 Estim Creat Clear Calc 57.8 60.2 Estimated GFR > 60 > 60 Random Glucose 120 H 107 Calcium 12.1 H 12.5 H* Microbiology Microbiology Results: Microbiology 10/06/22 14:05 Blood - Venous Blood Culture - Preliminary No growth after 24 hours. 10/06/22 13:48 Blood - Venous Blood Culture - Preliminary No growth after 24 hours. Procedures Date of Service Date of Service: 10/08/22 Assessment & Plan Assessment and plan (1) Hypercalcemia: Status: Acute (2) Primary lung cancer with metastasis from lung to other site: Status: Acute Plan 57-year-old male with recently diagnosed squamous cell carcinoma, diffusely metastatic presenting with symptomatic hypercalcemia: nausea, weakness. His creat is normal. He has eveidence of elevated bicarb on lytes and is hypernatremic. His calcium is slowly better with some IVF but he remains markedly vol depleted on examination. Recommend: Use normal saline at 200 cc/hr until calcium is below 11 Agree with antiresorptive agent: s/p pamidronate on 10/07/22 Palliative care Progress Note: Quality Stroke Does the patient have a stroke diagnosis?: No
--- NOTE | 2022-10-08 11:31 | P.PNIM_ITS ---
Subjective Subjective Date of Service: 10/09/22 Interval History: Diffuse pain,? nausea vomiting slightly better than yesterday. Review of Systems ?patient still has diffuse pain , also says shoulder area pain ?shoulder area pain ?no fevers Physical Exam Vital Signs: Vital Signs: Last Vital Signs Temp 100.1 F 10/08/22 11:12 Pulse 77 10/08/22 11:12 Resp 17 10/08/22 11:12 BP 139/66 10/08/22 11:12 Pulse Ox 98 10/08/22 11:12 O2 Del Method 10/08/22 11:12 O2 Flow Rate 3.0 10/08/22 11:12 Oxygen Flow Rate 3 10/06/22 12:30 BMI result Body Mass Index 14.4 Appearance: Alert.? Oriented X3.? pain cvs: rrr, [id number] . res: clear to auscultation ,no rhonchii or wheezing abd: no rebound or guarding ,nt, bs present. ext pulses present , no cyanosis . neuro: axo3 , nonfocal. Objective Data Active Medications Acetaminophen (Acetaminophen 325 Mg Tablet) 650 mg PO Q6H PRN PRN Reason: Pain, Mild (Pain Scale 1-3) Docusate Sodium (Docusate Sodium 100 Mg Capsule) 100 mg PO DAILY PRN PRN Reason: Constipation Heparin Sodium (Porcine) (Heparin Sodium,Porcine 5,000 Unit/Ml Vial) 5,000 unit SUBCUT Q12H [facility] Last Admin: 10/08/22 07:45 Dose: 5,000 unit Documented By: DABNicolas Hydromorphone HCl (Hydromorphone Hcl 1 Mg/Ml Syringe) 1 mg IVPUSH Q4H PRN; Protocol PRN Reason: Pain, Severe (Pain Scale 7-10) Last Admin: 10/08/22 05:40 Dose: 1 mg Documented By: ROXANE Promethazine HCl 6.25 mg/ (Sodium Chloride) 50.25 mls @ 201 mls/hr IV Q6H PRN PRN Reason: Nausea Sodium Chloride (Ns) 1,000 mls @ 150 mls/hr IVCONT .Q6H40M [facility] Last Admin: 10/08/22 05:40 Dose: 150 mls/hr Documented By: ROXANE Morphine Sulfate (Morphine Sulfate 2 Mg/Ml Cartridge) 4 mg IVPUSH Q4H PRN; Protocol PRN Reason: Pain, Severe (Pain Scale 7-10) Last Admin: 10/08/22 09:05 Dose: 4 mg Documented By: LAURIE Ondansetron HCl (Ondansetron Hcl 4 Mg/2 Ml Vial) 4 mg IVPUSH Q8H PRN PRN Reason: Nausea and Vomiting Last Admin: 10/07/22 07:45 Dose: 4 mg Documented By: DAVID Pantoprazole Sodium (Pantoprazole Sodium 40 Mg/10 Ml Vial) 40 mg IVPUSH BID@0630,1630 [facility] Last Admin: 10/08/22 05:40 Dose: 40 mg Documented By: ROXANE Pharmacy Consult (Consult Rx Perform Med Rec) 1 each MISCELLANE ONCE PRN PRN Reason: Consult order Sodium Chloride (0.9 % Sodium Chloride Flush 3 Ml Syringe) 3 ml IVFLUSH QSHIFT [facility] Last Admin: 10/08/22 06:57 Dose: Not Given Documented By: LAURIE Non-Admin Reason: IV Running Labs CBC & Chem 7: 10/07/22 06:25 10/09/22 05:52 Labs: Laboratory Results - last 24 hr 10/07/22 10/08/22 19:22 05:09 Anion Gap 13 13 Estim Creat Clear Calc 57.8 60.2 Estimated GFR > 60 > 60 Random Glucose 120 H 107 Calcium 12.1 H 12.5 H* Microbiology Microbiology Results: Microbiology 10/06/22 14:05 Blood Culture - Preliminary Blood - Venous No growth after 24 hours. 10/06/22 13:48 Blood Culture - Preliminary Blood - Venous No growth after 24 hours. Assessment and Plan (1) Hypercalcemia: Status: Acute (2) Primary lung cancer with metastasis from lung to other site: Status: Acute (3) Intractable pain: Status: Acute (4) COPD (chronic obstructive pulmonary disease): Status: Acute (5) Nausea & vomiting: Status: Acute (6) Severe malnutrition: Status: Acute Plan 57-year-old male with past medical history of lung cancer diagnosed in May of this year, presents to the hospital with complaints of pain all over his body found to have hypercalcemia acute hypercalcemia - likely secondary to lung cancer - moderate - will obtain intact parathyroid hormone, will also obtain parathyroid hormone related peptide - will treat with IV fluids - repeat BMP in evening metastatic lung cancer - image shows new metastasis 2 multiple locations including the adrenal glands, peritoneum and retroperitoneum locations - Hematology-Oncology consulted. intractable pain- likely related to metastatic lung cancer - morphine not controlling his pain, will add Dilaudid - Hematology-Oncology on consult. possible ch hypoxemic respiratory failure ( ?as per ED documentation-on home oxygen)sec to COPD/asthma. - not in exacerbation - p.r.n. DuoNeb Nausea vomiting: Possibly related to metastatic cancer as above. Supportive care, gentle hydration severe malnutrion sec to Possible metastatic disease: nutrition evaluation added DVT prophylaxis:? Heparin subQ inaptient need:possible Metastatic disease, hypercalcemia- need hypercalcemia monitoring-need iv pamidronate, iv hydration for vomiting- and IV antiemetics, in addition read renal function and electrolyte monitoring. Quality Stroke Does the patient have a stroke diagnosis?: No VTE Prior VTE?: No VTE Risk Level:: Medical - moderate - high VTE Device Contraindication: Treatment Not Indicated VTE Drug Contraindication: N/A - Med Ordered
--- NOTE | 2022-10-08 12:01 | MHC.CLN ---
NUTRITION CONSULT FOR DECREASED APPETITE, NAUSEA, VOMITING. PATIENT WITH DX SEVERE MALNUTRITION. SIGNIFICANT WEIGHT LOSS X 4 MONTHS, -27%. DIET=REGULAR. ADDING ENSURE TID TO PROVIDE ADDITIONAL 1050 KCALS, 60 G PROTEIN. FOLLOW FOR INTAKE/DIET TOLERANCE.
[2022-10-08] MEDS: Calcitonin,Salmon,Synth Nasal 3.7 ML BOTTLE 1 SPRAY NOSTRIL-L (16:26)
[2022-10-08] MEDS: 0.9 % Sodium Chloride Flush 3 ML SYRINGE IVFLUSH (19:22)
[2022-10-08 20:06] LABS: Anion Gap 13 (12-20); Blood Urea Nitrogen 7 mg/dL (9-16); Carbon Dioxide 30 mmol/L (22-29); Chloride 105 mmol/L (96-108); Creatinine Clr Calc Pharmacy 61.9; Estimated Glomerular Filt Rate > 60; Glucose Random 123 mg/dL (60-115); Sodium 145 mmol/L (135-145)
[2022-10-09] MEDS: HYDROmorphone HCl 1 MG/ML SYRINGE IVPUSH ×6 (01:35→23:54)
[2022-10-09 03:06] VITALS: BP 116/58; PULSE 88; RESP 14; TEMP 37.2; O2SAT 98
[2022-10-09] MEDS: Morphine Sulfate 2 MG/ML CARTRIDGE 4 MG IVPUSH ×4 (03:25→22:41)
[2022-10-09] MEDS: 0.9 % Sodium Chloride 1,000 ML 150 ML IVCONT (04:25)
[2022-10-09] MEDS: Pantoprazole Sodium 40 MG/10 ML VIAL IVPUSH ×2 (05:33→15:31)
[2022-10-09 07:19] LABS: Anion Gap 11 (12-20); Blood Urea Nitrogen 6 mg/dL (9-16); Calcium 10.4 mg/dL (8.4-10.2); Carbon Dioxide 29 mmol/L (22-29); Chloride 108 mmol/L (96-108); Creatinine Clr Calc Pharmacy 73.5; Estimated Glomerular Filt Rate > 60; Glucose Random 99 mg/dL (60-115); Sodium 145 mmol/L (135-145)
[2022-10-09] MEDS: Heparin Sodium,Porcine 5,000 UNIT/ML VIAL 5000 UNIT SUBCUT ×2 (07:31→19:39)
[2022-10-09 07:53] VITALS: BP 134/68; PULSE 79; RESP 15; TEMP 36.2; O2SAT 97
[2022-10-09 08:16] LABS: Magnesium 1.4 mg/dL (1.6-2.6)
[2022-10-09] MEDS: Magnesium Sulfate/H2O 2 GM/50 ML PIGGYBACK IV (08:51)
[2022-10-09] MEDS: Potassium Chloride Packet 20 MEQ PACKET 40 MEQ PO (08:51)
[2022-10-09] MEDS: Lidocaine 4 % Patch ADH..PATCH 1 PATCH TRANSDERMA (09:54)
[2022-10-09] MEDS: Metoclopramide HCl 10 MG/2 ML VIAL 5 MG IVPUSH (09:56)
--- NOTE | 2022-10-09 10:16 | PM.PNNEP ---
Subjective Subjective Date of Service: 10/09/22 Interval history: events noted Physical Exam Vital Signs: Vital Signs: Last Vital Signs Temp 97.2 F 10/09/22 07:53 Pulse 79 10/09/22 07:53 Resp 15 10/09/22 07:53 BP 134/68 10/09/22 07:53 Pulse Ox 97 10/09/22 07:53 O2 Del Method 10/09/22 07:53 O2 Flow Rate 3 10/08/22 23:27 Oxygen Flow Rate 3 10/06/22 12:30 BMI result Body Mass Index 14.4 Const: Other: Patient appears uncomfortable, does appear in pain Eyes: General: appearance normal, both eyes and all related structures Cardio: Rate: regular rate GI: Palpation (GI): Soft to palpation Skin: General skin exam: no rashes or lesions noted Neuro: Cognition (Neuro): normal cognition Extrem: General: Yes normal to inspection and Yes no pedal edema Objective Data Labs CBC & Chem 7: 10/07/22 06:25 10/09/22 05:52 Labs: Laboratory Results - last 24 hr 10/08/22 10/09/22 19:06 05:52 Sodium 145 145 Potassium 3.0 L 3.0 L Chloride 105 108 Carbon Dioxide 30 H 29 Anion Gap 13 11 L BUN 7 L 6 L Creatinine 0.70 0.59 Estim Creat Clear Calc 61.9 73.5 Estimated GFR > 60 > 60 Random Glucose 123 H 99 Calcium 11.0 H D 10.4 H Magnesium 1.4 L* Microbiology Microbiology Results: Microbiology 10/06/22 14:05 Blood - Venous Blood Culture - Preliminary No growth after 48 hours. 10/06/22 13:48 Blood - Venous Blood Culture - Preliminary No growth after 48 hours. Procedures Date of Service Date of Service: 10/08/22 Assessment & Plan Assessment and plan (1) Hypercalcemia: Status: Acute (2) Primary lung cancer with metastasis from lung to other site: Status: Acute Plan 57-year-old male with recently diagnosed squamous cell carcinoma, diffusely metastatic presenting with symptomatic hypercalcemia: nausea, weakness. His creat is normal. He has eveidence of elevated bicarb on lytes and is hypernatremic. His calcium is slowly better with some IVF but he remains markedly vol depleted on examination. Recommend: Decrease normal saline at 100 cc/hr and DC if Ca< 10 tomorrow Agree with antiresorptive agent: s/p pamidronate on 10/07/22 Palliative care Time Spent With Patient Time: Total time spent is greater than 50% in coordination of care (as documented) at patient's floor/unit and/or counseling patient: Progress Note: Quality Stroke Does the patient have a stroke diagnosis?: No
--- NOTE | 2022-10-09 10:21 | MHC.CM.PN ---
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
[2022-10-09 10:56] LABS: Calcium (PTHI) 12.8 mg/dL (8.6-10.3); PTHI <6 pg/mL (16-77)
[2022-10-09 11:56] VITALS: BP 109/56; PULSE 94; RESP 16; TEMP 36.8; O2SAT 100
--- NOTE | 2022-10-09 12:11 | PM.HEMONCPN ---
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 Occlusion of left lower lobe bronchus with severe emphysema. Much of the left lower lobe was collapsed. Left hilar lymph node enlarged, metastatic disease. AJCC stage T2b N1 He had bronchoscopy and biopsy of left lower lobe endobronchial lesion on 05/29/2022 which revealed poorly differentiated squamous cell carcinoma. NGS revealed PDL1- TPS 1%, ALK, EGFR,KRAS, BRAF, MET, RET, ROS1 negative. MSI-stable, mcbride-TRK not expressed, HER2 negative, PTEN deletion positive (may respond PI3K/AKT/mTOR and PARP inhibitors). CDKN2A and SMARCA4 (SNV's/insertions/deletions) detected. Staging CT abdomen/pelvis with contrast and brain MRI performed 06/05/2022 showed no evidence of distant metastasis. He was seen by Dr. Grady from [facility], concurrent chemoradiation therapy. CTA performed 06/22/2022 showed no PE but postobstructive atelectasis of entire left lung due to obstruction of left mainstem bronchus by growing left hilar mass. On 07/02/2022 Dr. Stark attempted bronchoscopy with argon/razor tumor debulking but this was not enough to open of the collapsed left lung. Interval History Interval history: Patient is lying in bed, appears comfortable. Several family members at bedside. He says his pain is better controlled today. His appetite is still poor. He denies abdominal pain, nausea or emesis. Review of Systems - Neurologic Reports weakness [facility] Medical History: Medical History (Last Reviewed 10/07/22 @ 14:02 by Simran Mcmillan MD) Asthma COPD (chronic obstructive pulmonary disease) Hypoxia O2 dependent Respiratory failure Squamous cell carcinoma of lung Onset Date: ~2021 Tobacco dependence Family History: Family History (Last Reviewed 10/07/22 @ 14:02 by Simran Mcmillan MD) Other No family history of cancer Surgical History: Surgical History (Last Reviewed 10/07/22 @ 14:02 by Simran Mcmillan MD) History of lung biopsy Onset Date: ~05/2022 Social History: Social History (Last Reviewed 10/07/22 @ 14:02 by Simran Mcmillan MD) Living Situation History: Household Members: Family Household Members Other:: brother Housing: Apartment Are you a primary resident care coordinator to a significant other at home: No Do you presently have visiting nurse or other home services: Yes Tobacco History: Patient Tobacco Use Status: Former Tobacco user Tobacco use type: Cigarette Cigarette Packs Per Day: 1 Years Smoked: 45 Smoke Quit Date: 4 months Second Hand Smoke Exposure: No Occupation Assessmet: service: No Current occupational status: disabled Home Medications and Allergies Current Medications: Current Medications Acetaminophen (Acetaminophen 325 Mg Tablet) 650 mg PO Q6H PRN PRN Reason: Pain, Mild (Pain Scale 1-3) Docusate Sodium (Docusate Sodium 100 Mg Capsule) 100 mg PO DAILY PRN PRN Reason: Constipation Heparin Sodium (Porcine) (Heparin Sodium,Porcine 5,000 Unit/Ml Vial) 5,000 unit SUBCUT Q12H [facility] Last Admin: 10/09/22 07:31 Dose: 5,000 unit Hydromorphone HCl (Hydromorphone Hcl 1 Mg/Ml Syringe) 1 mg IVPUSH Q4H PRN; Protocol PRN Reason: Pain, Severe (Pain Scale 7-10) Last Admin: 10/09/22 11:34 Dose: 1 mg Promethazine HCl 6.25 mg/ (Sodium Chloride) 50.25 mls @ 201 mls/hr IV Q6H PRN PRN Reason: Nausea Sodium Chloride (Ns) 1,000 mls @ 100 mls/hr IVCONT .Q10H [facility] Last Infusion: 10/09/22 11:35 Dose: Infused Lidocaine (Lidocaine 4 % Patch Adh..Patch) 1 patch TRANSDERMA DAILY [facility]; Protocol Last Admin: 10/09/22 09:54 Dose: 1 patch Morphine Sulfate (Morphine Sulfate 2 Mg/Ml Cartridge) 4 mg IVPUSH Q4H PRN; Protocol PRN Reason: Pain, Severe (Pain Scale 7-10) Last Admin: 10/09/22 07:30 Dose: 4 mg Ondansetron HCl (Ondansetron Hcl 4 Mg/2 Ml Vial) 4 mg IVPUSH Q8H PRN PRN Reason: Nausea and Vomiting Last Admin: 10/07/22 07:45 Dose: 4 mg Pantoprazole Sodium (Pantoprazole Sodium 40 Mg/10 Ml Vial) 40 mg IVPUSH BID@0630,1630 [facility] Last Admin: 10/09/22 05:33 Dose: 40 mg Pharmacy Consult (Consult Rx Perform Med Rec) 1 each MISCELLANE ONCE PRN PRN Reason: Consult order Sodium Chloride (0.9 % Sodium Chloride Flush 3 Ml Syringe) 3 ml IVFLUSH QSHIFT [facility] Last Admin: 10/09/22 06:35 Dose: Not Given Home Medications Medication Instructions Recorded Confirmed Type acetaminophen 325 mg tablet 650 mg PO QID PRN Pain 10/07/22 10/07/22 History (Tylenol) albuterol sulfate 90 mcg/actuation 1 inh inhalation QID PRN Shortness 10/07/22 10/07/22 History aerosol inhaler Of Breath Or Wheezing omeprazole 40 mg capsule,delayed 40 mg PO DAILY@0630 10/07/22 10/07/22 History release ondansetron 4 mg disintegrating 1 tab Q8H PRN nausea 10/07/22 10/07/22 History tablet Allergies Allergy/AdvReac Type Severity Reaction Status Date / Time No Known Allergies Allergy Verified 07/03/22 16:42 Exam Vital signs: Vital Signs Temp 98.3 F 10/09/22 11:56 Pulse 94 10/09/22 11:56 Resp 16 10/09/22 11:56 BP 109/56 L 10/09/22 11:56 Pulse Ox 100 10/09/22 11:56 O2 Del Method 10/09/22 11:56 O2 Flow Rate 3 10/08/22 23:27 Intake & Output 10/08/22 10/09/22 10/09/22 18:59 06:59 18:59 Intake Total 1000 / 2882.5 1882.5 / 2882.5 1050 / 1050 Output Total 400 / 1300 900 / 1300 Balance 600 / 1582.5 982.5 / 1582.5 1050 / 1050 Urine Output (Average ml/kg/hr) 0.87 1.97 1.97 Intake: Intake, Oral Amount 160 / 160 Intake, IV Amount 1000 / 2722.5 1722.5 / 2722.5 1050 / 1050 Magnesium Sulfate/H2O 2 gm In 50 / 50 50 ml @ 25 mls/hr IV ONCE ONE Rx#:[id number] 0.9 % Sodium Chloride 1,000 ml 1000 / 2722.5 1722.5 / 2722.5 1000 / 1000 @ 150 mls/hr IVCONT .Q6H40M [facility] Rx#:[id number] Output: Output, Urine Amount 400 / 1300 900 / 1300 Other: Number of Bowel Movements 0 Urine Urinal Urine Color Yellow Weight 38.102 kg Weight 38.102 kg BMI result Body Mass Index 14.4 - Constitutional Present: mild distress, chronically ill appearing - Routine HEENT Exam Head: Present: atraumatic - Routine Respiratory Exam Present: CTAB. Absent: accessory muscle use, respiratory distress - Routine Cardiovascular Exam Cardiovascular: Present: S1, S2 - Routine Abdominal Exam Present: soft - Routine Extremities Exam Absent: calf tenderness - Routine Skin Exam Present: intact. Absent: cyanosis - Routine Neurological Exam Present: alert, oriented X3 Data - Labs CBC & Chem 7: 10/07/22 06:25 10/09/22 05:52 Labs: 10/06/22 12:33 ECG 12 lead EKG Stat EKG Documentation DIRECTED XR chest 1V Stat 10/06/22 12:45 0.9 % Sodium Chloride [Ns] 1,000 ml IV 999 mls/hr 10/06/22 13:47 SARS-CoV2/FLU/RSV Stat 10/06/22 14:05 Basic Metabolic Panel Stat Complete Blood Count Auto Diff Stat Lactic Acid Stat Lipase Stat Liver Panel Stat Magnesium Stat Prothrombin Time INR Stat Troponin-I High Sensitivity Stat 10/06/22 14:06 B Type Natriuretic Peptide Stat 10/06/22 14:09 CT abdomen pelvis w IV con Stat 10/06/22 14:11 Morphine Sulfate 4 mg IVPUSH ONCE ONE ondansetron HCL [Zofran] 4 mg IVPUSH ONCE ONE 10/06/22 14:15 0.9 % Sodium Chloride [Ns] 1,000 ml IVCONT 999 mls/hr 10/06/22 14:45 0.9 % Sodium Chloride [Ns] 1,000 ml IVCONT 999 mls/hr 10/06/22 15:59 iohexoL 350 MG/ML [Omnipaque 350 MG/ML] 100 ml IV ONCE ONE 10/06/22 16:38 UA CC w/rflx Micro + Cult Stat 10/06/22 16:51 HYDROmorphone HCl [Dilaudid] 1 mg IVPUSH ONCE ONE 10/06/22 17:47 HYDROmorphone HCl [Dilaudid] 2 mg IVPUSH ONCE ONE 10/06/22 19:15 0.9 % Sodium Chloride [Ns] 1,000 ml IVCONT 200 mls/hr 10/06/22 19:18 Code Status Routine Morphine Sulfate 4 mg IVPUSH Q4H PRN 10/06/22 19:40 BMP [Basic Metabolic Panel] Stat LDH [Lactate Dehydrogenase] Stat Phosphorus Stat Uric Acid Stat 10/07/22 XR bone survey Routine 10/07/22 06:25 Basic Metabolic Panel DAILY@0600 Complete Blood Count Auto Diff DAILY@0600 10/07/22 07:09 PTHI Stat 10/07/22 07:38 Calcitonin,[place],Synth Nasal [Miacalcin Nasal] 1 spray NOSTRIL-R ONCE ONE 10/07/22 09:23 Pamidronate Disodium [Aredia] 60 mg 0.9 % Sodium Chloride [Ns] 250 ml IV ONCE 10/07/22 19:22 BMP [Basic Metabolic Panel] Routine 10/08/22 05:09 BMP [Basic Metabolic Panel] AM 10/08/22 11:35 Regular Diet 10/08/22 15:46 Calcitonin,[place],Synth Nasal [Miacalcin Nasal] 1 spray NOSTRIL-L ONCE ONE 10/08/22 19:06 BMP [Basic Metabolic Panel] Routine 10/09/22 05:52 BMP [Basic Metabolic Panel] AM Magnesium Routine 10/09/22 07:42 Potassium Chloride Packet [Klor-Con Packet] 40 meq PO ONCE ONE 10/09/22 07:47 Add Laboratory Test Urgent 10/09/22 08:18 Magnesium Sulfate/H2O 2 gm in 50 ml IV ONCE 10/09/22 09:21 Metoclopramide HCl [Reglan] 5 mg IVPUSH ONCE ONE Laboratory Last Values WBC 3.7 X10*3/uL (4.8-10.8) L 10/07/22 06:25 RBC 3.02 X10*6/uL (4.60-5.80) L 10/07/22 06:25 Hgb 8.5 g/dl (14.0-18.0) L 10/07/22 06:25 Hct 27.6 % (42.0-52.0) L 10/07/22 06:25 MCV 91.4 fL (80.0-98.0) 10/07/22 06:25 MCH 28.1 pg (27.0-33.0) 10/07/22 06:25 MCHC 30.8 g/dl (31.0-36.0) L 10/07/22 06:25 RDW 23.9 % (11.0-16.0) H 10/07/22 06:25 Plt Count 215 X10*3/uL (160-400) 10/07/22 06:25 MPV 9.2 fL (9.4-12.4) L 10/07/22 06:25 Immature Gran % (Auto) 0.3 % (0.0-0.4) 10/07/22 06:25 Neut % (Auto) 79.8 % (45-73) H 10/07/22 06:25 Lymph % (Auto) 10.2 % (20-40) L 10/07/22 06:25 [place] % (Auto) 9.1 % (2-11) 10/07/22 06:25 Eos % (Auto) 0.3 % (0-4) 10/07/22 06:25 Baso % (Auto) 0.3 % (0-2) 10/07/22 06:25 Lymph # (Auto) 0.4 X10*3/uL (1.2-4.9) L 10/07/22 06:25 [place] # (Auto) 0.3 X10*3/uL (0.1-1.2) 10/07/22 06:25 Eos # (Auto) 0.0 X10*3/uL (0.0-0.4) 10/07/22 06:25 Baso # (Auto) 0.0 X10*3/uL (0.0-0.2) 10/07/22 06:25 Abs Immat Gran (auto) 0.01 X10*3/uL (0.00-0.03) 10/07/22 06:25 Absolute Neuts (auto) 3.0 x10*3/uL (2.0-8.3) 10/07/22 06:25 Absolute Nucleated RBC 0.000 X10*3/uL (0.0-0.012) 10/07/22 06:25 Nucleated RBC % (auto) 0.0 /100WBC (0.0-0.2) 10/07/22 06:25 PT 12.2 SEC (10.0-13.1) 10/06/22 14:05 INR 1.1 (0.9-1.1) 10/06/22 14:05 Sodium 145 mmol/L (135-145) 10/09/22 05:52 Potassium 3.0 mmol/L (3.3-5.1) L 10/09/22 05:52 Chloride 108 mmol/L (96-108) 10/09/22 05:52 Carbon Dioxide 29 mmol/L (22-29) 10/09/22 05:52 Anion Gap 11 (12-20) L 10/09/22 05:52 BUN 6 mg/dL (9-16) L 10/09/22 05:52 Creatinine 0.59 mg/dL (0.5-1.4) 10/09/22 05:52 Estim Creat Clear Calc 73.5 10/09/22 05:52 Estimated GFR > 60 10/09/22 05:52 Random Glucose 99 mg/dL (60-115) 10/09/22 05:52 Lactic Acid 1.8 mmol/L (0.5-2.0) 10/06/22 14:05 Uric Acid 3.6 mg/dL (3.4-7.0) 10/06/22 19:40 Calcium 10.4 mg/dL (8.4-10.2) H 10/09/22 05:52 Phosphorus 2.8 mg/dL (2.7-4.5) 10/06/22 19:40 Magnesium 1.4 mg/dL (1.6-2.6) L* 10/09/22 05:52 Total Bilirubin 0.3 mg/dL (0.0-1.0) 10/06/22 14:05 Direct Bilirubin 0.2 mg/dL (0.0-0.5) 10/06/22 14:05 AST 21 U/L (5-37) 10/06/22 14:05 ALT 11 U/L (0-40) 10/06/22 14:05 Alkaline Phosphatase 106 U/L (39-117) 10/06/22 14:05 Lactate Dehydrogenase 356 U/L (118-273) H 10/06/22 19:40 Troponin I High Sens < 3.5 ng/L (<3.5-35.0) 10/06/22 14:05 B-Natriuretic Peptide < 10 pg/mL (<100) 10/06/22 14:06 Total Protein 7.6 g/dL (6.5-8.0) 10/06/22 14:05 Albumin 3.9 g/dL (3.5-5.0) 10/06/22 14:05 Lipase < 4 U/L (8-78) L 10/06/22 14:05 PTH Intact <6 pg/mL (16-77) L 10/07/22 07:09 Calcium (PTH Intact) 12.8 mg/dL (8.6-10.3) H 10/07/22 07:09 Urine Color Straw 10/06/22 16:38 Urine Appearance Clear 10/06/22 16:38 Urine pH 6.0 (5.0-9.0) 10/06/22 16:38 Ur Specific [place] 1.010 (1.005-1.025) 10/06/22 16:38 Urine Protein Negative mg/dL (Neg-Trace) 10/06/22 16:38 Urine Glucose (UA) Negative mg/dL (Negative) 10/06/22 16:38 Urine Ketones Negative mg/dL (Negative) 10/06/22 16:38 Urine Blood Negative (Negative) 10/06/22 16:38 Urine Nitrite Negative (Negative) 10/06/22 16:38 Ur Leukocyte Esterase Negative (Negative) 10/06/22 16:38 Influenza Type A (PCR) NEGATIVE (Negative) 10/06/22 13:47 Influenza Type B (PCR) NEGATIVE (Negative) 10/06/22 13:47 RSV RNA Qual (PCR) NEGATIVE (Negative) 10/06/22 13:47 SARS-CoV-2 RNA (RT-PCR) NEGATIVE (Negative) 10/06/22 13:47 - Imaging Radiologist's impression: ITS Impressions Chest X-Ray 10/06/22 13:27 IMPRESSION: 1. Interval improvement in left lung opacification with decreased cardiomediastinal shift to the left. Left basilar and apical pleural thickening and scarring. A small left pleural effusion cannot be excluded. 2. New irregular lytic lesion in the proximal left humerus concerning for malignancy/metastatic disease. Abdomen/Pelvis CT 10/06/22 16:19 IMPRESSION: 1. There are multiple new abnormal soft tissue nodules seen within the peritoneal and retroperitoneal space concerning for metastatic disease. There is also new bulky cardiophrenic adenopathy concerning for metastatic adenopathy. The left adrenal gland is partially obscured by a new retroperitoneal mass lesion as well.. These could be clinically correlated. PET CT scan or biopsy may be helpful to define further if needed. 2. I do not appreciate any obstructive changes to the bowel. Lack of significant intra-abdominal fat limits evaluation. 3. Chronic appearing changes otherwise as described above. Bone Osseous Survey 10/07/22 10:25 IMPRESSION: Lytic lesions within the left humeral diaphysis and left inferior pubic ramus, consistent with osseous metastatic disease. Questionable lesion in the right fibular shaft. Recommend repeat dedicated orthogonal views of the right tibia and fibula for further assessment. Assessment and Plan Patient Active problem list reviewed?: Yes (1) Primary lung cancer with metastasis from lung to other site Status: Acute Assessment and plan: 1. This is a 57-year-old man with left lung squamous cell carcinoma diagnosed in May 2022. He had bronchoscopy and biopsy of left lower lobe endobronchial lesion on 05/29/2022 which revealed poorly differentiated squamous cell carcinoma. PET-CT performed at [facility] showed no evidence of distant metastasis. He had multifocal FDG avid disease in the left lung, SUV up to 20. He started weekly Carboplatin AUC 2 with paclitaxel 50 milligram/meter sq with concurrent radiation therapy from 08/02/22 and completed treatment beginning of September 2022. Unfortunately, he now presents with progressive, metastatic disease with new lytic lesion in left shoulder as well as progressive lymphadenopathy in his chest and abdomen. Hypercalcemia secondary to malignancy and lytic bony lesions. He received Prolia, calcium levels are normalizing. Today I discussed further management with patient and several of his family members including 2 of his brothers. They are all in agreement that patient has declined considerably in the last few days. His appetite is poor and he is barely able to stand. He has diffuse body aches and is on pain medication. He would like to receive palliative care at a intermediate and transition to hospice care. He is not interested in further treatment or chemotherapy at this time. Thank you. - Time Spent With Patient Time Spent with Patient (in minutes): 15
--- NOTE | 2022-10-09 14:05 | HO.PM.IMPN ---
Subjective Subjective Date of Service: 10/09/22 Interval History: Diffuse pain,? nausea vomiting Review of Systems patient still has diffuse pain , also says shoulder area pain ?shoulder area pain ?no fevers Physical Exam Vital Signs: Vital Signs: Last Vital Signs Temp 98.3 F 10/09/22 11:56 Pulse 94 10/09/22 11:56 Resp 16 10/09/22 11:56 BP 109/56 L 10/09/22 11:56 Pulse Ox 100 10/09/22 11:56 O2 Del Method 10/09/22 11:56 O2 Flow Rate 3 10/08/22 23:27 Oxygen Flow Rate 3 10/06/22 12:30 BMI result Body Mass Index 14.4 Appearance: Alert.? Oriented X3.? pain cvs: rrr, [id number] . res: clear to auscultation ,no rhonchii or wheezing abd: no rebound or guarding ,nt, bs present. ext pulses present , no cyanosis . neuro: axo3 , nonfocal. Objective Data Active Medications Acetaminophen (Acetaminophen 325 Mg Tablet) 650 mg PO Q6H PRN PRN Reason: Pain, Mild (Pain Scale 1-3) Docusate Sodium (Docusate Sodium 100 Mg Capsule) 100 mg PO DAILY PRN PRN Reason: Constipation Heparin Sodium (Porcine) (Heparin Sodium,Porcine 5,000 Unit/Ml Vial) 5,000 unit SUBCUT Q12H [facility] Last Admin: 10/09/22 07:31 Dose: 5,000 unit Documented By: LAURIE Hydromorphone HCl (Hydromorphone Hcl 1 Mg/Ml Syringe) 1 mg IVPUSH Q4H PRN; Protocol PRN Reason: Pain, Severe (Pain Scale 7-10) Last Admin: 10/09/22 11:34 Dose: 1 mg Documented By: LAURIE Promethazine HCl 6.25 mg/ (Sodium Chloride) 50.25 mls @ 201 mls/hr IV Q6H PRN PRN Reason: Nausea Sodium Chloride (Ns) 1,000 mls @ 100 mls/hr IVCONT .Q10H [facility] Last Infusion: 10/09/22 11:35 Dose: 0 mls/hr Documented By: LAURIE Lidocaine (Lidocaine 4 % Patch Adh..Patch) 1 patch TRANSDERMA DAILY [facility]; Protocol Last Admin: 10/09/22 09:54 Dose: 1 patch Documented By: LAURIE Morphine Sulfate (Morphine Sulfate 2 Mg/Ml Cartridge) 4 mg IVPUSH Q4H PRN; Protocol PRN Reason: Pain, Severe (Pain Scale 7-10) Last Admin: 10/09/22 07:30 Dose: 4 mg Documented By: LAURIE Ondansetron HCl (Ondansetron Hcl 4 Mg/2 Ml Vial) 4 mg IVPUSH Q8H PRN PRN Reason: Nausea and Vomiting Last Admin: 10/07/22 07:45 Dose: 4 mg Documented By: DAVID Pantoprazole Sodium (Pantoprazole Sodium 40 Mg/10 Ml Vial) 40 mg IVPUSH BID@0630,1630 [facility] Last Admin: 10/09/22 05:33 Dose: 40 mg Documented By: DEJAN Pharmacy Consult (Consult Rx Perform Med Rec) 1 each MISCELLANE ONCE PRN PRN Reason: Consult order Sodium Chloride (0.9 % Sodium Chloride Flush 3 Ml Syringe) 3 ml IVFLUSH QSHIFT [facility] Last Admin: 10/09/22 06:35 Dose: Not Given Documented By: LAURIE Non-Admin Reason: IV Running Labs CBC & Chem 7: 10/07/22 06:25 10/09/22 05:52 Labs: Laboratory Results - last 24 hr 10/07/22 10/08/22 10/09/22 07:09 19:06 05:52 Anion Gap 13 11 L Estim Creat Clear Calc 61.9 73.5 Estimated GFR > 60 > 60 Random Glucose 123 H 99 Calcium 11.0 H D 10.4 H Magnesium 1.4 L* PTH Intact <6 L Calcium (PTH Intact) 12.8 H Microbiology Microbiology Results: Microbiology 10/06/22 14:05 Blood Culture - Preliminary Blood - Venous No growth after 48 hours. 10/06/22 13:48 Blood Culture - Preliminary Blood - Venous No growth after 48 hours. Assessment and Plan (1) Nausea & vomiting: Status: Acute (2) Hypercalcemia: Status: Acute Plan 57-year-old male with past medical history of lung cancer diagnosed in May of this year, presents to the hospital with complaints of pain all over his body found to have hypercalcemia ?acute hypercalcemia - likely secondary to lung cancer - moderate intact parathyroid hormone, will also obtain parathyroid hormone related peptide omproving with IV fluids adjuted now to 100 ml/hr,,pamindronate on 10/07 - repeat BMP in evening nephrology followin ?metastatic lung cancer - image shows new metastasis 2 multiple locations including the adrenal glands, peritoneum and retroperitoneum locations - Hematology-Oncology consulted-possible hospice/palliative care in NH. intractable pain- likely related to metastatic lung cancer - morphine not controlling his pain, will add Dilaudid - Hematology-Oncology on consult. ?possible ch hypoxemic respiratory failure ( ?as per ED documentation-on home oxygen)sec to? COPD/asthma. - not in exacerbation - p.r.n. DuoNeb ? Nausea vomiting:? Possibly related to metastatic cancer as above. ? Supportive care, gentle hydration severe malnutrion sec to ? Possible metastatic disease: ?nutrition evaluation added DVT prophylaxis:? Heparin subQ inaptient need:possible ? Metastatic disease, hypercalcemia- need hypercalcemia monitoring-need? iv pamidronate, iv hydration for vomiting- and IV antiemetics, in addition read renal function and electrolyte monitoring. Awaitin rehab-hospice/palliative Quality Stroke Does the patient have a stroke diagnosis?: No VTE Prior VTE?: No VTE Risk Level:: Medical - moderate - high VTE Device Contraindication: Treatment Not Indicated VTE Drug Contraindication: N/A - Med Ordered
[2022-10-09] MEDS: 0.9 % Sodium Chloride 1,000 ML 100 ML IVCONT ×2 (14:41→23:55)
[2022-10-09 15:19] VITALS: BP 135/66; PULSE 87; RESP 20; TEMP 37.4; O2SAT 100
--- NOTE | 2022-10-09 15:33 | MHC.CM.PN ---
A Hospice referral has been sent to [facility]. The family is requesting a Hospice informational meeting. Per [facility] in a facility would be the choice. A referral has been sent to [facility] Financial councilors. Patient will need additional insurance coverage.
[2022-10-09 19:23] VITALS: BP 124/58; PULSE 93; RESP 20; TEMP 37.3; O2SAT 97
[2022-10-09] MEDS: 0.9 % Sodium Chloride Flush 3 ML SYRINGE IVFLUSH (19:40)
[2022-10-09 23:51] VITALS: BP 126/62; PULSE 97; RESP 14; TEMP 37.1; O2SAT 98
[2022-10-10] MEDS: Morphine Sulfate 2 MG/ML CARTRIDGE 4 MG IVPUSH ×5 (03:09→22:34)
[2022-10-10 03:17] VITALS: BP 118/63; PULSE 80; RESP 14; TEMP 36.2; O2SAT 93
[2022-10-10] MEDS: HYDROmorphone HCl 1 MG/ML SYRINGE IVPUSH ×4 (05:05→19:31)
[2022-10-10] MEDS: Pantoprazole Sodium 40 MG/10 ML VIAL IVPUSH (05:05)
[2022-10-10] MEDS: Heparin Sodium,Porcine 5,000 UNIT/ML VIAL 5000 UNIT SUBCUT ×2 (07:41→19:31)
[2022-10-10] MEDS: Lidocaine 4 % Patch ADH..PATCH 1 PATCH TRANSDERMA (07:41)
[2022-10-10 07:49] VITALS: BP 128/68; PULSE 87; RESP 15; TEMP 36.8; O2SAT 97
[2022-10-10] MEDS: 0.9 % Sodium Chloride 1,000 ML 100 ML IVCONT (09:54)
--- NOTE | 2022-10-10 10:59 | MHC.CLN ---
F/U POOR INTAKE. DIET=CLEAR LIQUIDS. ADDED ENSURE CLEAR TID TO PROVIDE ADDITIONAL 720 KCALS, 24 G PROTEIN. FOLLOW FOR PLAN OF CARE.
--- NOTE | 2022-10-10 11:44 | PM.PNNEP ---
Subjective Subjective Date of Service: 10/25/22 Interval history: Events noted Physical Exam Vital Signs: Vital Signs: Last Vital Signs Temp 98.2 F 10/10/22 07:49 Pulse 87 10/10/22 07:49 Resp 15 10/10/22 07:49 BP 128/68 10/10/22 07:49 Pulse Ox 97 10/10/22 07:49 O2 Del Method 10/10/22 07:49 O2 Flow Rate 3.0 10/10/22 07:49 Oxygen Flow Rate 3 10/06/22 12:30 BMI result Body Mass Index 14.4 Const: Other: Patient appears uncomfortable, does appear in pain Eyes: General: appearance normal, both eyes and all related structures Cardio: Rate: regular rate GI: Palpation (GI): Soft to palpation Skin: General skin exam: no rashes or lesions noted Neuro: Cognition (Neuro): normal cognition Extrem: General: Yes normal to inspection and Yes no pedal edema Objective Data Labs CBC & Chem 7: 10/07/22 06:25 10/20/22 05:38 Microbiology Microbiology Results: Microbiology 10/06/22 14:05 Blood - Venous Blood Culture - Preliminary No growth after 48 hours. 10/06/22 13:48 Blood - Venous Blood Culture - Preliminary No growth after 48 hours. Procedures Date of Service Date of Service: 10/10/22 Assessment & Plan Assessment and plan (1) Hypercalcemia: Status: Acute (2) Primary lung cancer with metastasis from lung to other site: Status: Acute Plan 57-year-old male with recently diagnosed squamous cell carcinoma, diffusely metastatic presenting with symptomatic hypercalcemia: nausea, weakness. His creat is normal. His calcium is slowly better Recommend: normal saline at 100 cc/hr and DC if Ca< 10 tomorrow s/p pamidronate on 10/07/22 Palliative care Time Spent With Patient Time: Total time spent is greater than 50% in coordination of care (as documented) at patient's floor/unit and/or counseling patient: Progress Note: Quality Stroke Does the patient have a stroke diagnosis?: No
[2022-10-10 11:54] VITALS: BP 109/59; PULSE 87; RESP 16; TEMP 36.9; O2SAT 99
--- NOTE | 2022-10-10 13:03 | HO.PM.IMPN ---
Subjective Subjective Date of Service: 10/10/22 Interval History: Diffuse pain,? nausea vomiting Review of Systems Diffuse pain,? nausea Physical Exam Vital Signs: Vital Signs: Last Vital Signs Temp 98.5 F 10/10/22 11:54 Pulse 87 10/10/22 11:54 Resp 16 10/10/22 11:54 BP 109/59 L 10/10/22 11:54 Pulse Ox 99 10/10/22 11:54 O2 Del Method 10/10/22 11:54 O2 Flow Rate 3.0 10/10/22 07:49 Oxygen Flow Rate 3 10/06/22 12:30 BMI result Body Mass Index 14.4 Appearance: Alert.? Oriented X3.? pain cvs: rrr, [id number] . res: clear to auscultation ,no rhonchii or wheezing abd: no rebound or guarding ,nt, bs present. ext pulses present , no cyanosis . neuro: axo3 , nonfocal. Objective Data Active Medications Acetaminophen (Acetaminophen 325 Mg Tablet) 650 mg PO Q6H PRN PRN Reason: Pain, Mild (Pain Scale 1-3) Docusate Sodium (Docusate Sodium 100 Mg Capsule) 100 mg PO DAILY PRN PRN Reason: Constipation Heparin Sodium (Porcine) (Heparin Sodium,Porcine 5,000 Unit/Ml Vial) 5,000 unit SUBCUT Q12H [facility] Last Admin: 10/10/22 07:41 Dose: 5,000 unit Documented By: LAURIE Hydromorphone HCl (Hydromorphone Hcl 1 Mg/Ml Syringe) 1 mg IVPUSH Q4H PRN; Protocol PRN Reason: Pain, Severe (Pain Scale 7-10) Last Admin: 10/10/22 09:31 Dose: 1 mg Documented By: LAURIE Promethazine HCl 6.25 mg/ (Sodium Chloride) 50.25 mls @ 201 mls/hr IV Q6H PRN PRN Reason: Nausea Sodium Chloride (Ns) 1,000 mls @ 100 mls/hr IVCONT .Q10H [facility] Last Admin: 10/10/22 09:54 Dose: 100 mls/hr Documented By: LAURIE Lidocaine (Lidocaine 4 % Patch Adh..Patch) 1 patch TRANSDERMA DAILY [facility]; Protocol Last Admin: 10/10/22 07:41 Dose: 1 patch Documented By: LAURIE Morphine Sulfate (Morphine Sulfate 2 Mg/Ml Cartridge) 4 mg IVPUSH Q4H PRN; Protocol PRN Reason: Pain, Severe (Pain Scale 7-10) Last Admin: 10/10/22 11:50 Dose: 4 mg Documented By: LAURIE Ondansetron HCl (Ondansetron Hcl 4 Mg/2 Ml Vial) 4 mg IVPUSH Q8H PRN PRN Reason: Nausea and Vomiting Last Admin: 10/07/22 07:45 Dose: 4 mg Documented By: DAVID Pharmacy Consult (Consult Rx Perform Med Rec) 1 each MISCELLANE ONCE PRN PRN Reason: Consult order Sodium Chloride (0.9 % Sodium Chloride Flush 3 Ml Syringe) 3 ml IVFLUSH QSHIFT [facility] Last Admin: 10/10/22 07:22 Dose: Not Given Documented By: LAURIE Non-Admin Reason: IV Running Labs CBC & Chem 7: 10/07/22 06:25 10/10/22 13:20 Assessment and Plan (1) Severe malnutrition: Status: Acute (2) Nausea & vomiting: Status: Acute (3) Hypercalcemia: Status: Acute (4) Primary lung cancer with metastasis from lung to other site: Status: Acute Plan 57-year-old male with past medical history of lung cancer diagnosed in May of this year, presents to the hospital with complaints of pain all over his body found to have hypercalcemia ?acute hypercalcemia - likely secondary to lung cancer - moderate ?intact parathyroid hormone, will also obtain parathyroid hormone related peptide improved with hydration, gentle hydration monietr bmp in am ?metastatic lung cancer - image shows new metastasis 2 multiple locations including the adrenal glands, peritoneum and retroperitoneum locations - Hematology-Oncology consulted-possible hospice/palliative care in [place]. intractable pain- likely related to metastatic lung cancer - morphine not controlling his pain, will add Dilaudid - Hematology-Oncology on consult. ?possible ch hypoxemic respiratory failure ( ?as per ED documentation-on home oxygen)sec to? COPD/asthma. - not in exacerbation - p.r.n. DuoNeb ? Nausea vomiting:? Possibly related to metastatic cancer as above. ? Supportive care, gentle hydration severe malnutrion sec to ? Possible metastatic disease: ?nutrition evaluation added DVT prophylaxis:? Heparin subQ inaptient need:possible ? Metastatic disease, hypercalcemia- need hypercalcemia monitoring-need? iv pamidronate, iv hydration for vomiting- and IV antiemetics, in addition read renal function and electrolyte monitoring. Awaitin rehab-hospice/palliative Quality Stroke Does the patient have a stroke diagnosis?: No VTE Prior VTE?: No VTE Risk Level:: Medical - moderate - high VTE Device Contraindication: Treatment Not Indicated VTE Drug Contraindication: N/A - Med Ordered
[2022-10-10 14:00] LABS: Anion Gap 12 (12-20); Blood Urea Nitrogen 9 mg/dL (9-16); Calcium 9.3 mg/dL (8.4-10.2); Carbon Dioxide 29 mmol/L (22-29); Chloride 105 mmol/L (96-108); Creatinine Clr Calc Pharmacy 78.8; Estimated Glomerular Filt Rate > 60; Glucose Random 95 mg/dL (60-115); Potassium 2.7 mmol/L (3.3-5.1); Sodium 143 mmol/L (135-145)
[2022-10-10 15:11] VITALS: BP 113/59; PULSE 87; RESP 18; TEMP 37; O2SAT 94
[2022-10-10] MEDS: Potassium Chloride Packet 20 MEQ PACKET PO (16:18)
[2022-10-10] MEDS: Magnesium Oxide 400 MG TABLET PO (16:18)
[2022-10-10] MEDS: Potassium Chloride Packet 20 MEQ PACKET 40 MEQ PO (16:21)
[2022-10-10] MEDS: Magnesium Sulfate/H2O 2 GM/50 ML PIGGYBACK IV (16:21)
[2022-10-10 16:37] LABS: Alanine Aminotransferase 7 U/L (0-40); Alkaline Phosphatase 65 U/L (39-117); Aspartate Amino Transferase 15 U/L (5-37); Bilirubin Direct < 0.2 mg/dL (0.0-0.5); Bilirubin Total 0.3 mg/dL (0.0-1.0); Magnesium 1.6 mg/dL (1.6-2.6); Total Protein 5.9 g/dL (6.5-8.0)
[2022-10-10 19:14] VITALS: BP 124/59; PULSE 88; RESP 18; TEMP 36.9; O2SAT 97
[2022-10-10] MEDS: 0.9 % Sodium Chloride Flush 3 ML SYRINGE IVFLUSH (19:32)
[2022-10-11] VITALS (7 sets, daily range): BP systolic 105–124; BP diastolic 56–70; PULSE 75–90; RESP 16–20; TEMP 36.5–36.9; O2SAT 95–100
[2022-10-11] MEDS: 0.9 % Sodium Chloride 1,000 ML 75 ML IVCONT ×2 (01:15→13:37)
[2022-10-11] MEDS: HYDROmorphone HCl 1 MG/ML SYRINGE IVPUSH ×5 (02:01→23:12)
[2022-10-11] MEDS: Morphine Sulfate 2 MG/ML CARTRIDGE 4 MG IVPUSH ×4 (04:39→19:39)
[2022-10-11 06:10] LABS: Anion Gap 12 (12-20); Blood Urea Nitrogen 6 mg/dL (9-16); Calcium 8.8 mg/dL (8.4-10.2); Carbon Dioxide 27 mmol/L (22-29); Chloride 108 mmol/L (96-108); Creatinine Clr Calc Pharmacy 86.7; Estimated Glomerular Filt Rate > 60; Glucose Random 91 mg/dL (60-115); Potassium 3.1 mmol/L (3.3-5.1); Sodium 144 mmol/L (135-145)
--- NOTE | 2022-10-11 07:53 | PM.PNNEP ---
Subjective Subjective Date of Service: 10/11/22 Interval history: Diffuse pain,? nausea vomiting Physical Exam Vital Signs: Vital Signs: Last Vital Signs Temp 98.2 F 10/11/22 07:31 Pulse 76 10/11/22 04:00 Resp 18 10/11/22 07:31 BP 111/61 10/11/22 07:31 Pulse Ox 98 10/11/22 07:31 O2 Del Method 10/11/22 07:31 O2 Flow Rate 2 10/11/22 07:31 Oxygen Flow Rate 3 10/06/22 12:30 BMI result Body Mass Index 14.4 Const: Other: Patient appears uncomfortable, does appear in pain General: cooperative Orientation/consciousness: patient oriented x3 Eyes: General: appearance normal, both eyes and all related structures Resp: Effort & Inspection: normal respiratory effort Auscultation: clear to auscultation bilaterally Cardio: Rate: regular rate Rhythm: regular rhythm GI: Palpation (GI): Soft to palpation Auscultation: normal bowel sounds Skin: General skin exam: no rashes or lesions noted Neuro: General: patient oriented x3 Cognition (Neuro): normal cognition Extrem: General: Yes normal to inspection and Yes no pedal edema Objective Data Labs CBC & Chem 7: 10/07/22 06:25 10/11/22 05:20 Labs: Laboratory Results - last 24 hr 10/10/22 10/11/22 13:20 05:20 Sodium 143 144 Potassium 2.7 L 3.1 L Chloride 105 108 Carbon Dioxide 29 27 Anion Gap 12 12 BUN 9 6 L Creatinine 0.55 0.50 Estim Creat Clear Calc 78.8 86.7 Estimated GFR > 60 > 60 Random Glucose 95 91 Calcium 9.3 D 8.8 Magnesium 1.6 Total Bilirubin 0.3 Direct Bilirubin < 0.2 AST 15 ALT 7 Alkaline Phosphatase 65 Total Protein 5.9 L Albumin 3.0 L Microbiology Microbiology Results: Microbiology 10/06/22 14:05 Blood - Venous Blood Culture - Preliminary No growth after 48 hours. 10/06/22 13:48 Blood - Venous Blood Culture - Preliminary No growth after 48 hours. Procedures Date of Service Date of Service: 10/11/22 Assessment & Plan Assessment and plan (1) Severe malnutrition: Status: Acute (2) Nausea & vomiting: Status: Acute (3) Hypercalcemia: Status: Acute (4) Primary lung cancer with metastasis from lung to other site: Status: Acute Plan 57-year-old male with past medical history of lung cancer diagnosed in May of this year, presents to the hospital with complaints of pain all over his body found to have hypercalcemia ?acute hypercalcemia - likely secondary to lung cancer - moderate ?intact parathyroid hormone, will also obtain parathyroid hormone related peptide improved with hydration, gentle hydration monietr bmp in am K low replace with KCL Progress Note: Quality Stroke Does the patient have a stroke diagnosis?: No
[2022-10-11] MEDS: Lidocaine 4 % Patch ADH..PATCH 1 PATCH TRANSDERMA (09:20)
[2022-10-11] MEDS: Magnesium Oxide 400 MG TABLET PO ×2 (09:20→17:29)
[2022-10-11] MEDS: Potassium Chloride ER 20 MEQ TAB.ER.PRT 40 MEQ PO (09:20)
[2022-10-11] MEDS: 0.9 % Sodium Chloride Flush 3 ML SYRINGE IVFLUSH (09:20)
[2022-10-11] MEDS: Heparin Sodium,Porcine 5,000 UNIT/ML VIAL 5000 UNIT SUBCUT ×2 (09:21→19:31)
--- NOTE | 2022-10-11 10:34 | P.PNIM_ITS ---
Subjective Subjective Date of Service: 10/11/22 <Darleen Torre NP - Last Filed: 10/11/22 10:44> 10/26/22 <Ruben Santillan MD - Last Filed: 10/26/22 10:51> Interval History: Follow-up hypercalcemia, lung cancer Feeling a little bit better, only able to drink small amounts throughout the day <Darleen Torre NP - Last Filed: 10/11/22 10:44> Review of Systems Diffuse pain,? nausea <Darleen Torre NP - Last Filed: 10/11/22 10:44> Physical Exam Vital Signs: Vital Signs: Last Vital Signs Temp 98.2 F 10/11/22 07:31 Pulse 76 10/11/22 04:00 Resp 18 10/11/22 07:31 BP 111/61 10/11/22 07:31 Pulse Ox 98 10/11/22 07:31 O2 Del Method 10/11/22 07:31 O2 Flow Rate 2 10/11/22 07:31 Oxygen Flow Rate 3 10/06/22 12:30 BMI result Body Mass Index 14.4 <Darleen Torre NP - Last Filed: 10/11/22 10:44> Appearing in no acute distress, thin and frail lung sounds are clear to auscultation heart regular rate rhythm, clear S1, S2 positive bowel sounds, abdomen is soft, nontender neuro patient is alert x3, no focal deficits <Darleen Torre NP - Last Filed: 10/11/22 10:44> Objective Data Active Medications Acetaminophen (Acetaminophen 325 Mg Tablet) 650 mg PO Q6H PRN PRN Reason: Pain, Mild (Pain Scale 1-3) Docusate Sodium (Docusate Sodium 100 Mg Capsule) 100 mg PO DAILY PRN PRN Reason: Constipation Heparin Sodium (Porcine) (Heparin Sodium,Porcine 5,000 Unit/Ml Vial) 5,000 unit SUBCUT Q12H [facility] Last Admin: 10/11/22 09:21 Dose: 5,000 unit Documented By: RENETTA Hydromorphone HCl (Hydromorphone Hcl 1 Mg/Ml Syringe) 1 mg IVPUSH Q4H PRN; Prot ocol PRN Reason: Pain, Severe (Pain Scale 7-10) Last Admin: 10/11/22 06:29 Dose: 1 mg Documented By: DEJAN Promethazine HCl 6.25 mg/ (Sodium Chloride) 50.25 mls @ 201 mls/hr IV Q6H PRN PRN Reason: Nausea Sodium Chloride (Ns) 1,000 mls @ 75 mls/hr IVCONT .[id number] [facility] Last Admin: 10/11/22 01:15 Dose: 75 mls/hr Documented By: DEJAN Lidocaine (Lidocaine 4 % Patch Adh..Patch) 1 patch TRANSDERMA DAILY [facility]; Protocol Last Admin: 10/11/22 09:20 Dose: 1 patch Documented By: RENETTA Magnesium Oxide (Magnesium Oxide 400 Mg Tablet) 400 mg PO BIDPC [facility] Last Admin: 10/11/22 09:20 Dose: 400 mg Documented By: RENETTA Morphine Sulfate (Morphine Sulfate 2 Mg/Ml Cartridge) 4 mg IVPUSH Q4H PRN; Protocol PRN Reason: Pain, Severe (Pain Scale 7-10) Last Admin: 10/11/22 09:21 Dose: 4 mg Documented By: RENETTA Ondansetron HCl (Ondansetron Hcl 4 Mg/2 Ml Vial) 4 mg IVPUSH Q8H PRN PRN Reason: Nausea and Vomiting Last Admin: 10/07/22 07:45 Dose: 4 mg Documented By: DAVID Pharmacy Consult (Consult Rx Perform Med Rec) 1 each MISCELLANE ONCE PRN PRN Reason: Consult order Sodium Chloride (0.9 % Sodium Chloride Flush 3 Ml Syringe) 3 ml IVFLUSH QSHIFT [facility] Last Admin: 10/11/22 09:20 Dose: 3 ml Documented By: RENETTA <Darleen Torre NP - Last Filed: 10/11/22 10:44> Labs CBC & Chem 7: : 10/07/22 06:25 10/20/22 05:38 <Darleen Torre NP - Last Filed: 10/11/22 10:44> Labs: Laboratory Results - last 24 hr 10/10/22 10/11/22 13:20 05:20 Anion Gap 12 12 Estim Creat Clear Calc 78.8 86.7 Estimated GFR > 60 > 60 Random Glucose 95 91 Calcium 9.3 D 8.8 Magnesium 1.6 Total Bilirubin 0.3 Direct Bilirubin < 0.2 AST 15 ALT 7 Alkaline Phosphatase 65 Total Protein 5.9 L Albumin 3.0 L <Darleen Torre NP - Last Filed: 10/11/22 10:44> Assessment and Plan (1) Severe malnutrition: Status: Acute <Darleen Torre NP - Last Filed: 10/11/22 10:44> (2) Nausea & vomiting: Status: Acute <Darleen Torre NP - Last Filed: 10/11/22 10:44> (3) Hypercalcemia: Status: Acute <Darleen Torre NP - Last Filed: 10/11/22 10:44> (4) Primary lung cancer with metastasis from lung to other site: Status: Acute <Darleen Torre NP - Last Filed: 10/11/22 10:44> Assessment and Plan: 57-year-old male with past medical history of lung cancer diagnosed in May of this year, presents to the hospital with complaints of pain all over his body found to have hypercalcemia Acute hypercalcemia. Resolved likely secondary to lung cancer intact parathyroid hormone improved with hydration Hypokalemia secondary to poor nutrition Oral potassium Metastatic lung cancer Image shows new metastasis 2 multiple locations including the adrenal glands, peritoneum and retroperitoneum locations Hematology-Oncology consulted-possible hospice/palliative care in [facility] Intractable pain- likely related to metastatic lung cancer Dialudid for pain control Nausea and vomiting Secondary to metastatic cancer Supportive care Severe protein calorie malnutrition. BMI 14.4 Add proteins diet DVT prophylaxis:? Heparin subQ Attending Dr. Santillan Disposition Plan for hospice at long-term care, insurance is being worked out currently inpatient need:possible ? Metastatic disease, hypercalcemia- need hypercalcemia monitoring-need? iv pamidronate, iv hydration for vomiting- and IV antiemetics, in addition read renal function and electrolyte monitoring. Awaiting rehab-hospice/palliative <Darleen Torre NP - Last Filed: 10/11/22 10:44> Quality Stroke Does the patient have a stroke diagnosis?: No <Darleen Torre NP - Last Filed: 10/11/22 10:44> VTE Prior VTE?: No <Darleen Torre NP - Last Filed: 10/11/22 10:44> VTE Risk Level:: Medical - moderate - high <JAZMINE Cid Last Filed: 10/11/22 10:44> VTE Device Contraindication: Treatment Not Indicated <Darleen Torre NP - Last Filed: 10/11/22 10:44> VTE Drug Contraindication: N/A - Med Ordered <Darleen Torre NP - Last Filed: 10/11/22 10:44>
--- NOTE | 2022-10-11 10:49 | P.PNHO-ONC_ITS ---
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 Occlusion of left lower lobe bronchus with severe emphysema. Much of the left lower lobe was collapsed. Left hilar lymph node enlarged, metastatic disease. AJCC stage T2b N1 He had bronchoscopy and biopsy of left lower lobe endobronchial lesion on 05/29/2022 which revealed poorly differentiated squamous cell carcinoma. NGS revealed PDL1- TPS 1%, ALK, EGFR,KRAS, BRAF, MET, RET, ROS1 negative. MSI- stable, mcbride-TRK not expressed, HER2 negative, PTEN deletion positive (may respond PI3K/AKT/mTOR and PARP inhibitors). CDKN2A and SMARCA4 (SNV's/insertions/deletions) detected. Staging CT abdomen/pelvis with contrast and brain MRI performed 06/05/2022 showed no evidence of distant metastasis. He was seen by Dr. Grady from [facility], concurrent chemoradiation therapy. CTA performed 06/22/2022 showed no PE but postobstructive atelectasis of entire left lung due to obstruction of left mainstem bronchus by growing left hilar mass. On 07/02/2022 Dr. Stark attempted bronchoscopy with argon/razor tumor debulking but this was not enough to open of the collapsed left lung. Interval History Interval history: He indicates in [place] pain in the lower anterior chest and epigastrium. Respriation is unimpaired. Review of Systems - Constitutional Reports anorexia - Eyes Reports blind spots - ENT Reports other - Cardiovascular Reports fast heart rate - Respiratory Reports change in phlegm color, Reports dyspnea - Gastrointestinal Reports abdominal pain - Genitourinary Genitourinary: Reports urinary urgency - Musculoskeletal Reports muscle weakness - Neurologic Reports weakness PMFSH Medical History: Medical History (Last Reviewed 10/07/22 @ 14:02 by Simran Mcmillan MD) Asthma COPD (chronic obstructive pulmonary disease) Hypoxia O2 dependent Respiratory failure Squamous cell carcinoma of lung Onset Date: ~2021 Tobacco dependence Family History: Family History (Last Reviewed 10/07/22 @ 14:02 by Simran Mcmillan MD) Other No family history of cancer Surgical History: Surgical History (Last Reviewed 10/07/22 @ 14:02 by Simran Mcmillan MD) History of lung biopsy Onset Date: ~05/2022 Social History: Social History (Last Reviewed 10/07/22 @ 14:02 by Simran Mcmillan MD) Living Situation History: Household Members: Family Household Members Other:: brother Housing: Apartment Are you a primary patient care technician to a significant other at home: No Do you presently have visiting nurse or other home services: Yes Tobacco History: Patient Tobacco Use Status: Former Tobacco user Tobacco use type: Cigarette Cigarette Packs Per Day: 1 Years Smoked: 45 Smoke Quit Date: 4 months Second Hand Smoke Exposure: No Occupation Assessmet: service: No Current occupational status: disabled Home Medications and Allergies Current Medications: Current Medications Acetaminophen (Acetaminophen 325 Mg Tablet) 650 mg PO Q6H PRN PRN Reason: Pain, Mild (Pain Scale 1-3) Docusate Sodium (Docusate Sodium 100 Mg Capsule) 100 mg PO DAILY PRN PRN Reason: Constipation Heparin Sodium (Porcine) (Heparin Sodium,Porcine 5,000 Unit/Ml Vial) 5,000 unit SUBCUT Q12H [facility] Last Admin: 10/11/22 09:21 Dose: 5,000 unit Hydromorphone HCl (Hydromorphone Hcl 1 Mg/Ml Syringe) 1 mg IVPUSH Q4H PRN; Pro tocol PRN Reason: Pain, Severe (Pain Scale 7-10) Last Admin: 10/11/22 06:29 Dose: 1 mg Promethazine HCl 6.25 mg/ (Sodium Chloride) 50.25 mls @ 201 mls/hr IV Q6H PRN PRN Reason: Nausea Sodium Chloride (Ns) 1,000 mls @ 75 mls/hr IVCONT .[id number] [facility] Last Admin: 10/11/22 01:15 Dose: 75 mls/hr Lidocaine (Lidocaine 4 % Patch Adh..Patch) 1 patch TRANSDERMA DAILY [facility]; Protocol Last Admin: 10/11/22 09:20 Dose: 1 patch Magnesium Oxide (Magnesium Oxide 400 Mg Tablet) 400 mg PO BIDPC [facility] Last Admin: 10/11/22 09:20 Dose: 400 mg Morphine Sulfate (Morphine Sulfate 2 Mg/Ml Cartridge) 4 mg IVPUSH Q4H PRN; Protocol PRN Reason: Pain, Severe (Pain Scale 7-10) Last Admin: 10/11/22 09:21 Dose: 4 mg Ondansetron HCl (Ondansetron Hcl 4 Mg/2 Ml Vial) 4 mg IVPUSH Q8H PRN PRN Reason: Nausea and Vomiting Last Admin: 10/07/22 07:45 Dose: 4 mg Pharmacy Consult (Consult Rx Perform Med Rec) 1 each MISCELLANE ONCE PRN PRN Reason: Consult order Sodium Chloride (0.9 % Sodium Chloride Flush 3 Ml Syringe) 3 ml IVFLUSH QSHIFT [facility] Last Admin: 10/11/22 09:20 Dose: 3 ml Home Medications Medication Instructions Recorded Confirmed Type acetaminophen 325 mg tablet 650 mg PO QID PRN Pain 10/07/22 10/07/22 History (Tylenol) albuterol sulfate 90 mcg/actuation 1 inh inhalation QID PRN Shortness 10/07/22 10/07/22 History aerosol inhaler Of Breath Or Wheezing omeprazole 40 mg capsule,delayed 40 mg PO DAILY@0630 10/07/22 10/07/22 History release ondansetron 4 mg disintegrating 1 tab Q8H PRN nausea 10/07/22 10/07/22 History tablet Allergies Allergy/AdvReac Type Severity Reaction Status Date / Time No Known Allergies Allergy Verified 07/03/22 16:42 Exam Vital signs: Vital Signs Temp 98.2 F 10/11/22 07:31 Pulse 76 10/11/22 04:00 Resp 18 10/11/22 07:31 BP 111/61 10/11/22 07:31 Pulse Ox 98 10/11/22 07:31 O2 Del Method 10/11/22 07:31 O2 Flow Rate 2 10/11/22 07:31 Intake & Output 10/10/22 10/11/22 10/11/22 18:59 06:59 18:59 Intake Total 1528.333 / 2768.333 1240 / 2768.333 Output Total 600 / 1875 1275 / 1875 Balance 928.333 / 893.333 -35 / 893.333 Urine Output (Average ml/kg/hr) 1.31 2.79 Intake: Intake, Oral Amount 480 / 720 240 / 720 Intake, IV Amount 1048.333 / 2048.333 1000 / 8.333 Magnesium Sulfate/H2O 2 gm In 50 / 50 50 ml @ 50 mls/hr IV ONCE ONE Rx#:[id number] 0.9 % Sodium Chloride 1,000 ml 998.333 / 0687.371 0278 / 1997.333 @ 100 mls/hr IVCONT .Q10H [facility] Rx#:[id number] Output: Output, Urine Amount 600 / 1875 1275 / 1875 Other: Meal Refused No NPO No Breakfast % Eaten <25 Lunch % Eaten <25 Dinner % Eaten 25% Urine Urinal Urinal Urine Color Pale Yellow Yellow Weight 38.102 kg BMI result Body Mass Index 14.4 - Constitutional Present: no acute distress, mild distress, chronically ill appearing - Routine HEENT Exam Head: Present: atraumatic - Routine Neck Exam Present: full ROM - Routine Chest/Breast/Axilla Exam Chest wall: Present: tenderness - Routine Respiratory Exam Present: CTAB. Absent: accessory muscle use, respiratory distress - Routine Cardiovascular Exam Cardiovascular: Present: RRR, S1, S2 - Routine Abdominal Exam Present: diminished bowel sounds, soft - Routine Extremities Exam Present: normal inspection. Absent: calf tenderness - Routine Back/Spine/Pelvis Exam Back/Spine: Present: full ROM - Routine Skin Exam Present: intact. Absent: cyanosis - Routine Neurological Exam Present: alert, oriented X3 Data - Labs CBC & Chem 7: 10/07/22 06:25 10/11/22 05:20 - Imaging Radiologist's impression: ITS Impressions Chest X-Ray 10/06/22 13:27 IMPRESSION: 1. Interval improvement in left lung opacification with decreased cardiomediastinal shift to the left. Left basilar and apical pleural thickening and scarring. A small left pleural effusion cannot be excluded. 2. New irregular lytic lesion in the proximal left humerus concerning for malignancy/metastatic disease. Abdomen/Pelvis CT 10/06/22 16:19 IMPRESSION: 1. There are multiple new abnormal soft tissue nodules seen within the peritoneal and retroperitoneal space concerning for metastatic disease. There is also new bulky cardiophrenic adenopathy concerning for metastatic adenopathy. The left adrenal gland is partially obscured by a new retroperitoneal mass lesion as well.. These could be clinically correlated. PET CT scan or biopsy may be helpful to define further if needed. 2. I do not appreciate any obstructive changes to the bowel. Lack of significant intra-abdominal fat limits evaluation. 3. Chronic appearing changes otherwise as described above. Bone Osseous Survey 10/07/22 10:25 IMPRESSION: Lytic lesions within the left humeral diaphysis and left inferior pubic ramus, consistent with osseous metastatic disease. Questionable lesion in the right fibular shaft. Recommend repeat dedicated orthogonal views of the right tibia and fibula for further assessment. Assessment and Plan Patient Active problem list reviewed?: Yes (1) Squamous cell carcinoma of lung Problem details: ([facility] - dx 05/2022) Status: Acute Assessment and plan: He seems stable. will need optimization of pain regimen before discharge. - Time Spent With Patient Time Spent with Patient (in minutes): 15
[2022-10-12] VITALS (8 sets, daily range): BP systolic 108–130; BP diastolic 56–67; PULSE 84–97; RESP 15–18; TEMP 36.4–37.2; O2SAT 97–100
[2022-10-12] MEDS: Morphine Sulfate 2 MG/ML CARTRIDGE 4 MG IVPUSH ×2 (02:31→08:07)
[2022-10-12] MEDS: 0.9 % Sodium Chloride 1,000 ML 75 ML IVCONT (03:32)
[2022-10-12] MEDS: HYDROmorphone HCl 1 MG/ML SYRINGE IVPUSH ×3 (04:59→20:47)
[2022-10-12] MEDS: Potassium Chloride Packet 20 MEQ PACKET 40 MEQ PO (08:01)
[2022-10-12] MEDS: 0.9 % Sodium Chloride Flush 3 ML SYRINGE IVFLUSH (08:01)
[2022-10-12] MEDS: Heparin Sodium,Porcine 5,000 UNIT/ML VIAL 5000 UNIT SUBCUT ×2 (08:01→19:55)
[2022-10-12] MEDS: Lidocaine 4 % Patch ADH..PATCH 1 PATCH TRANSDERMA (08:02)
[2022-10-12] MEDS: Magnesium Oxide 400 MG TABLET PO ×2 (08:03→18:33)
--- NOTE | 2022-10-12 09:59 | HO.PM.IMPN ---
Subjective Subjective Date of Service: 10/12/22 Interval History: seen and examined this morning follow up for metastatic lung cancer reporting widespread body pain denies fever, chills, sob, chest pain Review of Systems Review of Systems: Yes all other systems are reviewed and are negative Constitutional Constitutional: Denies chills and Denies fever(s) Cardiovascular Cardiovascular: Denies chest pain, Denies palpitations and Denies dyspnea Respiratory Respiratory: Denies cough and Denies dyspnea Gastrointestinal Gastrointestinal: Denies abdominal pain, Denies nausea and Denies vomiting Endocrine Endocrine: Denies palpitations Physical Exam Vital Signs: Vital Signs: Last Vital Signs Temp 98.8 F 10/12/22 07:42 Pulse 84 10/12/22 07:42 Resp 18 10/12/22 07:42 BP 108/56 L 10/12/22 07:42 Pulse Ox 97 10/12/22 07:42 O2 Del Method 10/12/22 07:42 O2 Flow Rate 2 10/12/22 07:42 Oxygen Flow Rate 3 10/06/22 12:30 BMI result Body Mass Index 14.4 Const: General: comfortable, alert and awake Nutritional Appearance: cachectic Orientation/consciousness: patient oriented x3 Resp: Effort & Inspection: normal respiratory effort and able to speak in complete sentences Cardio: Rate: regular rate Heart sounds: S1 normal heart sound present and S2 normal heart sound present GI: Inspection: No distended Palpation (GI): Soft to palpation Skin: Other: nodule midback between scapula, well cicumscribed Neuro: General: patient oriented x3 Extrem: General: Yes no pedal edema Objective Data Active Medications Acetaminophen (Acetaminophen 325 Mg Tablet) 650 mg PO Q6H PRN PRN Reason: Pain, Mild (Pain Scale 1-3) Docusate Sodium (Docusate Sodium 100 Mg Capsule) 100 mg PO DAILY [facility] Heparin Sodium (Porcine) (Heparin Sodium,Porcine 5,000 Unit/Ml Vial) 5,000 unit SUBCUT Q12H [facility] Last Admin: 10/12/22 08:01 Dose: 5,000 unit Documented By: ALLY Hydromorphone HCl (Hydromorphone Hcl 1 Mg/Ml Syringe) 1 mg IVPUSH Q4H PRN; Protocol PRN Reason: Pain, Severe (Pain Scale 7-10) Last Admin: 10/12/22 04:59 Dose: 1 mg Documented By: RAMON Promethazine HCl 6.25 mg/ (Sodium Chloride) 50.25 mls @ 201 mls/hr IV Q6H PRN PRN Reason: Nausea Sodium Chloride (Ns) 1,000 mls @ 75 mls/hr IVCONT .[id number] [facility] Last Admin: 10/12/22 03:32 Dose: 75 mls/hr Documented By: RAMON Lidocaine (Lidocaine 4 % Patch Adh..Patch) 1 patch TRANSDERMA DAILY [facility]; Protocol Last Admin: 10/12/22 08:02 Dose: 1 patch Documented By: ALLY Magnesium Oxide (Magnesium Oxide 400 Mg Tablet) 400 mg PO BIDPC [facility] Last Admin: 10/12/22 08:03 Dose: 400 mg Documented By: ALLY Ondansetron HCl (Ondansetron Hcl 4 Mg/2 Ml Vial) 4 mg IVPUSH Q8H PRN PRN Reason: Nausea and Vomiting Last Admin: 10/07/22 07:45 Dose: 4 mg Documented By: DAVID Oxycodone HCl (Oxycodone Hcl Immed Release 5 Mg Tablet) 5 mg PO Q6H PRN PRN Reason: Pain, Moderate (Pain Scale 4-6 Pharmacy Consult (Consult Rx Perform Med Rec) 1 each MISCELLANE ONCE PRN PRN Reason: Consult order Polyethylene Glycol (Polyethylene Glycol 3350 17 Gm Powd.Pack) 17 gm PO DAILY PRN PRN Reason: Constipation Sodium Chloride (0.9 % Sodium Chloride Flush 3 Ml Syringe) 3 ml IVFLUSH QSHIFT [facility] Last Admin: 10/12/22 08:01 Dose: 3 ml Documented By: ALLY Labs CBC & Chem 7: 10/07/22 06:25 10/11/22 05:20 Microbiology Microbiology Results: Microbiology 10/06/22 14:05 Blood Culture - Final Blood - Venous No growth after 5 days. 10/06/22 13:48 Blood Culture - Final Blood - Venous No growth after 5 days. Assessment and Plan (1) Squamous cell carcinoma of lung: Status: Acute (2) Intractable pain: Status: Acute Plan 57-year-old male with past medical history of lung cancer diagnosed in May of this year, presents to the hospital with complaints of pain all over his body found to have hypercalcemia Acute hypercalcemia. Resolved likely secondary to lung cancer intact parathyroid hormone improved with hydration Hypokalemia secondary to poor nutrition Oral potassium Metastatic lung cancer Image shows new metastasis 2 multiple locations including the adrenal glands, peritoneum and retroperitoneum locations Hematology-Oncology consulted-possible hospice/palliative care in LTC Intractable pain- likely related to metastatic lung cancer will start to transition to po pain medication Nausea and vomiting Secondary to metastatic cancer Supportive care COPD continue supplemental oxygen, wean as tolerated Severe protein calorie malnutrition. BMI 14.4 Add proteins diet DVT prophylaxis:? Heparin subQ Attending Dr. Santillan Disposition Plan for hospice at long-term [facility], insurance is being worked out currently inpatient need:possible Metastatic disease, hypercalcemia- need hypercalcemia monitoring-need? iv pamidronate, iv hydration for vomiting- and IV antiemetics, in addition read renal function and electrolyte monitoring. Awaiting rehab-hospice/palliative Quality Stroke Does the patient have a stroke diagnosis?: No VTE Prior VTE?: No VTE Risk Level:: Medical - moderate - high VTE Device Contraindication: Treatment Not Indicated VTE Drug Contraindication: N/A - Med Ordered
[2022-10-12] MEDS: oxyCODONE HCl Immed Release 5 MG TABLET PO ×2 (11:44→18:11)
--- NOTE | 2022-10-12 12:55 | PM.CNGS ---
History of Present Illness Consult details Consult date: 10/12/22 Narrative: 57M referred for a nodule on the back. He was admitted about a week ago because of weakness and multiple aches and pains. He has a hx of lung cancer and imaging studies now show adenopathy in the cardiophrenic area, along with ndoules in the peritoneal, retroperitoneal and left adrenal areas consistent with widespread metastatic disease. He also has this mass on the back which has been painful as well . He is uncertain as to how long he has had this, but he states it has been at least a week. Review of Systems Constitutional: Constitutional: Reports body ache(s) and Reports weight loss Cardiovascular: Cardiovascular: Denies chest pain Respiratory: Respiratory: Reports cough Gastrointestinal: Gastrointestinal: Denies abdominal pain Genitourinary: Genitourinary: Denies dysuria Musculoskeletal: Musculoskeletal: Reports back pain, Reports arthralgias and Reports limited range of motion COUNTS INCLUDE 234 BEDS AT THE [facility] Past Medical History Medical History (Updated 10/12/22 @ 13:02 by Dylon Nelson MD) Asthma COPD (chronic obstructive pulmonary disease) Hypoxia O2 dependent Respiratory failure Squamous cell carcinoma of lung (~2021) Subcutaneous nodule of back Tobacco dependence Family History Family History Other No family history of cancer Surgical History Surgical History History of lung biopsy (~05/2022) Social History Social History Household Members: Family Household Members Other:: brother Housing: Apartment Are you a primary zoo caretaker to a significant other at home: No Do you presently have visiting nurse or other home services: Yes Patient Tobacco Use Status: Former Tobacco user Quit Date: 4 months Tobacco use type: Cigarette Cigarette Packs Per Day: 1 Years Smoked: 45 Second Hand Smoke Exposure: No service: No Current occupational status: disabled Cognitive needs: No Hearing needs: No Vision needs: No Meds Allergies Allergy/AdvReac Type Severity Reaction Status Date / Time No Known Allergies Allergy Verified 07/03/22 16:42 Active Medications: Current Medications Acetaminophen (Acetaminophen 325 Mg Tablet) 650 mg PO Q6H PRN PRN Reason: Pain, Mild (Pain Scale 1-3) Docusate Sodium (Docusate Sodium 100 Mg Capsule) 100 mg PO DAILY [facility] Heparin Sodium (Porcine) (Heparin Sodium,Porcine 5,000 Unit/Ml Vial) 5,000 unit SUBCUT Q12H [facility] Last Admin: 10/12/22 08:01 Dose: 5,000 unit Hydromorphone HCl (Hydromorphone Hcl 1 Mg/Ml Syringe) 1 mg IVPUSH Q4H PRN; Protocol PRN Reason: Pain, Severe (Pain Scale 7-10) Last Admin: 10/12/22 04:59 Dose: 1 mg Promethazine HCl 6.25 mg/ (Sodium Chloride) 50.25 mls @ 201 mls/hr IV Q6H PRN PRN Reason: Nausea Sodium Chloride (Ns) 1,000 mls @ 75 mls/hr IVCONT .[id number] [facility] Last Admin: 10/12/22 10:32 Dose: Not Given Lidocaine (Lidocaine 4 % Patch Adh..Patch) 1 patch TRANSDERMA DAILY [facility]; Protocol Last Admin: 10/12/22 08:02 Dose: 1 patch Magnesium Oxide (Magnesium Oxide 400 Mg Tablet) 400 mg PO BIDPC [facility] Last Admin: 10/12/22 08:03 Dose: 400 mg Ondansetron HCl (Ondansetron Hcl 4 Mg/2 Ml Vial) 4 mg IVPUSH Q8H PRN PRN Reason: Nausea and Vomiting Last Admin: 10/07/22 07:45 Dose: 4 mg Oxycodone HCl (Oxycodone Hcl Immed Release 5 Mg Tablet) 5 mg PO Q6H PRN PRN Reason: Pain, Moderate (Pain Scale 4-6 Last Admin: 10/12/22 11:44 Dose: 5 mg Pharmacy Consult (Consult Rx Perform Med Rec) 1 each MISCELLANE ONCE PRN PRN Reason: Consult order Polyethylene Glycol (Polyethylene Glycol 3350 17 Gm Powd.Pack) 17 gm PO DAILY PRN PRN Reason: Constipation Sodium Chloride (0.9 % Sodium Chloride Flush 3 Ml Syringe) 3 ml IVFLUSH QSHIFT [facility] Last Admin: 10/12/22 08:01 Dose: 3 ml Home Medications Medication Instructions Recorded Confirmed Last Taken Type acetaminophen 325 mg tablet 650 mg PO QID PRN Pain 10/07/22 10/07/22 Unknown History (Tylenol) albuterol sulfate 90 mcg/actuation 1 inh inhalation QID PRN Shortness 10/07/22 10/07/22 Unknown History aerosol inhaler Of Breath Or Wheezing omeprazole 40 mg capsule,delayed 40 mg PO DAILY@0630 10/07/22 10/07/22 10/06/22 History release ondansetron 4 mg disintegrating 1 tab Q8H PRN nausea 10/07/22 10/07/22 Unknown History tablet Physical Exam Vital Signs: Vital Signs: Last Vital Signs Temp 98.5 F 10/12/22 11:44 Pulse 84 10/12/22 11:44 Resp 18 10/12/22 11:44 BP 130/67 10/12/22 11:44 Pulse Ox 98 10/12/22 11:44 O2 Del Method 10/12/22 11:44 O2 Flow Rate 2 10/12/22 11:44 Oxygen Flow Rate 3 10/06/22 12:30 BMI result Body Mass Index 14.4 Const: Other: appears very frail and cachectic General: comfortable and no acute distress Orientation/consciousness: patient oriented x3 Neck: Neck: Yes no lymphadenopathy Resp: Auscultation: clear to auscultation bilaterally Cardio: Rhythm: regular rhythm GI: Palpation (GI): Soft to palpation, nontender and no guarding Back/Spine/Pelvis: Other: subcutaneous nodule on upper back, about 3.5 cm in diameter, firm, welldefined with redness of skin Neuro: General: patient oriented x3 Results Labs Result diagrams: 10/07/22 06:25 10/13/22 05:48 Labs: Urine 10/06/22 Range/Units 16:38 Urine Color Straw Urine Appearance Clear Urine pH 6.0 (5.0-9.0) Ur Specific [place] 1.010 (1.005-1.025) Urine Protein Negative (Neg-Trace) mg/dL Urine Glucose (UA) Negative (Negative) mg/dL All other labs normal. Imaging Additional studies: Laboratory Results WBC 3.7 X10*3/uL (4.8-10.8) L 10/07/22 06:25 RBC 3.02 X10*6/uL (4.60-5.80) L 10/07/22 06:25 Hgb 8.5 g/dl (14.0-18.0) L 10/07/22 06:25 Hct 27.6 % (42.0-52.0) L 10/07/22 06:25 MCV 91.4 fL (80.0-98.0) 10/07/22 06:25 MCH 28.1 pg (27.0-33.0) 10/07/22 06:25 MCHC 30.8 g/dl (31.0-36.0) L 10/07/22 06:25 RDW 23.9 % (11.0-16.0) H 10/07/22 06:25 Plt Count 215 X10*3/uL (160-400) 10/07/22 06:25 MPV 9.2 fL (9.4-12.4) L 10/07/22 06:25 Immature Gran % (Auto) 0.3 % (0.0-0.4) 10/07/22 06:25 Neut % (Auto) 79.8 % (45-73) H 10/07/22 06:25 Lymph % (Auto) 10.2 % (20-40) L 10/07/22 06:25 [place] % (Auto) 9.1 % (2-11) 10/07/22 06:25 Eos % (Auto) 0.3 % (0-4) 10/07/22 06:25 Baso % (Auto) 0.3 % (0-2) 10/07/22 06:25 Lymph # (Auto) 0.4 X10*3/uL (1.2-4.9) L 10/07/22 06:25 [place] # (Auto) 0.3 X10*3/uL (0.1-1.2) 10/07/22 06:25 Eos # (Auto) 0.0 X10*3/uL (0.0-0.4) 10/07/22 06:25 Baso # (Auto) 0.0 X10*3/uL (0.0-0.2) 10/07/22 06:25 Abs Immat Gran (auto) 0.01 X10*3/uL (0.00-0.03) 10/07/22 06:25 Absolute Neuts (auto) 3.0 x10*3/uL (2.0-8.3) 10/07/22 06:25 Absolute Nucleated RBC 0.000 X10*3/uL (0.0-0.012) 10/07/22 06:25 Nucleated RBC % (auto) 0.0 /100WBC (0.0-0.2) 10/07/22 06:25 PT 12.2 SEC (10.0-13.1) 10/06/22 14:05 INR 1.1 (0.9-1.1) 10/06/22 14:05 Sodium 144 mmol/L (135-145) 10/11/22 05:20 Potassium 3.1 mmol/L (3.3-5.1) L 10/11/22 05:20 Chloride 108 mmol/L (96-108) 10/11/22 05:20 Carbon Dioxide 27 mmol/L (22-29) 10/11/22 05:20 Anion Gap 12 (12-20) 10/11/22 05:20 BUN 6 mg/dL (9-16) L 10/11/22 05:20 Creatinine 0.50 mg/dL (0.5-1.4) 10/11/22 05:20 Estim Creat Clear Calc 86.7 10/11/22 05:20 Estimated GFR > 60 10/11/22 05:20 Random Glucose 91 mg/dL (60-115) 10/11/22 05:20 Lactic Acid 1.8 mmol/L (0.5-2.0) 10/06/22 14:05 Uric Acid 3.6 mg/dL (3.4-7.0) 10/06/22 19:40 Calcium 8.8 mg/dL (8.4-10.2) 10/11/22 05:20 Phosphorus 2.8 mg/dL (2.7-4.5) 10/06/22 19:40 Magnesium 1.6 mg/dL (1.6-2.6) 10/10/22 13:20 Total Bilirubin 0.3 mg/dL (0.0-1.0) 10/10/22 13:20 Direct Bilirubin < 0.2 mg/dL (0.0-0.5) 10/10/22 13:20 AST 15 U/L (5-37) 10/10/22 13:20 ALT 7 U/L (0-40) 10/10/22 13:20 Alkaline Phosphatase 65 U/L (39-117) 10/10/22 13:20 Lactate Dehydrogenase 356 U/L (118-273) H 10/06/22 19:40 Troponin I High Sens < 3.5 ng/L (<3.5-35.0) 10/06/22 14:05 B-Natriuretic Peptide < 10 pg/mL (<100) 10/06/22 14:06 Total Protein 5.9 g/dL (6.5-8.0) L 10/10/22 13:20 Albumin 3.0 g/dL (3.5-5.0) L 10/10/22 13:20 Lipase < 4 U/L (8-78) L 10/06/22 14:05 PTH Intact <6 pg/mL (16-77) L 10/07/22 07:09 Calcium (PTH Intact) 12.8 mg/dL (8.6-10.3) H 10/07/22 07:09 Urine Color Straw 10/06/22 16:38 Urine Appearance Clear 10/06/22 16:38 Urine pH 6.0 (5.0-9.0) 10/06/22 16:38 Ur Specific [place] 1.010 (1.005-1.025) 10/06/22 16:38 Urine Protein Negative mg/dL (Neg-Trace) 10/06/22 16:38 Urine Glucose (UA) Negative mg/dL (Negative) 10/06/22 16:38 Urine Ketones Negative mg/dL (Negative) 10/06/22 16:38 Urine Blood Negative (Negative) 10/06/22 16:38 Urine Nitrite Negative (Negative) 10/06/22 16:38 Ur Leukocyte Esterase Negative (Negative) 10/06/22 16:38 Influenza Type A (PCR) NEGATIVE (Negative) 10/06/22 13:47 Influenza Type B (PCR) NEGATIVE (Negative) 10/06/22 13:47 RSV RNA Qual (PCR) NEGATIVE (Negative) 10/06/22 13:47 SARS-CoV-2 RNA (RT-PCR) NEGATIVE (Negative) 10/06/22 13:47 Impressions Chest X-Ray 10/06/22 13:27 IMPRESSION: 1. Interval improvement in left lung opacification with decreased cardiomediastinal shift to the left. Left basilar and apical pleural thickening and scarring. A small left pleural effusion cannot be excluded. 2. New irregular lytic lesion in the proximal left humerus concerning for malignancy/metastatic disease. Abdomen/Pelvis CT 10/06/22 16:19 IMPRESSION: 1. There are multiple new abnormal soft tissue nodules seen within the peritoneal and retroperitoneal space concerning for metastatic disease. There is also new bulky cardiophrenic adenopathy concerning for metastatic adenopathy. The left adrenal gland is partially obscured by a new retroperitoneal mass lesion as well.. These could be clinically correlated. PET CT scan or biopsy may be helpful to define further if needed. 2. I do not appreciate any obstructive changes to the bowel. Lack of significant intra-abdominal fat limits evaluation. 3. Chronic appearing changes otherwise as described above. Bone Osseous Survey 10/07/22 10:25 IMPRESSION: Lytic lesions within the left humeral diaphysis and left inferior pubic ramus, consistent with osseous metastatic disease. Questionable lesion in the right fibular shaft. Recommend repeat dedicated orthogonal views of the right tibia and fibula for further assessment. Assessment and Plan (1) Subcutaneous nodule of back: Status: Acute This is likely to be another one of his metastatic nodules. I did explain the option of excision vs observation. I reviewed the technique of excision of this nodule as well as the risks, benefits and alternatives. He says he wants to observe this for now. He does not want to proceed with surgical excisionat this point. In the meantime, I have instructed his nurse to do regular position changes as the mass is causing pressure on his back when he is supine and may eventually develop a pressure ulcer. We can cover this with foam dressings for now to relieve some pressure off of this. He has advanced metastatic disease from his left lung squamous cell carcinoma.He has lytic lesions in his bones as well. He is being planned for palliative/hospice care. Procedures Date of Service Date of Service: 10/12/22
--- NOTE | 2022-10-12 13:59 | MHC.CLN ---
F/U INTAKE USUALLY POOR. DIET=FULL LIQUIDS. CONTINUE ENSURE CLEAR TID TO PROVIDE ADDITIONAL 720 KCALS, 24 G PROTEIN. FOLLOW FOR PLAN OF CARE.
--- NOTE | 2022-10-12 14:11 | MHC.CM.PN ---
gennaro spoke with [facility] financial services who has submitted the MH application but MH closed today. per financial they will call Saturday to expedite the process. no bed offers for LTC or hospice bed at this time. GENNARO will continue to follow
[2022-10-12] MEDS: polyethylene glycoL 3350 17 GM POWD.PACK PO (18:11)
[2022-10-13] MEDS: HYDROmorphone HCl 1 MG/ML SYRINGE IVPUSH ×6 (00:54→22:29)
[2022-10-13 04:00] VITALS: BP 115/55; PULSE 86; RESP 12; TEMP 37.1; O2SAT 100
[2022-10-13] MEDS: 0.9 % Sodium Chloride Flush 3 ML SYRINGE IVFLUSH ×4 (04:55→20:51)
[2022-10-13 06:34] LABS: Anion Gap 11 (12-20); Blood Urea Nitrogen 5 mg/dL (9-16); Calcium 8.7 mg/dL (8.4-10.2); Carbon Dioxide 27 mmol/L (22-29); Chloride 105 mmol/L (96-108); Creatinine Clr Calc Pharmacy 88.5; Estimated Glomerular Filt Rate > 60; Glucose Random 115 mg/dL (60-115); Potassium 3.4 mmol/L (3.3-5.1); Sodium 140 mmol/L (135-145)
--- NOTE | 2022-10-13 06:55 | P.PNNP_ITS ---
Subjective Subjective Date of Service: 10/13/22 Interval history: seen and examined this morning follow up for metastatic lung cancer reporting widespread body pain denies fever, chills, sob, chest pain Physical Exam Vital Signs: Vital Signs: Last Vital Signs Temp 98.8 F 10/13/22 04:00 Pulse 86 10/13/22 04:00 Resp 12 10/13/22 04:00 BP 115/55 L 10/13/22 04:00 Pulse Ox 100 10/13/22 04:00 O2 Del Method 10/13/22 04:00 O2 Flow Rate 3 10/13/22 04:00 Oxygen Flow Rate 3 10/06/22 12:30 BMI result Body Mass Index 14.4 Const: Other: appears very frail and cachectic General: cooperative, comfortable, no acute distress, alert and awake Nutritional Appearance: cachectic Orientation/consciousness: patient oriented x3 Eyes: General: appearance normal, both eyes and all related structures Neck: Neck: Yes no lymphadenopathy Resp: Effort & Inspection: normal respiratory effort and able to speak in complete sentences Auscultation: clear to auscultation bilaterally Cardio: Rate: regular rate Rhythm: regular rhythm Heart sounds: S1 no rmal heart sound present and S2 normal heart sound present GI: Inspection: No distended Palpation (GI): Soft to palpation, nontender and no guarding Auscultation: normal bowel sounds Back/Spine/Pelvis: Other: subcutaneous nodule on upper back, about 3.5 cm in diameter, firm, welldefined with redness of skin Skin: Other: nodule midback between scapula, well cicumscribed General skin exam: no rashes or lesions noted Neuro: General: patient oriented x3 Cognition (Neuro): normal cognition Extrem: General: Yes normal to inspection and Yes no pedal edema Objective Data Labs CBC & Chem 7: 10/07/22 06:25 10/13/22 05:48 Labs: Laboratory Results - last 24 hr 10/13/22 05:48 Sodium 140 Potassium 3.4 Chloride 105 Carbon Dioxide 27 Anion Gap 11 L BUN 5 L Creatinine 0.49 L Estim Creat Clear Calc 88.5 Estimated GFR > 60 Random Glucose 115 Calcium 8.7 Microbiology Microbiology Results: Microbiology 10/06/22 14:05 Blood - Venous Blood Culture - Final No growth after 5 days. 10/06/22 13:48 Blood - Venous Blood Culture - Final No growth after 5 days. Procedures Date of Service Date of Service: 10/13/22 Assessment & Plan Assessment and plan (1) Subcutaneous nodule of back: Status: Acute Assessment and Plan: He has advanced metastatic disease from his left lung squamous cell carcinoma.He has lytic lesions in his bones as well. He is being planned for palliative /hospice care. hypercalcemia resolved will sign off call for questions Progress Note: Quality Stroke Does the patient have a stroke diagnosis?: No
[2022-10-13 07:19] VITALS: BP 130/64; PULSE 84; RESP 14; TEMP 36.8; O2SAT 97
[2022-10-13] MEDS: Lidocaine 4 % Patch ADH..PATCH 1 PATCH TRANSDERMA (10:06)
[2022-10-13] MEDS: Magnesium Oxide 400 MG TABLET PO ×2 (10:07→16:40)
[2022-10-13] MEDS: Heparin Sodium,Porcine 5,000 UNIT/ML VIAL 5000 UNIT SUBCUT ×2 (10:07→18:38)
[2022-10-13] MEDS: Docusate Sodium 100 MG CAPSULE PO (10:07)
--- NOTE | 2022-10-13 10:37 | HO.PM.IMPN ---
Subjective Subjective Date of Service: 10/13/22 Interval History: follow up for metastatic lung cancer reporting widespread body pain denies fever, chills, sob, chest pain Review of Systems Review of Systems: Yes all other systems are reviewed and are negative Constitutional Constitutional: Denies chills and Denies fever(s) Cardiovascular Cardiovascular: Denies chest pain, Denies palpitations and Denies dyspnea Respiratory Respiratory: Denies cough and Denies dyspnea Gastrointestinal Gastrointestinal: Denies abdominal pain, Denies nausea and Denies vomiting Endocrine Endocrine: Denies palpitations Physical Exam Vital Signs: Vital Signs: Last Vital Signs Temp 98.3 F 10/13/22 07:19 Pulse 84 10/13/22 07:19 Resp 14 10/13/22 07:19 BP 130/64 10/13/22 07:19 Pulse Ox 97 10/13/22 07:19 O2 Del Method 10/13/22 07:19 O2 Flow Rate 3.0 10/13/22 07:19 Oxygen Flow Rate 3 10/06/22 12:30 BMI result Body Mass Index 14.4 Appearing in no acute distress, thin and frail lung sounds are clear to auscultation heart regular rate rhythm, clear S1, S2 positive bowel sounds, abdomen is soft, nontender neuro patient is alert x3, no focal deficits Objective Data Active Medications Acetaminophen (Acetaminophen 325 Mg Tablet) 650 mg PO Q6H PRN PRN Reason: Pain, Mild (Pain Scale 1-3) Docusate Sodium (Docusate Sodium 100 Mg Capsule) 100 mg PO DAILY [facility] Last Admin: 10/13/22 10:07 Dose: 100 mg Documented By: RENETTA Heparin Sodium (Porcine) (Heparin Sodium,Porcine 5,000 Unit/Ml Vial) 5,000 unit SUBCUT Q12H [facility] Last Admin: 10/13/22 10:07 Dose: 5,000 unit Documented By: RENETTA Hydromorphone HCl (Hydromorphone Hcl 1 Mg/Ml Syringe) 1 mg IVPUSH Q4H PRN; Protocol PRN Reason: Pain, Severe (Pain Scale 7-10) Last Admin: 10/13/22 10:07 Dose: 1 mg Documented By: RENETTA Promethazine HCl 6.25 mg/ (Sodium Chloride) 50.25 mls @ 201 mls/hr IV Q6H PRN PRN Reason: Nausea Lidocaine (Lidocaine 4 % Patch Adh..Patch) 1 patch TRANSDERMA DAILY [facility]; Protocol Last Admin: 10/13/22 10:06 Dose: 1 patch Documented By: RENETTA Magnesium Oxide (Magnesium Oxide 400 Mg Tablet) 400 mg PO BIDPC [facility] Last Admin: 10/13/22 10:07 Dose: 400 mg Documented By: RENETTA Ondansetron HCl (Ondansetron Hcl 4 Mg/2 Ml Vial) 4 mg IVPUSH Q8H PRN PRN Reason: Nausea and Vomiting Last Admin: 10/07/22 07:45 Dose: 4 mg Documented By: SERRANBianca Oxycodone HCl (Oxycodone Hcl Immed Release 5 Mg Tablet) 5 mg PO Q6H PRN PRN Reason: Pain, Moderate (Pain Scale 4-6 Last Admin: 10/12/22 18:11 Dose: 5 mg Documented By: ALLY Pharmacy Consult (Consult Rx Perform Med Rec) 1 each MISCELLANE ONCE PRN PRN Reason: Consult order Polyethylene Glycol (Polyethylene Glycol 3350 17 Gm Powd.Pack) 17 gm PO DAILY PRN PRN Reason: Constipation Last Admin: 10/12/22 18:11 Dose: 17 gm Documented By: ALLY Sodium Chloride (0.9 % Sodium Chloride Flush 3 Ml Syringe) 3 ml IVFLUSH QSHIFT [facility] Last Admin: 10/13/22 10:12 Dose: 3 ml Documented By: RENETTA Labs CBC & Chem 7: 10/07/22 06:25 10/13/22 05:48 Labs: Laboratory Results - last 24 hr 10/13/22 05:48 Anion Gap 11 L Estim Creat Clear Calc 88.5 Estimated GFR > 60 Random Glucose 115 Calcium 8.7 Assessment and Plan (1) Squamous cell carcinoma of lung: Status: Acute (2) Intractable pain: Status: Acute Plan 57-year-old male with past medical history of lung cancer diagnosed in May of this year, presents to the hospital with complaints of pain all over his body found to have hypercalcemia Acute hypercalcemia. Resolved likely secondary to lung cancer intact parathyroid hormone improved with hydration Hypokalemia secondary to poor nutrition Oral potassium Metastatic lung cancer Image shows new metastasis 2 multiple locations including the adrenal glands, peritoneum and retroperitoneum locations Hematology-Oncology consulted-possible hospice/palliative care in LTC Intractable pain- likely related to metastatic lung cancer will start to transition to po pain medication Nausea and vomiting Secondary to metastatic cancer Supportive care COPD continue supplemental oxygen, wean as tolerated Severe protein calorie malnutrition. BMI 14.4 Add proteins diet DVT prophylaxis:? Heparin subQ Attending Dr. Santillan Disposition Plan for hospice [facility], insurance is being worked out currently inpatient need:possible Metastatic disease, hypercalcemia- need hypercalcemia monitoring-need? iv pamidronate, iv hydration for vomiting- and IV antiemetics, in addition read renal function and electrolyte monitoring. Awaiting rehab-hospice/palliative Quality Stroke Does the patient have a stroke diagnosis?: No VTE Prior VTE?: No VTE Risk Level:: Medical - moderate - high VTE Device Contraindication: Treatment Not Indicated VTE Drug Contraindication: N/A - Med Ordered
[2022-10-13 12:00] VITALS: BP 130/69; PULSE 88; RESP 15; TEMP 37.1; O2SAT 100
--- NOTE | 2022-10-13 12:51 | P.PNHO-ONC_ITS ---
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 Occlusion of left lower lobe bronchus with severe emphysema. Much of the left lower lobe was collapsed. Left hilar lymph node enlarged, metastatic disease. AJCC stage T2b N1 He had bronchoscopy and biopsy of left lower lobe endobronchial lesion on 05/29/2022 which revealed poorly differentiated squamous cell carcinoma. NGS revealed PDL1- TPS 1%, ALK, EGFR,KRAS, BRAF, MET, RET, ROS1 negative. MSI- stable, mcbride-TRK not expressed, HER2 negative, PTEN deletion positive (may respond PI3K/AKT/mTOR and PARP inhibitors). CDKN2A and SMARCA4 (SNV's/insertions/deletions) detected. Staging CT abdomen/pelvis with contrast and brain MRI performed 06/05/2022 showed no evidence of distant metastasis. He was seen by Dr. Grady from [facility], concurrent chemoradiation therapy. CTA performed 06/22/2022 showed no PE but postobstructive atelectasis of entire left lung due to obstruction of left mainstem bronchus by growing left hilar mass. On 07/02/2022 Dr. Stark attempted bronchoscopy with argon/razor tumor debulking but this was not enough to open of the collapsed left lung. Interval History Interval history: He indicates in [place] pain in the lower anterior chest and epigastrium. Respiration is unimpaired. His complaint is diffuse upper and lower body pain but not dyspnea Review of Systems - Neurologic Reports weakness [facility] Medical History: Medical History (Last Updated 10/12/22 @ 13:02 by Dylon Nelson MD) Asthma COPD (chronic obstructive pulmonary disease) Hypoxia O2 dependent Respiratory failure Squamous cell carcinoma of lung Onset Date: ~2021 Subcutaneous nodule of back Tobacco dependence Family History: Family History (Last Reviewed 10/07/22 @ 14:02 by Simran Mcmillan MD) Other No family history of cancer Surgical History: Surgical History (Last Reviewed 10/07/22 @ 14:02 by Simran Mcmillan MD) History of lung biopsy Onset Date: ~05/2022 Social History: Social History (Last Reviewed 10/07/22 @ 14:02 by Simran Mcmillan MD) Living Situation History: Household Members: Family Household Members Other:: brother Housing: Apartment Are you a primary caregiver assisted living to a significant other at home: No Do you presently have visiting nurse or other home services: Yes Tobacco History: Patient Tobacco Use Status: Former Tobacco user Tobacco use type: Cigarette Cigarette Packs Per Day: 1 Years Smoked: 45 Smoke Quit Date: 4 months Second Hand Smoke Exposure: No Occupation Assessmet: service: No Current occupational status: disabled Home Medications and Allergies Current Medications: Current Medications Acetaminophen (Acetaminophen 325 Mg Tablet) 650 mg PO Q6H PRN PRN Reason: Pain, Mild (Pain Scale 1-3) Docusate Sodium (Docusate Sodium 100 Mg Capsule) 100 mg PO DAILY [facility] Last Admin: 10/13/22 10:07 Dose: 100 mg Heparin Sodium (Porcine) (Heparin Sodium,Porcine 5,000 Unit/Ml Vial) 5,000 unit SUBCUT Q12H [facility] Last Admin: 10/13/22 10:07 Dose: 5,000 unit Hydromorphone HCl (Hydromorphone Hcl 1 Mg/Ml Syringe) 1 mg IVPUSH Q4H PRN; Protocol PRN Reason: Pain, Severe (Pain Scale 7-10) Last Admin: 10/13/22 10:07 Dose: 1 mg Promethazine HCl 6.25 mg/ (Sodium Chloride) 50.25 mls @ 201 mls/hr IV Q6H PRN PRN Reason: Nausea Lidocaine (Lidocaine 4 % Patch Adh..Patch) 1 patch TRANSDERMA DAILY [facility]; Protocol Last Admin: 10/13/22 10:06 Dose: 1 patch Magnesium Oxide (Magnesium Oxide 400 Mg Tablet) 400 mg PO BIDPC [facility] Last Admin: 10/13/22 10:07 Dose: 400 mg Ondansetron HCl (Ondansetron Hcl 4 Mg/2 Ml Vial) 4 mg IVPUSH Q8H PRN PRN Reason: Nausea and Vomiting Last Admin: 10/07/22 07:45 Dose: 4 mg Oxycodone HCl (Oxycodone Hcl Immed Release 5 Mg Tablet) 5 mg PO Q6H PRN PRN Reason: Pain, Moderate (Pain Scale 4-6 Last Admin: 10/12/22 18:11 Dose: 5 mg Pharmacy Consult (Consult Rx Perform Med Rec) 1 each MISCELLANE ONCE PRN PRN Reason: Consult order Polyethylene Glycol (Polyethylene Glycol 3350 17 Gm Powd.Pack) 17 gm PO DAILY PRN PRN Reason: Constipation Last Admin: 10/12/22 18:11 Dose: 17 gm Sodium Chloride (0.9 % Sodium Chloride Flush 3 Ml Syringe) 3 ml IVFLUSH QSHIFT [facility] Last Admin: 10/13/22 10:12 Dose: 3 ml Home Medications Medication Instructions Recorded Confirmed Type acetaminophen 325 mg tablet 650 mg PO QID PRN Pain 10/07/22 10/07/22 History (Tylenol) albuterol sulfate 90 mcg/actuation 1 inh inhalation QID PRN Shortness 10/07/22 10/07/22 History aerosol inhaler Of Breath Or Wheezing omeprazole 40 mg capsule,delayed 40 mg PO DAILY@0630 10/07/22 10/07/22 History release ondansetron 4 mg disintegrating 1 tab Q8H PRN nausea 10/07/22 10/07/22 History tablet Allergies Allergy/AdvReac Type Severity Reaction Status Date / Time No Known Allergies Allergy Verified 07/03/22 16:42 Exam Vital signs: Vital Signs Temp 98.7 F 10/13/22 12:00 Pulse 88 10/13/22 12:00 Resp 15 10/13/22 12:00 BP 130/69 10/13/22 12:00 Pulse Ox 100 10/13/22 12:00 O2 Del Method 10/13/22 12:00 O2 Flow Rate 3.0 10/13/22 07:19 Intake & Output 10/12/22 10/13/22 10/13/22 18:59 06:59 18:59 Intake Total 1800 / 2280 480 / 2280 Output Total 600 / 1925 1325 / 1925 Balance 1200 / 355 -845 / 355 Urine Output (Average ml/kg/hr) 1.31 2.90 Intake: Intake, Oral Amount 800 / 1280 480 / 1280 Intake, IV Amount 1000 / 1000 0.9 % Sodium Chloride 1,000 ml 1000 / 1000 @ 75 mls/hr IVCONT .[id number] [facility] Rx#:[id number] Output: Output, Urine Amount 600 / 1925 1325 / 1925 Other: Breakfast % Eaten 50% Lunch % Eaten 25% Dinner % Eaten 25% Urine [facility] Urinal Urine Color Yellow Yellow Weight 38.102 kg BMI result Body Mass Index 14.4 - Constitutional Present: no acute distress, mild distress, chronically ill appearing - Routine HEENT Exam Head: Present: atraumatic - Routine Neck Exam Present: full ROM - Routine Chest/Breast/Axilla Exam Chest wall: Present: tenderness - Routine Respiratory Exam Present: CTAB. Absent: accessory muscle use, respiratory distress - Routine Cardiovascular Exam Cardiovascular: Present: RRR, S1, S2 - Routine Abdominal Exam Present: diminished bowel sounds, soft - Routine Extremities Exam Present: normal inspection. Absent: calf tenderness - Routine Back/Spine/Pelvis Exam Back/Spine: Present: full ROM - Routine Skin Exam Present: intact. Absent: cyanosis - Routine Neurological Exam Present: alert, oriented X3 Data - Labs CBC & Chem 7: 10/07/22 06:25 10/13/22 05:48 - Imaging Radiologist's impression: ITS Impressions Chest X-Ray 10/06/22 13:27 IMPRESSION: 1. Interval improvement in left lung opacification with decreased cardiomediastinal shift to the left. Left basilar and apical pleural thickening and scarring. A small left pleural effusion cannot be excluded. 2. New irregular lytic lesion in the proximal left humerus concerning for malignancy/metastatic disease. Abdomen/Pelvis CT 10/06/22 16:19 IMPRESSION: 1. There are multiple new abnormal soft tissue nodules seen within the peritoneal and retroperitoneal space concerning for metastatic disease. There is also new bulky cardiophrenic adenopathy concerning for metastatic adenopathy. The left adrenal gland is partially obscured by a new retroperitoneal mass lesion as well.. These could be clinically correlated. PET CT scan or biopsy may be helpful to define further if needed. 2. I do not appreciate any obstructive changes to the bowel. Lack of significant intra-abdominal fat limits evaluation. 3. Chronic appearing changes otherwise as described above. Bone Osseous Survey 10/07/22 10:25 IMPRESSION: Lytic lesions within the left humeral diaphysis and left inferior pubic ramus, consistent with osseous metastatic disease. Questionable lesion in the right fibular shaft. Recommend repeat dedicated orthogonal views of the right tibia and fibula for further assessment. Assessment and Plan Patient Active problem list reviewed?: Yes (1) Squamous cell carcinoma of lung Problem details: ([facility] - dx 05/2022) Status: Acute Assessment and plan: He seems stable. will need optimization of pain regimen before discharge.No new problems have occurred overnight. - Time Spent With Patient Time Spent with Patient (in minutes): 15
[2022-10-13] MEDS: oxyCODONE HCl Immed Release 5 MG TABLET PO ×2 (13:08→20:48)
[2022-10-13 16:01] VITALS: BP 122/61; PULSE 86; RESP 18; TEMP 36.9; O2SAT 100
[2022-10-13 18:16] LABS: Parathyroid Hormone Related Pr 29 pg/mL (11-20)
[2022-10-13 19:36] VITALS: BP 136/63; PULSE 87; RESP 18; TEMP 37.3; O2SAT 100
[2022-10-13 23:51] VITALS: BP 147/71; PULSE 85; RESP 17; TEMP 37.1; O2SAT 100
[2022-10-14] MEDS: HYDROmorphone HCl 2 MG/ML VIAL IVPUSH (00:48)
[2022-10-14 03:36] VITALS: BP 124/57; PULSE 89; RESP 17; TEMP 37.1; O2SAT 99
[2022-10-14] MEDS: oxyCODONE HCl Immed Release 5 MG TABLET PO ×3 (03:49→19:37)
[2022-10-14] MEDS: HYDROmorphone HCl 1 MG/ML SYRINGE IVPUSH ×5 (04:52→21:45)
[2022-10-14 08:00] VITALS: BP 110/62; PULSE 85; RESP 16; TEMP 36.4; O2SAT 93
[2022-10-14] MEDS: Magnesium Oxide 400 MG TABLET PO ×2 (09:10→17:36)
[2022-10-14] MEDS: Heparin Sodium,Porcine 5,000 UNIT/ML VIAL 5000 UNIT SUBCUT (09:10)
[2022-10-14] MEDS: Lidocaine 4 % Patch ADH..PATCH 1 PATCH TRANSDERMA (09:10)
[2022-10-14] MEDS: Docusate Sodium 100 MG CAPSULE PO (09:10)
[2022-10-14] MEDS: 0.9 % Sodium Chloride Flush 3 ML SYRINGE IVFLUSH ×3 (09:11→19:47)
--- NOTE | 2022-10-14 10:43 | HO.PM.IMPN ---
Subjective Subjective Date of Service: 10/14/22 Interval History: follow up for metastatic lung cancer reporting widespread body pain denies fever, chills, sob, chest pain Review of Systems Review of Systems: Yes all other systems are reviewed and are negative Constitutional Constitutional: Denies chills and Denies fever(s) Cardiovascular Cardiovascular: Denies chest pain, Denies palpitations and Denies dyspnea Respiratory Respiratory: Denies cough and Denies dyspnea Gastrointestinal Gastrointestinal: Denies abdominal pain, Denies nausea and Denies vomiting Endocrine Endocrine: Denies palpitations Physical Exam Vital Signs: Vital Signs: Last Vital Signs Temp 97.5 F 10/14/22 08:00 Pulse 85 10/14/22 08:00 Resp 16 10/14/22 08:00 BP 110/62 10/14/22 08:00 Pulse Ox 93 10/14/22 08:00 O2 Del Method 10/14/22 08:00 O2 Flow Rate 3.0 10/14/22 08:00 Oxygen Flow Rate 3 10/06/22 12:30 BMI result Body Mass Index 14.4 Appearing in no acute distress lung sounds are clear to auscultation heart regular rate rhythm, clear S1, S2 positive bowel sounds, abdomen is soft, nontender neuro patient is alert x3, no focal deficits Objective Data Active Medications Acetaminophen (Acetaminophen 325 Mg Tablet) 650 mg PO Q6H PRN PRN Reason: Pain, Mild (Pain Scale 1-3) Docusate Sodium (Docusate Sodium 100 Mg Capsule) 100 mg PO DAILY [facility] Last Admin: 10/14/22 09:10 Dose: 100 mg Documented By: RENETTA Heparin Sodium (Porcine) (Heparin Sodium,Porcine 5,000 Unit/Ml Vial) 5,000 unit SUBCUT Q12H [facility] Last Admin: 10/14/22 09:10 Dose: 5,000 unit Documented By: RENETTA Hydromorphone HCl (Hydromorphone Hcl 1 Mg/Ml Syringe) 1 mg IVPUSH Q4H PRN; Protocol PRN Reason: Pain, Severe (Pain Scale 7-10) Last Admin: 10/14/22 09:09 Dose: 1 mg Documented By: RENETTA Promethazine HCl 6.25 mg/ (Sodium Chloride) 50.25 mls @ 201 mls/hr IV Q6H PRN PRN Reason: Nausea Lidocaine (Lidocaine 4 % Patch Adh..Patch) 1 patch TRANSDERMA DAILY [facility]; Protocol Last Admin: 10/14/22 09:10 Dose: 1 patch Documented By: RENETTA Magnesium Oxide (Magnesium Oxide 400 Mg Tablet) 400 mg PO BIDPC [facility] Last Admin: 10/14/22 09:10 Dose: 400 mg Documented By: RENETTA Ondansetron HCl (Ondansetron Hcl 4 Mg/2 Ml Vial) 4 mg IVPUSH Q8H PRN PRN Reason: Nausea and Vomiting Last Admin: 10/07/22 07:45 Dose: 4 mg Documented By: DAVID Oxycodone HCl (Oxycodone Hcl Immed Release 5 Mg Tablet) 5 mg PO Q6H PRN PRN Reason: Pain, Moderate (Pain Scale 4-6 Last Admin: 10/14/22 03:49 Dose: 5 mg Documented By: MICHAEL Pharmacy Consult (Consult Rx Perform Med Rec) 1 each MISCELLANE ONCE PRN PRN Reason: Consult order Polyethylene Glycol (Polyethylene Glycol 3350 17 Gm Powd.Pack) 17 gm PO DAILY PRN PRN Reason: Constipation Last Admin: 10/12/22 18:11 Dose: 17 gm Documented By: ALLY Sodium Chloride (0.9 % Sodium Chloride Flush 3 Ml Syringe) 3 ml IVFLUSH QSHIFT [facility] Last Admin: 10/14/22 09:11 Dose: 3 ml Documented By: RENETTA Labs CBC & Chem 7: 10/07/22 06:25 10/13/22 05:48 Labs: Laboratory Results - last 24 hr 10/07/22 07:09 PTH Related Protein 29 H Assessment and Plan (1) Squamous cell carcinoma of lung: Status: Acute (2) Intractable pain: Status: Acute Plan 57-year-old male with past medical history of lung cancer diagnosed in May of this year, presents to the hospital with complaints of pain all over his body found to have hypercalcemia Acute hypercalcemia. Resolved likely secondary to lung cancer intact parathyroid hormone improved with hydration Hypokalemia secondary to poor nutrition Oral potassium Metastatic lung cancer Image shows new metastasis 2 multiple locations including the adrenal glands, peritoneum and retroperitoneum locations Hematology-Oncology consulted-possible hospice/palliative care in LTC Intractable pain- likely related to metastatic lung cancer will start to transition to po pain medication Nausea and vomiting Secondary to metastatic cancer Supportive care COPD continue supplemental oxygen, wean as tolerated Severe protein calorie malnutrition. BMI 14.4 Add proteins diet DVT prophylaxis:? Heparin subQ Attending Dr. Santillan Disposition Plan for hospice at [facility], insurance is being worked out currently inpatient need:possible Metastatic disease, hypercalcemia- need hypercalcemia monitoring-need? iv pamidronate, iv hydration for vomiting- and IV antiemetics, in addition read renal function and electrolyte monitoring. Awaiting rehab-hospice/palliative Quality Stroke Does the patient have a stroke diagnosis?: No VTE Prior VTE?: No VTE Risk Level:: Medical - moderate - high VTE Device Contraindication: Treatment Not Indicated VTE Drug Contraindication: N/A - Med Ordered
--- NOTE | 2022-10-14 11:59 | PM.HEMONCPN ---
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 Occlusion of left lower lobe bronchus with severe emphysema. Much of the left lower lobe was collapsed. Left hilar lymph node enlarged, metastatic disease. AJCC stage T2b N1 He had bronchoscopy and biopsy of left lower lobe endobronchial lesion on 05/29/2022 which revealed poorly differentiated squamous cell carcinoma. NGS revealed PDL1- TPS 1%, ALK, EGFR,KRAS, BRAF, MET, RET, ROS1 negative. MSI-stable, mcbride-TRK not expressed, HER2 negative, PTEN deletion positive (may respond PI3K/AKT/mTOR and PARP inhibitors). CDKN2A and SMARCA4 (SNV's/insertions/deletions) detected. Staging CT abdomen/pelvis with contrast and brain MRI performed 06/05/2022 showed no evidence of distant metastasis. He was seen by Dr. Grady from [facility], concurrent chemoradiation therapy. CTA performed 06/22/2022 showed no PE but postobstructive atelectasis of entire left lung due to obstruction of left mainstem bronchus by growing left hilar mass. On 07/02/2022 Dr. Stark attempted bronchoscopy with argon/razor tumor debulking but this was not enough to open of the collapsed left lung. Interval History Interval history: He indicates in [place] pain in the lower anterior chest and epigastrium. Respiration is unimpaired. He continues to complain of pain in the anterior thorax, upper abdomen and now the right hip. Review of Systems - Neurologic Reports weakness [facility] Medical History: Medical History (Last Updated 10/12/22 @ 13:02 by Dylon Nelson MD) Asthma COPD (chronic obstructive pulmonary disease) Hypoxia O2 dependent Respiratory failure Squamous cell carcinoma of lung Onset Date: ~2021 Subcutaneous nodule of back Tobacco dependence Family History: Family History (Last Reviewed 10/07/22 @ 14:02 by Simran Mcmillan MD) Other No family history of cancer Surgical History: Surgical History (Last Reviewed 10/07/22 @ 14:02 by Simran Mcmillan MD) History of lung biopsy Onset Date: ~05/2022 Social History: Social History (Last Reviewed 10/07/22 @ 14:02 by Simran Mcmillan MD) Living Situation History: Household Members: Family Household Members Other:: brother Housing: Apartment Are you a primary medical care manager to a significant other at home: No Do you presently have visiting nurse or other home services: Yes Tobacco History: Patient Tobacco Use Status: Former Tobacco user Tobacco use type: Cigarette Cigarette Packs Per Day: 1 Years Smoked: 45 Smoke Quit Date: 4 months Second Hand Smoke Exposure: No Occupation Assessmet: service: No Current occupational status: disabled Home Medications and Allergies Current Medications: Current Medications Acetaminophen (Acetaminophen 325 Mg Tablet) 650 mg PO Q6H PRN PRN Reason: Pain, Mild (Pain Scale 1-3) Docusate Sodium (Docusate Sodium 100 Mg Capsule) 100 mg PO DAILY [facility] Last Admin: 10/14/22 09:10 Dose: 100 mg Heparin Sodium (Porcine) (Heparin Sodium,Porcine 5,000 Unit/Ml Vial) 5,000 unit SUBCUT Q12H [facility] Last Admin: 10/14/22 09:10 Dose: 5,000 unit Hydromorphone HCl (Hydromorphone Hcl 1 Mg/Ml Syringe) 1 mg IVPUSH Q4H PRN; Protocol PRN Reason: Pain, Severe (Pain Scale 7-10) Last Admin: 10/14/22 09:09 Dose: 1 mg Promethazine HCl 6.25 mg/ (Sodium Chloride) 50.25 mls @ 201 mls/hr IV Q6H PRN PRN Reason: Nausea Lidocaine (Lidocaine 4 % Patch Adh..Patch) 1 patch TRANSDERMA DAILY [facility]; Protocol Last Admin: 10/14/22 09:10 Dose: 1 patch Magnesium Oxide (Magnesium Oxide 400 Mg Tablet) 400 mg PO BIDPC [facility] Last Admin: 10/14/22 09:10 Dose: 400 mg Ondansetron HCl (Ondansetron Hcl 4 Mg/2 Ml Vial) 4 mg IVPUSH Q8H PRN PRN Reason: Nausea and Vomiting Last Admin: 10/07/22 07:45 Dose: 4 mg Oxycodone HCl (Oxycodone Hcl Immed Release 5 Mg Tablet) 5 mg PO Q6H PRN PRN Reason: Pain, Moderate (Pain Scale 4-6 Last Admin: 10/14/22 03:49 Dose: 5 mg Pharmacy Consult (Consult Rx Perform Med Rec) 1 each MISCELLANE ONCE PRN PRN Reason: Consult order Polyethylene Glycol (Polyethylene Glycol 3350 17 Gm Powd.Pack) 17 gm PO DAILY PRN PRN Reason: Constipation Last Admin: 10/12/22 18:11 Dose: 17 gm Sodium Chloride (0.9 % Sodium Chloride Flush 3 Ml Syringe) 3 ml IVFLUSH QSHIFT [facility] Last Admin: 10/14/22 09:11 Dose: 3 ml Home Medications Medication Instructions Recorded Confirmed Type acetaminophen 325 mg tablet 650 mg PO QID PRN Pain 10/07/22 10/07/22 History (Tylenol) albuterol sulfate 90 mcg/actuation 1 inh inhalation QID PRN Shortness 10/07/22 10/07/22 History aerosol inhaler Of Breath Or Wheezing omeprazole 40 mg capsule,delayed 40 mg PO DAILY@0630 10/07/22 10/07/22 History release ondansetron 4 mg disintegrating 1 tab Q8H PRN nausea 10/07/22 10/07/22 History tablet Allergies Allergy/AdvReac Type Severity Reaction Status Date / Time No Known Allergies Allergy Verified 07/03/22 16:42 Exam Vital signs: Vital Signs Temp 97.5 F 10/14/22 08:00 Pulse 85 10/14/22 08:00 Resp 16 10/14/22 08:00 BP 110/62 10/14/22 08:00 Pulse Ox 93 10/14/22 08:00 O2 Del Method 10/14/22 08:00 O2 Flow Rate 3.0 10/14/22 08:00 Intake & Output 10/13/22 10/14/22 10/14/22 18:59 06:59 18:59 Intake Total 480 / 1320 840 / 1320 Output Total 200 / 200 Balance 480 / 1120 640 / 1120 Urine Output (Average ml/kg/hr) 0.44 Intake: Intake, Oral Amount 480 / 1320 840 / 1320 Output: Output, Urine Amount 200 / 200 Other: Meal Refused No NPO No Breakfast % Eaten 25% Lunch % Eaten 25% Dinner % Eaten 25% Number of Unmeasured Voids 3 3 Urine Urinal Urinal Urine Color Yellow Yellow Weight 38.102 kg BMI result Body Mass Index 14.4 - Constitutional Present: no acute distress, mild distress, chronically ill appearing - Routine HEENT Exam Head: Present: atraumatic - Routine Neck Exam Present: full ROM - Routine Chest/Breast/Axilla Exam Chest wall: Present: tenderness - Routine Respiratory Exam Present: CTAB. Absent: accessory muscle use, respiratory distress - Routine Cardiovascular Exam Cardiovascular: Present: RRR, S1, S2 - Routine Abdominal Exam Present: diminished bowel sounds, soft - Routine Extremities Exam Present: normal inspection. Absent: calf tenderness - Routine Back/Spine/Pelvis Exam Back/Spine: Present: full ROM - Routine Skin Exam Present: intact. Absent: cyanosis - Routine Neurological Exam Present: alert, oriented X3 Data - Labs CBC & Chem 7: 10/07/22 06:25 10/13/22 05:48 - Imaging Radiologist's impression: ITS Impressions Chest X-Ray 10/06/22 13:27 IMPRESSION: 1. Interval improvement in left lung opacification with decreased cardiomediastinal shift to the left. Left basilar and apical pleural thickening and scarring. A small left pleural effusion cannot be excluded. 2. New irregular lytic lesion in the proximal left humerus concerning for malignancy/metastatic disease. Abdomen/Pelvis CT 10/06/22 16:19 IMPRESSION: 1. There are multiple new abnormal soft tissue nodules seen within the peritoneal and retroperitoneal space concerning for metastatic disease. There is also new bulky cardiophrenic adenopathy concerning for metastatic adenopathy. The left adrenal gland is partially obscured by a new retroperitoneal mass lesion as well.. These could be clinically correlated. PET CT scan or biopsy may be helpful to define further if needed. 2. I do not appreciate any obstructive changes to the bowel. Lack of significant intra-abdominal fat limits evaluation. 3. Chronic appearing changes otherwise as described above. Bone Osseous Survey 10/07/22 10:25 IMPRESSION: Lytic lesions within the left humeral diaphysis and left inferior pubic ramus, consistent with osseous metastatic disease. Questionable lesion in the right fibular shaft. Recommend repeat dedicated orthogonal views of the right tibia and fibula for further assessment. Assessment and Plan Patient Active problem list reviewed?: Yes (1) Squamous cell carcinoma of lung Problem details: (SCC of [facility] - dx 05/2022) Status: Acute Assessment and plan: He seems stable. will need optimization of pain regimen before discharge.No new problems have occurred overnight.He has been stable overnight with no new events. - Time Spent With Patient Time Spent with Patient (in minutes): 15
[2022-10-14 12:00] VITALS: BP 115/58; PULSE 97; RESP 18; TEMP 36.4; O2SAT 99
[2022-10-14 15:18] VITALS: BP 133/72; PULSE 95; RESP 18; TEMP 36.5; O2SAT 99
[2022-10-14 19:03] VITALS: BP 129/67; PULSE 88; RESP 18; TEMP 36.6; O2SAT 98
[2022-10-14 23:17] VITALS: BP 112/56; PULSE 90; RESP 18; TEMP 36.8; O2SAT 100
[2022-10-15] MEDS: HYDROmorphone HCl 1 MG/ML SYRINGE IVPUSH ×6 (02:06→23:22)
[2022-10-15] MEDS: oxyCODONE HCl Immed Release 5 MG TABLET PO ×3 (04:20→16:41)
[2022-10-15 07:46] VITALS: BP 119/66; PULSE 96; RESP 17; TEMP 37.2; O2SAT 99
--- NOTE | 2022-10-15 09:19 | HO.PM.IMPN ---
Subjective Subjective Date of Service: 10/15/22 Interval History: follow up for metastatic lung cancer reporting widespread body pain denies fever, chills, sob, chest pain Review of Systems Review of Systems: Yes all other systems are reviewed and are negative Constitutional Constitutional: Denies chills and Denies fever(s) Cardiovascular Cardiovascular: Denies chest pain, Denies palpitations and Denies dyspnea Respiratory Respiratory: Denies cough and Denies dyspnea Gastrointestinal Gastrointestinal: Denies abdominal pain, Denies nausea and Denies vomiting Endocrine Endocrine: Denies palpitations Physical Exam Vital Signs: Vital Signs: Last Vital Signs Temp 99.0 F 10/15/22 07:46 Pulse 96 10/15/22 07:46 Resp 17 10/15/22 07:46 BP 119/66 10/15/22 07:46 Pulse Ox 99 10/15/22 07:46 O2 Del Method 10/15/22 07:46 O2 Flow Rate 3.0 10/15/22 07:46 Oxygen Flow Rate 3 10/06/22 12:30 BMI result Body Mass Index 14.4 Appearing in no acute distress, thin and frail lung sounds are clear to auscultation heart regular rate rhythm, clear S1, S2 positive bowel sounds, abdomen is soft, nontender neuro patient is alert x3, no focal deficits Objective Data Active Medications Acetaminophen (Acetaminophen 325 Mg Tablet) 650 mg PO Q6H PRN PRN Reason: Pain, Mild (Pain Scale 1-3) Docusate Sodium (Docusate Sodium 100 Mg Capsule) 100 mg PO DAILY [facility] Last Admin: 10/14/22 09:10 Dose: 100 mg Documented By: RENETTA Heparin Sodium (Porcine) (Heparin Sodium,Porcine 5,000 Unit/Ml Vial) 5,000 unit SUBCUT Q12H [facility] Last Admin: 10/14/22 19:42 Dose: Not Given Documented By: MICHAEL Non-Admin Reason: Patient Refused Hydromorphone HCl (Hydromorphone Hcl 1 Mg/Ml Syringe) 1 mg IVPUSH Q4H PRN; Protocol PRN Reason: Pain, Severe (Pain Scale 7-10) Last Admin: 10/15/22 02:06 Dose: 1 mg Documented By: ROXANE Promethazine HCl 6.25 mg/ (Sodium Chloride) 50.25 mls @ 201 mls/hr IV Q6H PRN PRN Reason: Nausea Lidocaine (Lidocaine 4 % Patch Adh..Patch) 1 patch TRANSDERMA DAILY [facility]; Protocol Last Admin: 10/14/22 09:10 Dose: 1 patch Documented By: RENETTA Magnesium Oxide (Magnesium Oxide 400 Mg Tablet) 400 mg PO BIDPC [facility] Last Admin: 10/14/22 17:36 Dose: 400 mg Documented By: RENETTA Ondansetron HCl (Ondansetron Hcl 4 Mg/2 Ml Vial) 4 mg IVPUSH Q8H PRN PRN Reason: Nausea and Vomiting Last Admin: 10/07/22 07:45 Dose: 4 mg Documented By: SERRKY Oxycodone HCl (Oxycodone Hcl Immed Release 5 Mg Tablet) 5 mg PO Q6H PRN PRN Reason: Pain, Moderate (Pain Scale 4-6 Last Admin: 10/15/22 04:20 Dose: 5 mg Documented By: MICHAEL Pharmacy Consult (Consult Rx Perform Med Rec) 1 each MISCELLANE ONCE PRN PRN Reason: Consult order Polyethylene Glycol (Polyethylene Glycol 3350 17 Gm Powd.Pack) 17 gm PO DAILY PRN PRN Reason: Constipation Last Admin: 10/12/22 18:11 Dose: 17 gm Documented By: ALLY Sodium Chloride (0.9 % Sodium Chloride Flush 3 Ml Syringe) 3 ml IVFLUSH QSHIFT [facility] Last Admin: 10/14/22 19:47 Dose: 3 ml Documented By: MICHAEL Labs CBC & Chem 7: 10/07/22 06:25 10/13/22 05:48 Assessment and Plan (1) Squamous cell carcinoma of lung: Status: Acute (2) Intractable pain: Status: Acute Plan 57-year-old male with past medical history of lung cancer diagnosed in May of this year, presents to the hospital with complaints of pain all over his body found to have hypercalcemia Acute hypercalcemia. Resolved likely secondary to lung cancer intact parathyroid hormone improved with hydration Hypokalemia secondary to poor nutrition Oral potassium Metastatic lung cancer Image shows new metastasis 2 multiple locations including the adrenal glands, peritoneum and retroperitoneum locations Hematology-Oncology consulted-possible hospice/palliative care in LTC Intractable pain- likely related to metastatic lung cancer will start to transition to po pain medication Nausea and vomiting Secondary to metastatic cancer Supportive care COPD continue supplemental oxygen, wean as tolerated Severe protein calorie malnutrition. BMI 14.4 Add proteins diet DVT prophylaxis:? Heparin subQ Attending Dr. Whitfield [facility] currently inpatient need:possible Metastatic disease, hypercalcemia- need hypercalcemia monitoring-need? iv pamidronate, iv hydration for vomiting- and IV antiemetics, in addition read renal function and electrolyte monitoring. Awaiting rehab-hospice/palliative Quality Stroke Does the patient have a stroke diagnosis?: No VTE Prior VTE?: No VTE Risk Level:: Medical - moderate - high VTE Device Contraindication: Treatment Not Indicated VTE Drug Contraindication: N/A - Med Ordered
[2022-10-15] MEDS: Docusate Sodium 100 MG CAPSULE PO (09:28)
[2022-10-15] MEDS: Lidocaine 4 % Patch ADH..PATCH 1 PATCH TRANSDERMA (09:28)
[2022-10-15] MEDS: Magnesium Oxide 400 MG TABLET PO ×2 (09:28→16:42)
[2022-10-15] MEDS: Heparin Sodium,Porcine 5,000 UNIT/ML VIAL 5000 UNIT SUBCUT ×2 (09:29→19:24)
--- NOTE | 2022-10-15 09:56 | MHC.CLN ---
F/U CONTINUES WITH POOR INTAKE, USUALLY 25%. DIET=FULL LIQUIDS. ENSURE CLEAR TID TO PROVIDE ADDITIONAL 720 KCALS, 24 G PROTEIN. FOLLOW FOR PLAN OF CARE.
[2022-10-15] MEDS: 0.9 % Sodium Chloride Flush 3 ML SYRINGE IVFLUSH ×3 (09:59→19:25)
[2022-10-15 11:13] VITALS: BP 148/75; PULSE 100; RESP 17; TEMP 37.1; O2SAT 99
--- NOTE | 2022-10-15 14:55 | MHC.CM.PN ---
CM MET WITH PATIENT AND BROTHER IRBILSON. BROTHER HAS BROUGHT IN NECESSARY PAPERWORK FOR FINANCIAL TO COMPLETE CONVERSION TO MH. BROTHER AGAIN STATES HE IS UNABLE TO TAKE PT HOME AND THAT HE WOULD LIKE PT TO REMAIN IN THE AREA WHEN GOES TO A SNF FOR HOSPICE. CM WILL CONTINUE TO FOLLOW AND WAIT FOR MH CONVERSION TO RE-REFER TO SNF'S. NO BED OFFERS YET.
[2022-10-15 15:24] VITALS: BP 125/68; PULSE 96; RESP 18; TEMP 36.5; O2SAT 99
[2022-10-15 19:08] VITALS: BP 119/61; PULSE 88; RESP 18; TEMP 36.6; O2SAT 100
[2022-10-16] VITALS: BP 120/65; PULSE 100; RESP 17; TEMP 36.6; O2SAT 99
[2022-10-16] MEDS: oxyCODONE HCl Immed Release 5 MG TABLET PO ×3 (01:02→21:45)
[2022-10-16] MEDS: HYDROmorphone HCl 1 MG/ML SYRINGE IVPUSH ×5 (03:24→19:20)
[2022-10-16 03:55] VITALS: BP 122/66; PULSE 93; RESP 16; TEMP 36.6; O2SAT 100
[2022-10-16 07:30] VITALS: BP 127/72; PULSE 111; RESP 16; TEMP 36; O2SAT 99
[2022-10-16] MEDS: Heparin Sodium,Porcine 5,000 UNIT/ML VIAL 5000 UNIT SUBCUT ×2 (09:38→19:44)
[2022-10-16] MEDS: 0.9 % Sodium Chloride Flush 3 ML SYRINGE IVFLUSH ×2 (09:39→15:28)
[2022-10-16] MEDS: Lidocaine 4 % Patch ADH..PATCH 1 PATCH TRANSDERMA ×2 (09:40→12:54)
[2022-10-16] MEDS: Docusate Sodium 100 MG CAPSULE PO (09:40)
[2022-10-16] MEDS: Magnesium Oxide 400 MG TABLET PO ×2 (09:40→19:20)
--- NOTE | 2022-10-16 10:21 | HO.PM.IMPN ---
Subjective Subjective Date of Service: 10/16/22 Interval History: follow up for metastatic lung cancer reporting widespread body pain denies fever, chills, sob, chest pain Review of Systems Review of Systems: Yes all other systems are reviewed and are negative Constitutional Constitutional: Denies chills and Denies fever(s) Cardiovascular Cardiovascular: Denies chest pain, Denies palpitations and Denies dyspnea Respiratory Respiratory: Denies cough and Denies dyspnea Gastrointestinal Gastrointestinal: Denies abdominal pain, Denies nausea and Denies vomiting Endocrine Endocrine: Denies palpitations Physical Exam Vital Signs: Vital Signs: Last Vital Signs Temp 96.8 F 10/16/22 07:30 Pulse 111 H 10/16/22 07:30 Resp 16 10/16/22 07:30 BP 127/72 10/16/22 07:30 Pulse Ox 99 10/16/22 07:30 O2 Del Method 10/16/22 07:30 O2 Flow Rate 3 10/16/22 07:30 Oxygen Flow Rate 3 10/06/22 12:30 BMI result Body Mass Index 14.4 Appearing in no acute distress, thin and frail lung sounds are clear to auscultation heart regular rate rhythm, clear S1, S2 positive bowel sounds, abdomen is soft, nontender neuro patient is alert x3, no focal deficits Objective Data Active Medications Acetaminophen (Acetaminophen 325 Mg Tablet) 650 mg PO Q6H PRN PRN Reason: Pain, Mild (Pain Scale 1-3) Docusate Sodium (Docusate Sodium 100 Mg Capsule) 100 mg PO DAILY [facility] Last Admin: 10/16/22 09:40 Dose: 100 mg Documented By: TLAI Heparin Sodium (Porcine) (Heparin Sodium,Porcine 5,000 Unit/Ml Vial) 5,000 unit SUBCUT Q12H [facility] Last Admin: 10/16/22 09:38 Dose: 5,000 unit Documented By: TALI Hydromorphone HCl (Hydromorphone Hcl 1 Mg/Ml Syringe) 1 mg IVPUSH Q4H PRN; Protocol PRN Reason: Pain, Severe (Pain Scale 7-10) Last Admin: 10/16/22 09:40 Dose: 1 mg Documented By: TALI Promethazine HCl 6.25 mg/ (Sodium Chloride) 50.25 mls @ 201 mls/hr IV Q6H PRN PRN Reason: Nausea Lidocaine (Lidocaine 4 % Patch Adh..Patch) 1 patch TRANSDERMA DAILY [facility]; Protocol Last Admin: 10/16/22 09:40 Dose: 1 patch Documented By: TALI Magnesium Oxide (Magnesium Oxide 400 Mg Tablet) 400 mg PO BIDPC [facility] Last Admin: 10/16/22 09:40 Dose: 400 mg Documented By: TALI Ondansetron HCl (Ondansetron Hcl 4 Mg/2 Ml Vial) 4 mg IVPUSH Q8H PRN PRN Reason: Nausea and Vomiting Last Admin: 10/07/22 07:45 Dose: 4 mg Documented By: TEQUILAANBianca Oxycodone HCl (Oxycodone Hcl Immed Release 5 Mg Tablet) 5 mg PO Q6H PRN PRN Reason: Pain, Moderate (Pain Scale 4-6 Last Admin: 10/16/22 06:07 Dose: 5 mg Documented By: GAVI Pharmacy Consult (Consult Rx Perform Med Rec) 1 each MISCELLANE ONCE PRN PRN Reason: Consult order Polyethylene Glycol (Polyethylene Glycol 3350 17 Gm Powd.Pack) 17 gm PO DAILY PRN PRN Reason: Constipation Last Admin: 10/12/22 18:11 Dose: 17 gm Documented By: ALLY Sodium Chloride (0.9 % Sodium Chloride Flush 3 Ml Syringe) [facility] Last Admin: 10/16/22 09:39 Dose: 3 ml Documented By: TALI Labs CBC & Chem 7: 10/07/22 06:25 10/13/22 05:48 Assessment and Plan (1) Squamous cell carcinoma of lung: Status: Acute (2) Intractable pain: Status: Acute Plan 57-year-old male with past medical history of lung cancer diagnosed in May of this year, presents to the hospital with complaints of pain all over his body found to have hypercalcemia Intractable pain. Secondary to metastatic lung cancer On IV Dilaudid, increased frequency of oxycodone, add lidocaine patch for left shoulder pain Supportive care Acute hypercalcemia. Resolved likely secondary to lung cancer intact parathyroid hormone improved with hydration Hypokalemia secondary to poor nutrition Oral potassium Metastatic lung cancer Image shows new metastasis 2 multiple locations including the adrenal glands, peritoneum and retroperitoneum locations Hematology-Oncology consulted-possible hospice/palliative care in LTC Nausea and vomiting Secondary to metastatic cancer Supportive care COPD continue supplemental oxygen, wean as tolerated Severe protein calorie malnutrition. BMI 14.4 Add proteins diet DVT prophylaxis:? Heparin subQ Attending Dr. Whitfield Disposition Plan for hospice at [facility], insurance is being worked out currently inpatient need:possible Metastatic disease, hypercalcemia- need hypercalcemia monitoring-need? iv pamidronate, iv hydration for vomiting- and IV antiemetics, in addition read renal function and electrolyte monitoring. Awaiting rehab-hospice/palliative Quality Stroke Does the patient have a stroke diagnosis?: No VTE Prior VTE?: No VTE Risk Level:: Medical - moderate - high VTE Device Contraindication: Treatment Not Indicated VTE Drug Contraindication: N/A - Med Ordered
[2022-10-16 11:15] VITALS: BP 131/64; PULSE 95; RESP 15; TEMP 36.2; O2SAT 99
[2022-10-16 15:31] VITALS: BP 107/65; PULSE 100; RESP 16; TEMP 37; O2SAT 100
[2022-10-16 19:29] VITALS: BP 108/61; PULSE 100; RESP 16; TEMP 36.7; O2SAT 100
[2022-10-17] VITALS: BP 134/71; PULSE 99; RESP 18; TEMP 36.8; O2SAT 99
[2022-10-17] MEDS: 0.9 % Sodium Chloride Flush 3 ML SYRINGE IVFLUSH ×4 (00:12→19:59)
[2022-10-17] MEDS: HYDROmorphone HCl 1 MG/ML SYRINGE IVPUSH ×8 (00:12→23:23)
[2022-10-17] MEDS: oxyCODONE HCl Immed Release 5 MG TABLET PO ×4 (02:30→22:38)
[2022-10-17 04:00] VITALS: BP 131/70; PULSE 87; RESP 18; TEMP 36.8; O2SAT 100
[2022-10-17 07:42] VITALS: BP 115/61; PULSE 99; RESP 17; TEMP 37.3; O2SAT 100
--- NOTE | 2022-10-17 07:45 | P.PNIM_ITS ---
Subjective Subjective Date of Service: 10/17/22 Interval History: follow up for metastatic lung cancer reporting widespread body pain denies fever, chills, sob, chest pain Review of Systems Review of Systems: Yes all other systems are reviewed and are negative Constitutional Constitutional: Denies chills and Denies fever(s) Cardiovascular Cardiovascular: Denies chest pain, Denies palpitations and Denies dyspnea Respiratory Respiratory: Denies cough and Denies dyspnea Gastrointestinal Gastrointestinal: Denies abdominal pain, Denies nausea and Denies vomiting Endocrine Endocrine: Denies palpitations Physical Exam Vital Signs: Vital Signs: Last Vital Signs Temp 99.1 F 10/17/22 07:42 Pulse 99 10/17/22 07:42 Resp 17 10/17/22 07:42 BP 115/61 10/17/22 07:42 Pulse Ox 100 10/17/22 07:42 O2 Del Method 10/17/22 07:42 O2 Flow Rate 3.0 10/17/22 07:42 Oxygen Flow Rate 3 10/06/22 12:30 BMI result Body Mass Index 14.4 Appearing in no acute distress, thin and frail lung sounds are clear to auscultation heart regular rate rhythm, clear S1, S2 positive bowel sounds, abdomen is soft, nontender neuro patient is alert x3, no focal deficits Objective Data Active Medications Acetaminophen (Acetaminophen 325 Mg Tablet) 650 mg PO Q6H PRN PRN Reason: Pain, Mild (Pain Scale 1-3) Docusate Sodium (Docusate Sodium 100 Mg Capsule) 100 mg PO DAILY [facility] Last Admin: 10/16/22 09:40 Dose: 100 mg Documented By: TALI Heparin Sodium (Porcine) (Heparin Sodium,Porcine 5,000 Unit/Ml Vial) 5,000 unit SUBCUT Q12H [facility] Last Admin: 10/16/22 19:44 Dose: 5,000 unit Documented By: GAVI Hydromorphone HCl (Hydromorphone Hcl 1 Mg/Ml Syringe) 1 mg IVPUSH Q3H PRN; Protocol PRN Reason: Pain, Severe (Pain Scale 7-10) Last Admin: 10/17/22 06:32 Dose: 1 mg Documented By: GAVI Promethazine HCl 6.25 mg/ (Sodium Chloride) 50.25 mls @ 201 mls/hr IV Q6H PRN PRN Reason: Nausea Lidocaine (Lidocaine 4 % Patch Adh..Patch) 1 patch TRANSDERMA DAILY [facility]; Protocol Last Admin: 10/16/22 09:40 Dose: 1 patch Documented By: TALI Lidocaine (Lidocaine 4 % Patch Adh..Patch) 1 patch TRANSDERMA DAILY [facility]; Protocol Last Admin: 10/16/22 12:54 Dose: 1 patch Documented By: TALI Magnesium Oxide (Magnesium Oxide 400 Mg Tablet) 400 mg PO BIDPC [facility] Last Admin: 10/16/22 19:20 Dose: 400 mg Documented By: TALI Ondansetron HCl (Ondansetron Hcl 4 Mg/2 Ml Vial) 4 mg IVPUSH Q8H PRN PRN Reason: Nausea and Vomiting Last Admin: 10/07/22 07:45 Dose: 4 mg Documented By: DAVID Oxycodone HCl (Oxycodone Hcl Immed Release 5 Mg Tablet) 5 mg PO Q4H PRN PRN Reason: Pain, Moderate (Pain Scale 4-6 Last Admin: 10/17/22 02:30 Dose: 5 mg Documented By: GAVI Pharmacy Consult (Consult Rx Perform Med Rec) 1 each MISCELLANE ONCE PRN PRN Reason: Consult order Polyethylene Glycol (Polyethylene Glycol 3350 17 Gm Powd.Pack) 17 gm PO DAILY PRN PRN Reason: Constipation Last Admin: 10/12/22 18:11 Dose: 17 gm Documented By: ALLY Sodium Chloride (0.9 % Sodium Chloride Flush 3 Ml Syringe) [facility] Last Admin: 10/17/22 00:12 Dose: 3 ml Documented By: GAVI Labs CBC & Chem 7: 10/07/22 06:25 10/13/22 05:48 Assessment and Plan (1) Squamous cell carcinoma of lung: Status: Acute (2) Intractable pain: Status: Acute Plan 57-year-old male with past medical history of lung cancer diagnosed in May of this year, presents to the hospital with complaints of pain all over his body found to have hypercalcemia Intractable pain. Secondary to metastatic lung cancer On IV Dilaudid, increased frequency of oxycodone, add lidocaine patch for left shoulder pain Supportive care Acute hypercalcemia. Resolved likely secondary to lung cancer intact parathyroid hormone improved with hydration Hypokalemia secondary to poor nutrition Oral potassium Metastatic lung cancer Image shows new metastasis 2 multiple locations including the adrenal glands, peritoneum and retroperitoneum locations Hematology-Oncology consulted-possible hospice/palliative care in LTC Nausea and vomiting Secondary to metastatic cancer Supportive care COPD continue supplemental oxygen, wean as tolerated Severe protein calorie malnutrition. BMI 14.4 Add proteins diet DVT prophylaxis:? Heparin subQ Attending Dr. Whitfield Disposition Plan for hospice at [facility], insurance is being worked out currently inpatient need:possible Metastatic disease, hypercalcemia- need hypercalcemia monitoring-need? iv pamidronate, iv hydration for vomiting- and IV antiemetics, in addition read renal function and electrolyte monitoring. Awaiting rehab-hospice/palliative Quality Stroke Does the patient have a stroke diagnosis?: No VTE Prior VTE?: No VTE Risk Level:: Medical - moderate - high VTE Device Contraindication: Treatment Not Indicated VTE Drug Contraindication: N/A - Med Ordered
[2022-10-17] MEDS: Magnesium Oxide 400 MG TABLET PO ×2 (09:02→16:42)
[2022-10-17] MEDS: Docusate Sodium 100 MG CAPSULE PO (09:02)
[2022-10-17] MEDS: Heparin Sodium,Porcine 5,000 UNIT/ML VIAL 5000 UNIT SUBCUT ×2 (09:02→19:59)
[2022-10-17] MEDS: Lidocaine 4 % Patch ADH..PATCH 1 PATCH TRANSDERMA ×2 (09:03)
--- NOTE | 2022-10-17 11:30 | P.PNIM_ITS ---
Subjective Subjective Date of Service: 10/17/22 Interval History: follow up for metastatic lung cancer reporting widespread body pain denies fever, chills, sob, chest pain more sleepy today Review of Systems Review of Systems: Yes all other systems are reviewed and are negative Constitutional Constitutional: Denies chills and Denies fever(s) Cardiovascular Cardiovascular: Denies chest pain, Denies palpitations and Denies dyspnea Respiratory Respiratory: Denies cough and Denies dyspnea Gastrointestinal Gastrointestinal: Denies abdominal pain, Denies nausea and Denies vomiting Endocrine Endocrine: Denies palpitations Physical Exam Vital Signs: Vital Signs: Last Vital Signs Temp 99.1 F 10/17/22 07:42 Pulse 99 10/17/22 07:42 Resp 17 10/17/22 07:42 BP 115/61 10/17/22 07:42 Pulse Ox 100 10/17/22 07:42 O2 Del Method 10/17/22 07:42 O2 Flow Rate 3.0 10/17/22 07:42 Oxygen Flow Rate 3 10/06/22 12:30 BMI result Body Mass Index 14.4 Appearing in no acute distress, cachectic lung sounds are clear to auscultation heart regular rate rhythm, clear S1, S2 positive bowel sounds, abdomen is soft, nontender neuro patient is alert x3, no focal deficits Objective Data Active Medications Acetaminophen (Acetaminophen 325 Mg Tablet) 650 mg PO Q6H PRN PRN Reason: Pain, Mild (Pain Scale 1-3) Docusate Sodium (Docusate Sodium 100 Mg Capsule) 100 mg PO DAILY [facility] Last Admin: 10/17/22 09:02 Dose: 100 mg Documented By: EVERARDO Heparin Sodium (Porcine) (Heparin Sodium,Porcine 5,000 Unit/Ml Vial) 5,000 unit SUBCUT Q12H [facility] Last Admin: 10/17/22 09:02 Dose: 5,000 unit Documented By: EVERARDO Hydromorphone HCl (Hydromorphone Hcl 1 Mg/Ml Syringe) 1 mg IVPUSH Q3H PRN; Protocol PRN Reason: Pain, Severe (Pain Scale 7-10) Last Admin: 10/17/22 10:03 Dose: 1 mg Documented By: EVERARDO Promethazine HCl 6.25 mg/ (Sodium Chloride) 50.25 mls @ 201 mls/hr IV Q6H PRN PRN Reason: Nausea Lidocaine (Lidocaine 4 % Patch Adh..Patch) 1 patch TRANSDERMA DAILY [facility]; Protocol Last Admin: 10/17/22 09:03 Dose: 1 patch Documented By: EVERARDO Lidocaine (Lidocaine 4 % Patch Adh..Patch) 1 patch TRANSDERMA DAILY [facility]; Protoc ol Last Admin: 10/17/22 09:03 Dose: 1 patch Documented By: EVERARDO Magnesium Oxide (Magnesium Oxide 400 Mg Tablet) 400 mg PO BIDPC [facility] Last Admin: 10/17/22 09:02 Dose: 400 mg Documented By: EVERARDO Ondansetron HCl (Ondansetron Hcl 4 Mg/2 Ml Vial) 4 mg IVPUSH Q8H PRN PRN Reason: Nausea and Vomiting Last Admin: 10/07/22 07:45 Dose: 4 mg Documented By: SERRKY Oxycodone HCl (Oxycodone Hcl Immed Release 5 Mg Tablet) 5 mg PO Q4H PRN PRN Reason: Pain, Moderate (Pain Scale 4-6 Last Admin: 10/17/22 09:04 Dose: 5 mg Documented By: EVERARDO Pharmacy Consult (Consult Rx Perform Med Rec) 1 each MISCELLANE ONCE PRN PRN Reason: Consult order Polyethylene Glycol (Polyethylene Glycol 3350 17 Gm Powd.Pack) 17 gm PO DAILY PRN PRN Reason: Constipation Last Admin: 10/12/22 18:11 Dose: 17 gm Documented By: ALLY Sodium Chloride (0.9 % Sodium Chloride Flush 3 Ml Syringe) [facility] Last Admin: 10/17/22 09:02 Dose: 3 ml Documented By: EVERARDO Labs CBC & Chem 7: 10/07/22 06:25 10/13/22 05:48 Assessment and Plan (1) Squamous cell carcinoma of lung: Status: Acute (2) Intractable pain: Status: Acute Plan 57-year-old male with past medical history of lung cancer diagnosed in May of this year, presents to the hospital with complaints of pain all over his body found to have hypercalcemia Intractable pain. Secondary to metastatic lung cancer Patient much more comfortable today after increasing line frequency of narcotics On IV Dilaudid, increased frequency of oxycodone, add lidocaine patch for left shoulder pain Supportive care Acute hypercalcemia. Resolved likely secondary to lung cancer intact parathyroid hormone improved with hydration Hypokalemia secondary to poor nutrition Oral potassium Metastatic lung cancer Image shows new metastasis 2 multiple locations including the adrenal glands, peritoneum and retroperitoneum locations Hematology-Oncology consulted-possible hospice/palliative care in LTC Nausea and vomiting Secondary to metastatic cancer Supportive care COPD continue supplemental oxygen, wean as tolerated Severe protein calorie malnutrition. BMI 14.4 Add proteins diet DVT prophylaxis:? Heparin subQ Attending Dr. Whitfield DNR/DNI poor prognosis Disposition Plan for hospice at long-term [facility], insurance is being worked out currently inpatient need:possible Metastatic disease, hypercalcemia- need hypercalcemia monitoring-need? iv pamidronate, iv hydration for vomiting- and IV antiemetics, in addition read renal function and electrolyte monitoring. Awaiting rehab-hospice/palliative Quality Stroke Does the patient have a stroke diagnosis?: No VTE Prior VTE?: No VTE Risk Level:: Medical - moderate - high VTE Device Contraindication: Treatment Not Indicated VTE Drug Contraindication: N/A - Med Ordered
[2022-10-17 12:00] VITALS: BP 123/67; PULSE 102; RESP 18; TEMP 37.1; O2SAT 94
--- NOTE | 2022-10-17 13:42 | MHC.CLN ---
F/U CONTINUES WITH USUALLY POOR INTAKE, 25-50%. DIET=FULL LIQUIDS. ENSURE CLEAR TID TO PROVIDE ADDITIONAL 720 KCALS, 24 G PROTEIN. FOLLOW FOR PLAN OF CARE.
[2022-10-17 14:55] VITALS: BP 132/61; PULSE 100; RESP 18; TEMP 37.1; O2SAT 96
[2022-10-17 18:55] VITALS: BP 127/68; PULSE 101; RESP 20; TEMP 36.6; O2SAT 100
[2022-10-18] VITALS (7 sets, daily range): BP systolic 103–126; BP diastolic 62–73; PULSE 91–107; RESP 18–20; TEMP 36.6–37; O2SAT 98–100
[2022-10-18] MEDS: HYDROmorphone HCl 1 MG/ML SYRINGE IVPUSH ×5 (02:08→20:10)
[2022-10-18] MEDS: oxyCODONE HCl Immed Release 5 MG TABLET PO ×3 (04:32→17:26)
[2022-10-18] MEDS: Docusate Sodium 100 MG CAPSULE PO (08:42)
[2022-10-18] MEDS: Magnesium Oxide 400 MG TABLET PO ×2 (08:42→17:27)
[2022-10-18] MEDS: Lidocaine 4 % Patch ADH..PATCH 1 PATCH TRANSDERMA ×2 (08:42→08:43)
[2022-10-18] MEDS: 0.9 % Sodium Chloride Flush 3 ML SYRINGE IVFLUSH ×2 (08:43→20:11)
[2022-10-18] MEDS: polyethylene glycoL 3350 17 GM POWD.PACK PO (09:35)
[2022-10-18] MEDS: Heparin Sodium,Porcine 5,000 UNIT/ML VIAL 5000 UNIT SUBCUT ×2 (09:35→20:10)
[2022-10-18] MEDS: oxyCODONE HCl Immed Release 5 MG TABLET 10 MG PO (12:09)
--- NOTE | 2022-10-18 15:11 | HO.PM.IMPN ---
Subjective Subjective Date of Service: 10/18/22 Interval History: seen and examined this morning follow up for metastatic cancer reporting pain allover no fever, chills, sob, chest pain no abdominal pain, not eating much Review of Systems Review of Systems: Yes all other systems are reviewed and are negative Constitutional Constitutional: Denies chills and Denies fever(s) Cardiovascular Cardiovascular: Denies chest pain, Denies palpitations and Denies dyspnea Respiratory Respiratory: Denies cough and Denies dyspnea Gastrointestinal Gastrointestinal: Denies abdominal pain Endocrine Endocrine: Denies palpitations Physical Exam Vital Signs: Vital Signs: Last Vital Signs Temp 97.8 F 10/18/22 12:00 Pulse 96 10/18/22 12:00 Resp 18 10/18/22 12:00 BP 126/70 10/18/22 12:00 Pulse Ox 100 10/18/22 12:00 O2 Del Method 10/18/22 12:00 O2 Flow Rate 3 10/18/22 12:00 Oxygen Flow Rate 3 10/06/22 12:30 BMI result Body Mass Index 14.4 Const: General: alert and awake Nutritional Appearance: underweight Orientation/consciousness: patient oriented x3 Resp: Effort & Inspection: normal respiratory effort and able to speak in complete sentences Cardio: Rate: regular rate Heart sounds: S1 normal heart sound present and S2 normal heart sound present GI: Inspection: No distended Palpation (GI): Soft to palpation and nontender Neuro: Other: no foal deficits General: patient oriented x3 Extrem: General: Yes no pedal edema Objective Data Active Medications Acetaminophen (Acetaminophen 325 Mg Tablet) 650 mg PO Q6H PRN PRN Reason: Pain, Mild (Pain Scale 1-3) Docusate Sodium (Docusate Sodium 100 Mg Capsule) 100 mg PO DAILY [facility] Last Admin: 10/18/22 08:42 Dose: 100 mg Documented By: EVERARDO Heparin Sodium (Porcine) (Heparin Sodium,Porcine 5,000 Unit/Ml Vial) 5,000 unit SUBCUT Q12H [facility] Last Admin: 10/18/22 09:35 Dose: 5,000 unit Documented By: EVERARDO Hydromorphone HCl (Hydromorphone Hcl 1 Mg/Ml Syringe) 1 mg IVPUSH Q4H PRN; Protocol PRN Reason: Pain, Severe (Pain Scale 7-10) Promethazine HCl 6.25 mg/ (Sodium Chloride) 50.25 mls @ 201 mls/hr IV Q6H PRN PRN Reason: Nausea Lidocaine (Lidocaine 4 % Patch Adh..Patch) 1 patch TRANSDERMA DAILY [facility]; Protocol Last Admin: 10/18/22 08:42 Dose: 1 patch Documented By: EVERARDO Lidocaine (Lidocaine 4 % Patch Adh..Patch) 1 patch TRANSDERMA DAILY [facility]; Protocol Last Admin: 10/18/22 08:43 Dose: 1 patch Documented By: EVERARDO Magnesium Oxide (Magnesium Oxide 400 Mg Tablet) [facility] Last Admin: 10/18/22 08:42 Dose: 400 mg Documented By: EVERARDO Ondansetron HCl (Ondansetron Hcl 4 Mg/2 Ml Vial) 4 mg IVPUSH Q8H PRN PRN Reason: Nausea and Vomiting Last Admin: 10/07/22 07:45 Dose: 4 mg Documented By: SERRANBianca Oxycodone HCl (Oxycodone Hcl Er 10 Mg Tab.Er.12h) 10 mg PO BID [facility] Oxycodone HCl (Oxycodone Hcl Immed Release 5 Mg Tablet) 5 mg PO Q6H PRN PRN Reason: Pain, Moderate (Pain Scale 4-6 Pharmacy Consult (Consult Rx Perform Med Rec) 1 each MISCELLANE ONCE PRN PRN Reason: Consult order Polyethylene Glycol (Polyethylene Glycol 3350 17 Gm Powd.Pack) 17 gm PO DAILY PRN PRN Reason: Constipation Last Admin: 10/18/22 09:35 Dose: 17 gm Documented By: EVERARDO Sodium Chloride (0.9 % Sodium Chloride Flush 3 Ml Syringe) 3 ml IVFLUSH QSHIFT [facility] Last Admin: 10/18/22 08:43 Dose: 3 ml Documented By: EVERARDO Labs CBC & Chem 7: 10/07/22 06:25 10/13/22 05:48 Assessment and Plan (1) Severe malnutrition: Status: Acute (2) Squamous cell carcinoma of lung: Status: Acute (3) Intractable pain: Status: Acute Plan 57-year-old male with past medical history of lung cancer diagnosed in May of this year, presents to the hospital with complaints of pain all over his body found to have hypercalcemia Intractable pain. Secondary to metastatic lung cancer Patient much more comfortable today after increasing line frequency of narcotics will add oxycontin, continue oxycodone and IV dilaudid for breakthough pain Supportive care Acute hypercalcemia. Resolved likely secondary to lung cancer intact parathyroid hormone improved with hydration Hypokalemia secondary to poor nutrition Oral potassium Metastatic lung cancer Image shows new metastasis 2 multiple locations including the adrenal glands, peritoneum and retroperitoneum locations Hematology-Oncology consulted-possible hospice/palliative care in LTC Nausea and vomiting Secondary to metastatic cancer Supportive care COPD continue supplemental oxygen, wean as tolerated Severe protein calorie malnutrition. BMI 14.4 Add proteins diet DVT prophylaxis:? Heparin subQ Attending Dr. Whitfield DNR/DNI poor prognosis Disposition Plan for hospice at [facility], insurance is being worked out currently. family unable to take family home inpatient need:possible Metastatic disease - pain control requiring frequent doses of IV pain medications Awaiting rehab-hospice/palliative Quality Stroke Does the patient have a stroke diagnosis?: No VTE Prior VTE?: No VTE Risk Level:: Medical - moderate - high VTE Device Contraindication: Treatment Not Indicated VTE Drug Contraindication: N/A - Med Ordered
[2022-10-18] MEDS: Acetaminophen 325 MG TABLET 650 MG PO (17:27)
[2022-10-18] MEDS: oxyCODONE HCl ER 10 MG TAB.ER.12H PO (20:10)
[2022-10-19] MEDS: HYDROmorphone HCl 1 MG/ML SYRINGE IVPUSH ×6 (00:49→21:06)
[2022-10-19] MEDS: oxyCODONE HCl Immed Release 5 MG TABLET PO ×4 (00:54→23:55)
[2022-10-19 03:35] VITALS: BP 120/66; PULSE 100; RESP 17; TEMP 36.8; O2SAT 98
[2022-10-19] MEDS: Magnesium Oxide 400 MG TABLET PO ×2 (07:27→17:01)
[2022-10-19] MEDS: Docusate Sodium 100 MG CAPSULE PO (07:28)
[2022-10-19] MEDS: Heparin Sodium,Porcine 5,000 UNIT/ML VIAL 5000 UNIT SUBCUT ×2 (07:28→19:58)
[2022-10-19] MEDS: Lidocaine 4 % Patch ADH..PATCH 1 PATCH TRANSDERMA ×2 (07:28)
[2022-10-19] MEDS: oxyCODONE HCl ER 10 MG TAB.ER.12H PO ×2 (07:28→19:57)
[2022-10-19] MEDS: 0.9 % Sodium Chloride Flush 3 ML SYRINGE IVFLUSH ×3 (07:29→20:01)
[2022-10-19 07:54] VITALS: BP 119/68; PULSE 98; RESP 18; TEMP 36.8
--- NOTE | 2022-10-19 11:42 | P.PNIM_ITS ---
Subjective Subjective Date of Service: 10/19/22 Interval History: seen and examined this morning still with widespread pain no abdominal pain or chest pain not eating much Review of Systems Review of Systems: Yes all other systems are reviewed and are negative Constitutional Constitutional: Denies chills and Denies fever(s) Cardiovascular Cardiovascular: Denies chest pain, Denies palpitations and Denies dyspnea Respiratory Respiratory: Denies cough and Denies dyspnea Gastrointestinal Gastrointestinal: Denies abdominal pain Endocrine Endocrine: Denies palpitations Physical Exam Vital Signs: Vital Signs: Last Vital Signs Temp 98.2 F 10/19/22 07:54 Pulse 98 10/19/22 07:54 Resp 18 10/19/22 07:54 BP 119/68 10/19/22 07:54 Pulse Ox 98 10/19/22 03:35 O2 Del Method 10/19/22 07:54 O2 Flow Rate 3 10/19/22 07:54 Oxygen Flow Rate 3 10/06/22 12:30 BMI result Body Mass Index 14.4 Const: General: comfortable, alert and awake Nutritional Appearance: cachectic Orientation/consciousness: patient oriented x3 Resp: Effort & Inspection: normal respiratory effort and able to speak in complete sentences Cardio: Rate: regular rate Heart sounds: S1 normal heart sound present and S2 normal heart sound present GI: Inspection: No distended Palpation (GI): Soft to palpation and nontender Skin: Other: nodule midback between scapula, well cicumscribed Neuro: Other: no foal deficits General: patient oriented x3 and CN's II-XI intact bilaterally Extrem: General: Yes no pedal edema Objective Data Active Medications Acetaminophen (Acetaminophen 325 Mg Tablet) 650 mg PO Q6H PRN PRN Reason: Pain, Mild (Pain Scale 1-3) Last Admin: 10/18/22 17:27 Dose: 650 mg Documented By: EVERARDO Docusate Sodium (Docusate Sodium 100 Mg Capsule) 100 mg PO DAILY [facility] Last Admin: 10/19/22 07:28 Dose: 100 mg Documented By: FRANKIE Heparin Sodium (Porcine) (Heparin Sodium,Porcine 5,000 Unit/Ml Vial) 5,000 unit SUBCUT Q12H [facility] Last Admin: 10/19/22 07:28 Dose: 5,000 unit Documented By: FRANKIE Hydromorphone HCl (Hydromorphone Hcl 1 Mg/Ml Syringe) 1 mg IVPUSH Q4H PRN; Protocol PRN Reason: Pain, Severe (Pain Scale 7-10) Last Admin: 10/19/22 09:12 Dose: 1 mg Documented By: FRANKIE Promethazine HCl 6.25 mg/ (Sodium Chloride) 50.25 mls @ 201 mls/hr IV Q6H PRN PRN Reason: Nausea Lidocaine (Lidocaine 4 % Patch Adh..Patch) 1 patch TRANSDERMA DAILY [facility]; Protocol Last Admin: 10/19/22 07:28 Dose: 1 patch Documented By: FRANKIE Lidocaine (Lidocaine 4 % Patch Adh..Patch) 1 patch TRANSDERMA DAILY [facility]; Protocol Last Admin: 10/19/22 07:28 Dose: 1 patch Documented By: FRANKIE Magnesium Oxide (Magnesium [facility]ide 400 Mg Tablet) [facility] Last Admin: 10/19/22 07:27 Dose: 400 mg Documented By: FRANKIE Ondansetron HCl (Ondansetron Hcl 4 Mg/2 Ml Vial) 4 mg IVPUSH Q8H PRN PRN Reason: Nausea and Vomiting Last Admin: 10/07/22 07:45 Dose: 4 mg Documented By: DAVID Oxycodone HCl (Oxycodone Hcl Er 10 Mg Tab.Er.12h) 10 mg PO BID [facility] Last Admin: 10/19/22 07:28 Dose: 10 mg Documented By: FRANKIE Oxycodone HCl (Oxycodone Hcl Immed Release 5 Mg Tablet) 5 mg PO Q6H PRN PRN Reason: Pain, Moderate (Pain Scale 4-6 Last Admin: 10/19/22 08:03 Dose: 5 mg Documented By: FRANKIE Pharmacy Consult (Consult Rx Perform Med Rec) 1 each MISCELLANE ONCE PRN PRN Reason: Consult order Polyethylene Glycol (Polyethylene Glycol 3350 17 Gm Powd.Pack) 17 gm PO DAILY PRN PRN Reason: Constipation Last Admin: 10/18/22 09:35 Dose: 17 gm Documented By: EVERARDO Sodium Chloride (0.9 % Sodium Chloride Flush 3 Ml Syringe) [facility] Last Admin: 10/19/22 07:29 Dose: 3 ml Documented By: FRANKIE Labs CBC & Chem 7: 10/07/22 06:25 10/13/22 05:48 Assessment and Plan (1) Squamous cell carcinoma of lung: Status: Acute (2) Intractable pain: Status: Acute Plan 57-year-old male with past medical history of lung cancer diagnosed in May of this year, presents to the hospital with complaints of pain all over his body found to have hypercalcemia Intractable pain. Secondary to metastatic lung cancer will add oxycontin, continue oxycodone and IV dilaudid for breakthough pain Supportive care Acute hypercalcemia. Resolved likely secondary to lung cancer intact parathyroid hormone improved with hydration Hypokalemia secondary to poor nutrition Oral potassium Metastatic lung cancer Image shows new metastasis 2 multiple locations including the adrenal glands, peritoneum and retroperitoneum locations Hematology-Oncology consulted-possible hospice/palliative care in LTC Nausea and vomiting Secondary to metastatic cancer Supportive care COPD continue supplemental oxygen, wean as tolerated Severe protein calorie malnutrition. BMI 14.4 Add protein diet DVT prophylaxis:? Heparin subQ Attending Dr. Whitfield DNR/DNI poor prognosis Disposition Plan for hospice at long-term care, insurance is being worked out currently. family unable to care for patient at home inpatient need:possible Metastatic disease - pain control requiring frequent doses of IV pain medications Awaiting rehab-hospice/palliative Quality Stroke Does the patient have a stroke diagnosis?: No VTE Prior VTE?: No VTE Risk Level:: Medical - moderate - high VTE Device Contraindication: Treatment Not Indicated VTE Drug Contraindication: N/A - Med Ordered
--- NOTE | 2022-10-19 11:57 | MHC.CLN ---
F/U CONTINUES WITH USUALLY POOR INTAKE, 0-25%. DIET=FULL LIQUIDS. ENSURE CLEAR TID TO PROVIDE ADDITIONAL 720 KCALS, 24 G PROTEIN. FOLLOW FOR PLAN OF CARE.
[2022-10-19 15:22] VITALS: BP 115/59; PULSE 100; RESP 16; TEMP 37.6; O2SAT 99
[2022-10-19] MEDS: Acetaminophen 325 MG TABLET 650 MG PO (17:01)
[2022-10-19 19:42] VITALS: BP 126/57; PULSE 92; RESP 16; TEMP 36.9; O2SAT 97
[2022-10-20] MEDS: HYDROmorphone HCl 1 MG/ML SYRINGE IVPUSH ×6 (01:00→22:08)
[2022-10-20 04:00] VITALS: BP 124/66; PULSE 98; RESP 16; TEMP 36.4; O2SAT 98
[2022-10-20 06:43] LABS: Anion Gap 13 (12-20); Blood Urea Nitrogen 9 mg/dL (9-16); Carbon Dioxide 33 mmol/L (22-29); Chloride 97 mmol/L (96-108); Creatinine Clr Calc Pharmacy 68.8; Estimated Glomerular Filt Rate > 60; Glucose Random 108 mg/dL (60-115); Potassium 4.8 mmol/L (3.3-5.1); Sodium 138 mmol/L (135-145)
--- NOTE | 2022-10-20 06:49 | PC.NURSE ---
Addendum entered by Leti Patton RN 10/20/22 06:53: NOTED 0651 THAT ACKNOWLEDGED BELOW MESSAGE WITH [employer] Original Note: CALL RECEIVED FROM LAB DEPT AT 0646, ABNORMAL CALCIUM LEVEL OF 13.0 WAS GIVEN AND READ BACK. HOSPITALIST ON DUTY ALERTED VIA TIGER TEXT AND NOTE WAS READ. AWAITING IF ORDERS WILL BE PLACED, REPORT WILL BE GIVEN TO DAY RN TIME IS 0651. PT WITH NO STATUS CHANGES.
[2022-10-20 07:51] VITALS: BP 107/62; PULSE 105; RESP 15; TEMP 36.9; O2SAT 99
[2022-10-20] MEDS: Lidocaine 4 % Patch ADH..PATCH 1 PATCH TRANSDERMA ×2 (08:39→08:40)
[2022-10-20] MEDS: Heparin Sodium,Porcine 5,000 UNIT/ML VIAL 5000 UNIT SUBCUT ×2 (08:40→20:39)
[2022-10-20] MEDS: oxyCODONE HCl ER 10 MG TAB.ER.12H PO ×2 (08:40→20:39)
[2022-10-20] MEDS: oxyCODONE HCl Immed Release 5 MG TABLET PO ×2 (08:40→17:55)
[2022-10-20] MEDS: SODIUM CHLORIDE 0.9% IV (08:41)
[2022-10-20] MEDS: Docusate Sodium 100 MG CAPSULE PO (08:41)
[2022-10-20] MEDS: Calcitonin,Salmon,Synth Nasal 3.7 ML BOTTLE 1 SPRAY NOSTRILALT (08:41)
[2022-10-20] MEDS: 0.9 % Sodium Chloride Flush 3 ML SYRINGE IVFLUSH ×3 (08:41→20:39)
[2022-10-20] MEDS: PAMIDRONATE DISODIUM IV (08:41)
[2022-10-20] MEDS: Magnesium Oxide 400 MG TABLET PO ×2 (08:42→16:53)
--- NOTE | 2022-10-20 10:46 | HO.PM.IMPN ---
Subjective Subjective Date of Service: 10/20/22 Interval History: seen and examined this morning reporting generalized pain not eating much Review of Systems Review of Systems: Yes all other systems are reviewed and are negative Constitutional Constitutional: Denies chills and Denies fever(s) Cardiovascular Cardiovascular: Denies dyspnea Respiratory Respiratory: Denies cough and Denies dyspnea Gastrointestinal Gastrointestinal: Denies abdominal pain Physical Exam Vital Signs: Vital Signs: Last Vital Signs Temp 98.5 F 10/20/22 07:51 Pulse 105 H 10/20/22 07:51 Resp 15 10/20/22 07:51 BP 107/62 10/20/22 07:51 Pulse Ox 99 10/20/22 07:51 O2 Del Method 10/20/22 07:51 O2 Flow Rate 2 10/20/22 07:51 Oxygen Flow Rate 3 10/06/22 12:30 BMI result Body Mass Index 14.4 Const: General: comfortable, alert, awake and ill appearing Nutritional Appearance: cachectic and underweight Orientation/consciousness: patient oriented x3 Resp: Effort & Inspection: normal respiratory effort and able to speak in complete sentences Cardio: Rate: regular rate Heart sounds: S1 normal heart sound present and S2 normal heart sound present GI: Inspection: No distended Palpation (GI): Soft to palpation and nontender Skin: Other: nodule midback between scapula, well cicumscribed Neuro: Other: no foal deficits General: patient oriented x3 and CN's II-XI intact bilaterally Extrem: General: Yes no pedal edema Objective Data Active Medications Acetaminophen (Acetaminophen 325 Mg Tablet) 650 mg PO Q6H PRN PRN Reason: Pain, Mild (Pain Scale 1-3) Last Admin: 10/19/22 17:01 Dose: 650 mg Documented By: FRANKIE Calcitonin [place] (Calcitonin,[place],Synth Nasal 3.7 Ml Bottle) 1 spray NOSTRILALT DAILY [facility] Last Admin: 10/20/22 08:41 Dose: 1 spray Documented By: ISAAC Docusate Sodium (Docusate Sodium 100 Mg Capsule) 100 mg PO DAILY [facility] Last Admin: 10/20/22 08:41 Dose: 100 mg Documented By: ISAAC Heparin Sodium (Porcine) (Heparin Sodium,Porcine 5,000 Unit/Ml Vial) 5,000 unit SUBCUT Q12H [facility] Last Admin: 10/20/22 08:40 Dose: 5,000 unit Documented By: ISAAC Hydromorphone HCl (Hydromorphone Hcl 1 Mg/Ml Syringe) 1 mg IVPUSH Q4H PRN; Protocol PRN Reason: Pain, Severe (Pain Scale 7-10) Last Admin: 10/20/22 08:57 Dose: 1 mg Documented By: ISAAC Promethazine HCl 6.25 mg/ (Sodium Chloride) 50.25 mls @ 201 mls/hr IV Q6H PRN PRN Reason: Nausea Sodium Chloride (Ns) 1,000 mls @ 100 mls/hr IVCONT .Q10H [facility] Lidocaine (Lidocaine 4 % Patch Adh..Patch) 1 patch TRANSDERMA DAILY [facility]; Protocol Last Admin: 10/20/22 08:39 Dose: 1 patch Documented By: ISAAC Lidocaine (Lidocaine 4 % Patch Adh..Patch) 1 patch TRANSDERMA DAILY [facility]; Protocol Last Admin: 10/20/22 08:40 Dose: 1 patch Documented By: ISAAC Magnesium Oxide (Magnesium Oxide 400 Mg Tablet) [facility] Last Admin: 10/20/22 08:42 Dose: 400 mg Documented By: ISAAC Ondansetron HCl (Ondansetron Hcl 4 Mg/2 Ml Vial) 4 mg IVPUSH Q8H PRN PRN Reason: Nausea and Vomiting Last Admin: 10/07/22 07:45 Dose: 4 mg Documented By: DAVID Oxycodone HCl (Oxycodone Hcl Er 10 Mg Tab.Er.12h) 10 mg PO BID [facility] Last Admin: 10/20/22 08:40 Dose: 10 mg Documented By: ISAAC Oxycodone HCl (Oxycodone Hcl Immed Release 5 Mg Tablet) 5 mg PO Q4H PRN PRN Reason: Pain, Moderate (Pain Scale 4-6 Pharmacy Consult (Consult Rx Perform Med Rec) 1 each MISCELLANE ONCE PRN PRN Reason: Consult order Polyethylene Glycol (Polyethylene Glycol 3350 17 Gm Powd.Pack) 17 gm PO DAILY PRN PRN Reason: Constipation Last Admin: 10/18/22 09:35 Dose: 17 gm Documented By: EVERARDO Sodium Chloride (0.9 % Sodium Chloride Flush 3 Ml Syringe) [address] [facility] Last Admin: 10/20/22 08:41 Dose: 3 ml Documented By: ISAAC Labs CBC & Chem 7: 10/07/22 06:25 10/20/22 05:38 Labs: Laboratory Results - last 24 hr 10/20/22 05:38 Anion Gap 13 Estim Creat Clear Calc 68.8 Estimated GFR > 60 Random Glucose 108 Calcium 13.0 H* D Assessment and Plan (1) Hypercalcemia: Status: Acute (2) Severe malnutrition: Status: Acute (3) Primary lung cancer with metastasis from lung to other site: Status: Acute Plan 57-year-old male with past medical history of lung cancer diagnosed in May of this year, presents to the hospital with complaints of pain all over his body found to have hypercalcemia Intractable pain. Secondary to metastatic lung cancer will add oxycontin, continue oxycodone and IV dilaudid for breakthough pain Supportive care Acute hypercalcemia. likely secondary to lung cancer intact parathyroid hormone calcium 13 -IVF -pamidronate -follow calcium Hypokalemia secondary to poor nutrition resolved Metastatic lung cancer Image shows new metastasis 2 multiple locations including the adrenal glands, peritoneum and retroperitoneum locations Hematology-Oncology consulted-possible hospice/palliative care in LTC Nausea and vomiting Secondary to metastatic cancer Supportive care COPD continue supplemental oxygen, wean as tolerated Severe protein calorie malnutrition. BMI 14.4 Add protein diet DVT prophylaxis:? Heparin subQ Attending Dr. Whitfield DNR/DNI poor prognosis Disposition Plan for hospice at long-term [facility], insurance is being worked out currently. family unable to care for patient at home inpatient need:possible Metastatic disease - pain control requiring frequent doses of IV pain medications Awaiting rehab-hospice/palliative Quality Stroke Does the patient have a stroke diagnosis?: No VTE Prior VTE?: No VTE Risk Level:: Medical - moderate - high VTE Device Contraindication: Treatment Not Indicated VTE Drug Contraindication: N/A - Med Ordered
[2022-10-20] MEDS: 0.9 % Sodium Chloride 1,000 ML 100 ML IVCONT (11:17)
[2022-10-20 15:11] VITALS: BP 131/72; PULSE 106; RESP 15; TEMP 36.6; O2SAT 99
[2022-10-20 19:13] VITALS: BP 111/67; PULSE 104; RESP 18; TEMP 36.9; O2SAT 97
[2022-10-21] MEDS: oxyCODONE HCl Immed Release 5 MG TABLET PO ×3 (00:12→14:08)
[2022-10-21] MEDS: HYDROmorphone HCl 1 MG/ML SYRINGE IVPUSH ×5 (02:35→22:47)
[2022-10-21 04:00] VITALS: BP 125/70; PULSE 86; RESP 16; TEMP 36; O2SAT 99
[2022-10-21] MEDS: 0.9 % Sodium Chloride 1,000 ML 100 ML IVCONT ×3 (04:40→22:50)
[2022-10-21 06:26] LABS: Calcium 11.8 mg/dL (8.4-10.2)
[2022-10-21 07:26] VITALS: BP 128/74; PULSE 88; RESP 17; TEMP 37.1; O2SAT 99
[2022-10-21] MEDS: Heparin Sodium,Porcine 5,000 UNIT/ML VIAL 5000 UNIT SUBCUT ×2 (07:41→20:10)
[2022-10-21] MEDS: Lidocaine 4 % Patch ADH..PATCH 1 PATCH TRANSDERMA ×2 (07:42)
[2022-10-21] MEDS: oxyCODONE HCl ER 10 MG TAB.ER.12H PO ×2 (07:42→20:10)
[2022-10-21] MEDS: Docusate Sodium 100 MG CAPSULE PO (07:42)
[2022-10-21] MEDS: Calcitonin,Salmon,Synth Nasal 3.7 ML BOTTLE 1 SPRAY NOSTRILALT (07:43)
[2022-10-21] MEDS: 0.9 % Sodium Chloride Flush 3 ML SYRINGE IVFLUSH (07:43)
[2022-10-21] MEDS: Magnesium Oxide 400 MG TABLET PO ×2 (07:43→17:16)
--- NOTE | 2022-10-21 09:45 | P.PNIM_ITS ---
Subjective Subjective Date of Service: 10/21/22 Interval History: seen and examined this morning not feeling well. having generalized pain no abdominal pain. still not eating much Review of Systems Review of Systems: Yes all other systems are reviewed and are negative Constitutional Constitutional: Denies chills and Denies fever(s) Cardiovascular Cardiovascular: Denies chest pain, Denies palpitations and Denies dyspnea Respiratory Respiratory: Denies cough and Denies dyspnea Gastrointestinal Gastrointestinal: Denies abdominal pain Endocrine Endocrine: Denies palpitations Physical Exam Vital Signs: Vital Signs: Last Vital Signs Temp 98.7 F 10/21/22 07:26 Pulse 88 10/21/22 07:26 Resp 17 10/21/22 07:26 BP 128/74 10/21/22 07:26 Pulse Ox 99 10/21/22 07:26 O2 Del Method 10/21/22 07:26 O2 Flow Rate 3 10/21/22 07:26 Oxygen Flow Rate 3 10/06/22 12:30 BMI result Body Mass Index 14.4 Const: General: comfortable, awake and ill appearing Nutritional Appearance: cachectic and underweight Orientation/consciousness: patient oriented x3 Resp: Effort & Inspection: normal respiratory effort and able to speak in complete sentences Cardio: Rate: regular rate Heart sounds: S1 normal heart sound present and S2 normal heart sound present GI: Inspection: No distended Palpation (GI): Soft to palpation and nontender Skin: Other: nodule midback between scapula, well cicumscribed Neuro: Other: no focal deficits General: patient oriented x3 Extrem: General: Yes no pedal edema Objective Data Active Medications Acetaminophen (Acetaminophen 325 Mg Tablet) 650 mg PO Q6H PRN PRN Reason: Pain, Mild (Pain Scale 1-3) Last Admin: 10/19/22 17:01 Dose: 650 mg Documented By: FRANKIE Calcitonin [place] (Calcitonin,[place],Synth Nasal 3.7 Ml Bottle) 1 spray NOSTRILALT DAILY [facility] Last Admin: 10/21/22 07:43 Dose: 1 spray Documented By: ISAAC Docusate Sodium (Docusate Sodium 100 Mg Capsule) 100 mg PO DAILY [facility] Last Admin: 10/21/22 07:42 Dose: 100 mg Documented By: ISAAC Heparin Sodium (Porcine) (Heparin Sodium,Porcine 5,000 Unit/Ml Vial) 5,000 unit SUBCUT Q12H [facility] Last Admin: 10/21/22 07:41 Dose: 5,000 unit Documented By: ISAAC Hydromorphone HCl (Hydromorphone Hcl 1 Mg/Ml Syringe) 1 mg IVPUSH Q4H PRN; Protocol PRN Reason: Pain, Severe (Pain Scale 7-10) Last Admin: 10/21/22 07:39 Dose: 1 mg Documented By: ISAAC Promethazine HCl 6.25 mg/ (Sodium Chloride) 50.25 mls @ 201 mls/hr IV Q6H PRN PRN Reason: Nausea Sodium Chloride (Ns) 1,000 mls @ 100 mls/hr IVCONT .Q10H [facility] Last Admin: 10/21/22 04:40 Dose: 100 mls/hr Documented By: EVA Lidocaine (Lidocaine 4 % Patch Adh..Patch) 1 patch TRANSDERMA DAILY [facility]; Protocol Last Admin: 10/21/22 07:42 Dose: 1 patch Documented By: ISAAC Lidocaine (Lidocaine 4 % Patch Adh..Patch) 1 patch TRANSDERMA DAILY [facility]; Protocol Last Admin: 10/21/22 07:42 Dose: 1 patch Documented By: ISAAC Magnesium Oxide (Magnesium Oxide 400 Mg Tablet) [facility] Last Admin: 10/21/22 07:43 Dose: 400 mg Documented By: ISAAC Comments: barcode won't scan Ondansetron HCl (Ondansetron Hcl 4 Mg/2 Ml Vial) 4 mg IVPUSH Q8H PRN PRN Reason: Nausea and Vomiting Last Admin: 10/07/22 07:45 Dose: 4 mg Documented By: DAVID Oxycodone HCl (Oxycodone Hcl Er 10 Mg Tab.Er.12h) 10 mg PO BID [facility] Last Admin: 10/21/22 07:42 Dose: 10 mg Documented By: ISAAC Oxycodone HCl (Oxycodone Hcl Immed Release 5 Mg Tablet) 5 mg PO Q4H PRN PRN Reason: Pain, Moderate (Pain Scale 4-6 Last Admin: 10/21/22 05:30 Dose: 5 mg Documented By: EVA Pharmacy Consult (Consult Rx Perform Med Rec) 1 each MISCELLANE ONCE PRN PRN Reason: Consult order Polyethylene Glycol (Polyethylene Glycol 3350 17 Gm Powd.Pack) 17 gm PO DAILY PRN PRN Reason: Constipation Last Admin: 10/18/22 09:35 Dose: 17 gm Documented By: EVERARDO Sodium Chloride (0.9 % Sodium Chloride Flush 3 Ml Syringe) 3 ml IVFLUSH QSHIFT [facility] Last Admin: 10/21/22 07:43 Dose: 3 ml Documented By: ISAAC Labs CBC & Chem 7: 10/07/22 06:25 10/20/22 05:38 Labs: Laboratory Results - last 24 hr 10/21/22 05:28 Calcium 11.8 H D Assessment and Plan (1) Severe malnutrition: Status: Acute (2) Hypercalcemia: Status: Acute (3) Squamous cell carcinoma of lung: Status: Acute Plan 57-year-old male with past medical history of lung cancer diagnosed in May of this year, presents to the hospital with complaints of pain all over his body found to have hypercalcemia Intractable pain. Secondary to metastatic lung cancer will add oxycontin, continue oxycodone and IV dilaudid for breakthough pain Supportive care Acute hypercalcemia. likely secondary to lung cancer intact parathyroid hormone calcium trending down to 11.8 -IVF -pamidronate -follow calcium Hypokalemia secondary to poor nutrition resolved Metastatic lung cancer Image shows new metastasis 2 multiple locations including the adrenal glands, peritoneum and retroperitoneum locations Hematology-Oncology consulted-possible hospice/palliative care in LTC Nausea and vomiting Secondary to metastatic cancer Supportive care COPD continue supplemental oxygen, wean as tolerated Severe protein calorie malnutrition. BMI 14.4 Add protein diet DVT prophylaxis:? Heparin subQ Attending Dr. Whitfield DNR/DNI poor prognosis Disposition Plan [facility], insurance is being worked out currently. 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 attempted to call HCP Irbilson but was unable to leave message inpatient need:possible Metastatic disease - pain control requiring frequent doses of IV pain medications Awaiting rehab-hospice/palliative Quality Stroke Does the patient have a stroke diagnosis?: No VTE Prior VTE?: No VTE Risk Level:: Medical - moderate - high VTE Device Contraindication: Treatment Not Indicated VTE Drug Contraindication: N/A - Med Ordered
[2022-10-21 15:22] VITALS: BP 121/64; PULSE 97; RESP 18; TEMP 37.3; O2SAT 100
[2022-10-21 19:35] VITALS: BP 109/56; PULSE 103; RESP 16; TEMP 36.8; O2SAT 99
[2022-10-21] MEDS: polyethylene glycoL 3350 17 GM POWD.PACK PO (20:48)
[2022-10-22] VITALS (9 sets, daily range): BP systolic 91–122; BP diastolic 51–66; PULSE 68–100; RESP 11–18; TEMP 36.6–37.6; O2SAT 97–100
[2022-10-22] MEDS: HYDROmorphone HCl 1 MG/ML SYRINGE IVPUSH ×3 (01:54→09:33)
[2022-10-22] MEDS: oxyCODONE HCl ER 10 MG TAB.ER.12H PO (08:42)
[2022-10-22] MEDS: Magnesium Oxide 400 MG TABLET PO ×2 (08:42→17:18)
[2022-10-22] MEDS: Docusate Sodium 100 MG CAPSULE PO (08:42)
[2022-10-22] MEDS: Lidocaine 4 % Patch ADH..PATCH 1 PATCH TRANSDERMA ×2 (08:42)
[2022-10-22] MEDS: Heparin Sodium,Porcine 5,000 UNIT/ML VIAL 5000 UNIT SUBCUT ×2 (08:42→20:05)
[2022-10-22] MEDS: 0.9 % Sodium Chloride Flush 3 ML SYRINGE IVFLUSH ×2 (08:43→17:18)
[2022-10-22] MEDS: Calcitonin,Salmon,Synth Nasal 3.7 ML BOTTLE 1 SPRAY NOSTRILALT (08:43)
--- NOTE | 2022-10-22 10:12 | MHC.CLN ---
F/U CONTINUES WITH USUALLY POOR INTAKE. DIET=FULL LIQUIDS. ENSURE CLEAR TID TO PROVIDE ADDITIONAL 720 KCALS, 24 G PROTEIN. SKIN WITH REDNESS TO BUTTOCKS. FOLLOW FOR PLAN OF CARE.
--- NOTE | 2022-10-22 11:30 | P.PNIM_ITS ---
Subjective Subjective Date of Service: 10/22/22 Interval History: having generalized pain no abdominal pain. still not eating much Review of Systems Review of Systems: Yes all other systems are reviewed and are negative Constitutional Constitutional: Denies chills and Denies fever(s) Cardiovascular Cardiovascular: Denies chest pain, Denies palpitations and Denies dyspnea Respiratory Respiratory: Denies cough and Denies dyspnea Gastrointestinal Gastrointestinal: Denies abdominal pain Endocrine Endocrine: Denies palpitations Physical Exam 2 Vital Signs: Vital Signs: Last Vital Signs Temp 99.7 F 10/22/22 08:02 Pulse 100 10/22/22 08:02 Resp 18 10/22/22 08:02 BP 118/58 L 10/22/22 08:02 Pulse Ox 98 10/22/22 08:02 O2 Del Method 10/22/22 08:02 O2 Flow Rate 3 10/22/22 08:02 Oxygen Flow Rate 3 10/06/22 12:30 BMI result Body Mass Index 14.4 Appearing in no acute distress lung sounds are clear to auscultation heart regular rate rhythm, clear S1, S2 positive bowel sounds, abdomen is soft, nontender neuro patient is alert x3, no focal deficits Objective Data Active Medications Acetaminophen (Acetaminophen 325 Mg Tablet) 650 mg PO Q6H PRN PRN Reason: Pain, Mild (Pain Scale 1-3) Last Admin: 10/19/22 17:01 Dose: 650 mg Documented By: FRANKIE Calcitonin [place] (Calcitonin,[place],Synth Nasal 3.7 Ml Bottle) 1 spray NOSTRILALT DAILY [facility] Last Admin: 10/22/22 08:43 Dose: 1 spray Documented By: FREDIS Docusate Sodium (Docusate Sodium 100 Mg Capsule) 100 mg PO DAILY [facility] Last Admin: 10/22/22 08:42 Dose: 100 mg Documented By: FREDIS Heparin Sodium (Porcine) (Heparin Sodium,Porcine 5,000 Unit/Ml Vial) 5,000 unit SUBCUT Q12H [facility] Last Admin: 10/22/22 08:42 Dose: 5,000 unit Documented By: FREDIS Hydromorphone HCl (Hydromorphone Hcl 1 Mg/Ml Syringe) 1 mg IVPUSH Q3H PRN; Protocol PRN Reason: Pain, Severe (Pain Scale 7-10) Last Admin: 10/22/22 09:33 Dose: 1 mg Documented By: FREDIS Promethazine HCl 6.25 mg/ (Sodium Chloride) 50.25 mls @ 201 mls/hr IV Q6H PRN PRN Reason: Nausea Lidocaine (Lidocaine 4 % Patch Adh..Patch) 1 patch TRANSDERMA DAILY [facility]; Protocol Last Admin: 10/22/22 08:42 Dose: 1 patch Documented By: FREDIS Lidocaine (Lidocaine 4 % Patch Adh..Patch) 1 patch TRANSDERMA DAILY [facility]; Protocol Last Admin: 10/22/22 08:42 Dose: 1 patch Documented By: FREDIS Magnesium Oxide (Magnesium Oxide 400 Mg Tablet) [facility] Last Admin: 10/22/22 08:42 Dose: 400 mg Documented By: FREDIS Ondansetron HCl (Ondansetron Hcl 4 Mg/2 Ml Vial) 4 mg IVPUSH Q8H PRN PRN Reason: Nausea and Vomiting Last Admin: 10/07/22 07:45 Dose: 4 mg Documented By: DAVID Oxycodone HCl (Oxycodone Hcl Er 10 Mg Tab.Er.12h) 10 mg PO BID [facility] Last Admin: 10/22/22 08:42 Dose: 10 mg Documented By: FREDIS Oxycodone HCl (Oxycodone Hcl Immed Release 5 Mg Tablet) 5 mg PO Q4H PRN PRN Reason: Pain, Moderate (Pain Scale 4-6 Last Admin: 10/21/22 14:08 Dose: 5 mg Documented By: ISAAC Pharmacy Consult (Consult Rx Perform Med Rec) 1 each MISCELLANE ONCE PRN PRN Reason: Consult order Polyethylene Glycol (Polyethylene Glycol 3350 17 Gm Powd.Pack) 17 gm PO DAILY PRN PRN Reason: Constipation Last Admin: 10/21/22 20:48 Dose: 17 gm Documented By: KHANG Sodium Chloride (0.9 % Sodium Chloride Flush 3 Ml Syringe) [facility] Last Admin: 10/22/22 08:43 Dose: 3 ml Documented By: FREDIS Labs CBC & Chem 7: 10/07/22 06:25 10/20/22 05:38 Assessment and Plan (1) Severe malnutrition: Status: Acute (2) Hypercalcemia: Status: Acute (3) Squamous cell carcinoma of lung: Status: Acute Plan 57-year-old male with past medical history of lung cancer diagnosed in May of this year, presents to the hospital with complaints of pain all over his body found to have hypercalcemia Intractable pain. Secondary to metastatic lung cancer Start Dilaudid FILM PAINTER pump for intractable pain Supportive care Acute hypercalcemia. likely secondary to lung cancer intact parathyroid hormone calcium trending down to 11.8 calcitonin Hypokalemia secondary to poor nutrition resolved Metastatic lung cancer Image shows new metastasis 2 multiple locations including the adrenal glands, peritoneum and retroperitoneum locations Hematology-Oncology consulted-possible hospice/palliative care in LTC Nausea and vomiting Secondary to metastatic cancer Supportive care COPD continue supplemental oxygen, wean as tolerated Severe protein calorie malnutrition. BMI 14.4 Add protein diet DVT prophylaxis:? Heparin subQ Attending Dr. Whitfield DNR/DNI poor prognosis Disposition Plan for hospice at [facility], insurance is being worked out currently. family unable to care for patient at home discussed with family (brother &sister at bedside) to consider changing to NAPHTHALENE STILL OPERATOR while in the hospital if not likely for patient to get insurance authorization for rehab in the next day or so. attempted to call HCP Irbilson but was unable to leave message inpatient need:possible Metastatic disease - pain control requiring frequent doses of IV pain medications Awaiting rehab-hospice/palliative Quality Stroke Does the patient have a stroke diagnosis?: No VTE Prior VTE?: No VTE Risk Level:: Medical - moderate - high VTE Device Contraindication: Treatment Not Indicated VTE Drug Contraindication: N/A - Med Ordered
--- NOTE | 2022-10-22 13:18 | P.PNHO-ONC_ITS ---
Medical Summary - Medical Summary Date of Service: 10/22/22 Chief complaint: Diffuse body pains/weakness Medical Summary: Diagnosis: Left squamous cell carcinoma diagnosed May 2022 CT chest with contrast performed 05/26/2022 showed heterogenous mass in the left hilum measuring 4.4 x 2.6 x 3.5 cm. Occlusion of left lower lobe bronchus with severe emphysema. Much of the left lower lobe was collapsed. Left hilar lymph node enlarged, metastatic disease. AJCC stage T2b N1 He had bronchoscopy and biopsy of left lower lobe endobronchial lesion on 05/29/2022 which revealed poorly differentiated squamous cell carcinoma. NGS revealed PDL1- TPS 1%, ALK, EGFR,KRAS, BRAF, MET, RET, ROS1 negative. MSI- stable, mcbride-TRK not expressed, HER2 negative, PTEN deletion positive (may respond PI3K/AKT/mTOR and PARP inhibitors). CDKN2A and SMARCA4 (SNV's/insertions/deletions) detected. Staging CT abdomen/pelvis with contrast and brain MRI performed 06/05/2022 showed no evidence of distant metastasis. He was seen by Dr. Grady from [facility], concurrent chemor adiation therapy. CTA performed 06/22/2022 showed no PE but postobstructive atelectasis of entire le ft lung due to obstruction of left mainstem bronchus by growing left hilar mass. On 07/02/2022 Dr. Stark attempted bronchoscopy with argon/razor tumor debulking but this was not enough to open of the collapsed left lung. Interval History Interval history: Patient is lying in bed, appears comfortable. He is on pain medication and has been made comfort measures. His sister is at the bedside. Review of Systems - Neurologic Reports weakness [facility] Medical History: Medical History (Last Updated 10/12/22 @ 13:02 by Dylon Nelson MD) Asthma COPD (chronic obstructive pulmonary disease) Hypoxia O2 dependent Respiratory failure Squamous cell carcinoma of lung Onset Date: ~2021 Subcutaneous nodule of back Tobacco dependence Family History: Family History (Last Reviewed 10/07/22 @ 14:02 by Simran Mcmillan MD) Other No family history of cancer Surgical History: Surgical History (Last Reviewed 10/07/22 @ 14:02 by Simran Mcmillan MD) History of lung biopsy Onset Date: ~05/2022 Social History: Social History (Last Reviewed 10/07/22 @ 14:02 by Simran Mcmillan MD) Living Situation History: Household Members: Family Household Members Other:: brother Housing: Apartment Are you a primary small animal caretaker to a significant other at home: No Do you presently have visiting nurse or other home services: Yes Tobacco History: Patient Tobacco Use Status: Former Tobacco user Tobacco use type: Cigarette Cigarette Packs Per Day: 1 Years Smoked: 45 Smoke Quit Date: 4 months Second Hand Smoke Exposure: No Occupation Assessmet: service: No Current occupational status: disabled Home Medications and Allergies Current Medications: Current Medications Acetaminophen (Acetaminophen 325 Mg Tablet) 650 mg PO Q6H PRN PRN Reason: Pain, Mild (Pain Scale 1-3) Last Admin: 10/19/22 17:01 Dose: 650 mg Calcitonin [place] (Calcitonin,[place],Synth Nasal 3.7 Ml Bottle) 1 spray NOSTRILALT DAILY [facility] Last Admin: 10/22/22 08:43 Dose: 1 spray Docusate Sodium (Docusate Sodium 100 Mg Capsule) 100 mg PO DAILY [facility] Last Admin: 10/22/22 08:42 Dose: 100 mg Heparin Sodium (Porcine) (Heparin Sodium,Porcine 5,000 Unit/Ml Vial) 5,000 unit SUBCUT Q12H [facility] Last Admin: 10/22/22 08:42 Dose: 5,000 unit Hydromorphone HCl (Hydromorphone Hcl 1 Mg/Ml Syringe) 1 mg IVPUSH Q3H PRN; Protocol PRN Reason: Pain, Severe (Pain Scale 7-10) Last Admin: 10/22/22 09:33 Dose: 1 mg Promethazine HCl 6.25 mg/ (Sodium Chloride) 50.25 mls @ 201 mls/hr IV Q6H PRN PRN Reason: Nausea Hydromorphone HCl (Dilaudid) 10 mg in 50 mls @ 0 mls/hr IV .Q0M [facility]; Protocol Lidocaine (Lidocaine 4 % Patch Adh..Patch) 1 patch TRANSDERMA DAILY [facility]; Protocol Last Admin: 10/22/22 08:42 Dose: 1 patch Lidocaine (Lidocaine 4 % Patch Adh..Patch) 1 patch TRANSDERMA DAILY [facility]; Protocol Last Admin: 10/22/22 08:42 Dose: 1 patch Magnesium Oxide (Magnesium Oxide 400 Mg Tablet) 400 mg PO BIDPC [facility] Last Admin: 10/22/22 08:42 Dose: 400 mg Naloxone HCl (Naloxone Hcl 0.4 Mg/Ml Vial) 0.2 mg IVPUSH Q2M PRN PRN Reason: Excessive sedation or RR < 8 Ondansetron HCl (Ondansetron Hcl 4 Mg/2 Ml Vial) 4 mg IVPUSH Q8H PRN PRN Reason: Nausea and Vomiting Last Admin: 10/07/22 07:45 Dose: 4 mg Oxycodone HCl (Oxycodone Hcl Immed Release 5 Mg Tablet) 5 mg PO Q4H PRN PRN Reason: Pain, Moderate (Pain Scale 4-6 Last Admin: 10/21/22 14:08 Dose: 5 mg Oxycodone HCl (Oxycodone Hcl Er 10 Mg Tab.Er.12h) 10 mg PO BID PRN PRN Reason: Severe Pain uncontrolled byPCA Pharmacy Consult (Consult Rx Perform Med Rec) 1 each MISCELLANE ONCE PRN PRN Reason: Consult order Polyethylene Glycol (Polyethylene Glycol 3350 17 Gm Powd.Pack) 17 gm PO DAILY PRN PRN Reason: Constipation Last Admin: 10/21/22 20:48 Dose: 17 gm Sodium Chloride (0.9 % Sodium Chloride Flush 3 Ml Syringe) 3 ml IVFLUSH [facility] Last Admin: 10/22/22 08:43 Dose: 3 ml Home Medications Medication Instructions Recorded Confirmed Type acetaminophen 325 mg tablet 650 mg PO QID PRN Pain 10/07/22 10/07/22 History (Tylenol) albuterol sulfate 90 mcg/actuation 1 inh inhalation QID PRN Shortness 10/07/22 10/07/22 History aerosol inhaler Of Breath Or Wheezing omeprazole 40 mg capsule,delayed 40 mg PO DAILY@0630 10/07/22 10/07/22 History release ondansetron 4 mg disintegrating 1 tab Q8H PRN nausea 10/07/22 10/07/22 History tablet Allergies Allergy/AdvReac Type Severity Reaction Status Date / Time No Known Allergies Allergy Verified 07/03/22 16:42 Exam Vital signs: Vital Signs Temp 99.7 F 10/22/22 08:02 Pulse 100 10/22/22 08:02 Resp 18 10/22/22 08:02 BP 118/58 L 10/22/22 08:02 Pulse Ox 98 10/22/22 08:02 O2 Del Method 10/22/22 08:02 O2 Flow Rate 3 10/22/22 08:02 Intake & Output 10/21/22 10/22/22 10/22/22 18:59 06:59 18:59 Intake Total 1595 / 3056.667 1461.667 / 3056.667 1000 / 1000 Output Total 0 / 1700 1700 / 1700 Balance 1595 / 1356.667 -238.333 / 4455.054 7332 / 1000 Urine Output (Average ml/kg/hr) 3.72 3.72 Intake: Intake, Oral Amount 640 / 1240 600 / 1240 Intake, IV Amount 955 / 1816.667 861.667 / 0590.664 2976 / 1000 0.9 % Sodium Chloride 1,000 ml 955 / 1816.667 861.667 / 3648.212 7724 / 1000 @ 100 mls/hr IVCONT .Q10H [facility] Rx#:[id number] Output: Output, Urine Amount 1700 / 1700 Output, Stool Amount 0 / 0 Other: Breakfast % Eaten 75% Lunch % Eaten 75% Dinner % Eaten 100% Number of Bowel Movements 1 Urine ext cath Urine Color Yellow Yellow Last Bowel Movement 10/22/22 Continuous Bladder Irrigation Fluid - Amount Drained [place] 1,400 Weight 38.102 kg BMI result Body Mass Index 14.4 - Constitutional Present: no acute distress, cachectic, chronically ill appearing - Routine HEENT Exam Head: Present: atraumatic - Routine Neck Exam Present: full ROM - Routine Chest/Breast/Axilla Exam Chest wall: Present: tenderness - Routine Respiratory Exam Present: CTAB. Absent: accessory muscle use, respiratory distress - Routine Cardiovascular Exam Cardiovascular: Present: RRR, S1, S2 - Routine Abdominal Exam Present: diminished bowel sounds, soft - Routine Extremities Exam Present: normal inspection. Absent: calf tenderness - Routine Back/Spine/Pelvis Exam Back/Spine: Present: full ROM - Routine Skin Exam Present: intact. Absent: cyanosis - Routine Neurological Exam Present: alert, oriented X3 Data - Labs CBC & Chem 7: 10/07/22 06:25 10/20/22 05:38 - Imaging Radiologist's impression: ITS Impressions Chest X-Ray 10/06/22 13:27 IMPRESSION: 1. Interval improvement in left lung opacification with decreased cardiomediastinal shift to the left. Left basilar and apical pleural thickening and scarring. A small left pleural effusion cannot be excluded. 2. New irregular lytic lesion in the proximal left humerus concerning for malignancy/metastatic disease. Abdomen/Pelvis CT 10/06/22 16:19 IMPRESSION: 1. There are multiple new abnormal soft tissue nodules seen within the peritoneal and retroperitoneal space concerning for metastatic disease. There is also new bulky cardiophrenic adenopathy concerning for metastatic adenopathy. The left adrenal gland is partially obscured by a new retroperitoneal mass lesion as well.. These could be clinically correlated. PET CT scan or biopsy may be helpful to define further if needed. 2. I do not appreciate any obstructive changes to the bowel. Lack of significant intra-abdominal fat limits evaluation. 3. Chronic appearing changes otherwise as described above. Bone Osseous Survey 10/07/22 10:25 IMPRESSION: Lytic lesions within the left humeral diaphysis and left inferior pubic ramus, consistent with osseous metastatic disease. Questionable lesion in the right fibular shaft. Recommend repeat dedicated orthogonal views of the right tibia and fibula for further assessment. Assessment and Plan Patient Active problem list reviewed?: Yes (1) Primary lung cancer with metastasis from lung to other site Status: Acute Assessment and plan: 1. This is a 57-year-old man with left lung squamous cell carcinoma diagnosed in May 2022. He had bronchoscopy and biopsy of left lower lobe endobronchial lesion on 05/29/2022 which revealed poorly differentiated squamous cell carcinoma. PET-CT performed at [facility] showed no evidence of distant metastasis. He had multifocal FDG avid disease in the left lung, SUV up to 20. He started weekly Carboplatin AUC 2 with paclitaxel 50 milligram/meter sq with concurrent radiation therapy from 08/02/22 and completed treatment beginning of September 2022. Unfortunately, he now presents with progressive, metastatic disease with new lytic lesion in left shoulder as well as progressive lymphadenopathy in his chest and abdomen. His clinical condition deteriorated because of pain in cancer cachexia. Hypercalcemia secondary to malignancy and lytic bony lesions. He received Prolia. He was made DNR/DNI a week ago and has been awaiting placement for inpatient hospice care. Events of last week noted. Patient is now comfort measures, he has been waiting for placement. His sister feels that the pain medication is helping and she has no other concerns at this time. Appreciate hospitalist team in the care of this patient. Thank you. - Time Spent With Patient Time Spent with Patient (in minutes): 10
[2022-10-22] MEDS: HYDROmorphone HCl/NS 10 MG/50 ML PIGGYBACK 9.5 MG IV ×2 (14:10→19:20)
--- NOTE | 2022-10-22 19:20 | PC.NURSE ---
Changed dilaudid ENERGY SALES BROKER bag at 1916 with Pratibha Mcgee RN, wasted 7.5 ml in pyxis.
[2022-10-23] VITALS (14 sets, daily range): BP systolic 90–109; BP diastolic 53–59; PULSE 100–127; RESP 11–22; TEMP 36.7–38.3; O2SAT 90–98
[2022-10-23] MEDS: HYDROmorphone HCl/NS 10 MG/50 ML PIGGYBACK 9.5 MG IV ×5 (00:39→22:36)
[2022-10-23] MEDS: Lidocaine 4 % Patch ADH..PATCH 1 PATCH TRANSDERMA ×2 (08:10→08:11)
[2022-10-23] MEDS: Heparin Sodium,Porcine 5,000 UNIT/ML VIAL 5000 UNIT SUBCUT ×2 (08:11→19:57)
[2022-10-23] MEDS: Calcitonin,Salmon,Synth Nasal 3.7 ML BOTTLE 1 SPRAY NOSTRILALT (08:12)
--- NOTE | 2022-10-23 11:29 | HO.PM.IMPN ---
Subjective Subjective Date of Service: 10/23/22 Interval History: Pain better controlled on RACK ROOM WORKER pump no abdominal pain. still not eating much Review of Systems Review of Systems: Yes all other systems are reviewed and are negative Constitutional Constitutional: Denies chills and Denies fever(s) Cardiovascular Cardiovascular: Denies chest pain, Denies palpitations and Denies dyspnea Respiratory Respiratory: Denies cough and Denies dyspnea Gastrointestinal Gastrointestinal: Denies abdominal pain Endocrine Endocrine: Denies palpitations Physical Exam Vital Signs: Vital Signs: Last Vital Signs Temp 98.1 F 10/23/22 11:02 Pulse 111 H 10/23/22 11:02 Resp 16 10/23/22 11:02 BP 109/55 L 10/23/22 11:02 Pulse Ox 98 10/23/22 11:02 O2 Del Method 10/23/22 11:02 O2 Flow Rate 3 10/22/22 19:35 Oxygen Flow Rate 3 10/06/22 12:30 BMI result Body Mass Index 14.4 Appearing in no acute distress, thin and frail lung sounds are clear to auscultation heart regular rate rhythm, clear S1, S2 positive bowel sounds, abdomen is soft, nontender neuro patient is alert, sleepy Objective Data Active Medications Acetaminophen (Acetaminophen 325 Mg Tablet) 650 mg PO Q6H PRN PRN Reason: Pain, Mild (Pain Scale 1-3) Last Admin: 10/19/22 17:01 Dose: 650 mg Documented By: FRANKIE Calcitonin [place] (Calcitonin,[place],Synth Nasal 3.7 Ml Bottle) 1 spray NOSTRILALT DAILY [facility] Last Admin: 10/23/22 08:12 Dose: 1 spray Documented By: PEGGY Docusate Sodium (Docusate Sodium 100 Mg Capsule) 100 mg PO DAILY [facility] Last Admin: 10/23/22 08:11 Dose: Not Given Documented By: PEGGY Non-Admin Reason: pt drowsy Heparin Sodium (Porcine) (Heparin Sodium,Porcine 5,000 Unit/Ml Vial) 5,000 unit SUBCUT Q12H [facility] Last Admin: 10/23/22 08:11 Dose: 5,000 unit Documented By: PEGGY Hydromorphone HCl (Hydromorphone Hcl 1 Mg/Ml Syringe) 1 mg IVPUSH Q3H PRN; Protocol PRN Reason: Pain, Severe (Pain Scale 7-10) Last Admin: 10/22/22 09:33 Dose: 1 mg Documented By: FREDIS Promethazine HCl 6.25 mg/ (Sodium Chloride) 50.25 mls @ 201 mls/hr IV Q6H PRN PRN Reason: Nausea Hydromorphone HCl (Dilaudid) 10 mg in 50 mls @ 0 mls/hr IV .Q0M [facility]; Protocol Last Admin: 10/23/22 05:58 Dose: 1.9 mg/hr, 9.5 mls/hr Documented By: KHANG Lidocaine (Lidocaine 4 % Patch Adh..Patch) 1 patch TRANSDERMA DAILY [facility]; Protocol Last Admin: 10/23/22 08:10 Dose: 1 patch Documented By: PEGGY Lidocaine (Lidocaine 4 % Patch Adh..Patch) 1 patch TRANSDERMA DAILY [facility]; Protocol Last Admin: 10/23/22 08:11 Dose: 1 patch Documented By: PEGGY Magnesium Oxide (Magnesium Oxide 400 Mg Tablet) 400 mg PO BIDPC [facility] Last Admin: 10/23/22 08:12 Dose: Not Given Documented By: PEGGY Non-Admin Reason: pt drowsy Naloxone HCl (Naloxone Hcl 0.4 Mg/Ml Vial) 0.2 mg IVPUSH Q2M PRN PRN Reason: Excessive sedation or RR < 8 Ondansetron HCl (Ondansetron Hcl 4 Mg/2 Ml Vial) 4 mg IVPUSH Q8H PRN PRN Reason: Nausea and Vomiting Last Admin: 10/07/22 07:45 Dose: 4 mg Documented By: DAVID Oxycodone HCl (Oxycodone Hcl Immed Release 5 Mg Tablet) 5 mg PO Q4H PRN PRN Reason: Pain, Moderate (Pain Scale 4-6 Last Admin: 10/21/22 14:08 Dose: 5 mg Documented By: ISAAC Oxycodone HCl (Oxycodone Hcl Er 10 Mg Tab.Er.12h) 10 mg PO BID PRN PRN Reason: Severe Pain uncontrolled byA Pharmacy Consult (Consult Rx Perform Med Rec) 1 each MISCELLANE ONCE PRN PRN Reason: Consult order Polyethylene Glycol (Polyethylene Glycol 3350 17 Gm Powd.Pack) 17 gm PO DAILY PRN PRN Reason: Constipation Last Admin: 10/21/22 20:48 Dose: 17 gm Documented By: KHANG Sodium Chloride (0.9 % Sodium Chloride Flush 3 Ml Syringe) 3 ml IVFLUSH QSHIFT [facility] Last Admin: 10/23/22 08:11 Dose: Not Given Documented By: PEGGY Non-Admin Reason: IV Running Labs CBC & Chem 7: 10/07/22 06:25 10/20/22 05:38 Assessment and Plan (1) Severe malnutrition: Status: Acute (2) Hypercalcemia: Status: Acute (3) Squamous cell carcinoma of lung: Status: Acute Plan 57-year-old male with past medical history of lung cancer diagnosed in May of this year, presents to the hospital with complaints of pain all over his body found to have hypercalcemia Intractable pain. Secondary to metastatic lung cancer Dilaudid RACK ROOM WORKER pump for intractable pain, helping, patient more comfortable scopolamine added as needed lorazepam for anxiety Supportive care Acute hypercalcemia. likely secondary to lung cancer intact parathyroid hormone calcium trending down to 11.8 calcitonin Hypokalemia secondary to poor nutrition resolved Metastatic lung cancer Image shows new metastasis 2 multiple locations including the adrenal glands, peritoneum and retroperitoneum locations Hematology-Oncology consulted-possible hospice/palliative care in LTC Nausea and vomiting Secondary to metastatic cancer Supportive care COPD continue supplemental oxygen, wean as tolerated Severe protein calorie malnutrition. BMI 14.4 Add protein diet DVT prophylaxis:? Heparin subQ Attending Dr. Santillan DNR/DNI poor prognosis Disposition Plan for hospice at long-term [facility], insurance is being worked out currently. family unable to care for patient at home discussed with family (brother &sister at bedside) to consider changing to GARAGE DOOR SERVICE TECHNICIAN while in the hospital if not likely for patient to get insurance authorization for rehab in the next day or so. attempted to call HCP Irbilson but was unable to leave message inpatient need:possible Metastatic disease - pain control requiring frequent doses of IV pain medications Quality Stroke Does the patient have a stroke diagnosis?: No VTE Prior VTE?: No VTE Risk Level:: Medical - moderate - high VTE Device Contraindication: Treatment Not Indicated VTE Drug Contraindication: N/A - Med Ordered
[2022-10-23] MEDS: Scopolamine 1.5 MG PATCH.TD.3 EAR-BEHIND (11:48)
--- NOTE | 2022-10-23 22:48 | PC.NURSE ---
Dilaudid MEDICAL ONCOLOGIST bag changed at 2236 with Marci Pope RN. Wasted 7.5 ml in pyxis with second RN, Marci Pope.
[2022-10-23] MEDS: Acetaminophen 1,000 MG/100 ML PIGGYBACK 400 MG IV (23:15)
--- NOTE | 2022-10-23 23:37 | PC.NURSE ---
1999 vital signs; temp 100.9, hr 127, rr 20, bp 102/53, O2 91% on [address] Aponte made aware of pt's vitals. 2199; temp 100.1, hr 120, rr 22, bp 94/53, O2 90% Patient's sister at bedside asked that we do not take blood pressure/vitals to not make patient uncomfortable. Sister asking if we can treat elevated temperature. Dr. Aponte made aware. iv tylenol ordered and administered.
[2022-10-24] VITALS: RESP 20; TEMP 37.6
[2022-10-24 02:00] VITALS: RESP 20
[2022-10-24 04:00] VITALS: RESP 12
[2022-10-24] MEDS: HYDROmorphone HCl/NS 10 MG/50 ML PIGGYBACK 9.5 MG IV ×4 (04:16→21:03)
[2022-10-24] MEDS: Heparin Sodium,Porcine 5,000 UNIT/ML VIAL 5000 UNIT SUBCUT (07:47)
[2022-10-24] MEDS: Lidocaine 4 % Patch ADH..PATCH 1 PATCH TRANSDERMA ×2 (07:47→07:48)
--- NOTE | 2022-10-24 09:49 | MHC.CLN ---
F/U CONTINUES WITH USUALLY POOR INTAKE. DIET=FULL LIQUIDS, ENSURE CLEAR TID. SKIN WITH REDNESS TO BACK. FOLLOW FOR PLAN OF CARE.
--- NOTE | 2022-10-24 11:19 | HO.PM.IMPN ---
Subjective Subjective Date of Service: 10/27/22 Interval History: Pain better controlled on AUTOMATION CONTROLS ENGINEER pump somnolent made MEDICAL DONATION PROFESSIONAL Review of Systems Review of Systems: Yes all other systems are reviewed and are negative Constitutional Constitutional: Denies chills and Denies fever(s) Cardiovascular Cardiovascular: Denies chest pain, Denies palpitations and Denies dyspnea Respiratory Respiratory: Denies cough and Denies dyspnea Gastrointestinal Gastrointestinal: Denies abdominal pain Endocrine Endocrine: Denies palpitations Physical Exam Vital Signs: Vital Signs: Last Vital Signs Temp 99.6 F 10/24/22 00:00 Pulse 120 H 10/23/22 22:00 Resp 12 10/24/22 04:00 BP 94/53 L 10/23/22 22:00 Pulse Ox 90 L 10/23/22 22:00 O2 Del Method 10/23/22 22:00 O2 Flow Rate 3 10/23/22 22:00 Oxygen Flow Rate 3 10/06/22 12:30 BMI result Body Mass Index 14.4 Objective Data Active Medications Acetaminophen (Acetaminophen Supp 650 Mg Supp.Rect) 650 mg [place] Q6H PRN PRN Reason: Fever Hydromorphone HCl (Hydromorphone Hcl 1 Mg/Ml Syringe) 1 mg IVPUSH Q3H PRN; Protocol PRN Reason: Pain, Severe (Pain Scale 7-10) Last Admin: 10/22/22 09:33 Dose: 1 mg Documented By: FREDIS Promethazine HCl 6.25 mg/ (Sodium Chloride) 50.25 mls @ 201 mls/hr IV Q6H PRN PRN Reason: Nausea Hydromorphone HCl (Dilaudid) 10 mg in 50 mls @ 0 mls/hr IV .Q0M [facility]; Protocol Last Admin: 10/24/22 09:46 Dose: 1.9 mg/hr, 9.5 mls/hr Documented By: PEGGY Lidocaine (Lidocaine 4 % Patch Adh..Patch) 1 patch TRANSDERMA DAILY [facility]; Protocol Last Admin: 10/24/22 07:47 Dose: 1 patch Documented By: ALICIA Lidocaine (Lidocaine 4 % Patch Adh..Patch) 1 patch TRANSDERMA DAILY [facility]; Protocol Last Admin: 10/24/22 07:48 Dose: 1 patch Documented By: ALICIA Lorazepam (Lorazepam 1 Mg Tablet) 1 mg PO Q4H PRN PRN Reason: anxiety Ondansetron HCl (Ondansetron Hcl 4 Mg/2 Ml Vial) 4 mg IVPUSH Q8H PRN PRN Reason: Nausea and Vomiting Last Admin: 10/07/22 07:45 Dose: 4 mg Documented By: DAVID Oxycodone HCl (Oxycodone Hcl Immed Release 5 Mg Tablet) 5 mg PO Q4H PRN PRN Reason: Pain, Moderate (Pain Scale 4-6 Last Admin: 10/21/22 14:08 Dose: 5 mg Documented By: ISAAC Oxycodone HCl (Oxycodone Hcl Er 10 Mg Tab.Er.12h) 10 mg PO BID PRN PRN Reason: Severe Pain uncontrolled byPCA Pharmacy Consult (Consult Rx Perform Med Rec) 1 each MISCELLANE ONCE PRN PRN Reason: Consult order Scopolamine (Scopolamine 1.5 Mg Patch.Td.3) 1.5 mg EAR-BEHIND Q72H [facility] Last Admin: 10/23/22 11:48 Dose: 1.5 mg Documented By: PEGGY Sodium Chloride (0.9 % Sodium Chloride Flush 3 Ml Syringe) 3 ml IVFLUSH QSHIFT [facility] Last Admin: 10/24/22 07:52 Dose: Not Given Documented By: ALICIA Non-Admin Reason: IV Running Labs CBC & Chem 7: 10/07/22 06:25 10/20/22 05:38 Assessment and Plan (1) Severe malnutrition: (2) Hypercalcemia: (3) Squamous cell carcinoma of lung: Plan 57-year-old male with past medical history of lung cancer diagnosed in May of this year, presents to the hospital with complaints of pain all over his body found to have hypercalcemia Intractable pain. Secondary to metastatic lung cancer. Now MEDICAL DONATION PROFESSIONAL Dilaudid AUTOMATION CONTROLS ENGINEER pump for intractable pain Scopolamine for secretions Lorazepam for anxiety Rectal Tylenol for fever Acute hypercalcemia. likely secondary to lung cancer intact parathyroid hormone calcium trending down to 11.8 calcitonin Hypokalemia secondary to poor nutrition resolved Metastatic lung cancer Image shows new metastasis 2 multiple locations including the adrenal glands, peritoneum and retroperitoneum locations Hematology-Oncology consulted-possible hospice/palliative care in LTC Nausea and vomiting. Resolved Secondary to metastatic cancer Supportive care COPD continue supplemental oxygen, wean as tolerated Severe protein calorie malnutrition. BMI 14.4 Add protein diet DVT prophylaxis:? Stop heparin Attending Dr. Santillan Comfort measures only inpatient need:possible Metastatic disease - pain control requiring frequent doses of IV pain medications Quality Stroke Does the patient have a stroke diagnosis?: No VTE Prior VTE?: No VTE Risk Level:: Medical - moderate - high VTE Device Contraindication: Treatment Not Indicated VTE Drug Contraindication: N/A - Med Ordered
--- NOTE | 2022-10-24 13:16 | MHC.CM.PN ---
PER HOSPITALIST PT NOW SENIOR ABAP DEVELOPER, FAMILY HAS BEEN AT BEDSIDE VISITING, CM WILL CONT TO FOLLOW.
--- NOTE | 2022-10-24 14:07 | PC.NURSE ---
Patient made COMPUTER SOFTWARE ENGINEER today, on OVEN ROASTER dilaudid, basal rate infusing 1.9 mg/hr. Patient is sedated, appears comfortable, family at bedside at all times.
[2022-10-24 16:00] VITALS: RESP 20
[2022-10-24 19:26] VITALS: RESP 20
[2022-10-25] MEDS: HYDROmorphone HCl/NS 10 MG/50 ML PIGGYBACK 9.5 MG IV ×4 (02:33→20:03)
[2022-10-25 08:00] VITALS: RESP 16
[2022-10-25] MEDS: Lidocaine 4 % Patch ADH..PATCH 1 PATCH TRANSDERMA ×2 (10:27)
--- NOTE | 2022-10-25 10:58 | P.PNIM_ITS ---
Subjective Subjective Date of Service: 10/25/22 Interval History: seen and examined this morning follow up - patient BACK PANEL PADDER appears comfortable, breathing unlabored. unable to obtain ROS Physical Exam Vital Signs: Vital Signs: Last Vital Signs Temp 99.6 F 10/24/22 00:00 Pulse 120 H 10/23/22 22:00 Resp 16 10/25/22 08:00 BP 94/53 L 10/23/22 22:00 Pulse Ox 90 L 10/23/22 22:00 O2 Del Method 10/23/22 22:00 O2 Flow Rate 3 10/23/22 22:00 Oxygen Flow Rate 3 10/06/22 12:30 BMI result Body Mass Index 14.4 Const: Other: appears comfortable breathing unlabored solmnolent, not answering questions Objective Data Active Medications Acetaminophen (Acetaminophen Supp 650 Mg Supp.Rect) 650 mg [place] Q6H PRN PRN Reason: Fever Hydromorphone HCl (Hydromorphone Hcl 1 Mg/Ml Syringe) 1 mg IVPUSH Q3H PRN; Protocol PRN Reason: Pain, Severe (Pain Scale 7-10) Last Admin: 10/22/22 09:33 Dose: 1 mg Documented By: FREIDS Promethazine HCl 6.25 mg/ (Sodium Chloride) 50.25 mls @ 201 mls/hr IV Q6H PRN PRN Reason: Nausea Hydromorphone HCl (Dilaudid) 10 mg in 50 mls @ 0 mls/hr IV .Q0M [facility]; Protocol Last Admin: 10/25/22 08:51 Dose: 1.9 mg/hr, 9.5 mls/hr Documented By: ERIC Lidocaine (Lidocaine 4 % Patch Adh..Patch) 1 patch TRANSDERMA DAILY [facility]; Protocol Last Admin: 10/25/22 10:27 Dose: 1 patch Documented By: ERIC Lidocaine (Lidocaine 4 % Patch Adh..Patch) 1 patch TRANSDERMA DAILY [facility]; Protocol Last Admin: 10/25/22 10:27 Dose: 1 patch Documented By: ERIC Lorazepam (Lorazepam 1 Mg Tablet) 1 mg PO Q4H PRN PRN Reason: anxiety Ondansetron HCl (Ondansetron Hcl 4 Mg/2 Ml Vial) 4 mg IVPUSH Q8H PRN PRN Reason: Nausea and Vomiting Last Admin: 10/07/22 07:45 Dose: 4 mg Documented By: SERRANBianca Oxycodone HCl (Oxycodone Hcl Er 10 Mg Tab.Er.12h) 10 mg PO BID PRN PRN Reason: Severe Pain uncontrolled byPCA Pharmacy Consult (Consult Rx Perform Med Rec) 1 each MISCELLANE ONCE PRN PRN Reason: Consult order Scopolamine (Scopolamine 1.5 Mg Patch.Td.3) 1.5 mg EAR-BEHIND Q72H [facility] Last Admin: 10/23/22 11:48 Dose: 1.5 mg Documented By: LYSSilvia Sodium Chloride (0.9 % Sodium Chloride Flush 3 Ml Syringe) 3 ml IVFLUSH QSHIFT [facility] Last Admin: 10/25/22 09:52 Dose: Not Given Documented By: ERIC Non-Admin Reason: IV Running Labs CBC & Chem 7: 10/07/22 06:25 10/20/22 05:38 Assessment and Plan (1) Squamous cell carcinoma of lung: Status: Acute Plan 57-year-old male with past medical history of lung cancer diagnosed in May of this year, presents to the hospital with complaints of pain all over his body found to have hypercalcemia Intractable pain. Secondary to metastatic lung cancer. Now BACK PANEL PADDER Dilaudid FILTER CLOTH MAKER pump for intractable pain Scopolamine for secretions Lorazepam for anxiety Rectal Tylenol for fever Metastatic lung cancer Image shows new metastasis 2 multiple locations including the adrenal glands, peritoneum and retroperitoneum locations now BACK PANEL PADDER Acute hypercalcemia. likely secondary to lung cancer Hypokalemia secondary to poor nutrition Nausea and vomiting. Supportive care COPD continue supplemental oxygen, wean as tolerated Severe protein calorie malnutrition. BMI 14.[address] Santillan Comfort measures only inpatient need: BACK PANEL PADDER - pain control Quality Stroke Does the patient have a stroke diagnosis?: No VTE Prior VTE?: No VTE Risk Level:: Medical - moderate - high VTE Device Contraindication: Treatment Not Indicated VTE Drug Contraindication: N/A - Med Ordered
--- NOTE | 2022-10-25 13:20 | MHC.CDI.CONC ---
CDI Concurrent Query Documentation Clarification: PHYSICIAN'S DOCUMENTATION REQUEST Date of Query: 10/25/22 1321 Patient Name: Rafael Eubanks Admit Date: 10/06/22 Dear Doctor, A review of the medical record indicates additional documentation may be needed. Please review below and update the documentation accordingly. Clinical Indicators: The following information is noted in the medical record: Risk Factors/Clinical Indicators/Treatments progress note 10/25/22: somnolent, not answering questions patient is SCANNING COORDINATOR Based on the above, could you clarify in the Progress Notes which, if any of the following, best reflects the patient's level of consciousness? Unconscious Comatose Persistent vegetative state Transient level of awareness Other (please specify) Unable to determine Use of terms such as suspected, likely, concern for, or probable (associated with a specific diagnosis that is being evaluated, monitored, or treated as if it exists) are acceptable and can be coded in the inpatient setting, when documented at the time of discharge. Thank you, Em Danielson RN Extension: [phone] Please use your independent medical judgment in providing your response. THIS QUERY IS PART OF THE PERMANENT MEDICAL RECORD Provider Response: Other Other Diagnosis: he is not comatose. he is somnolent. he is SCANNING COORDINATOR and on dilaudid drip
[2022-10-25 16:00] VITALS: RESP 18
[2022-10-26] VITALS: RESP 18
[2022-10-26] MEDS: HYDROmorphone HCl/NS 10 MG/50 ML PIGGYBACK 9.5 MG IV ×5 (00:54→22:06)
--- NOTE | 2022-10-26 02:49 | PC.NURSE ---
at 2002 dilaudid sub master bag changed with witness Hanna Grubbs wasted med in pixes
--- NOTE | 2022-10-26 03:01 | PC.NURSE ---
at 0058 dilaudid counter clerk farm equipment parts bag changed with Sobia obando wasted 13 ml of medication in pixes
--- NOTE | 2022-10-26 05:53 | PC.NURSE ---
0550 Dilaudid games dealer bag changed with Hanna Tabares as witness wasted 12.5 ml of medication in pixis
[2022-10-26 08:00] VITALS: RESP 22
[2022-10-26] MEDS: Lidocaine 4 % Patch ADH..PATCH 1 PATCH TRANSDERMA ×2 (09:07)
--- NOTE | 2022-10-26 10:42 | PM.EVENT ---
Event Note Date of Service: 10/26/22 Event Note: Comfort measures only, appear comfortable, breathing not labored. Discussed with relative at bedside. Registration working on changing identity to real name and credentialing. Bill for level 1 follow up
[2022-10-26] MEDS: Scopolamine 1.5 MG PATCH.TD.3 EAR-BEHIND (11:04)
--- NOTE | 2022-10-26 11:37 | MHC.CLN ---
F/U PATIENT NOW DYNAMITE CARTRIDGE CRIMPER. RD AVAILABLE NEEDED.
--- NOTE | 2022-10-26 14:42 | PC.NURSE ---
1105 JUDICIAL ADMINISTRATIVE ASSISTANT dilaudid bag changed with Karie Cleaning RN as a witness, 13 ml wasted in pyxis
[2022-10-26 15:44] VITALS: RESP 22; TEMP 38.1
[2022-10-26 23:29] VITALS: RESP 20; TEMP 38.1
[2022-10-26] MEDS: Acetaminophen Supp 650 MG SUPP.RECT PR (23:30)
[2022-10-27] MEDS: HYDROmorphone HCl/NS 10 MG/50 ML PIGGYBACK 9.5 MG IV ×3 (03:08→13:56)
[2022-10-27] MEDS: Lidocaine 4 % Patch ADH..PATCH 1 PATCH TRANSDERMA ×2 (07:35→07:36)
--- NOTE | 2022-10-27 09:28 | PM.EVENT ---
Event Note Date of Service: 10/27/22 Event Note: Comfort measures only, appear comfortable, agonal breathing. Continue comfort care. Pt true identity has been verified and restored by registration. Follow up level 1 Time Spent With Patient Time: Total time managing care of this patient today ____ minutes.
--- NOTE | 2022-10-27 13:55 | PM.HEMONCPN ---
Medical Summary - Medical Summary Date of Service: 10/27/22 Chief complaint: carcinoma of lung Medical Summary: Diagnosis: Left squamous cell carcinoma diagnosed May 2022 CT chest with contrast performed 05/26/2022 showed heterogenous mass in the left hilum measuring 4.4 x 2.6 x 3.5 cm. Occlusion of left lower lobe bronchus with severe emphysema. Much of the left lower lobe was collapsed. Left hilar lymph node enlarged, metastatic disease. AJCC stage T2b N1 He had bronchoscopy and biopsy of left lower lobe endobronchial lesion on 05/29/2022 which revealed poorly differentiated squamous cell carcinoma. NGS revealed PDL1- TPS 1%, ALK, EGFR,KRAS, BRAF, MET, RET, ROS1 negative. MSI-stable, mcbride-TRK not expressed, HER2 negative, PTEN deletion positive (may respond PI3K/AKT/mTOR and PARP inhibitors). CDKN2A and SMARCA4 (SNV's/insertions/deletions) detected. Staging CT abdomen/pelvis with contrast and brain MRI performed 06/05/2022 showed no evidence of distant metastasis. He was seen by Dr. Grady from [facility], concurrent chemoradiation therapy. CTA performed 06/22/2022 showed no PE but postobstructive atelectasis of entire left lung due to obstruction of left mainstem bronchus by growing left hilar mass. On 07/02/2022 Dr. Stark attempted bronchoscopy with argon/razor tumor debulking but this was not enough to open of the collapsed left lung. Interval History Interval history: He is moribund at present breathing slowly and very shallowly. He is surrounded by family who say he is not complaining of discomfort of any kind. Review of Systems - Eyes Reports sensitivity to light - ENT Reports hoarseness - Cardiovascular Reports fast heart rate - Respiratory Reports chest congestion, Reports pain with cough - Gastrointestinal Reports feeling full early - Genitourinary Genitourinary: Reports urinary incontinence - Musculoskeletal Reports muscle weakness - Neurologic Reports weakness PMFSH Medical History: Medical History Asthma Asthma Asthma Asthma Asthma Asthma Asthma Asthma Asthma Asthma Asthma Asthma Asthma Asthma Asthma Asthma Asthma Asthma COPD (chronic obstructive pulmonary disease) COPD (chronic obstructive pulmonary disease) COPD (chronic obstructive pulmonary disease) COPD (chronic obstructive pulmonary disease) COPD (chronic obstructive pulmonary disease) COPD (chronic obstructive pulmonary disease) COPD (chronic obstructive pulmonary disease) COPD (chronic obstructive pulmonary disease) COPD (chronic obstructive pulmonary disease) COPD (chronic obstructive pulmonary disease) COPD (chronic obstructive pulmonary disease) COPD (chronic obstructive pulmonary disease) COPD (chronic obstructive pulmonary disease) COPD (chronic obstructive pulmonary disease) COPD (chronic obstructive pulmonary disease) COPD (chronic obstructive pulmonary disease) COPD (chronic obstructive pulmonary disease) COPD (chronic obstructive pulmonary disease) Hypoxia Hypoxia Hypoxia Hypoxia Hypoxia Hypoxia Hypoxia Hypoxia Hypoxia Hypoxia Hypoxia Hypoxia Hypoxia Hypoxia Hypoxia Hypoxia Hypoxia Hypoxia O2 dependent O2 dependent O2 dependent O2 dependent O2 dependent O2 dependent O2 dependent O2 dependent O2 dependent O2 dependent O2 dependent O2 dependent O2 dependent O2 dependent O2 dependent O2 dependent O2 dependent O2 dependent Respiratory failure Respiratory failure Respiratory failure Respiratory failure Respiratory failure Respiratory failure Respiratory failure Respiratory failure Respiratory failure Respiratory failure Respiratory failure Respiratory failure Respiratory failure Respiratory failure Respiratory failure Respiratory failure Respiratory failure Respiratory failure Squamous cell carcinoma of lung Onset Date: ~2021 Squamous cell carcinoma of lung Onset Date: ~2021 Squamous cell carcinoma of lung Onset Date: ~2021 Squamous cell carcinoma of lung Onset Date: ~2021 Squamous cell carcinoma of lung Onset Date: ~2021 Squamous cell carcinoma of lung Onset Date: ~2021 Squamous cell carcinoma of lung Onset Date: ~2021 Squamous cell carcinoma of lung Onset Date: ~2021 Squamous cell carcinoma of lung Onset Date: ~2021 Squamous cell carcinoma of lung Onset Date: ~2021 Squamous cell carcinoma of lung Onset Date: ~2021 Squamous cell carcinoma of lung Onset Date: ~2021 Squamous cell carcinoma of lung Onset Date: ~2021 Squamous cell carcinoma of lung Onset Date: ~2021 Squamous cell carcinoma of lung Onset Date: ~2021 Squamous cell carcinoma of lung Onset Date: ~2021 Squamous cell carcinoma of lung Onset Date: ~2021 Squamous cell carcinoma of lung Onset Date: ~2021 Subcutaneous nodule of back Subcutaneous nodule of back Subcutaneous nodule of back Subcutaneous nodule of back Subcutaneous nodule of back Subcutaneous nodule of back Subcutaneous nodule of back Subcutaneous nodule of back Subcutaneous nodule of back Subcutaneous nodule of back Subcutaneous nodule of back Subcutaneous nodule of back Subcutaneous nodule of back Subcutaneous nodule of back Subcutaneous nodule of back Subcutaneous nodule of back Subcutaneous nodule of back Subcutaneous nodule of back Tobacco dependence Tobacco dependence Tobacco dependence Tobacco dependence Tobacco dependence Tobacco dependence Tobacco dependence Tobacco dependence Tobacco dependence Tobacco dependence Tobacco dependence Tobacco dependence Tobacco dependence Tobacco dependence Tobacco dependence Tobacco dependence Tobacco dependence Tobacco dependence Surgical History: Surgical History History of lung biopsy Onset Date: ~05/2022 History of lung biopsy Onset Date: ~05/2022 History of lung biopsy Onset Date: ~05/2022 History of lung biopsy Onset Date: ~05/2022 History of lung biopsy Onset Date: ~05/2022 History of lung biopsy Onset Date: ~05/2022 History of lung biopsy Onset Date: ~05/2022 History of lung biopsy Onset Date: ~05/2022 History of lung biopsy Onset Date: ~05/2022 History of lung biopsy Onset Date: ~05/2022 History of lung biopsy Onset Date: ~05/2022 History of lung biopsy Onset Date: ~05/2022 History of lung biopsy Onset Date: ~05/2022 History of lung biopsy Onset Date: ~05/2022 History of lung biopsy Onset Date: ~05/2022 History of lung biopsy Onset Date: ~05/2022 History of lung biopsy Onset Date: ~05/2022 History of lung biopsy Onset Date: ~05/2022 Social History: Social History Living Situation History: Household Members: Family Household Members Other:: brother Housing: Apartment Are you a primary cardiac care nurse to a significant other at home: No Do you presently have visiting nurse or other home services: Yes Tobacco History: Patient Tobacco Use Status: Former Tobacco user Tobacco use type: Cigarette Cigarette Packs Per Day: 1 Years Smoked: 45 Smoke Quit Date: 4 months Second Hand Smoke Exposure: No Occupation Assessmet: service: No Current occupational status: disabled Home Medications and Allergies Current Medications: Current Medications Acetaminophen (Acetaminophen Supp 650 Mg Supp.Rect) 650 mg MN Q6H PRN PRN Reason: Fever Last Admin: 10/26/22 23:30 Dose: 650 mg Promethazine HCl 6.25 mg/ (Sodium Chloride) 50.25 mls @ 201 mls/hr IV Q6H PRN PRN Reason: Nausea Hydromorphone HCl (Dilaudid) 10 mg in 50 mls @ 0 mls/hr IV .Q0M ABIMBOLA; Protocol Last Admin: 10/27/22 08:32 Dose: 1.9 mg/hr, 9.5 mls/hr Lidocaine (Lidocaine 4 % Patch Adh..Patch) 1 patch TRANSDERMA DAILY ABIMBOLA; Protocol Last Admin: 10/27/22 07:35 Dose: 1 patch Lidocaine (Lidocaine 4 % Patch Adh..Patch) 1 patch TRANSDERMA DAILY ABIMBOLA; Protocol Last Admin: 10/27/22 07:36 Dose: 1 patch Lorazepam (Lorazepam 1 Mg Tablet) 1 mg PO Q4H PRN PRN Reason: anxiety Ondansetron HCl (Ondansetron Hcl 4 Mg/2 Ml Vial) 4 mg IVPUSH Q8H PRN PRN Reason: Nausea and Vomiting Last Admin: 10/07/22 07:45 Dose: 4 mg Oxycodone HCl (Oxycodone Hcl Er 10 Mg Tab.Er.12h) 10 mg PO BID PRN PRN Reason: Severe Pain uncontrolled byPCA Pharmacy Consult (Consult Rx Perform Med Rec) 1 each MISCELLANE ONCE PRN PRN Reason: Consult order Scopolamine (Scopolamine 1.5 Mg Patch.Td.3) 1.5 mg EAR-BEHIND Q72H [facility] Last Admin: 10/26/22 11:04 Dose: 1.5 mg Sodium Chloride (0.9 % Sodium Chloride Flush 3 Ml Syringe) 3 ml IVFLUSH QSHIFT [facility] Last Admin: 10/27/22 07:30 Dose: Not Given Home Medications Medication Instructions Recorded Confirmed Type acetaminophen 325 mg tablet 650 mg PO QID PRN Pain 10/07/22 10/07/22 History (Tylenol) albuterol sulfate 90 mcg/actuation 1 inh inhalation QID PRN Shortness 10/07/22 10/07/22 History aerosol inhaler Of Breath Or Wheezing omeprazole 40 mg capsule,delayed 40 mg PO DAILY@0630 10/07/22 10/07/22 History release ondansetron 4 mg disintegrating 1 tab Q8H PRN nausea 10/07/22 10/07/22 History tablet Allergies Allergy/AdvReac Type Severity Reaction Status Date / Time No Known Allergies Allergy Unverified 07/03/22 16:42 Exam Vital signs: Vital Signs Temp 100.5 F H 10/26/22 23:29 Pulse 120 H 10/23/22 22:00 Resp 20 10/26/22 23:29 BP 94/53 L 10/23/22 22:00 Pulse Ox 90 L 10/23/22 22:00 O2 Del Method 10/23/22 22:00 O2 Flow Rate 3 10/23/22 22:00 Intake & Output 10/26/22 10/27/22 10/27/22 18:59 06:59 18:59 Intake Total 100 / 197.817 97.817 / 197.817 50 / 50 Balance 100 / 197.817 97.817 / 197.817 50 / 50 Intake: Intake, IV Amount 100 / 197.817 97.817 / 197.817 50 / 50 HYDROmorphone HCl/NS 10 mg In 100 / 197.817 97.817 / 197.817 50 / 50 50 ml @ Per Protocol IV .Q0M [facility] Rx#:[id number] Weight 38.102 kg BMI result Body Mass Index 14.4 - Constitutional Present: no acute distress, cachectic, chronically ill appearing - Routine HEENT Exam Head: Present: atraumatic ENT: Present: mucous membranes dry - Routine Neck Exam Present: full ROM, normal inspection - Routine Chest/Breast/Axilla Exam Chest wall: Present: tenderness - Routine Respiratory Exam Present: decreased breath sounds, CTAB. Absent: accessory muscle use, respiratory distress - Routine Cardiovascular Exam Cardiovascular: Present: RRR, S1, S2 - Routine Abdominal Exam Present: diminished bowel sounds, soft - Routine Extremities Exam Present: normal inspection. Absent: calf tenderness - Routine Back/Spine/Pelvis Exam Back/Spine: Present: full ROM - Routine Skin Exam Present: intact. Absent: cyanosis - Routine Neurological Exam Present: alert, oriented X3 - Detailed Neurological Exam: Coma Scale Verbal Response: No response (1) Data - Labs CBC & Chem 7: 10/07/22 06:25 10/20/22 05:38 - Imaging Radiologist's impression: ITS Impressions Chest X-Ray 10/06/22 13:27 IMPRESSION: 1. Interval improvement in left lung opacification with decreased cardiomediastinal shift to the left. Left basilar and apical pleural thickening and scarring. A small left pleural effusion cannot be excluded. 2. New irregular lytic lesion in the proximal left humerus concerning for malignancy/metastatic disease. Abdomen/Pelvis CT 10/06/22 16:19 IMPRESSION: 1. There are multiple new abnormal soft tissue nodules seen within the peritoneal and retroperitoneal space concerning for metastatic disease. There is also new bulky cardiophrenic adenopathy concerning for metastatic adenopathy. The left adrenal gland is partially obscured by a new retroperitoneal mass lesion as well.. These could be clinically correlated. PET CT scan or biopsy may be helpful to define further if needed. 2. I do not appreciate any obstructive changes to the bowel. Lack of significant intra-abdominal fat limits evaluation. 3. Chronic appearing changes otherwise as described above. Bone Osseous Survey 10/07/22 10:25 IMPRESSION: Lytic lesions within the left humeral diaphysis and left inferior pubic ramus, consistent with osseous metastatic disease. Questionable lesion in the right fibular shaft. Recommend repeat dedicated orthogonal views of the right tibia and fibula for further assessment. Assessment and Plan Patient Active problem list reviewed?: Yes (1) Squamous cell carcinoma of lung Problem details: ([facility] - dx 05/2022) Status: Acute Assessment and plan: He seems stable with adequate palliation. Hwe is moribund with famiuly surrounding him. - Time Spent With Patient Time Spent with Patient (in minutes): 15
--- NOTE | 2022-10-27 16:29 | PM.EVENT ---
Event Note Date of Service: 10/27/22 Event Note: Patient at 4:10 pm , confirmed with no heart sounds, no lungs sounds, pupils dilated and fixed, no response to painful stimuli. Pronounced at 4:10 pm. Family comforted at bedside. See kitty for details. Time Spent With Patient Time: Total time managing care of this patient today ____ minutes.
--- NOTE | 2022-10-27 16:33 | P.DN_ITS ---
Discharge Sum: Prov Provider Primary care physician: Renetta Riddle MD Consults: 10/06/22 19:15 Consult to Hematology / Oncology Routine Consulting Provider: Mylene Arroyo Reason for consultation: lung cancer with mets, hypercalcemia Has provider been notified: No 10/07/22 07:51 Consult to Nephrology Routine Consulting Provider: Luciano Juarez Reason for consultation: hypercalcemia in setting of metastatic cancer Has provider been notified: No 10/12/22 10:10 Consult to General Surgery Routine Consulting Provider: Dylon Nleson Reason for consultation: painful nodule on back Discharge Sum: Diag Contributing Factors (1) Squamous cell carcinoma of lung: (2) Hypercalcemia: (3) Severe malnutrition: Discharge Sum: Summary Date and Time Date of admission: 10/06/22 19:19 Date of : 10/27/22 Time of : 16:10 Summary Details: Chief Complaint: Diffuse pain Patient is Occitan-speaking, history is obtained with the help of an food server ?57-year-old male with past medical history of lung disease diagnosed in May, COPD, asthma, presents to the hospital with complaints of pain all over his body in 20 can ambulate.? Patient reports that he has pain in his shoulders, worse on the left.? With no recent injury or trauma.? No recent fall.? Patient reports he has pain in his legs.? Reports that he has not been drinking and eating well, he denies any fever or chills, no abdominal pain nausea or vomiting, no diarrhea but has significant constipation, no urinary symptoms.? And no lower extremity edema.? On arrival to the ED patient hemodynamically stable Labs are significant for WBC count 3.6, hemoglobin of 9.1, hematocrit 29.2 which is around his baseline,?calcium of 13.4,?UA negative, COVID influenza negative Abdomen pelvic CT shows multiple new abnormal soft tissue nodule seen within the peritoneal and retroperitoneal space concerning for metastatic disease.? There is also new bulky cardiophrenic adenopathy concerning for metastatic adenopathy, left adrenal gland is partially obscured by a new retroperitoneal mass lesion, Patient started on IV fluids and will be admitted for further management Hospital course: Patient was diagnosed with Left squamous cell carcinoma diagnosed May 2022 CT chest with contrast performed 05/26/2022 showed heterogenous mass in the left hilum measuring 4.4 x 2.6 x 3.5 cm.? Occlusion of left lower lobe bronchus with severe emphysema.? Much of the left lower lobe was collapsed.? Left hilar lymph node enlarged, metastatic disease.? AJCC stage T2b N1 He had bronchoscopy and biopsy of left lower lobe endobronchial lesion on 05/29/2022 which revealed poorly differentiated squamous cell carcinoma. NGS revealed PDL1- TPS 1%,? ALK, EGFR,KRAS, BRAF, MET, RET, ROS1 negative.? MSI- stable, mcbride-TRK not expressed, HER2 negative, PTEN deletion positive (may respond PI3K/AKT/mTOR and PARP inhibitors). CDKN2A and SMARCA4 (SNV's/insertions/deletions) detected. Staging CT abdomen/pelvis with contrast and brain MRI performed 06/05/2022 showed no evidence of distant metastasis. He was seen by Dr. Grady from [facility], concurrent chemoradiation therapy. CTA performed 06/22/2022 showed no PE but postobstructive atelectasis of entire left lung due to obstruction of left mainstem bronchus by growing left hilar mass. On 07/02/2022 Dr. Stark attempted bronchoscopy with argon/razor tumor debulking but this was not enough to open of the collapsed left lung. He was admitted on this occasion with intractable pain due to cancer and is profoundly cachectic with malnutrition failure to thrive, he never make progress during hospitalization and ultimately was made comfort by the family and on this day October 27 at 4:10 pm. Family was at the bedside. Of note the patient presentd initially was a name that was different from his actual name and this was identified and corrected by registration and current name reflect this patint's identity Additional Data Attending physician: Ruben Santillan MD Was code activated?: No ampoule examiner notified?: No Advance directives: No Hospice patient?: Yes
--- NOTE | 2022-10-27 18:17 | PC.NURSE ---
patient , pronounced by at 1610. Family at bedside ,[facility] called at 1617, body declined, more info in computer.
== END 2022-10-27 21:00 | disposition expired | DRG 861 ==
LOC: HO.ED 18:29 → HO.EDOVER 19:34 → HO.S3 10-07 14:01
PROVIDERS: Internal Medicine; Physician Assistant; Physician Assistant Medical; Admitting Provider Internal Medicine; Emergency Provider Emergency Medicine Emergency Medical Services; PCP Internal Medicine; Visit Provider Internal Medicine
DX: G89.3 Neoplasm related pain (acute) (chronic) (principal); E43 Unspecified severe protein-calorie malnutrition; J96.11 Chronic respiratory failure with hypoxia; C77.8 Secondary and unspecified malignant neoplasm of lymph nodes of multiple regions; C79.51 Secondary malignant neoplasm of bone; C34.32 Malignant neoplasm of lower lobe, left bronchus or lung; C79.71 Secondary malignant neoplasm of right adrenal gland; Z99.81 Dependence on supplemental oxygen; Z68.1 Body mass index [BMI] 19.9 or less, adult; Z51.5 Encounter for palliative care; E87.6 Hypokalemia; E83.52 Hypercalcemia; J43.9 Emphysema, unspecified; C79.72 Secondary malignant neoplasm of left adrenal gland; Z20.822 Contact with and (suspected) exposure to COVID-19; Z87.891 Personal history of nicotine dependence; Z79.899 Other long term (current) drug therapy
CPT/HCPCS: 0241U; 36415; 71045; 74177; 77075; 80048; 80076; 81003; 82310; 83519; 83605; 83615; 83690; 83735; 83880; 83970; 84100; 84484; 84550; 85025; 85610; 87040; 93005; 99285; J0131; J1170; J2270; J2405; J2430; J2765; J3475; Q9967